=== PATIENT | male | born 1950 | race Caucasian/White ===

== ENCOUNTER 2021-04-27 09:16 | Outpatient (CLI) | payer MEDICARE, OTHER, SELFPAY ==
--- NOTE | 2021-04-27 09:48 | ECHO_ITS ---
Patient Info Name: Brandon Bergeron Age: 70 years : 1950 Gender: Male Ht: 70 in Wt: 211 lbs BSA: 2.20 m2 HR: 53 bpm BP: 174 / 82 mmHg Technical Quality: Good Exam Date: 04/27/2021 9:55 AM Exam Location: [facility] Patient Status: Outpatient Admit Date: 04/27/2021 Staff Ordering Physician: Allie Alan MD Proposal Rep: Erica Oneill RDCS Attending Provider: Allie Alan MD Referring Physician: Waqas CONNER; Exam Type: CA echo doppler color flow Study Info Indications I48.0 - Paroxysmal atrial fibrillation Complete two-dimensional, color flow and Doppler transthoracic echocardiogram is performed. Summary 1. Complete two-dimensional, color flow and Doppler transthoracic echocardiogram is performed. 2. Left ventricular chamber dimension is normal. 3. Left ventricular systolic function is normal, estimated at 65-70%. 4. The left ventricular diastolic function is abnormal. 5. E/e' 10 is mildly elevated. 6. Left atrial chamber dimension is mildly enlarged. 7. There is mild aortic valve sclerosis. 8. No pulmonary hypertension, estimated pulmonary arterial systolic pressure is 12 mmHg. Left Ventricle E/e' 10 is mildly elevated. Left ventricular chamber dimension is normal. Left ventricular systolic function is normal, estimated at 65-70%. The left ventricular diastolic function is abnormal. Right Ventricle Right ventricular chamber dimension is normal. Right ventricular systolic function is normal. Left Atria Left atrial chamber dimension is mildly enlarged. Right Atria Right atrial chamber dimension is normal. Aortic Valve The aortic valve is trileaflet. There is mild aortic valve sclerosis. There is no aortic valve stenosis. There is no aortic valve regurgitation. Pulmonic Valve There is no pulmonic regurgitation. Mitral Valve There is no mitral valve stenosis. There is no mitral valve regurgitation. Tricuspid Valve There is no tricuspid valve regurgitation. No pulmonary hypertension, estimated pulmonary arterial systolic pressure is 12 mmHg. Pericardium/Pleural There is no pericardial effusion. Inferior Vena Cava Normal inferior vena cava with >50% collapse upon inspiration consistent with normal right atrial pressure, 5 mmHg. Aorta The aortic root size at the sinus of Valsalva is normal. Left Ventricular Outflow Tract Name Value Normal LVOT 2D LVOT Diameter 2.0 cm LVOT Doppler LVOT Peak Gradient 6 mmHg LVOT Mean Gradient 3 mmHg LVOT VTI 29 cm LVOT VTI/AV VTI Ratio 0.9 LVOT Stroke Volume 89 ml LVOT CO 4.3 l/min LVOT CI 1.9 l/min/m2 Pulmonic Valve Name Value Normal RVOT Doppler
== END 2021-04-27 09:17 | disposition home or self-care (01) ==
PROVIDERS: PCP Family Medicine; Visit Provider Family Medicine
DX: I48.0 Paroxysmal atrial fibrillation (principal)
CPT/HCPCS: 93306

== ENCOUNTER 2021-04-29 13:39 | Outpatient (CLI) | payer MEDICARE, OTHER, SELFPAY ==
--- NOTE | ~2021-04-29 | MR_ITS ---
EXAMINATION: MR brain IAC wo/w con DATE: 04/29/2021 15:15 INDICATION: Aphasia. Left ear hearing loss. Paroxysmal atrial fibrillation. TECHNIQUE: Magnetic resonance imaging (MRI) of the brain, brainstem, and internal auditory canals was performed without and with 19 mL MultiHance intravenous contrast. Sequences included sagittal and ax ial T1-weighted FSE, axial diffusion-weighted FS EPI, axial T2*-weighted GRE, axial T2-weighted FLAIR Propeller, axial T2-weighted Propeller, small ydelx-hj-tbxx coronal FIESTA, small zufmj-sg-tbrn mehrdad nal T1-weighted FSE, and small vmfod-of-knnx axial T1-weighted SPGR. Postcontrast sequences included axial T1-weighted FSE, small okwii-oh-xthh coronal T1-weighted FSE, and small cktan-jn-zwzo axial T1- weighted SPGR. Apparent diffusion coefficient (ADC) maps were created. COMPARISON: Head CT 08/08/2019 FINDINGS: There is a small old infarct in left frontal lobe. There is old infarct in periventricular right frontal lobe. There are scattered areas of nonspecific increased T2-weighted signal intensity i n the cerebral white matter and mau, which is within normal limits for the patient's age. There is n o intracranial hemorrhage, acute infarction, or abnormal intracranial mass lesion. There is ex vacuo dilatation of body of right lateral ventricle. The paranasal sinuses are clear. The orbits are normal . The internal auditory canals and inner and middle ears are normal. The mastoid air cells are normal . IMPRESSION: 1. 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 Reviewed, dictated and finalized at location A.
== END 2021-04-29 13:40 | disposition home or self-care (01) ==
LOC: ANHIMG 13:45
PROVIDERS: PCP Family Medicine; Visit Provider Family Medicine
DX: I48.0 Paroxysmal atrial fibrillation (principal)
CPT/HCPCS: 70553; A9577

== ENCOUNTER 2021-05-16 18:22 | Inpatient (IN) | payer MEDICARE, OTHER, SELFPAY ==
--- NOTE | ~2021-05-16 | XR_ITS ---
XR foot LT min 3V DATE: 05/16/2021 19:22 INDICATION: Redness, pain and swelling of first metatarsal plantar surface. History of diabetes yungi sherman. TECHNIQUE: 4 views COMPARISON: None FINDINGS: Plate and screws are noted along the distal fibula. There is bone destruction including loss of cortex along the medial aspect and to a lesser extent lat eral aspect of the head of the first metatarsal bone, consistent with osteomyelitis. No fracture or dislocation. Slight plantar calcaneal enthesopathy. IMPRESSION: Bone destruction of the head of the first metatarsal bone consistent with osteomyelitis i n this patient with history of diabetes and redness, pain and swelling along the first metatarsal Reviewed, dictated and finalized at location A. IMPRESSION: Bone destruction of the head of the first metatarsal bone consisten t with osteomyelitis in this patient with history of diabetes and redness, pain and swelling along the first metatarsal
--- NOTE | ~2021-05-16 | XR_ITS ---
EXAMINATION: XR chest PICC line EXAM DATE: 05/20/2021 15:14 INDICATION: PICC line placement. TECHNIQUE: Portable AP frontal chest x-ray was obtained. Comparison is made to prior examination from 03/22/2013. FINDINGS: There is a left-sided PICC line with tip projecting over the cavoatrial junction. The lungs are clear. There are no pleural effusions. The cardiomediastinal silhouette is within normal limit s. There is no pneumothorax suspected. The bones and soft tissues are unremarkable. IMPRESSION: PICC line in position. Clear lungs. Reviewed, dictated and finalized at location B.
[2021-05-16 18:38] VITALS: BP 144/79; PULSE 79; RESP 19; TEMP 38.3; O2SAT 97
--- NOTE | 2021-05-16 19:26 | ED.WOUNDLAC ---
HPI - Wound/Laceration General Chief Complaint: Wound/Laceration Stated Complaint: left foot pain Time Seen by Provider: 05/16/21 19:08 Source: patient Mode of arrival: ambulatory Limitations: no limitations History of Present Illness HPI narrative: Patient is a 70-year-old male complaining of left foot redness and swelling that started when he woke up this morning. Patient states that he has an ulcer on his left foot, which is currently being treated and followed by his machine stuffer automatic. Patient has a history of diabetes. Patient states that he saw his machine stuffer automatic this past week, has been dressing his wound with collagen, and has been healing well until he woke up this morning and it was red and swollen along with a fever. Related Data Home Medications Medication Instructions Recorded Confirmed aspirin 325 mg tablet 325 mg PO DAILY 08/02/19 04/13/21 omeprazole 20 mg capsule,delayed 20 mg PO DAILY 08/02/19 04/13/21 release cvyjrkqrcrqg-wlt-ansyo acid-vit 1 tablet PO DAILY 04/13/21 04/13/21 K-lycop 400 mcg-20 mcg-370 mcg tablet Allergies Allergy/AdvReac Type Severity Reaction Status Date / Time No Known Allergies Allergy Mild Verified 05/16/21 19:42 Review of Systems Review of Systems: All systems reviewed & are unremarkable except as noted in HPI and below Constitutional: Constitutional: Denies body ache(s), Denies chills, Denies excessive sweating, Denies fatigue, Denies fever(s), Denies headache(s), Denies lethargy, Denies malaise, Denies weakness and Denies weight loss Eyes: Eyes: Denies blurry vision, Denies change in vision and Denies loss of vision ENT: Denies dizziness, Denies ear discharge, Denies headache(s), Denies lip swelling, Denies epistaxis, Denies nasal congestion, Denies neck pain, Denies throat swelling and Denies tongue swelling Cardiovascular: Cardiovascular: Denies chest pain, Denies chest pain at rest, Denies chest pain with activity, Denies diaphoresis, Denies rapid heart rate, Denies edema, Denies irregular heart rhythm, Denies lightheadedness, Denies palpitations, Denies dyspnea and Denies dyspnea on exertion Respiratory: Respiratory: Denies chest congestion, Denies cough, Denies hemoptysis, Denies dyspnea and Denies dyspnea on exertion Gastrointestinal: Gastrointestinal: Denies abdominal pain, Denies melena, Denies hematochezia, Denies diarrhea, Denies nausea, Denies vomiting and Denies hematemesis Musculoskeletal: Musculoskeletal: Denies abnormal gait, Denies deformity, Denies joint swelling, Denies limited range of motion, Denies neck pain and Denies numbness Neurologic: Denies Abnormal speech present, Denies abnormal gait, Denies confusion, Denies dizziness, Denies headache(s), Denies focal weakness, Denies loss of vision, Denies numbness, Denies Other visual disturbances, Denies Sensory deficit (Neuro) and Denies weakness Psychiatric: Psychiatric: Denies confusion, Denies depression, Denies auditory hallucinations, Denies homicidal ideation and Denies suicidal ideation Endocrine: Endocrine: Denies cold intolerance, Denies excessive sweating, Denies fatigue, Denies heat intolerance and Denies palpitations Hematologic/Lymphatic: Hematologic/Lymphatic: Denies easy bleeding and Denies easy bruising Allergic/Immunologic: Allergic/Immunologic: Denies lip swelling, Denies throat swelling and Denies tongue swelling PMFSH Past Medical History Medical History Chronic renal insufficiency, stage III (moderate) Diabetic foot ulcer associated with type 2 diabetes mellitus Essential (primary) hypertension Magnesium deficiency Major depressive disorder, single episode, unspecified Non-pressure chronic ulcer of other part of left foot limited to breakdown of skin Paroxysmal atrial fibrillation Recurrent major depressive disorder, in partial remission Type 2 diabetes mellitus without complications Family History Family History (Reviewed 05/16/21 @ 1
[2021-05-16] MEDS: SODIUM CHLORIDE 0.9% IV 1,000 ML 999 ML IV CONT (19:45)
[2021-05-16] MEDS: ACETAMINOPHEN 500 MG TABLET 1000 MG PO (19:52)
[2021-05-16 19:58] LABS: Basophils Absolute Auto 0.1 K/mm3 (0.0-0.1); Basophils Percent Auto 0.3 % (0.2-1.2); Hematocrit 43.3 % (42.0-52.0); Hemoglobin 14.4 g/dL (14.0-18.0); Immature Granulocyte Absolute 0.11 K/mm3 (0.00-0.031); Immature Granulocyte Percent A 0.6 % (0-0.5); Lymphocytes Absolute Auto 1.07 K/mm3 (0.9-3.2); Mean Corpuscular HGB Conc 33.3 g/dl (32-36); Mean Corpuscular Hemoglobin 29.6 pg (26-34); Mean Corpuscular Volume 89.1 fl (80-100); Mean Platelet Volume 9.8 fl (7.4-10.4); Monocytes Absolute Auto 1.4 K/mm3 (0.1-0.6); Monocytes Percent Auto 7.8 % (2.6-8.5); Neutrophils Absolute Auto 15.2 K/mm3 (1.3-6.7); Neutrophils Percent Auto 85.3 % (45.5-73.1); Platelet Count Result 184 k/mm3 (150-375); Red Blood Count 4.86 M/mm3 (4.6-6.20); Red Cell Distribution Width 13.9 % (11.5-14.5); White Blood Count 17.8 K/mm3 (4.5-10.0)
[2021-05-16 20:08] LABS: Anion Gap 12 mmol/L (8-16); Blood Urea Nitrogen 15 mg/dL (9-20); Calcium 9.9 mg/dL (8.4-10.2); Carbon Dioxide 28 mmol/L (22-30); Chloride 99 mmol/L (98-107); Estimated CRCL calculation 68 ml/min; Estimated Glomerular Filt Rate > 60; Glucose 127 mg/dL (65-110); Lactic Acid Reflex 1.7 mmol/L (0.7-2.1); Potassium 4.4 mmol/L (3.4-5.0); Sodium 139 mmol/L (137-145)
[2021-05-16 20:27] VITALS: BP 133/75; PULSE 76; RESP 17; TEMP 37.7; O2SAT 95
[2021-05-16 21:26] VITALS: BP 134/77; PULSE 78; RESP 15; O2SAT 98
[2021-05-16 21:39] LABS: Erythrocyte Sedimentation Rate 11 mm/hr (0-20)
--- NOTE | 2021-05-16 21:58 | PC.NURSE ---
Dr Mccurdy at bedside at this time, requests pt go to floor after visit. proposal writer aware of delay.
[2021-05-16 22:00] VITALS: BP 143/49; PULSE 60; RESP 16; TEMP 36.4; O2SAT 98
[2021-05-16 22:22] VITALS: BP 133/81; PULSE 71; RESP 15; O2SAT 99
--- NOTE | 2021-05-16 22:25 | ADMGEN ---
This patient, Brandon Bergeron, was admitted to Medical Room 258-01. Patient/family oriented to hospital policies and general routines including ID bracelet, bed and alarms, visiting hours, pain management, procedures, bathroom and other care routines, personal items, smoking policy, room service/diet, and visiting hours. Information on how to activate the Rapid Response Team has been discussed. Patient/Family are encouraged to report perceived risks to care and to ask questions if they do not understand what they are told or what they should do.
--- NOTE | 2021-05-16 22:29 | PM.IMHP ---
H&P: HPI History of Present Illness Date/Time: 05/16/21 22:00 Chief Complaint: Left foot pain and swelling Narrative: 70-year-old male with past medical history of diabetic peripheral neuropathy trauma hypertension, paroxysmal atrial fibrillation and GERD who presented to the ER from home via private vehicle due to left foot pain in the setting of a chronic diabetic foot ulcer. The patient reports that he has had a chronic foot wound for several months that is being managed by Dr. Dubon boiling house hand in [place]. He reports that his diabetic foot wound had actually been doing good and was healing up. In suddenly last night he began having chills. Then in ditch digger hours he developed throbbing left foot pain. In the morning he noticed erythema and swelling of the area surrounding his foot ulcer. He has not noticed any drainage. He checked his temperature at home and had a fever of 100.4?. He did not take any pain medications or NSAIDs prior to arrival in the ER. In the ER he had a temperature is high as 100.9?. He denies any new injury the foot. He had not been on any recent antibiotic therapy. He reports that his last hemoglobin A1c was 6.8. He has not been having any issues with hyperglycemia. He is on oral is hypoglycemic agents. He does have chronic diabetic neuropathy for many years. He reports some chronic dyspnea on exertion but has not been having any cough, congestion or myalgias. He does have some chronic arthralgias that he thinks is due to osteoarthritis. He occasionally has some difficulty starting and stopping his urinary stream but denies any current dysuria, hematuria or changes in frequency. He does snore quite a lot. He has never had a sleep study. Does have history of atrial fibrillation but has not had any recent palpitations, lower extremity swelling or orthopnea. He has not followed with a machine records units supervisor in over 10 years. He reported that he had been on Xarelto briefly after an episode of atrial fibrillation but he stopped it when he developed hematuria. He states his primary care physician placed him on a full-dose aspirin after that event. The patient consented to discuss is medical condition from his daughter. Source of information is the patient and his daughter were both good historians. Review of Systems Review of Systems: 12 systems were reviewed with pertinent positives and negatives per HPI. Except as documented in the HPI, all other systems were reviewed and are negative. [facility] Past Medical History Medical History (Updated 05/17/21 @ 03:45 by Adele Mccurdy DO) Chronic renal insufficiency, stage III (moderate) Patient actually denies a history of chronic kidney disease and his creatinine is currently normal with a normal GFR Diabetes mellitus Diabetic foot ulcer associated with type 2 diabetes mellitus Diabetic peripheral neuropathy Dupuytren's contracture of left hand Eczema Essential (primary) hypertension Kidney stones Reportedly passed a kidney stone at 11 years of age Magnesium deficiency Major depressive disorder, single episode, unspecified Paroxysmal atrial fibrillation Psoriasis Recurrent major depressive disorder, in partial remission Surgical History Surgical History (Updated 05/17/21 @ 03:43 by Adele Mccurdy DO) Status post open reduction with internal fixation of fracture Left ankle ORIF [address] Tyler Family History Family History Father Myocardial infarct Family history of coronary artery disease, Onset Age: 66 Lung cancer Mother Leukemia Family history of coronary artery disease, Onset Age: 70 Diabetes mellitus Sibling Multiple sclerosis Sister Diabetes mellitus Social History Social History (Updated 05/17/21 @ 04:05 by Adele Mccurdy DO) Social History: He is and his ex- later . He reports that he is happy to be single and l
[2021-05-16] MEDS: LACTATED RINGERS 1,000 ML 125 ML IV CONT (22:59)
[2021-05-16 23:06] LABS: CRP 4.6 mg/dL (<1.0)
[2021-05-16 23:42] VITALS: TEMP 36.4
[2021-05-17] MEDS: metFORMIN HCL 500 MG TABLET 1000 MG PO ×3 (01:18→16:40)
[2021-05-17] MEDS: ZOLPIDEM TARTRATE (*CRX) 5 MG TABLET 10 MG PO ×2 (01:18→20:46)
[2021-05-17] MEDS: amLODIPine BESYLATE 2.5 MG TABLET PO ×2 (01:38→20:46)
[2021-05-17] MEDS: ASPIRIN 325 MG ENTERIC TABLET PO (01:38)
[2021-05-17 05:24] LABS: Basophils Percent Auto 0.2 % (0.2-1.2); Eosinophils Percent Auto 0.1 % (0-4.4); Hematocrit 37.9 % (42.0-52.0); Hemoglobin 12.8 g/dL (14.0-18.0); Immature Granulocyte Absolute 0.07 K/mm3 (0.00-0.031); Immature Granulocyte Percent A 0.5 % (0-0.5); Lymphocytes Absolute Auto 1.24 K/mm3 (0.9-3.2); Lymphocytes Percent Auto 8.4 % (18.3-44.2); Mean Corpuscular HGB Conc 33.8 g/dl (32-36); Mean Corpuscular Hemoglobin 29.3 pg (26-34); Mean Corpuscular Volume 86.7 fl (80-100); Mean Platelet Volume 9.9 fl (7.4-10.4); Monocytes Absolute Auto 1.5 K/mm3 (0.1-0.6); Monocytes Percent Auto 10.5 % (2.6-8.5); Neutrophils Absolute Auto 11.8 K/mm3 (1.3-6.7); Neutrophils Percent Auto 80.3 % (45.5-73.1); Platelet Count Result 167 k/mm3 (150-375); Red Blood Count 4.37 M/mm3 (4.6-6.20); Red Cell Distribution Width 13.7 % (11.5-14.5); White Blood Count 14.7 K/mm3 (4.5-10.0)
[2021-05-17 05:35] VITALS: BP 151/73; PULSE 83; RESP 16; TEMP 36.9; O2SAT 93
[2021-05-17 05:36] VITALS: BMI 29.5
[2021-05-17 05:38] LABS: Anion Gap 11 mmol/L (8-16); Blood Urea Nitrogen 14 mg/dL (9-20); Calcium 9.1 mg/dL (8.4-10.2); Carbon Dioxide 23 mmol/L (22-30); Chloride 104 mmol/L (98-107); Estimated CRCL calculation 59 ml/min; Estimated Glomerular Filt Rate > 60; Glucose 124 mg/dL (65-110); Potassium 3.7 mmol/L (3.4-5.0); Sodium 138 mmol/L (137-145)
[2021-05-17] MEDS: LACTATED RINGERS 1,000 ML 125 ML IV CONT (06:05)
[2021-05-17 08:03] VITALS: PULSE 106
[2021-05-17] MEDS: METOPROLOL SUCCINATE EXT REL 100 MG TABCR PO (08:03)
[2021-05-17] MEDS: CITALOPRAM HYDROBROMIDE 20 MG TABLET PO (08:03)
[2021-05-17] MEDS: THERAPEUTIC MULTIVITAMINS/MINERALS TAB (*BKC) 1 TABLET PO (08:03)
[2021-05-17] MEDS: lisinopriL 20 MG TABLET 40 MG PO (08:03)
[2021-05-17] MEDS: ENOXAPARIN 40 MG/0.4 ML SYRINGE SUB-Q (08:05)
[2021-05-17] MEDS: PANTOPRAZOLE 40 MG TABLET PO (08:06)
--- NOTE | 2021-05-17 09:37 | PM.IMPN ---
Progress Note: A&P Assessment and Plan (1) Sepsis: Code(s): A41.9 - Sepsis, unspecified organism Status: Acute Assessment and Plan: Met sepsis criteria on presentation with fever (100.9?) and leukocytosis. Source of infection is diabetic foot ulcer/osteomyelitis. Lactic is 1.7 Blood cultures pending Continue IV antibiotics Treatment as described below (2) Acute osteomyelitis of left foot: Code(s): M86.172 - Other acute osteomyelitis, left ankle and foot Status: Acute Assessment and Plan: Patient has chronic diabetic foot wound being managed by Podiatry. Foot x-ray demonstrates osteomyelitis, which may be acute or acute on chronic. Also suspect overlying cellulitis of the left foot. Appreciate orthopedic surgery consultation Continue with IV Zosyn and vancomycin Supportive care. Analgesics available as needed. (3) Cellulitis of left foot: Code(s): L03.116 - Cellulitis of left lower limb Status: Acute Assessment and Plan: As above (4) Diabetic foot ulcer associated with type 2 diabetes mellitus: Qualifiers: Diabetic foot ulcer location: midfoot Laterality: left Non-pressure ulcer stage: unspecified non-pressure ulcer stage Qualified Code(s): E11.621 - Type 2 diabetes mellitus with foot ulcer; L97.429 - Non-pressure chronic ulcer of left heel and midfoot with unspecified severity Code(s): E11.621 - Type 2 diabetes mellitus with foot ulcer; L97.509 - Non-pressure chronic ulcer of other part of unspecified foot with unspecified severity Status: Acute Assessment and Plan: His diabetes has been well controlled. Last A1c was 6.8 (04/07/2021). Appreciate Orthopedic surgery and Wound Care consultation for evaluation of diabetic foot ulcer Continue with Accu-Cheks, sliding scale insulin, hypoglycemic protocol Continue home metformin Monitor blood sugar trends closely and adjust medication regimen as needed (5) Essential (primary) hypertension: Code(s): I10 - Essential (primary) hypertension Status: Acute Assessment and Plan: Blood pressure reviewed and has been reasonably well controlled. Last BP 151/73 Continue amlodipine, lisinopril, metoprolol Monitor blood pressure trends (6) Paroxysmal atrial fibrillation: Code(s): I48.0 - Paroxysmal atrial fibrillation Status: Acute Assessment and Plan: No longer on anticoagulation. Rate is controlled Continue metoprolol succinate Continue aspirin 325 mg daily Subjective Date/time seen: 05/17/21 09:37 Interval history: Date of service: 05/17/2021 Brandon Bergeron is a 70-year-old male with a history of type 2 diabetes mellitus with neuropathy and diabetic foot ulcers managed by Podiatry, CKD, psoriasis, paroxysmal atrial fibrillation not on anticoagulation, and several other medical problems who is seen in follow-up for osteomyelitis of the left foot. He is feeling better today. His left foot pain is improving. He currently describes it as intermittent dull aching which he rates as 3/10. He is able to bear weight on the foot but reports more pain when doing so. He denies drainage or pus from the wound. He did have another episode of chills last night. He also reported sweats which is not uncommon for him. His appetite is poor. He denies nausea or vomiting. No abdominal pain. No diarrhea. He reports more frequent urination since starting IV fluids, otherwise denies dysuria, hematuria, urgency. No shortness breath, cough, chest pain, palpitations, dizziness, lightheadedness. Review of Systems Review of Systems: All systems reviewed & are unremarkable except as noted in HPI and below Exam Narrative: Mr. Bergeron is a well-nourished, well-appearing 70-year-old male who is lying supine in bed. He appears comfortable and is in NARD. Neuro: awake, alert and oriented x4, speech clear, no focal neuro defici
[2021-05-17 10:02] LABS: Glucose Point of Care 145 mg/dl (65-105)
--- NOTE | 2021-05-17 10:06 | PM.CNOR ---
Assessment and Plan Assessment and plan (1) Acute osteomyelitis of left foot: Code(s): M86.172 - Other acute osteomyelitis, left ankle and foot Status: Acute Assessment and Plan: 70-year-old gentleman with type 2 diabetes and peripheral neuropathy involving bilateral forefoot. Admitted from the emergency room with acute onset left foot infection. History of chronic plantar 1st metatarsal head diabetic foot ulcer treated for the past 3 to 4 months. Radiographs show likely osteo of the proximal phalanx and 1st metatarsal head. Exam shows mild swelling and erythema of the hallux metatarsophalangeal and dorsal forefoot. Small ulcer on the plantar aspect which most likely communicates with the sesamoid. Started on intravenous antibiotics. Dressing changes with silver gel and gauze. Operative and non operative treatment options reviewed with the patient. Recommend operative debridement of the ulcer, most likely sesamoid and excision of the osteomyelitis of the hallux metatarsophalangeal joint. Most likely will require long-term IV antibiotic. Discussed long-term implications, difficulty with healing given medical comorbidities, possible need for further surgery and possibility of loss of a portion of the foot or the entire foot. Patient's questions answered. He verbalizes agreement. Discussed nonoperative and operative treatment options with the patient. Risks and benefits of each as well as alternatives were reviewed. All of the patient's questions were answered. The risks of surgery reviewed including but not limited to: Neurovascular damage, wound complication, infection, blood clot, pulmonary embolus, stroke, myocardial infarction, and anesthetic risks up to and including . Continued pain and possible dysfunction were explained. Specific risks of the procedure including later recurrence of deformity. No guarantees were offered. If hardware used, discussed risk of failure/ breakage and possible need for removal. If complications occur, the patient understands the need for further treatment, possible further surgery. Patient verbalizes understanding and wishes to proceed. PLAN: Patient started on intravenous antibiotics. Allow antibiotics to improve swelling and cellulitis. Silver gel dressing changes. Proceed with surgery when medically stable. Surgical plan: debridement left diabetic foot ulcer, excision of osteomyelitis. (2) Diabetic foot ulcer associated with type 2 diabetes mellitus: Qualifiers: Diabetic foot ulcer location: midfoot Laterality: left Non-pressure ulcer stage: unspecified non-pressure ulcer stage Qualified Code(s): E11.621 - Type 2 diabetes mellitus with foot ulcer; L97.429 - Non-pressure chronic ulcer of left heel and midfoot with unspecified severity Code(s): E11.621 - Type 2 diabetes mellitus with foot ulcer; L97.509 - Non-pressure chronic ulcer of other part of unspecified foot with unspecified severity Status: Acute (3) Cellulitis of left foot: Code(s): L03.116 - Cellulitis of left lower limb Status: Acute History of Present Illness HPI Consult date: 05/17/21 Requesting physician: Demond Rouse MD Chief complaint: Acute Osteomyelitis Narrative: New patient evaluation for left foot infection. Patient presented to the emergency room yesterday with increased swelling and redness left forefoot and hallux. Patient has had chronic ulceration on the left ball of the foot for the past 3 to 4 months. Treated outside facility by Podiatry. Has undergone total contact casting which was removed 2 weeks ago. Switch to dressing changes with silver. Original ulcer plantar 1st metatarsal head which patient reports had almost healed. Had minimal drainage until yesterday. Increased redness, swelling and drainage from the left foot starting yesterday. No pain secondary to neuropathy. No fever/ chills. Patient is type 2 diabetic controlled with oral me
[2021-05-17 10:47] VITALS: O2SAT 97
[2021-05-17 11:54] LABS: Glucose Point of Care 111 mg/dl (65-105)
[2021-05-17 14:00] VITALS: BP 155/66; PULSE 69; RESP 18; TEMP 37.2; O2SAT 100
[2021-05-17 18:22] LABS: Glucose Point of Care 115 mg/dl (65-105)
[2021-05-17] MEDS: LACTATED RINGERS 1,000 ML 95 ML IV CONT (19:05)
[2021-05-17 19:52] VITALS: O2SAT 100
[2021-05-17 20:12] VITALS: BP 135/53; PULSE 63; RESP 17; TEMP 36.2; O2SAT 96
[2021-05-17 20:51] LABS: Glucose Point of Care 113 mg/dl (65-105)
[2021-05-18] VITALS (14 sets, daily range): BP systolic 116–147; BP diastolic 60–76; PULSE 59–92; RESP 14–20; TEMP 36.5–37.3; O2SAT 93–100
[2021-05-18] MEDS: LACTATED RINGERS 1,000 ML 95 ML IV CONT (05:43)
[2021-05-18 05:45] LABS: Hematocrit 42.2 % (42.0-52.0); Hemoglobin 14.3 g/dL (14.0-18.0); Mean Corpuscular HGB Conc 33.9 g/dl (32-36); Mean Corpuscular Volume 88.5 fl (80-100); Mean Platelet Volume 9.7 fl (7.4-10.4); Platelet Count Result 168 k/mm3 (150-375); Red Blood Count 4.77 M/mm3 (4.6-6.20); Red Cell Distribution Width 13.8 % (11.5-14.5); White Blood Count 14.6 K/mm3 (4.5-10.0)
[2021-05-18 06:18] LABS: Glucose Point of Care 115 mg/dl (65-105)
[2021-05-18] MEDS: METOPROLOL SUCCINATE EXT REL 100 MG TABCR PO (08:06)
--- NOTE | 2021-05-18 08:43 | PC.NURSE ---
Isabel BUCIO notified of positive blood cultures called
[2021-05-18 08:46] LABS: Anion Gap 7 mmol/L (8-16); Blood Urea Nitrogen 13 mg/dL (9-20); CRP 16.4 mg/dL (<1.0); Calcium 8.9 mg/dL (8.4-10.2); Carbon Dioxide 28 mmol/L (22-30); Chloride 101 mmol/L (98-107); Estimated CRCL calculation 59 ml/min; Estimated Glomerular Filt Rate > 60; Glucose 132 mg/dL (65-110); Potassium 3.7 mmol/L (3.4-5.0); Sodium 136 mmol/L (137-145)
--- NOTE | 2021-05-18 11:10 | PM.IMPN ---
Progress Note: A&P Assessment and Plan (1) Septicemia: Code(s): A41.9 - Sepsis, unspecified organism Status: Acute Assessment and Plan: Met sepsis criteria on presentation with fever (100.9?) and leukocytosis. Source of infection is diabetic foot ulcer/osteomyelitis. Lactic 1.7 Preliminary blood cultures with growth of gram positive cocci in clusters. Continue to monitor cultures Continue IV antibiotics Will plan to repeat blood cultures with AM labs tomorrow Proceed with Infectious Disease consultation once further identification from blood cultures returned. Anticipate oil heaterman IV antibiotics in light of osteomyelitis and septicemia Afebrile today. (2) Acute osteomyelitis of left foot: Code(s): M86.172 - Other acute osteomyelitis, left ankle and foot Status: Acute Assessment and Plan: Patient has chronic diabetic foot wound that was being managed conservatively by Podiatry for 3-4 months and was reportedly nearly healed. Foot x-ray showed osteomyelitis and he has overlying cellulitis of the left foot. Appreciate orthopedic surgery consultation Continue with IV Zosyn and vancomycin Supportive care. Analgesics available as needed. Planning for excision and debridement in the OR this afternoon (3) Cellulitis of left foot: Code(s): L03.116 - Cellulitis of left lower limb Status: Acute Assessment and Plan: As above (4) Diabetic foot ulcer associated with type 2 diabetes mellitus: Qualifiers: Diabetic foot ulcer location: midfoot Laterality: left Non-pressure ulcer stage: unspecified non-pressure ulcer stage Qualified Code(s): E11.621 - Type 2 diabetes mellitus with foot ulcer; L97.429 - Non-pressure chronic ulcer of left heel and midfoot with unspecified severity Code(s): E11.621 - Type 2 diabetes mellitus with foot ulcer; L97.509 - Non-pressure chronic ulcer of other part of unspecified foot with unspecified severity Status: Acute Assessment and Plan: His diabetes has been well controlled. Last A1c was 6.8 (04/07/2021). Continue with Accu-Cheks, sliding scale insulin, hypoglycemic protocol Continue home metformin Monitor blood sugar trends closely and adjust medication regimen as needed (5) Essential (primary) hypertension: Code(s): I10 - Essential (primary) hypertension Status: Acute Assessment and Plan: Blood pressure reviewed and has been reasonably well controlled. Last BP 132/73 Continue amlodipine, lisinopril, metoprolol Monitor blood pressure trends (6) Paroxysmal atrial fibrillation: Code(s): I48.0 - Paroxysmal atrial fibrillation Status: Acute Assessment and Plan: No longer on anticoagulation due to history of hematuria. Rate is controlled Continue metoprolol succinate Continue aspirin 325 mg daily Subjective Date/time seen: 05/18/21 11:10 Interval history: Date of service: 05/17/2021 Brandon Bergeron is a 70-year-old male with a history of type 2 diabetes mellitus with neuropathy and diabetic foot ulcers managed by Podiatry, CKD, psoriasis, paroxysmal atrial fibrillation not on anticoagulation, and several other medical problems who is seen in follow-up for osteomyelitis of the left foot. he feels better today. He is not having pain his or leg. He does sick with a, therefore has minimal sensation of his lower extremities. he denies nausea, vomiting, fever, chills, or sweats. He does endorse a decreased appetite and did not eat much yesterday. He is NPO today. He denies shortness breath, cough, chest pain. No headaches or body aches. Review of Systems Review of Systems: All systems reviewed & are unremarkable except as noted in HPI and below Exam Narrative: Mr. Bergeron is a well-nourished, well-appearing 70-year-old male who is lying supine in bed. He appears comfortable and is in NARD. Neuro: awake, alert and orient
[2021-05-18 11:20] LABS: Glucose Point of Care 117 mg/dl (65-105)
--- NOTE | 2021-05-18 12:38 | WPDCDIQUERY2 ---
CDI Query Clarification Request -Cellulitis of left foot has been documented -
[2021-05-18] MEDS: LACTATED RINGERS 1,000 ML 30 ML IV CONT (12:56)
--- NOTE | 2021-05-18 13:13 | WPDHPUPDATE1 ---
History and Physical Update Update Date/Time: 05/18/21 13:13 History and Physical has been reviewed, including an updated exam of the patient. There are NO changes in the patient's condition. Risks, benefits, and alternatives have been discussed and questions answered. Patient agrees to proceed with procedure.
--- NOTE | 2021-05-18 13:20 | WPDANESEPPF ---
Anes - Initial Pre Proc Eval Procedure: Operation Date: 05/18/21 13:30 Proposed Procedures p Left foot Debridement - Ilia Wing MD Date/Time: 05/18/21 13:20 Surgeon: Isabel Alvarez PA-C Pre Op Diagnosis: Acute Osteomyelitis Patient Data Age: 70 Gender: M Height: 1.78 m Weight: 93.3 kg Last Vital Signs Temp 99.2 F 05/18/21 12:38 Pulse 73 05/18/21 12:38 Resp 14 05/18/21 12:38 BP 142/71 H 05/18/21 12:38 Pulse Ox 98 05/18/21 12:38 Allergies Allergy/AdvReac Type Severity Reaction Status Date / Time No Known Allergies Allergy Mild Verified 05/16/21 22:56 Home Medications Medication Instructions Recorded Confirmed Type aspirin 325 mg tablet 325 mg PO DAILY 08/02/19 05/16/21 History omeprazole 20 mg capsule,delayed 20 mg PO 4XW 08/02/19 05/16/21 History release lisinopril 40 mg tablet 40 mg PO DAILY #90 tablet 01/22/21 05/16/21 Rx metoprolol succinate 100 mg 100 mg PO DAILY #30 tablet 02/16/21 05/16/21 Rx tablet,extended release 24 hr metformin 1,000 mg tablet 1,000 mg PO BID #180 tablet 03/10/21 05/16/21 Rx citalopram 20 mg tablet 20 mg PO DAILY #30 tablet 04/13/21 05/16/21 Rx [id number] acid-vit 1 tablet PO DAILY 04/13/21 05/16/21 History K-lycop 400 mcg-20 mcg-370 mcg tablet amlodipine 2.5 mg PO DAILY 05/16/21 05/16/21 History fiber 1 cap PO QID 05/16/21 05/16/21 History zolpidem 10 mg PO HS 05/16/21 05/16/21 History Laboratory Tests 05/17/21 05/17/21 05/18/21 16:38 20:46 05:38 WBC 14.6 K/mm3 H K/mm3 (4.5-10.0) RBC 4.77 M/mm3 M/mm3 (4.6-6.20) Hgb 14.3 g/dL g/dL (14.0-18.0) Hct 42.2 % % (42.0-52.0) MCV 88.5 fl fl (80-100) MCH 30.0 pg pg (26-34) MCHC 33.9 g/dl g/dl (32-36) RDW 13.8 % % (11.5-14.5) Plt Count 168 k/mm3 k/mm3 (150-375) MPV 9.7 fl fl (7.4-10.4) Sodium Potassium Chloride Carbon Dioxide Anion Gap BUN Creatinine Estim Creat Clear Calc Estimated GFR Glucose POC Capillary Glucose 115 mg/dl H mg/dl 113 mg/dl H mg/dl (65-105) (65-105) Calcium C-Reactive Protein 05/18/21 05/18/21 05/18/21 05:41 07:57 10:57 WBC RBC Hgb Hct MCV MCH MCHC RDW Plt Count MPV Sodium 136 mmol/L L mmol/L (137-145) Potassium 3.7 mmol/L mmol/L (3.4-5.0) Chloride 101 mmol/L mmol/L (98-107) Carbon Dioxide 28 mmol/L mmol/L (22-30) Anion Gap 7 mmol/L L mmol/L (8-16) BUN 13 mg/dL mg/dL (9-20) Creatinine 1.10 mg/dL mg/dL (0.7-1.3) Estim Creat Clear Calc 59 ml/min ml/min Estimated GFR > 60 (59 - ) Glucose 132 mg/dL H mg/dL (65-110) POC Capillary Glucose 115 mg/dl H mg/dl 117 mg/dl H mg/dl (65-105) (65-105) Calcium 8.9 mg/dL mg/dL (8.4-10.2) C-Reactive Protein 16.4 mg/dL H mg/dL (<1.0) Patient hx anesthesia problems: none Family hx anesthesia problems: none Results Review: All pre-operative results and documents have been reviewed as part of the pre-operative evaluation. [facility] Past Medical History Medical History Chronic renal insufficiency, stage III (moderate) Patient actually denies a history of chronic kidney disease and his creatinine is currently normal with a normal GFR Diabetes mellitus Diabetic foot ulcer associated with type 2 diabetes mellitus Diabetic peripheral neuropathy Dupuytren's contracture of left hand Eczema Essential (primary) hypertension Kidney stones Reportedly passed a kidney stone at 11 years of age Magnesium deficiency Major depre
[2021-05-18] MEDS: BUPIVACAINE HCL 0.5% PF 30 ML VIAL INFILTRATE (14:44)
--- NOTE | 2021-05-18 14:54 | P.OP_ITS ---
Procedure Note - Detailed Date of Procedure 05/18/21 Pre-op Diagnosis Acute Osteomyelitis Post-op Diagnosis same Procedure Performed Left diabetic foot infection debridement to muscle, 1 x 1 cm. Excision of osteomyelitis left 1st metatarsal Surgeon Ilia Wing MD Laundry Operator Finishing grants assistant Anesthesia general Indications 70-year-old gentleman with non insulin dependent diabetes and peripheral neuropathy. Chronic left plantar diabetic foot ulcer now with osteomyelitis. Findings Diabetic foot ulcer extending to the medial sesamoid. Septic arthritis metatarsophalangeal joint with osteomyelitis of the distal 1st metatarsal and pr oximal phalanx. Description of Procedure Patient identified preoperative holding. Operative extremity marked. Informed consent given. Patient on intravenous antibiotics. Brought the operating room where underwent a general anesthetic by anesthesia team. Position supine in the operating room table. Time-out performed confirming the patient, side of the surgery and the plan. Left foot prepped draped usual sterile surgical fashion using a Betadine prep solution. Foot exsanguinated and calf tourniquet inflated to 250 mmHg. Fifteen blade knife used to sharply excise and debride the plantar diabetic foot ulcer. Skin, subcutaneous tissue, muscle sharply excised and passed off. 1 x 1 plantar ulcer noted. Closed with 3-0 nylon interrupted suture after thorough irrigation. Dorsal- medial longitudinal incision made with 15 blade knife over the hallux metatarsophalangeal joint. Hemostasis controlled electrocautery. Capsulotomy performed in line with skin incision. Septic arthritis of the joint noted. Infected synovium sharply excised and removed. Osteotome used to resect the distal end of the 1st metatarsal in the proximal end of the proximal phalanx. Rongeur used to remove excess bone. Medial sesamoid excised. Wound thoroughly irrigated antibiotic solution. Cultures taken from the joint space prior to irrigation. Toe then positioned and provisionally held with the threaded 2.0 mm Steinmann pin. Capsule then closed with 0 Monocryl interrupted suture. Subcutaneous tissue and skin repaired with 3-0 nylon running suture. Sterile dressing applied. Tourniquet released. Patient awoke from anesthesia, extubated and taken to the recovery room in stable condition. All sponge needle and instrument counts correct in the case. Implants 2.0 mm threaded Steinmann pin Estimated Blood Loss 5 Tourniquet Time 30 Urine Output 600 Drains No Packing No Pathology yes (Culture from the hallux metatarsophalangeal joint space) Complications None Condition stable Disposition PACU
[2021-05-18 15:10] LABS: Glucose Point of Care 141 mg/dl (65-105)
[2021-05-18] MEDS: lisinopriL 20 MG TABLET 40 MG PO (16:53)
[2021-05-18] MEDS: CITALOPRAM HYDROBROMIDE 20 MG TABLET PO (16:53)
[2021-05-18] MEDS: THERAPEUTIC MULTIVITAMINS/MINERALS TAB (*BKC) 1 TABLET PO (16:53)
[2021-05-18] MEDS: metFORMIN HCL 500 MG TABLET 1000 MG PO (16:53)
[2021-05-18] MEDS: PANTOPRAZOLE 40 MG TABLET PO (16:53)
[2021-05-18] MEDS: amLODIPine BESYLATE 2.5 MG TABLET PO (20:12)
[2021-05-18] MEDS: ASPIRIN 325 MG ENTERIC TABLET PO (20:12)
[2021-05-18] MEDS: ZOLPIDEM TARTRATE (*CRX) 5 MG TABLET 10 MG PO (20:13)
[2021-05-18 20:23] LABS: Glucose Point of Care 121 mg/dl (65-105)
[2021-05-19] VITALS (9 sets, daily range): BP systolic 126–160; BP diastolic 64–83; PULSE 74–100; RESP 14–18; TEMP 36.1–37.1; O2SAT 96–99
[2021-05-19 05:08] LABS: Basophils Percent Auto 0.3 % (0.2-1.2); Eosinophils Absolute Auto 0.1 K/mm3 (0-0.3); Eosinophils Percent Auto 0.8 % (0-4.4); Hematocrit 36.3 % (42.0-52.0); Hemoglobin 12.3 g/dL (14.0-18.0); Immature Granulocyte Absolute 0.07 K/mm3 (0.00-0.031); Immature Granulocyte Percent A 0.6 % (0-0.5); Lymphocytes Absolute Auto 1.48 K/mm3 (0.9-3.2); Mean Corpuscular HGB Conc 33.9 g/dl (32-36); Mean Corpuscular Hemoglobin 29.7 pg (26-34); Mean Corpuscular Volume 87.7 fl (80-100); Mean Platelet Volume 9.6 fl (7.4-10.4); Monocytes Absolute Auto 1.3 K/mm3 (0.1-0.6); Monocytes Percent Auto 10.1 % (2.6-8.5); Neutrophils Absolute Auto 9.4 K/mm3 (1.3-6.7); Neutrophils Percent Auto 76.2 % (45.5-73.1); Platelet Count Result 164 k/mm3 (150-375); Red Blood Count 4.14 M/mm3 (4.6-6.20); Red Cell Distribution Width 13.8 % (11.5-14.5); White Blood Count 12.4 K/mm3 (4.5-10.0)
[2021-05-19 05:25] LABS: Anion Gap 11 mmol/L (8-16); Blood Urea Nitrogen 14 mg/dL (9-20); Calcium 8.9 mg/dL (8.4-10.2); Carbon Dioxide 27 mmol/L (22-30); Chloride 101 mmol/L (98-107); Estimated CRCL calculation 50 ml/min; Estimated Glomerular Filt Rate 55; Glucose 125 mg/dL (65-110); Potassium 3.9 mmol/L (3.4-5.0); Sodium 139 mmol/L (137-145)
[2021-05-19 05:39] LABS: CRP 14.9 mg/dL (<1.0)
--- NOTE | 2021-05-19 07:32 | WPDANESPN ---
Anes - Prog Note Post-Op Date/Time: 05/19/21 07:32 Cardiovascular status: normal Respiratory status: normal Airway patency: baseline Mental status: baseline Post-Op hydration status: normal Vital Signs: Last Vital Signs Temp 36.9 C 05/19/21 05:33 Pulse 100 05/19/21 05:33 Resp 14 05/19/21 05:33 BP 148/64 H 05/19/21 05:33 Pulse Ox 97 05/19/21 05:33 Pain Score (VAS): 2 I/O: Intake & Output 05/18/21 05/18/21 05/19/21 15:59 23:59 07:59 Intake Total 588 636 6590 Output Total 1200 2000 Balance -600 490 -950 Laboratory Tests 05/19/21 04:38 05/19/21 04:38 05/18/21 05/18/21 05/18/21 07:57 10:57 15:08 WBC RBC Hgb Hct MCV MCH MCHC RDW Plt Count MPV Immature Gran % (Auto) Neut % (Auto) Lymph % (Auto) [place] % (Auto) Eos % (Auto) Baso % (Auto) Lymph # (Auto) [place] # (Auto) Eos # (Auto) Baso # (Auto) Abs Immat Gran (auto) Absolute Neuts (auto) Absolute Nucleated RBC Nucleated RBC % Sodium 136 L Potassium 3.7 Chloride 101 Carbon Dioxide 28 Anion Gap 7 L BUN 13 Creatinine 1.10 Estim Creat Clear Calc 59 Estimated GFR > 60 Glucose 132 H POC Capillary Glucose 117 H 141 H Calcium 8.9 C-Reactive Protein 16.4 H 05/18/21 05/19/21 05/19/21 20:12 04:38 04:38 WBC 12.4 H RBC 4.14 L Hgb 12.3 L Hct 36.3 L MCV 87.7 MCH 29.7 MCHC 33.9 RDW 13.8 Plt Count 164 MPV 9.6 Immature Gran % (Auto) 0.6 H Neut % (Auto) 76.2 H Lymph % (Auto) 12.0 L [place] % (Auto) 10.1 H Eos % (Auto) 0.8 Baso % (Auto) 0.3 Lymph # (Auto) 1.48 [place] # (Auto) 1.3 H Eos # (Auto) 0.1 Baso # (Auto) 0.0 Abs Immat Gran (auto) 0.07 H Absolute Neuts (auto) 9.4 H Absolute Nucleated RBC 0.0 Nucleated RBC % 0.0 Sodium 139 Potassium 3.9 Chloride 101 Carbon Dioxide 27 Anion Gap 11 BUN 14 Creatinine 1.30 Estim Creat Clear Calc 50 Estimated GFR 55 L Glucose 125 H POC Capillary Glucose 121 H Calcium 8.9 C-Reactive Protein 14.9 H Microbiology 05/16/21 19:47 Blood Blood Culture - Preliminary Methicillin Resis Staph Aureus Post-procedural complaints: none Patient Feedback: Patient satisfied with anesthetic care.
[2021-05-19 07:49] LABS: Glucose Point of Care 127 mg/dl (65-105)
--- NOTE | 2021-05-19 07:54 | PC.NURSE ---
MRSA IN BLOOD CULTURES CALLED TO [facility]
[2021-05-19] MEDS: metFORMIN HCL 500 MG TABLET 1000 MG PO ×2 (08:27→17:30)
[2021-05-19] MEDS: lisinopriL 20 MG TABLET 40 MG PO (08:27)
[2021-05-19] MEDS: METOPROLOL SUCCINATE EXT REL 100 MG TABCR PO (08:28)
[2021-05-19] MEDS: THERAPEUTIC MULTIVITAMINS/MINERALS TAB (*BKC) 1 TABLET PO (08:28)
[2021-05-19] MEDS: CITALOPRAM HYDROBROMIDE 20 MG TABLET PO (08:28)
[2021-05-19] MEDS: ACETAMINOPHEN 325 MG TABLET 650 MG PO (08:32)
[2021-05-19 10:23] LABS: Vancomycin Trough 5.6 ug/mL (10.0-20.0)
--- NOTE | 2021-05-19 10:30 | PM.PNORT ---
Progress Note: A&P Assessment and Plan (1) Acute osteomyelitis of left foot: Code(s): M86.172 - Other acute osteomyelitis, left ankle and foot Status: Acute Assessment and Plan: POD #1: Left diabetic foot infection debridement and excision of osteomyelitis left 1st metatarsal Dressing changed. Begin daily dressing changes with adaptic covering incision/distal hallux, cover with gauze, wrap loosely with Kerlex/Coband. Elevate LLE on pillows. PWB with post op shoe on heel. Post op shoe ordered. ID consult for osteomyelitis/septicemia. Blood cultures from 05/16 with MRSA. Wound cultures and repeat blood cultures pending. Dispo: Home with Home Health for dressing changes/suspected superintendent container terminal antibiotics pending medical stability. (2) Cellulitis of left foot: Code(s): L03.116 - Cellulitis of left lower limb Status: Acute Assessment and Plan: Continue IV antibiotics by hospitalist in the interim. ID consulted. (3) Diabetic foot ulcer associated with type 2 diabetes mellitus: Qualifiers: Diabetic foot ulcer location: midfoot Laterality: left Non-pressure ulcer stage: unspecified non-pressure ulcer stage Qualified Code(s): E11.621 - Type 2 diabetes mellitus with foot ulcer; L97.429 - Non-pressure chronic ulcer of left heel and midfoot with unspecified severity Code(s): E11.621 - Type 2 diabetes mellitus with foot ulcer; L97.509 - Non-pressure chronic ulcer of other part of unspecified foot with unspecified severity Status: Acute Assessment and Plan: Close diabetic control for optimal healing. Subjective Subjective Date/Time Seen: 05/19/21 0945 Interval history: POD #1: Left diabetic foot infection debridement to muscle, 1 x 1 cm. Excision of osteomyelitis left 1st metatarsal No new complaints today. Bleeding through dressing overnight. Up in chair, working well with PT. Review of Systems Constitutional: Constitutional: Denies fatigue, Denies fever(s) and Denies weakness Cardiovascular: Cardiovascular: Reports no additional cardiovascular complaints, Denies chest pain, Denies lightheadedness and Denies palpitations Respiratory: Respiratory: Denies chest congestion, Denies cough, Denies dyspnea and Denies wheezing Gastrointestinal: Gastrointestinal: Denies diarrhea, Denies nausea and Denies vomiting Genitourinary: Genitourinary: Reports no additional male genitourinary complaints Musculoskeletal: Musculoskeletal: Reports as per HPI Exam Const: General: comfortable and no acute distress Resp: Effort & Inspection: normal respiratory effort Cardio: Rate: regular rate Rhythm: regular rhythm GI: Inspection: non-distended GI Palp: Yes Soft to palpation and No Tenderness to palpation present (GI) Skin: Wounds: wounds noted (see extremity assessment ) Neuro: Cognition (Neuro): normal cognition Extrem: Other: Incision left dorsal hallux well approximated. Some dusky skin on the more medial aspect of the incision. Some bleeding at distal hallux. Surrounding tissue with erythema and swelling. Palpable pedal pulse. Decreased sensation. Psych: Mental Status: mental status grossly normal Affect: normal affect Objective Data Vital Signs Vital Signs: Vital Signs - 24 hr 05/18/21 12:38 05/18/21 14:50 05/18/21 15:05 Temperature 37.3 C 36.7 C Pulse Rate 73 68 70 Respiratory Rate 14 14 18 Blood Pressure 142/71 H 120/60 116/63 Pulse Oximetry 98 100 99 05/18/21 15:20 05/18/21 15:35 05/18/21 15:45 Temperature Pulse Rate 69 68 68 Respiratory Rate 16 16 16 Blood Pressure 126/63 136/66 127/64 Pulse Oximetry 95 96 93 05/18/21 15:48 05/18/21 16:03 05/18/21 18:00 Temperature 36.6 C 36.5 C 36.6 C Pulse Rate 59 L 64 76 Respiratory Rate 18 16 16 Blood Pressure 138/68 134/68 137/63 Pulse Oximetry 98 99 98 05/18/21 19:48 05/18/21 21:33 05/19/21 00:00 Temperature 37.2 C 36.9 C Pulse Rate 76 79 91 Respiratory Rate 16 16 16 Blood Press
--- NOTE | 2021-05-19 11:22 | PM.IMPN ---
Progress Note: A&P Assessment and Plan (1) Septicemia: Code(s): A41.9 - Sepsis, unspecified organism Status: Acute Assessment and Plan: Met sepsis criteria on presentation with fever (100.9?) and leukocytosis. Source of infection is diabetic foot ulcer/osteomyelitis. Lactic 1.7 1/2 blood cultures with growth of probable MRSA, susceptibility pending. No growth from second bottle. Continue to monitor cultures Continue IV Vancomycin and Zosyn Repeat blood cultures collected this morning are pending. Consult to Infectious Disease. Input is appreciated. 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 Improving leukocytosis. (2) Acute osteomyelitis of left foot: Code(s): M86.172 - Other acute osteomyelitis, left ankle and foot Status: Acute Assessment and Plan: Patient has chronic diabetic foot wound that was being managed conservatively by Podiatry for 3-4 months and was reportedly nearly healed. Foot x-ray showed osteomyelitis and he has overlying cellulitis of the left foot. Appreciate orthopedic surgery consultation Underwent debridement of foot infection and excision of osteomyelitis of the left 1st metatarsal yesterday by Dr. Wing. Supportive care. Analgesics available as needed. (3) Cellulitis of left foot: Code(s): L03.116 - Cellulitis of left lower limb Status: Acute Assessment and Plan: As above (4) Diabetic foot ulcer associated with type 2 diabetes mellitus: Qualifiers: Diabetic foot ulcer location: midfoot Laterality: left Non-pressure ulcer stage: unspecified non-pressure ulcer stage Qualified Code(s): E11.621 - Type 2 diabetes mellitus with foot ulcer; L97.429 - Non-pressure chronic ulcer of left heel and midfoot with unspecified severity Code(s): E11.621 - Type 2 diabetes mellitus with foot ulcer; L97.509 - Non-pressure chronic ulcer of other part of unspecified foot with unspecified severity Status: Acute Assessment and Plan: His diabetes has been well controlled. Last A1c was 6.8 (04/07/2021). Continue with Accu-Cheks, sliding scale insulin, hypoglycemic protocol Continue home metformin Monitor blood sugar trends closely and adjust medication regimen as needed (5) Essential (primary) hypertension: Code(s): I10 - Essential (primary) hypertension Status: Acute Assessment and Plan: Blood pressure reviewed and has been reasonably well controlled. Last BP 148/64 Continue amlodipine, lisinopril, metoprolol Monitor blood pressure trends (6) Paroxysmal atrial fibrillation: Code(s): I48.0 - Paroxysmal atrial fibrillation Status: Acute Assessment and Plan: No longer on anticoagulation due to history of hematuria. Rate is controlled Continue metoprolol succinate Continue aspirin 325 mg daily Subjective Date/time seen: 05/19/21 11:22 Interval history: Date of service: 05/17/2021 Brandon Bergeron is a 70-year-old male with a history of type 2 diabetes mellitus with neuropathy and diabetic foot ulcers managed by Podiatry, CKD, psoriasis, paroxysmal atrial fibrillation not on anticoagulation, and several other medical problems who is seen in follow-up for osteomyelitis of the left foot. He underwent debridement yesterday and tolerated the procedure well. He does endorse bleeding from the foot. He has no pain of his foot and leg. Denies nausea vomiting, fever, or chills. He is still having sweats at nighttime, which he states is very common for him. No intentional weight loss. Appetite is slowly improving. He had a bowel movement yesterday prior to surgery. He does endorse urinary urgency which has been present for many years. He has discussed this with his PCP but has opted not to start any medications as it is not very bothersome to him. Denies dysuria, hematuria. He has been sleeping well. Denies short
[2021-05-19 11:34] LABS: Glucose Point of Care 132 mg/dl (65-105)
[2021-05-19 17:02] LABS: Glucose Point of Care 107 mg/dl (65-105)
[2021-05-19] MEDS: ASPIRIN 325 MG ENTERIC TABLET PO (20:49)
[2021-05-19] MEDS: amLODIPine BESYLATE 2.5 MG TABLET PO (20:49)
[2021-05-19] MEDS: ZOLPIDEM TARTRATE (*CRX) 5 MG TABLET 10 MG PO (20:49)
[2021-05-19 21:19] LABS: Glucose Point of Care 124 mg/dl (65-105)
[2021-05-20] VITALS (7 sets, daily range): BP systolic 124–133; BP diastolic 69–78; PULSE 77–91; RESP 16–18; TEMP 35.9–36.8; O2SAT 95–99
[2021-05-20 05:44] LABS: Hematocrit 36.4 % (42.0-52.0); Hemoglobin 12.3 g/dL (14.0-18.0); Mean Corpuscular HGB Conc 33.8 g/dl (32-36); Mean Corpuscular Hemoglobin 29.9 pg (26-34); Mean Corpuscular Volume 88.6 fl (80-100); Mean Platelet Volume 9.5 fl (7.4-10.4); Platelet Count Result 170 k/mm3 (150-375); Red Blood Count 4.11 M/mm3 (4.6-6.20); Red Cell Distribution Width 13.8 % (11.5-14.5); White Blood Count 10.1 K/mm3 (4.5-10.0)
[2021-05-20 05:56] LABS: Anion Gap 9 mmol/L (8-16); Blood Urea Nitrogen 16 mg/dL (9-20); Calcium 8.8 mg/dL (8.4-10.2); Carbon Dioxide 29 mmol/L (22-30); Chloride 100 mmol/L (98-107); Estimated CRCL calculation 54 ml/min; Estimated Glomerular Filt Rate 60; Glucose 140 mg/dL (65-110); Potassium 3.5 mmol/L (3.4-5.0); Sodium 138 mmol/L (137-145)
[2021-05-20 06:10] LABS: CRP 18.4 mg/dL (<1.0)
[2021-05-20 07:37] LABS: Glucose Point of Care 140 mg/dl (65-105)
[2021-05-20] MEDS: lisinopriL 20 MG TABLET 40 MG PO (08:50)
[2021-05-20] MEDS: DOCUSATE SODIUM 100 MG CAPSULE PO (08:50)
[2021-05-20] MEDS: CITALOPRAM HYDROBROMIDE 20 MG TABLET PO (08:50)
[2021-05-20] MEDS: metFORMIN HCL 500 MG TABLET 1000 MG PO ×2 (08:50→17:32)
[2021-05-20] MEDS: METOPROLOL SUCCINATE EXT REL 100 MG TABCR PO (08:51)
[2021-05-20] MEDS: PANTOPRAZOLE 40 MG TABLET PO (08:51)
[2021-05-20] MEDS: THERAPEUTIC MULTIVITAMINS/MINERALS TAB (*BKC) 1 TABLET PO (08:51)
--- NOTE | 2021-05-20 10:32 | WPDINFPN2 ---
Progress Note: A&P Assessment and Plan (1) Acute osteomyelitis of left foot: Code(s): M86.172 - Other acute osteomyelitis, left ankle and foot Status: Acute Assessment and Plan: acute OM of L MT with bacteremia and infection, MRSA. POD #2 REC Vanc through 06/28/21. PICC. Discharge planning discussed. Subjective Date/time seen: 05/20/21 10:32 Objective Data Vital Signs Vital Signs: Vital Signs - 24 hr 05/19/21 13:33 05/19/21 17:33 05/19/21 20:00 Temperature 36.6 C 37.1 C Pulse Rate 84 93 88 Respiratory Rate 18 18 16 Blood Pressure 140/70 126/83 Pulse Oximetry 99 97 96 05/19/21 20:49 05/19/21 21:57 05/20/21 00:21 Temperature 36.1 C L 36.8 C Pulse Rate 88 88 Respiratory Rate 16 16 Blood Pressure 160/74 H 131/78 Pulse Oximetry 96 96 95 05/20/21 05:50 05/20/21 08:00 05/20/21 08:51 Temperature 36.7 C 36.1 C L Pulse Rate 91 82 80 Respiratory Rate 16 18 Blood Pressure 130/69 128/75 Pulse Oximetry 95 99 Intake/Output Intake/Output: Intake & Output 05/17/21 05/18/21 05/19/21 05/20/21 23:59 23:59 23:59 23:59 Intake Total 3550 2540 2736 1770 Output Total 2100 2100 2700 1800 Balance 1450 440 36 -30 Meds/Results Medications: Active Medications Generic Name Dose Route Start Last Admin Trade Name Jeremiahq PRN Reason Stop Dose Admin Acetaminophen 650 mg 05/18/21 15:48 05/19/21 08:32 Acetaminophen 325 Mg Tablet PO 650 mg Q6H PRN Administration Fever Amlodipine Besylate 2.5 mg 05/17/21 01:25 05/19/21 20:49 Amlodipine Besylate 2.5 Mg Tablet PO 2.5 mg HS RICHARD Administration Aspirin 325 mg 05/17/21 01:25 05/19/21 20:49 Aspirin 325 Mg Enteric Tablet PO 325 mg HS RICHARD Administration Citalopram Hydrobromide 20 mg 05/17/21 09:00 05/20/21 08:50 Citalopram Hydrobromide 20 Mg Tablet PO 20 mg DAILY RICHARD Administration Dextrose 12.5 gm 05/16/21 21:15 Dextrose 50% 25 Gm/50 Ml Syringe IV PUSH PRN PRN Hypoglycemia Protocol Docusate Sodium 100 mg 05/18/21 17:00 05/20/21 08:50 Docusate Sodium 100 Mg Capsule PO 100 mg BID RICHARD Administration Glucose 15 gm 05/16/21 21:15 Glucose Oral Gel 15 Gm Of Glucse In 37.5 Gm Tube PO PRN PRN Hypoglycemia Protocol Vancomycin HCl 1,500 mg in 500 mls @ 333.333 mls/hr 05/19/21 11:00 05/20/21 07:00 Vancomycin 1,500 Mg/D5w 500 Ml IVPB Infused Q18H RICHARD Infusion Insulin Aspart 3 - 6 units 05/17/21 08:00 05/20/21 07:44 Insulin Aspart (*Bkc) 100 Units/Ml SUB-Q Not Given TIDWM [facility] Protocol Lisinopril 40 mg 05/17/21 09:00 05/20/21 08:50 Lisinopril 20 Mg Tablet PO 40 mg DAILY RICHARD Administration Magnesium Hydroxide 30 ml 05/18/21 15:48 Magnesium Hydroxide Susp 30 Ml Udc PO BID PRN Constipation Metformin HCl 1,000 mg 05/17/21 01:10 05/20/21 08:50 Metformin Hcl 500 Mg Tablet PO 1,000 mg BIDWM RICHARD Administration Metoprolol Succinate 100 mg 05/17/21 09:00 05/20/21 08:51 Metoprolol Succinate Ext Rel 100 Mg Tabcr PO 100 mg DAILY RICHARD Administration Multivitamins/Calcium 1 tablet 05/17/21 09:00 05/20/21 08:51 Therapeutic Multivitamins/Minerals Tab (*Bkc) PO 1 tablet DAILY RICHARD Administration Pantoprazole Sodium 40 mg 05/17/21 09:00 05/20/21 08:51 Pantoprazole 40 Mg Tablet PO 40 mg SuMoWeFr RICHARD Administration Zolpidem Tartrate 10 mg 05/17/21 01:10 05/19/21 20:49 Zolpidem Tartrate (*Crx) 5 Mg Tablet PO 10 mg HS RICHARD Administration Radiology Results: ITS Impressions Foot X-Ray 05/16/21 19:34 IMPRESSION: Bone destruction of the head of the first metatarsal bone consistent with osteomyelitis in this patient with history of diabetes and redness, pain and swelling along the first metatarsal Labs Labs: Laboratory Results - last 24 hr 05/19/21 05/19/21 05/19/21 11:23 16:37 20:48 WBC RBC Hgb Hct MCV MCH MCHC RDW Plt
[2021-05-20 11:45] LABS: Glucose Point of Care 128 mg/dl (65-105)
--- NOTE | 2021-05-20 12:48 | PM.PNORT ---
Progress Note: A&P Assessment and Plan (1) Acute osteomyelitis of left foot: Code(s): M86.172 - Other acute osteomyelitis, left ankle and foot Status: Acute Assessment and Plan: POD #2: Left diabetic foot infection debridement and excision of osteomyelitis left 1st metatarsal Dressing changed. Begin daily dressing changes with adaptic covering incision/distal hallux, cover with gauze, wrap loosely with Kerlex/Coband. Elevate LLE on pillows. PWB with post op shoe on heel. Post op shoe ordered. Blood cultures from 05/16 with MRSA. Wound cultures- Staph aureus. repeat blood cultures pending. Dispo: Home with Home Health for dressing changes/ long-term antibiotics pending medical stability. (2) Cellulitis of left foot: Code(s): L03.116 - Cellulitis of left lower limb Status: Acute Assessment and Plan: Continue IV antibiotics (3) Diabetic foot ulcer associated with type 2 diabetes mellitus: Qualifiers: Diabetic foot ulcer location: midfoot Laterality: left Non-pressure ulcer stage: unspecified non-pressure ulcer stage Qualified Code(s): E11.621 - Type 2 diabetes mellitus with foot ulcer; L97.429 - Non-pressure chronic ulcer of left heel and midfoot with unspecified severity Code(s): E11.621 - Type 2 diabetes mellitus with foot ulcer; L97.509 - Non-pressure chronic ulcer of other part of unspecified foot with unspecified severity Status: Acute Assessment and Plan: Close diabetic control for optimal healing. Subjective Subjective Date/Time Seen: 05/20/21 12:48 Post Op day: 2 Principal diagnosis: Left foot osteomyelitis Interval history: patient states little bit agitated today not sure why. No pain left foot. Blood culture results noted. Exam Const: General: comfortable and no acute distress Resp: Effort & Inspection: normal respiratory effort Cardio: Rate: regular rate Rhythm: regular rhythm GI: Inspection: non-distended GI Palp: Yes Soft to palpation and No Tenderness to palpation present (GI) Skin: Wounds: wounds noted (see extremity assessment ) Neuro: Cognition (Neuro): normal cognition Extrem: Other: Incision left dorsal hallux well approximated. Skin appearance improved. Some bleeding at distal hallux On the dressing. Surrounding tissue with erythema and swelling. Palpable pedal pulse. Decreased sensation. Psych: Mental Status: mental status grossly normal Affect: normal affect Objective Data Vital Signs Vital Signs: Vital Signs - 24 hr 05/19/21 13:33 05/19/21 17:33 05/19/21 20:00 Temperature 97.8 F 98.8 F Pulse Rate 84 93 88 Respiratory Rate 18 18 16 Blood Pressure 140/70 126/83 Pulse Oximetry 99 97 96 05/19/21 20:49 05/19/21 21:57 05/20/21 00:21 Temperature 97.0 F L 98.3 F Pulse Rate 88 88 Respiratory Rate 16 16 Blood Pressure 160/74 H 131/78 Pulse Oximetry 96 96 95 05/20/21 05:50 05/20/21 08:00 05/20/21 08:51 Temperature 98.0 F 96.9 F L Pulse Rate 91 82 80 Respiratory Rate 16 18 Blood Pressure 130/69 128/75 Pulse Oximetry 95 99 Intake/Output Intake/Output: Intake & Output 05/17/21 05/18/21 05/19/21 05/20/21 23:59 23:59 23:59 23:59 Intake Total 3550 2540 2736 1770 Output Total 2100 2100 2700 1800 Balance 1450 440 36 -30 Meds/Results Medications: Active Medications Generic Name Dose Route Start Last Admin Trade Name Freq PRN Reason Stop Dose Admin Acetaminophen 650 mg 05/18/21 15:48 05/19/21 08:32 Acetaminophen 325 Mg Tablet PO 650 mg Q6H PRN Administration Fever Amlodipine Besylate 2.5 mg 05/17/21 01:25 05/19/21 20:49 Amlodipine Besylate 2.5 Mg Tablet PO 2.5 mg HS RICHARD Administration Aspirin 325 mg 05/17/21 01:25 05/19/21 20:49 Aspirin 325 Mg Enteric Tablet PO 325 mg HS RICHARD Administration Citalopram Hydrobromide 20 mg 05/17/21 09:00 05/20/21 08:50 Citalopram Hydrobromide 20 Mg Tablet PO 20 mg DAILY RICHARD Administration De
[2021-05-20] MEDS: LIDOCAINE HCL 1% PF INJ 5 ML VIAL INFILTRATE (14:55)
--- NOTE | 2021-05-20 15:51 | CONS_ITS ---
DATE OF CONSULTATION: 05/20/2021 REASON FOR CONSULTATION: Osteomyelitis and bacteremia. HISTORY OF PRESENT ILLNESS: 70-year-old male with diabetes. He also has psoriasis, but does not take any systemic medication for the latter. He had been seeing Podiatry since the summer for a plantar diabetic foot ulcer starting in September of this year. Ciprofloxacin was prescribed for infection in the same area. Notes indicate that the ciprofloxacin was in vitro active against the isolated pathogens, although the identity of the latter is not available for viewing on the current EMR. He had some superficial debridement performed, but did not require any operations in the OR. The patient felt that there was static status of the ulcer in recent weeks and presented to the emergency room on the with a fever up to 38.1 at home, here it was 38.2, and was admitted. The patient was taken to the operating room on the , he had excision of osteomyelitis of the left first metatarsal and also debridement to muscle. Findings included a foot ulcer extending to the medial sesamoid, septic arthritis at the MTP, with osteomyelitis of the adjacent bones. He feels much better on postop day 2. No pain. No further fever. He had no rigors nor night sweats. The ciprofloxacin did not require renewal and he has been on no antibiotics recently for any purpose. The psoriasis does not involve the plantar aspect of the foot and no immunosuppressants for other reasons. ALLERGIES: NONE KNOWN. HABITS: Daily marijuana. No tobacco, having quit in 2004. No alcohol. PRESENT MEDICATIONS: See above. PAST MEDICAL HISTORY: He has known peripheral neuropathy from the diabetes, stage 3 renal insufficiency, hypertension, nephrolithiasis, past depression, PAF, ORIF of the left distal leg for fracture. A jesusita or similar device is still in place. FAMILY HISTORY: Not pertinent to his present illness. SOCIAL HISTORY: He is , socializes with friends, but largely at home. Customarily sees Dr. Alan. Has one daughter. 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 14-point review otherwise negative. PHYSICAL EXAMINATION: GENERAL: Elderly male who appears younger than his actual age. No acute distress. VITAL SIGNS: Temperature on arrival 38.3, has since defervesced, 128/75, 82, 18, 99%. SKIN: Psoriasis plaques, lower and upper extremities. No rashes. EENT: The conjunctivae appear normal. Oropharynx, oral mucosa normal. Pupils equal, round, reactive. NECK: No masses, thyromegaly, or meningismus. LUNGS: Clear to auscultation and percussion. Good air entry. CARDIAC: Regular rate and rhythm without murmur or gallop. Radial pulses 2+. Dorsalis pedis on the right is 2+. Popliteal pulse on the left is 2+. ABDOMEN: Nontender, soft. No organomegaly. No masses. No bruits. EXTREMITIES: Left foot is dressed. He has no proximal erythema, warmth, or tenderness. Right foot is bland. LABORATORY DATA: Blood cultures from admission, 1/2 sets, MRSA. Vancomycin ZAINAB equal 1. Repeat blood cultures, no growth 1 day incubation. From the operating room, right foot tissue had many white cells on smear, grew out gram-positive cocci and light growth of Staph aureus to be identified further. Other labs, initial white count 17.8, now down to 10.1; hemoglobin 12.3; platelets are 170. Earlier differential with a minimal left shift. Chemistry panels have been normal. Accu-Cheks in the low 100s. A1c from 6 weeks ago was 6.8%. CRP 18.4. Vancomycin trough subtherapeutic. RADIOLOGY: Foot x-ray on the left, bone destruction, left first metatarsal head and plate and screws at the distal fibula.
[2021-05-20 16:38] LABS: Glucose Point of Care 97 mg/dl (65-105)
--- NOTE | 2021-05-20 16:53 | PM.IMPN ---
Progress Note: A&P Assessment and Plan (1) Septicemia: Code(s): A41.9 - Sepsis, unspecified organism Status: Acute Assessment and Plan: Met sepsis criteria on presentation with fever (100.9?) and leukocytosis. Source of infection is diabetic foot ulcer/osteomyelitis. Lactic 1.7 Blood cultures with growth of MRSA. Continue IV Vancomycin through 06/28/2021. Appreciate Infectious Disease consultation He will need a PICC line which can hopefully be placed tomorrow. Care coordination following to arrange home infusions Repeat blood cultures collected 05/19 are negative to date Afebrile today. Improving leukocytosis. (2) Acute osteomyelitis of left foot: Code(s): M86.172 - Other acute osteomyelitis, left ankle and foot Status: Acute Assessment and Plan: Patient has chronic diabetic foot wound that was being managed conservatively by Podiatry for 3-4 months and was reportedly nearly healed. Foot x-ray showed osteomyelitis. Overlying cellulitis of the left foot. Appreciate orthopedic surgery consultation Underwent debridement of foot infection and excision of osteomyelitis of the left 1st metatarsal yesterday by Dr. Wing. Supportive care. Analgesics available as needed. Weight-bearing per Ortho. Continue PT/OT (3) Cellulitis of left foot: Code(s): L03.116 - Cellulitis of left lower limb Status: Acute Assessment and Plan: As above (4) Diabetic foot ulcer associated with type 2 diabetes mellitus: Qualifiers: Diabetic foot ulcer location: midfoot Laterality: left Non-pressure ulcer stage: unspecified non-pressure ulcer stage Qualified Code(s): E11.621 - Type 2 diabetes mellitus with foot ulcer; L97.429 - Non-pressure chronic ulcer of left heel and midfoot with unspecified severity Code(s): E11.621 - Type 2 diabetes mellitus with foot ulcer; L97.509 - Non-pressure chronic ulcer of other part of unspecified foot with unspecified severity Status: Acute Assessment and Plan: His diabetes has been well controlled. Last A1c was 6.8 (04/07/2021). Continue with Accu-Cheks, sliding scale insulin, hypoglycemic protocol Continue home metformin Monitor blood sugar trends closely and adjust medication regimen as needed (5) Essential (primary) hypertension: Code(s): I10 - Essential (primary) hypertension Status: Acute Assessment and Plan: Blood pressure reviewed and has been reasonably well controlled. Last BP 128/75 Continue amlodipine, lisinopril, metoprolol Monitor blood pressure trends (6) Paroxysmal atrial fibrillation: Code(s): I48.0 - Paroxysmal atrial fibrillation Status: Acute Assessment and Plan: No longer on anticoagulation due to history of hematuria. Rate is controlled Continue metoprolol succinate Continue aspirin 325 mg daily Subjective Date/time seen: 05/20/21 16:53 Interval history: Date of service: 05/18/2021 Brandon Bergeron is a 70-year-old male with a history of type 2 diabetes mellitus with neuropathy and diabetic foot ulcers managed by Podiatry, CKD, psoriasis, paroxysmal atrial fibrillation not on anticoagulation, and several other medical problems who is seen in follow-up for osteomyelitis of the left foot. He underwent debridement on 05/18 and tolerated the procedure well. He is doing well at this time. He has no pain. No nausea, vomiting, fever, chills. He has been eating well. He has been getting around well using the walker. Doing well with therapy. No dizziness or lightheadedness. No shortness breath, cough, or chest pain. He has no additional concerns. Review of Systems Review of Systems: All systems reviewed & are unremarkable except as noted in HPI and below Exam Narrative: Mr. Bergeron is a well-nourished, well-appearing 70-year-old male who is lying supine in bed. He appears comfortable and is in NARD. Neuro:
[2021-05-20] MEDS: ASPIRIN 325 MG ENTERIC TABLET PO (20:21)
[2021-05-20] MEDS: amLODIPine BESYLATE 2.5 MG TABLET PO (20:21)
[2021-05-20] MEDS: ZOLPIDEM TARTRATE (*CRX) 5 MG TABLET 10 MG PO (20:21)
[2021-05-20 20:42] LABS: Glucose Point of Care 138 mg/dl (65-105)
[2021-05-20] MEDS: CENTRAL LINE FLUSH 10 ML IV PUSH (22:10)
[2021-05-21 03:54] VITALS: BP 122/83; PULSE 93; RESP 16; TEMP 37; O2SAT 100
[2021-05-21] MEDS: CENTRAL LINE FLUSH 10 ML IV PUSH ×2 (04:58→13:35)
[2021-05-21 05:42] LABS: Estimated CRCL calculation 64 ml/min; Estimated Glomerular Filt Rate > 60
[2021-05-21 07:47] LABS: Glucose Point of Care 102 mg/dl (65-105)
[2021-05-21 08:10] VITALS: BP 134/79; PULSE 93; RESP 16; TEMP 36.5; O2SAT 97
[2021-05-21] MEDS: metFORMIN HCL 500 MG TABLET 1000 MG PO ×2 (08:41→16:00)
[2021-05-21] MEDS: THERAPEUTIC MULTIVITAMINS/MINERALS TAB (*BKC) 1 TABLET PO (08:41)
[2021-05-21] MEDS: CITALOPRAM HYDROBROMIDE 20 MG TABLET PO (08:41)
[2021-05-21 08:44] VITALS: BP 131/89; PULSE 94
[2021-05-21] MEDS: lisinopriL 20 MG TABLET 40 MG PO (08:44)
[2021-05-21] MEDS: METOPROLOL SUCCINATE EXT REL 100 MG TABCR PO (08:44)
--- NOTE | 2021-05-21 09:29 | PM.PNORT ---
Progress Note: A&P Assessment and Plan (1) Acute osteomyelitis of left foot: Code(s): M86.172 - Other acute osteomyelitis, left ankle and foot Status: Acute Assessment and Plan: POD #3: Left diabetic foot infection debridement and excision of osteomyelitis left 1st metatarsal Dressing changed today. Continue daily dressing changes with adaptic covering incision/distal hallux, cover with gauze, wrap loosely with Kerlex/Coband. Elevate LLE on pillows. PWB with post op shoe on heel. PICC line in place. Appreciate ID recommendations. Continue vancomycin through May 29 to complete 6 weeks postop. Dispo: Home with Home Health for dressing changes/ rn long term care antibiotics pending medical stability. Okay to d/c from orthopedic standpoint. (2) Cellulitis of left foot: Code(s): L03.116 - Cellulitis of left lower limb Status: Acute Assessment and Plan: Continue IV antibiotics (3) Diabetic foot ulcer associated with type 2 diabetes mellitus: Qualifiers: Diabetic foot ulcer location: midfoot Laterality: left Non-pressure ulcer stage: unspecified non-pressure ulcer stage Qualified Code(s): E11.621 - Type 2 diabetes mellitus with foot ulcer; L97.429 - Non-pressure chronic ulcer of left heel and midfoot with unspecified severity Code(s): E11.621 - Type 2 diabetes mellitus with foot ulcer; L97.509 - Non-pressure chronic ulcer of other part of unspecified foot with unspecified severity Status: Acute Assessment and Plan: Close diabetic control for optimal healing. Subjective Subjective Date/Time Seen: 05/21/21 09:03 Post Op day: 3 Interval history: POD #3 No new complaints. Pain well controlled. PICC line in place. Hopeful for discharge home today. Review of Systems Constitutional: Constitutional: Denies fatigue, Denies fever(s) and Denies weakness Cardiovascular: Cardiovascular: Reports no additional cardiovascular complaints, Denies chest pain, Denies lightheadedness and Denies palpitations Respiratory: Respiratory: Denies chest congestion, Denies cough, Denies dyspnea and Denies wheezing Gastrointestinal: Gastrointestinal: Denies diarrhea, Denies nausea and Denies vomiting Genitourinary: Genitourinary: Reports no additional male genitourinary complaints Musculoskeletal: Musculoskeletal: Reports as per HPI Exam Const: General: comfortable and no acute distress Resp: Effort & Inspection: normal respiratory effort Cardio: Rate: regular rate Rhythm: regular rhythm GI: Inspection: non-distended GI Palp: Yes Soft to palpation and No Tenderness to palpation present (GI) Skin: Wounds: wounds noted (see extremity assessment ) Neuro: Cognition (Neuro): normal cognition Extrem: Other: Incision left dorsal hallux well approximated. Skin appearance with some ecchymosis. Dried blood at distal hallux, no new drainage. Surrounding tissue with erythema and swelling with marked improvement. Palpable pedal pulse. Decreased sensation. Dressing changed today. Psych: Mental Status: mental status grossly normal Affect: normal affect Objective Data Vital Signs Vital Signs: Vital Signs - 24 hr 05/20/21 20:00 05/20/21 20:01 05/20/21 23:30 Temperature 35.9 C L 36.1 C L Pulse Rate 80 77 Respiratory Rate 17 17 17 Blood Pressure 133/74 124/76 Pulse Oximetry 98 98 95 05/21/21 03:54 05/21/21 08:10 05/21/21 08:44 Temperature 37.0 C 36.5 C Pulse Rate 93 93 94 Respiratory Rate 16 16 Blood Pressure 122/83 134/79 131/89 Pulse Oximetry 100 97 Intake/Output Intake/Output: Intake & Output 05/18/21 05/19/21 05/20/21 05/21/21 23:59 23:59 23:59 23:59 Intake Total 2540 2736 2350 1160 Output Total 2100 2700 1800 900 Balance 440 36 550 260 Meds/Results Medications: Active Medications Generic Name Dose Route Start Last Admin Trade Name Freq PRN Reason Stop Dose Admin Acetaminophen 650 mg 05/18/21 15:48 05/19/21 08:32 Acetaminophen
[2021-05-21 11:52] LABS: Glucose Point of Care 138 mg/dl (65-105)
[2021-05-21 12:00] VITALS: BP 132/68; PULSE 90; RESP 16; TEMP 36.4; O2SAT 98
--- NOTE | 2021-05-21 14:00 | PM.DS ---
DS: Admitting Diagnosis Discharge Date 05/21/2021 Admitting Diagnosis Osteomyelitis of left foot DS: Discharge Diagnosis Discharge Diagnosis (1) Septicemia: Code(s): A41.9 - Sepsis, unspecified organism Status: Acute Assessment and Plan: Met sepsis criteria on presentation with fever (100.9?) and leukocytosis. Source of infection is diabetic foot ulcer/osteomyelitis. Lactic 1.7 2/2 blood cultures with growth of MRSA. He was in consultation by Orthopedic surgery and Infectious Disease. Per ID recommendations, Continue IV Vancomycin through 06/28/2021. PICC line was placed and home healthcare was set up to continue with home infusions Repeat blood cultures collected 05/19 are negative to date. Final cultures will be monitored (2) Acute osteomyelitis of left foot: Code(s): M86.172 - Other acute osteomyelitis, left ankle and foot Status: Acute Assessment and Plan: Patient has chronic diabetic foot wound that was being managed conservatively by Podiatry for 3-4 months and was reportedly nearly healed. Foot x-ray showed osteomyelitis. Overlying cellulitis of the left foot. Seen in consultation by Orthopedic surgery Underwent debridement of foot infection and excision of osteomyelitis of the left 1st metatarsal on 05/[address] Wing. Supportive care provided. Analgesics available as needed. Continue partial weight-bearing with postop shoe and walker Follow-up with orthopedic surgery. Appointment scheduled for 05/26/2021 (3) Cellulitis of left foot: Code(s): L03.116 - Cellulitis of left lower limb Status: Acute Assessment and Plan: As above (4) Diabetic foot ulcer associated with type 2 diabetes mellitus: Qualifiers: Diabetic foot ulcer location: midfoot Laterality: left Non-pressure ulcer stage: unspecified non-pressure ulcer stage Qualified Code(s): E11.621 - Type 2 diabetes mellitus with foot ulcer; L97.429 - Non-pressure chronic ulcer of left heel and midfoot with unspecified severity Code(s): E11.621 - Type 2 diabetes mellitus with foot ulcer; L97.509 - Non-pressure chronic ulcer of other part of unspecified foot with unspecified severity Status: Acute Assessment and Plan: His diabetes has been well controlled. Last A1c was 6.8 (04/07/2021). Glucose managed during hospitalization with Accu-Cheks, sliding scale insulin, hypoglycemic protocol. Continue with home metformin. Encouraged to monitor blood sugars closely with tight control to allow for appropriate healing (5) Essential (primary) hypertension: Code(s): I10 - Essential (primary) hypertension Status: Acute Assessment and Plan: Blood pressure reviewed and was reasonably well controlled. Continue amlodipine, lisinopril, metoprolol (6) Paroxysmal atrial fibrillation: Code(s): I48.0 - Paroxysmal atrial fibrillation Status: Acute Assessment and Plan: No longer on anticoagulation due to history of hematuria. Rate remained well controlled. Continue metoprolol succinate and aspirin 325 mg daily DS: Summary Hospital Course Hospital Course: Date of admission: 05/16/2021 Date of discharge: 05/21/2021 beba Bergeron is a 70-year-old male with a history of type 2 diabetes mellitus with neuropathy and diabetic foot ulcers managed by Podiatry, CKD, psoriasis, paroxysmal atrial fibrillation not on anticoagulation, and several other medical problems who presented to the emergency department on 05/16/2021 with complaints of left foot redness and swelling. On presentation to the emergency department, he was febrile at 100.9?, additional vital signs were stable, white blood cell count [id number] with additional CBC and BMP unremarkable, lactic 1.7, and foot x-ray showed bone destruction of the head of the 1st metatarsal consistent with osteomyelitis. He was admitted to the hospitalist service for further evaluation and management
[2021-05-21 14:10] VITALS: BP 132/70; PULSE 64; RESP 16; TEMP 36.7; O2SAT 95
[2021-05-21] MEDS: CENTRAL LINE FLUSH 20 ML IV PUSH (15:59)
[2021-05-21] MEDS: DOCUSATE SODIUM 100 MG CAPSULE PO (16:01)
[2021-05-21 16:44] LABS: Glucose Point of Care 99 mg/dl (65-105)
[2021-05-21 16:45] LABS: Vancomycin Trough 9.2 ug/mL (10.0-20.0)
[2021-05-21 19:30] VITALS: BP 181/84; PULSE 66; RESP 17; TEMP 36; O2SAT 100
--- NOTE | 2021-05-21 19:40 | PC.NURSE ---
I went over discharge instructions with patient. The patient's questions have been answered. The patient may be discharged once 1700 Vancomycin is completed. I passed this along to nightshift during shift change.
[2021-05-21] MEDS: amLODIPine BESYLATE 2.5 MG TABLET PO (20:08)
[2021-05-21] MEDS: ASPIRIN 325 MG ENTERIC TABLET PO (20:08)
== END 2021-05-21 20:10 | disposition home health service (06) | DRG 854 ==
LOC: ANHED 21:13 → ANH2MED 05-17 06:46
PROVIDERS: Orthopaedic Surgery; Admitting Provider Internal Medicine; Emergency Provider Emergency Medicine; PCP Family Medicine; Visit Provider Physician Assistant
PROC: 0KBW0ZZ Excision of Left Foot Muscle, Open Approach (ICD-10-PCS; principal; 2021-05-18 13:30)
DX: A41.02 Sepsis due to Methicillin resistant Staphylococcus aureus (principal); L97.429 Non-pressure chronic ulcer of left heel and midfoot with unspecified severity; M86.172 Other acute osteomyelitis, left ankle and foot; L03.116 Cellulitis of left lower limb; M00.9 Pyogenic arthritis, unspecified; E11.69 Type 2 diabetes mellitus with other specified complication; E11.621 Type 2 diabetes mellitus with foot ulcer; E11.42 Type 2 diabetes mellitus with diabetic polyneuropathy; E11.22 Type 2 diabetes mellitus with diabetic chronic kidney disease; I12.9 Hypertensive chronic kidney disease with stage 1 through stage 4 chronic kidney disease, or unspecified chronic kidney disease; N18.30 Chronic kidney disease, stage 3 unspecified; F33.41 Major depressive disorder, recurrent, in partial remission; I48.0 Paroxysmal atrial fibrillation; L40.9 Psoriasis, unspecified; Z28.21 Immunization not carried out because of patient refusal; Z79.82 Long term (current) use of aspirin; Z79.84 Long term (current) use of oral hypoglycemic drugs; Z79.899 Other long term (current) drug therapy; Z87.891 Personal history of nicotine dependence
CPT/HCPCS: 36415; 36569; 73630; 80048; 80202; 82565; 82948; 83605; 85025; 85027; 85652; 86140; 87040; 87070; 87147; 87186; 87205; 94762; 96365; 96367; 97110; 97116; 97161; 97165; 97530; 97535; 99285; A9270; C1713; C1751; J1650; J2250; J2543; J2704; J3010; J3370; J7030; J7120

== ENCOUNTER 2021-05-30 20:52 | Observation (INO) | payer MEDICARE, OTHER, SELFPAY ==
--- NOTE | ~2021-05-30 | XR_ITS ---
XR chest 1V portable DATE: 05/30/2021 21:54 INDICATION: Confirm PICC line positioning TECHNIQUE: Portable AP chest on 05/30/2021 at 2149 hours COMPARISON: portable AP chest FINDINGS: Left upper extremity PIC catheter tip overlies the lower superior vena cava. Heart size is normal. Aortic arch calcification. No pulmonary infiltrate or consolidation, pleural ef fusion or pulmonary vascular congestion or pneumothorax. IMPRESSION: Left PICC catheter tip in lower superior vena cava Reviewed, dictated and finalized at location A.
[2021-05-30 20:56] VITALS: BP 164/63; PULSE 65; RESP 18; TEMP 36.7; O2SAT 99
[2021-05-30] MEDS: SODIUM CHLORIDE 0.9% IV 1,000 ML 999 ML IV CONT (21:42)
[2021-05-30] MEDS: FAMOTIDINE 20 MG/2 ML VIAL IV PUSH (21:42)
[2021-05-30] MEDS: methylPREDNISolone SOD SUCC 125 MG VIAL IV PUSH (21:42)
[2021-05-30] MEDS: diphenhydrAMINE HCl INJ 50 MG/ML VIAL 25 MG IV PUSH (21:43)
[2021-05-30 21:51] LABS: Basophils Absolute Auto 0.1 K/mm3 (0.0-0.1); Basophils Percent Auto 0.6 % (0.2-1.2); Eosinophils Absolute Auto 0.2 K/mm3 (0-0.3); Eosinophils Percent Auto 2.1 % (0-4.4); Hematocrit 37.8 % (42.0-52.0); Hemoglobin 12.4 g/dL (14.0-18.0); Immature Granulocyte Absolute 0.07 K/mm3 (0.00-0.031); Immature Granulocyte Percent A 0.7 % (0-0.5); Lymphocytes Absolute Auto 1.41 K/mm3 (0.9-3.2); Lymphocytes Percent Auto 14.3 % (18.3-44.2); Mean Corpuscular HGB Conc 32.8 g/dl (32-36); Mean Corpuscular Hemoglobin 29.1 pg (26-34); Mean Corpuscular Volume 88.7 fl (80-100); Mean Platelet Volume 9.3 fl (7.4-10.4); Monocytes Absolute Auto 0.8 K/mm3 (0.1-0.6); Monocytes Percent Auto 7.6 % (2.6-8.5); Neutrophils Absolute Auto 7.4 K/mm3 (1.3-6.7); Neutrophils Percent Auto 74.7 % (45.5-73.1); Platelet Count Result 331 k/mm3 (150-375); Red Blood Count 4.26 M/mm3 (4.6-6.20); Red Cell Distribution Width 13.9 % (11.5-14.5); White Blood Count 9.9 K/mm3 (4.5-10.0)
[2021-05-30 22:21] LABS: Alanine Aminotransferase 24 U/L (4-50); Alkaline Phosphatase 93 U/L (38-126); Anion Gap 10 mmol/L (8-16); Aspartate Amino Transferase 26 U/L (17-59); Bilirubin,Total 0.6 mg/dL (0.2-1.3); Blood Urea Nitrogen 18 mg/dL (9-20); Calcium 9.8 mg/dL (8.4-10.2); Carbon Dioxide 27 mmol/L (22-30); Chloride 104 mmol/L (98-107); Estimated CRCL calculation 47 ml/min; Estimated Glomerular Filt Rate 50; Glucose 102 mg/dL (65-110); Potassium 4.5 mmol/L (3.4-5.0); Sodium 141 mmol/L (137-145)
--- NOTE | 2021-05-30 23:59 | ED.ALLEREA ---
HPI - Allergic Reaction General Chief complaint: Allergic Reaction Stated complaint: lower lip swelling since this am Time Seen by Provider: 05/30/21 21:21 Source: RN notes reviewed History of Present Illness HPI narrative: Patient presents emergency department from home for possible allergic reaction. Patient states he woke this morning with swelling of his lower lip there is been constant throughout the day he states that with this he has been having a feeling of difficulty swallowing and secondary to this has not been eating or drinking as much today states he does not feel short of breath he is currently on vancomycin with a PICC line in his left leg for the infection in his foot patient also does take lisinopril at home denies any fevers or chills chest pain shortness of breath or any other symptoms Related Data Home Medications Medication Instructions Recorded Confirmed aspirin 325 mg tablet 325 mg PO DAILY 08/02/19 05/26/21 omeprazole 20 mg capsule,delayed 20 mg PO 4XW 08/02/19 05/26/21 release kjcdlirabine-fxg-ybrhk acid-vit 1 tablet PO DAILY 04/13/21 05/26/21 K-lycop 400 mcg-20 mcg-370 mcg tablet amlodipine 2.5 mg PO DAILY 05/16/21 05/26/21 fiber 1 cap PO QID 05/16/21 05/26/21 zolpidem 10 mg PO HS 05/16/21 05/26/21 Allergies Allergy/AdvReac Type Severity Reaction Status Date / Time No Known Allergies Allergy Mild Verified 05/26/21 09:52 Review of Systems Review of Systems: Gen.: Denies fevers or chills ENT: Denies congestion reports difficulty swallowing Respiratory: Denies shortness of breath or cough CV: Denies chest pain or palpitations GI: Denies abdominal pain nausea, emesis Musculoskeletal: Denies back pain or muscle pain Neuro: Denies numbness, tingling, weakness or focal weakness Skin: Denies rash Except as documented, all other systems reviewed and negative PMFSH Past Medical History Medical History Chronic renal insufficiency, stage III (moderate) Patient actually denies a history of chronic kidney disease and his creatinine is currently normal with a normal GFR Diabetes mellitus Diabetic foot ulcer associated with type 2 diabetes mellitus Diabetic peripheral neuropathy Dupuytren's contracture of left hand Eczema Essential (primary) hypertension Kidney stones Reportedly passed a kidney stone at 11 years of age Magnesium deficiency Major depressive disorder, single episode, unspecified Paroxysmal atrial fibrillation Psoriasis Recurrent major depressive disorder, in partial remission Surgical History Surgical History Status post open reduction with internal fixation of fracture Left ankle ORIF [address] Tyler Family History Family History Father Myocardial infarct Family history of coronary artery disease, Onset Age: 66 Lung cancer Mother Leukemia Family history of coronary artery disease, Onset Age: 70 Diabetes mellitus Sibling Multiple sclerosis Sister Diabetes mellitus Social History Social History Social History: He is and his ex- later . He reports that he is happy to be single and lives alone. He has 1 adult daughter who is healthy. 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 He is a former smoker who smoked a pack of cigarettes per day until 2004. He smokes marijuana on a daily basis. He also uses marijuana edibles. Primary care physician: Dr. Allie Alan Code status: Full code Surrogate decision maker: Krishna (daughter) Smoking packs per day: 1 Smoking cigarettes per day: 20.0 Years smoked: 24 Smoking pack-years: 24.00 Smoking status: Former smoker Second hand tobacco smoke exposure: No Smoking end date: 07/25/04 Alcohol intake: never Substance use: current Subs
[2021-05-31] VITALS (16 sets, daily range): BP systolic 139–178; BP diastolic 48–73; PULSE 50–73; RESP 16–20; TEMP 36.4–36.8; O2SAT 96–100; BMI 27.6
--- NOTE | 2021-05-31 01:42 | ADMGEN ---
This patient, Brandon Bergeron, was admitted to IMU Room 209-01 on 05/31/21 at 0123. Patient/family oriented to hospital policies and general routines including ID bracelet, bed and alarms, visiting hours, pain management, procedures, bathroom and other care routines, personal items, smoking policy, room service/diet, and visiting hours. Information on how to activate the Rapid Response Team has been discussed. Patient/Family are encouraged to report perceived risks to care and to ask questions if they do not understand what they are told or what they should do.
--- NOTE | 2021-05-31 05:07 | PC.NURSE ---
Daylight Savings Time For Daylight Savings Time Ending in the Fall - Clocks are moved back. For Daylight Savings Time Beginning in the Spring - Clocks are moved ahead. For [facility], the time of change occurs at 0200 hrs. Time is taken from the banquet server. This entry on the patient's chart recognizes the change in time reflected during documentation. Example: 2 entries for vital signs may be charted for 0200 hrs.
--- NOTE | 2021-05-31 06:23 | PM.IMHP ---
H&P: HPI History of Present Illness Date/Time: 05/31/21 06:23 Chief Complaint: Lip swelling and difficulty swallowing Narrative: 70-year-old male with a past medical history of diabetes, diabetic foot ulcer and recent osteomyelitis with associated MRSA bacteremia who presented to the ER with angioedema of the lip. The patient was hospitalized 05/16/2021 through 05/21/2021 due to left foot osteomyelitis in associated MRSA bacteremia. He was discharged home on IV vancomycin with a left upper extremity PICC line with therapy to continue until 06/28/2021. The patient reports he was doing well with this treatment and had his vancomycin dose decreased down to 1 g q.12 hours on the . He has been going to wound care on a weekly basis and his foot has been healing. He has a follow-up appoint with Dr. Morales this coming Tuesday. He reported on the he had attempted to walk to the kitchen without his boot on and slipped and fell. However after his fall he felt fine in managed to go to bed and was feeling okay. The next morning he woke up with a swollen lip. He initially thought the lip swelling was due to his fall even though he did not hit his face or bite his lip. He did hit the back of his head but denied any loss of consciousness. The next morning he woke up and his lip was markedly swollen. He also was having some difficulty swallowing. He denied any shortness of breath or difficulty breathing. He still received his morning dose of vancomycin. His daughter became concerned with his lip swelling and contacted his home health nurse. The home health nurse told the patient to not take any more doses of his vancomycin and go to the ER for evaluation. The swelling had been present at 8:00 a.m. when he woke up and was unchanged when he arrived to the ER. He has not had any drooling or difficulty managing secretions. He is on lisinopril and vancomycin at home. He has never had prior episodes of angioedema before. He denies any chest pain, cough or congestion. He has not had any diarrhea or changes in urinary frequency. He does snore heavily. An ApneaLink was attempted during his last hospitalization but the study was discontinued when he shortened out the Sensor when he had nocturnal enuresis. He has not had any fevers or chills. He does have chronic kidney disease and his creatinine had increased compared to prior value from 1-1.4. The patient's MRSA bacteremia was resistant to clindamycin, erythromycin and oxacillin. It was sensitive to vancomycin, gentamicin, tetracycline and Bactrim. [facility] Past Medical History Medical History (Updated 05/31/21 @ 07:04 by Adele Mccurdy DO) Chronic renal insufficiency, stage III (moderate) Patient actually denies a history of chronic kidney disease and his creatinine is currently normal with a normal GFR Diabetes mellitus Diabetic foot ulcer associated with type 2 diabetes mellitus Diabetic peripheral neuropathy Dupuytren's contracture of left hand Eczema Essential (primary) hypertension Kidney stones Reportedly passed a kidney stone at 11 years of age Magnesium deficiency Major depressive disorder, single episode, unspecified Paroxysmal atrial fibrillation Psoriasis Recurrent major depressive disorder, in partial remission Surgical History Surgical History (Updated 05/31/21 @ 06:46 by Adele Mccurdy DO) Status post excisional debridement (05/18/21) Left foot ulcer extending to the medial sesamoid with osteomyelitis of the distal 1st metatarsal and proximal phalanx with placement of Steinmann pin performed by Dr. Wing Status post open reduction with internal fixation of fracture Left ankle ORIF [address] Tyler Family History Family History Father Myocardial infarct Family history of coronary artery disease, Onset Age: 66 Lung cancer Mother Leukemia Family history of coronary artery disease,
[2021-05-31] MEDS: CENTRAL LINE FLUSH 10 ML IV PUSH ×5 (06:28→21:37)
[2021-05-31] MEDS: methylPREDNISolone SOD SUCC 125 MG VIAL 60 MG IV PUSH ×4 (06:29→23:45)
[2021-05-31] MEDS: CENTRAL LINE FLUSH 20 ML IV PUSH (06:29)
[2021-05-31 06:33] LABS: Basophils Percent Auto 0.4 % (0.2-1.2); Hematocrit 35.8 % (42.0-52.0); Hemoglobin 11.8 g/dL (14.0-18.0); Immature Granulocyte Absolute 0.06 K/mm3 (0.00-0.031); Immature Granulocyte Percent A 0.9 % (0-0.5); Lymphocytes Absolute Auto 0.63 K/mm3 (0.9-3.2); Lymphocytes Percent Auto 8.9 % (18.3-44.2); Mean Corpuscular Hemoglobin 28.6 pg (26-34); Mean Corpuscular Volume 86.7 fl (80-100); Mean Platelet Volume 9.4 fl (7.4-10.4); Monocytes Absolute Auto 0.1 K/mm3 (0.1-0.6); Monocytes Percent Auto 1.3 % (2.6-8.5); Neutrophils Absolute Auto 6.2 K/mm3 (1.3-6.7); Neutrophils Percent Auto 88.5 % (45.5-73.1); Platelet Count Result 352 k/mm3 (150-375); Red Blood Count 4.13 M/mm3 (4.6-6.20); Red Cell Distribution Width 13.7 % (11.5-14.5); White Blood Count 7.1 K/mm3 (4.5-10.0)
[2021-05-31 06:45] LABS: Anion Gap 9 mmol/L (8-16); Blood Urea Nitrogen 19 mg/dL (9-20); Calcium 9.3 mg/dL (8.4-10.2); Carbon Dioxide 25 mmol/L (22-30); Chloride 105 mmol/L (98-107); Estimated CRCL calculation 50 ml/min; Estimated Glomerular Filt Rate 55; Glucose 178 mg/dL (65-110); Potassium 4.5 mmol/L (3.4-5.0); Sodium 139 mmol/L (137-145)
[2021-05-31 06:48] LABS: Vancomycin Random 13.2 ug/mL (10-20)
[2021-05-31] MEDS: ENOXAPARIN 40 MG/0.4 ML SYRINGE SUB-Q (09:25)
[2021-05-31] MEDS: metFORMIN HCL 500 MG TABLET 1000 MG PO ×2 (09:25→16:27)
[2021-05-31] MEDS: PANTOPRAZOLE 40 MG TABLET PO (09:25)
[2021-05-31] MEDS: calcium polycarbophiL 625 MG TABLET 1250 MG PO (09:27)
[2021-05-31 09:51] LABS: Glucose Point of Care 150 mg/dl (65-105)
[2021-05-31] MEDS: METOPROLOL SUCCINATE EXT REL 100 MG TABCR PO (12:21)
[2021-05-31] MEDS: CITALOPRAM HYDROBROMIDE 20 MG TABLET PO (12:21)
[2021-05-31] MEDS: FAMOTIDINE 20 MG/2 ML VIAL IV PUSH ×2 (12:21→21:36)
[2021-05-31] MEDS: THERAPEUTIC MULTIVITAMINS/MINERALS TAB (*BKC) 1 TABLET PO (12:22)
[2021-05-31 13:10] LABS: Glucose Point of Care 141 mg/dl (65-105)
--- NOTE | 2021-05-31 15:25 | PM.IMPN ---
Progress Note: A&P Assessment and Plan (1) Angioedema: Qualifiers: Encounter type: initial encounter Qualified Code(s): T78.3XXA - Angioneurotic edema, initial encounter Code(s): T78.3XXA - Angioneurotic edema, initial encounter Status: Acute Assessment and Plan: Could be due to vancomycin verses lisinopril. Unfortunately the patient had recent diagnosis of MRSA bacteremia and is supposed to complete antibiotic therapy 06/28/2021. Given the angioedema and possibility of vancomycin causing is discussed with Dr. Hodges was on-call for Dr. dubon. Suggested switched to daptomycin. Currently the patient vancomycin and lisinopril or both on hold. Patient is receiving scheduled Solu-Medrol and Pepcid with p.r.n. Benadryl as needed. His angioedema is improving. He reports the sensation of dysphagia is almost resolved. His lip swelling has resolved now (2) MRSA bacteremia: Code(s): R78.81 - Bacteremia; B95.62 - Methicillin resistant Staphylococcus aureus infection as the cause of diseases classified elsewhere Status: Acute Assessment and Plan: Contacted Dr. Hodges and suggested switched to daptomycin. (3) Acute kidney injury: Code(s): N17.9 - Acute kidney failure, unspecified Status: Acute Assessment and Plan: Likely due to vancomycin use. The patient's vancomycin dose had recently been decreased on 05/30/2021. Vancomycin is now on hold given angioedema. Renal function improving (4) Diabetes mellitus: Qualifiers: Diabetes mellitus type: type 2 Diabetes mellitus intermediate designer insulin use: without intermediate designer use Diabetes mellitus complication status: with skin complications Diabetes mellitus complication detail: with foot ulcer Qualified Code(s): E11.621 - Type 2 diabetes mellitus with foot ulcer; L97.509 - Non-pressure chronic ulcer of other part of unspecified foot with unspecified severity Code(s): E11.9 - Type 2 diabetes mellitus without complications Status: Acute Assessment and Plan: His glucoses are within range for hospitalized patient. Will continue home metformin will add low-dose sliding scale insulin with Accu-Cheks a.c. HS and hypoglycemia protocol. Will change patient's diet to consistent carbohydrate given resolution of his dysphagia. (5) DVT prophylaxis: Code(s): Z29.9 - Encounter for prophylactic measures, unspecified Status: Acute Assessment and Plan: Lovenox Subjective Date/time seen: 05/31/21 15:25 Interval history: HPI:70-year-old male with a past medical history of diabetes, diabetic foot ulcer and recent osteomyelitis with associated MRSA bacteremia who presented to the ER with angioedema of the lip. The patient was hospitalized 05/16/2021 through 05/21/2021 due to left foot osteomyelitis in associated MRSA bacteremia. He was discharged home on IV vancomycin with a left upper extremity PICC line with therapy to continue until 06/28/2021. The patient reports he was doing well with this treatment and had his vancomycin dose decreased down to 1 g q.12 hours on the . He has been going to wound care on a weekly basis and his foot has been healing. He has a follow-up appoint with Dr. Morales this coming Tuesday. He reported on the he had attempted to walk to the kitchen without his boot on and slipped and fell. However after his fall he felt fine in managed to go to bed and was feeling okay. The next morning he woke up with a swollen lip. He initially thought the lip swelling was due to his fall even though he did not hit his face or bite his lip. He did hit the back of his head but denied any loss of consciousness. The next morning he woke up and his lip was markedly swollen. He also was having some difficulty swallowing. He denied any shortness of breath or difficulty breathing. He still received his morning dose of vancomycin. His daughter became concerned with his lip
[2021-05-31] MEDS: DAPTOmycin 500 MG in SODIUM CHLORIDE 0.9% IV 50 ML 100 MG IVPB (16:26)
[2021-05-31 17:54] LABS: Glucose Point of Care 152 mg/dl (65-105)
[2021-05-31 21:02] LABS: Glucose Point of Care 191 mg/dl (65-105)
[2021-05-31] MEDS: ZOLPIDEM TARTRATE (*CRX) 5 MG TABLET 10 MG PO (21:36)
[2021-05-31] MEDS: amLODIPine BESYLATE 2.5 MG TABLET PO (21:36)
[2021-05-31] MEDS: ASPIRIN 325 MG TABLET PO (21:36)
[2021-06-01] VITALS: BP 103/89; PULSE 65; RESP 16; TEMP 36.4; O2SAT 97
[2021-06-01] MEDS: methylPREDNISolone SOD SUCC 125 MG VIAL 60 MG IV PUSH ×2 (05:51→12:24)
[2021-06-01] MEDS: CENTRAL LINE FLUSH 10 ML IV PUSH ×4 (05:54→12:25)
[2021-06-01 06:16] LABS: Basophils Percent Auto 0.1 % (0.2-1.2); Hematocrit 33.2 % (42.0-52.0); Immature Granulocyte Absolute 0.16 K/mm3 (0.00-0.031); Lymphocytes Absolute Auto 1.15 K/mm3 (0.9-3.2); Lymphocytes Percent Auto 7.2 % (18.3-44.2); Mean Corpuscular HGB Conc 33.1 g/dl (32-36); Mean Corpuscular Hemoglobin 28.5 pg (26-34); Mean Platelet Volume 9.7 fl (7.4-10.4); Monocytes Absolute Auto 0.5 K/mm3 (0.1-0.6); Monocytes Percent Auto 2.9 % (2.6-8.5); Neutrophils Absolute Auto 14.2 K/mm3 (1.3-6.7); Neutrophils Percent Auto 88.8 % (45.5-73.1); Platelet Count Result 358 k/mm3 (150-375); Red Blood Count 3.86 M/mm3 (4.6-6.20); Red Cell Distribution Width 13.7 % (11.5-14.5)
[2021-06-01 06:35] LABS: Anion Gap 8 mmol/L (8-16); Blood Urea Nitrogen 29 mg/dL (9-20); Carbon Dioxide 27 mmol/L (22-30); Chloride 104 mmol/L (98-107); Estimated CRCL calculation 47 ml/min; Estimated Glomerular Filt Rate 50; Glucose 184 mg/dL (65-110); Potassium 4.2 mmol/L (3.4-5.0); Sodium 139 mmol/L (137-145)
[2021-06-01 07:19] LABS: Glucose Point of Care 163 mg/dl (65-105)
[2021-06-01 07:59] VITALS: BP 145/75; PULSE 60; RESP 16; TEMP 36.5; O2SAT 99
[2021-06-01 08:14] VITALS: PULSE 60
[2021-06-01] MEDS: calcium polycarbophiL 625 MG TABLET 1250 MG PO (08:14)
[2021-06-01] MEDS: ENOXAPARIN 40 MG/0.4 ML SYRINGE SUB-Q (08:14)
[2021-06-01] MEDS: METOPROLOL SUCCINATE EXT REL 100 MG TABCR PO (08:14)
[2021-06-01] MEDS: FAMOTIDINE 20 MG/2 ML VIAL IV PUSH (08:15)
[2021-06-01] MEDS: PANTOPRAZOLE 40 MG TABLET PO (08:15)
[2021-06-01] MEDS: CITALOPRAM HYDROBROMIDE 20 MG TABLET PO (08:15)
[2021-06-01] MEDS: THERAPEUTIC MULTIVITAMINS/MINERALS TAB (*BKC) 1 TABLET PO (08:15)
[2021-06-01] MEDS: metFORMIN HCL 500 MG TABLET 1000 MG PO (08:15)
--- NOTE | 2021-06-01 09:08 | PC.NURSE ---
patient transfered to room 304 from [facility]
--- NOTE | 2021-06-01 09:20 | PC.NURSE ---
This patient, Brandon Bergeron, was transferred to [facility] on 06/01/21 at 0850. Personal belongings sent with patient. Report given to NAVA Dubois. Appropriate documentation sent with patient.
[2021-06-01] MEDS: TOLNAFTATE 1% POWDER 45 GM BTL 1 APPLIC TOPICAL (12:24)
[2021-06-01 12:29] LABS: Glucose Point of Care 132 mg/dl (65-105)
--- NOTE | 2021-06-01 12:33 | PM.DS ---
DS: Admitting Diagnosis Discharge Date 06/01/2021 Admitting Diagnosis angioedema DS: Discharge Diagnosis Discharge Diagnosis (1) Angioedema: Qualifiers: Encounter type: initial encounter Qualified Code(s): T78.3XXA - Angioneurotic edema, initial encounter Code(s): T78.3XXA - Angioneurotic edema, initial encounter Status: Acute Assessment and Plan: Could be due to vancomycin verses lisinopril. Unfortunately the patient had recent diagnosis of MRSA bacteremia and is supposed to complete antibiotic therapy 06/28/2021. Given the angioedema and possibility of vancomycin causing is discussed with Dr. Hodges was on-call for Dr. dubon. Suggested switched to daptomycin., which will be continued till 06/28/2021 Currently the patient vancomycin and lisinopril or both on hold. Patient is receiving scheduled Solu-Medrol and Pepcid with p.r.n. Benadryl as needed. His angioedema is improving. He reports the sensation of dysphagia is almost resolved. His lip swelling has resolved now Was switched to prednisone taper at discharge along with Pepcid and Benadryl (2) MRSA bacteremia: Code(s): R78.81 - Bacteremia; B95.62 - Methicillin resistant Staphylococcus aureus infection as the cause of diseases classified elsewhere Status: Acute Assessment and Plan: Contacted Dr. Hodges and suggested switched to daptomycin. Discussed with Dr. dubon and will continue daptomycin for until 06/28/2021 as previously planned (3) Acute kidney injury: Code(s): N17.9 - Acute kidney failure, unspecified Status: Acute Assessment and Plan: Likely due to vancomycin use. The patient's vancomycin dose had recently been decreased on 05/30/2021. Vancomycin is now on hold given angioedema. Renal function improving (4) Diabetes mellitus: Qualifiers: Diabetes mellitus complication detail: with foot ulcer Diabetes mellitus complication status: with skin complications Diabetes mellitus shipping receiving manager insulin use: without shipping receiving manager use Diabetes mellitus type: type 2 Qualified Code(s): E11.621 - Type 2 diabetes mellitus with foot ulcer; L97.509 - Non-pressure chronic ulcer of other part of unspecified foot with unspecified severity Code(s): E11.9 - Type 2 diabetes mellitus without complications Status: Acute Assessment and Plan: His glucoses are within range for hospitalized patient. Will continue home metformin will add low-dose sliding scale insulin with Accu-Cheks a.c. HS and hypoglycemia protocol. Will change patient's diet to consistent carbohydrate given resolution of his dysphagia. (5) DVT prophylaxis: Code(s): Z29.9 - Encounter for prophylactic measures, unspecified Status: Acute Assessment and Plan: Lovenox DS: Summary Hospital Course Hospital Course: see above Time Spent with Patient Time attestation: Total time spent providing and/or coordinating discharge services: 50 minutes Exam Narrative: General: No acute distress, well-developed well-nourished HEENT: Mucous membranes are moist, no oral pharyngeal erythema, head is normocephalic atraumatic, pupils are equal and reactive, edema of his lower lip has resolved Respiratory: Clear to auscultation bilaterally, no increased work of breathing Cardiovascular: Regular rate, regular rhythm, 2+ bilateral radial pulses Gastrointestinal: Soft, nontender, nondistended, positive bowel sounds Skin: Generalized pallor, non jaundice Musculoskeletal: Left foot with dressing on Neurological: Alert and oriented, speech is clear, no facial asymmetry, no localizing neurologic deficits noted on limited exam Psychiatric: Appropriate mood and affect, pleasant and cooperative : Deferred Hematologic/lymphatic: No anterior cervical or submandibular lymphadenopathy DS: Data Data Completed and Pending Labs on day of discharge: Labs from last 24 hours 06/01/21 06/01/2106/01
--- NOTE | 2021-06-01 12:52 | WPDINFPN2 ---
Progress Note: A&P Assessment and Plan (1) Angioedema: Qualifiers: Encounter type: initial encounter Qualified Code(s): T78.3XXA - Angioneurotic edema, initial encounter Code(s): T78.3XXA - Angioneurotic edema, initial encounter Status: Acute Assessment and Plan: 1. Angioedema, most likely vancomycin 2. MRSA bacteremia with infection 3. Stage 3 CRI REC Daptomycin through 06/28, present dosing ok. Ok return home Subjective Date/time seen: 06/01/21 12:52 Objective Data Vital Signs Vital Signs: Vital Signs - 24 hr 05/31/21 14:00 05/31/21 16:00 05/31/21 20:00 Temperature 36.4 C L 36.6 C Pulse Rate 67 64 62 Respiratory Rate 18 20 Blood Pressure 178/59 H 144/55 H Pulse Oximetry 98 99 06/01/21 00:00 06/01/21 07:59 06/01/21 08:14 Temperature 36.4 C 36.5 C Pulse Rate 65 60 60 Respiratory Rate 16 16 Blood Pressure 103/89 145/75 H Pulse Oximetry 97 99 Intake/Output Intake/Output: Intake & Output 05/30/21 05/31/21 05/31/21 06/01/21 00:59 00:59 23:59 23:59 Intake Total 540 Output Total 600 Balance -60 Meds/Results Medications: Active Medications Generic Name Dose Route Start Last Admin Trade Name Freq PRN Reason Stop Dose Admin Amlodipine Besylate 2.5 mg 05/31/21 21:00 05/31/21 21:36 Amlodipine Besylate 2.5 Mg Tablet PO 2.5 mg HS RICHARD Administration Aspirin 325 mg 05/31/21 21:00 05/31/21 21:36 Aspirin 325 Mg Tablet PO 325 mg HS RICHARD Administration Calcium Polycarbophil 1,250 mg 05/31/21 09:00 06/01/21 08:14 Calcium Polycarbophil 625 Mg Tablet PO 1,250 mg DAILY RICHARD Administration Citalopram Hydrobromide 20 mg 05/31/21 09:00 06/01/21 08:15 Citalopram Hydrobromide 20 Mg Tablet PO 20 mg DAILY RICHARD Administration Dextrose 12.5 gm 05/31/21 06:59 Dextrose 50% 25 Gm/50 Ml Syringe IV PUSH PRN PRN Hypoglycemia Protocol Diphenhydramine HCl 25 mg 05/31/21 00:48 Diphenhydramine Hcl Inj 50 Mg/Ml Vial IV PUSH Q6HR PRN lip swelling Enoxaparin Sodium 40 mg 05/31/21 09:00 06/01/21 08:14 Enoxaparin 40 Mg/0.4 Ml Syringe SUB-Q 40 mg DAILY RICHARD Administration Famotidine 20 mg 05/31/21 09:00 06/01/21 08:15 Famotidine 20 Mg/2 Ml Vial IV PUSH 20 mg Q12HR RICHARD Administration Glucagon 1 mg 05/31/21 06:59 Glucagon For Inj 1 Mg Vial IM PRN PRN Hypoglycemia Protocol Glucose 15 gm 05/31/21 06:59 Glucose Oral Gel 15 Gm Of Glucse In 37.5 Gm Tube PO PRN PRN Hypoglycemia Protocol Dextrose 1,000 mls @ 100 mls/hr 05/31/21 06:59 Dextrose 5% 1,000 Ml IVPB PRN PRN Hypoglycemia Protocol Daptomycin 500 mg/ Sodium 50 mls @ 100 mls/hr 05/31/21 17:00 05/31/21 17:00 Chloride IVPB Infused Q24H RICHARD Infusion Insulin Aspart 2 - 5 units 05/31/21 08:00 06/01/21 12:28 Insulin Aspart (*Bkc) 100 Units/Ml SUB-Q Not Given TIDWM [facility] Protocol Metformin HCl 1,000 mg 05/31/21 08:00 06/01/21 08:15 Metformin Hcl 500 Mg Tablet PO 1,000 mg BIDWM RICHARD Administration Methylprednisolone Sodium Succinate 60 mg 05/31/21 06:00 06/01/21 12:24 Methylprednisolone Sod Succ 125 Mg Vial IV PUSH 60 mg Q6HR RICHARD Administration Metoprolol Succinate 100 mg 05/31/21 09:00 06/01/21 08:14 Metoprolol Succinate Ext Rel 100 Mg Tabcr PO 100 mg DAILY RICHARD Administration Multivitamins/Calcium 1 tablet 05/31/21 09:00 06/01/21 08:15 Therapeutic Multivitamins/Minerals Tab (*Bkc) PO 1 tablet DAILY RICHARD Administration Pantoprazole Sodium 40 mg 05/31/21 09:00 06/01/21 08:15 Pantoprazole 40 Mg Tablet PO 40 mg [id number] RICHARD Administration Sodium Chloride 10 ml 05/31/21 06:00 06/01/21 12:25 Central Line Flush IV PUSH 10 ml Q8HR RICHARD Administration Sodium Chloride 10 ml 05/31/21 05:47 Central Line Flush IV PUSH PRN PRN with TPN bag changes Sodium Chloride 20 ml 11
[2021-06-01 16:00] VITALS: BP 173/86; PULSE 60; RESP 20; O2SAT 97
[2021-06-01] MEDS: DAPTOmycin 500 MG in SODIUM CHLORIDE 0.9% IV 50 ML 100 MG IVPB (16:03)
--- NOTE | 2021-06-01 16:03 | PM.PNORT ---
Progress Note: A&P Assessment and Plan (1) Acute osteomyelitis of left foot: Code(s): M86.172 - Other acute osteomyelitis, left ankle and foot Status: Acute Assessment and Plan: 2 weeks post op.Transition to Daptomycin due to allergy per ID. Continue through 06/28. Incision with dehiscence in the midportion. Begin silver gel and transfer dressing changes daily. Reviewed signs/symptoms of worsening infection to report immediately. Continue fracture boot. Limit pressure on forefoot by walking on heel. Follow up in 1 week for reevaluation in the outpatient wound clinic. May eventually require grafting due to incisional dehiscence. (2) Cellulitis of left foot: Code(s): L03.116 - Cellulitis of left lower limb Status: Acute Subjective Subjective Date/Time Seen: 06/01/21 16:03 Interval history: 2 weeks status post left foot debridement and excision of osteomyelitis of the 1st metatarsal. Patient has been performing daily dressing changes at home with Adaptic, gauze, Kerlix and Coban. He was admitted in the setting of angioedema which began on Tuesday morning per patient report. He was transitioned from Vancomycin to Daptomycin through 06/28. He is being discharged today. He was planned to follow up in the [facility] wound clinic tomorrow prior to hospital admission. Review of Systems Constitutional: Constitutional: Denies fatigue, Denies fever(s) and Denies weakness Cardiovascular: Cardiovascular: Reports no additional cardiovascular complaints, Denies chest pain, Denies lightheadedness and Denies palpitations Respiratory: Respiratory: Denies chest congestion, Denies cough, Denies dyspnea and Denies wheezing Gastrointestinal: Gastrointestinal: Denies diarrhea, Denies nausea and Denies vomiting Genitourinary: Genitourinary: Reports no additional male genitourinary complaints Musculoskeletal: Musculoskeletal: Reports as per HPI Exam Const: General: comfortable and no acute distress Resp: Effort & Inspection: normal respiratory effort Cardio: Rate: regular rate Rhythm: regular rhythm GI: Inspection: non-distended GI Palp: Yes Soft to palpation and No Tenderness to palpation present (GI) Skin: Wounds: wounds noted (see extremity assessment ) Neuro: Cognition (Neuro): normal cognition Extrem: Other: Incision left dorsal hallux with dehiscence at midportion of the incision. Sutures removed from proximal and midportion. More distal sutures remain intact with running stitch, left in place. Area of dehiscence with 100% red/pink wound bed. Likely due to pressure as screw in the hallux has began to back out as well. Not loose today on exam. Surrounding tissue with 100% improvement in maceration with additional of antifungal powder. Palpable pedal pulse. Decreased sensation. Dressing changed today. Unable to move toes at baseline. Psych: Mental Status: mental status grossly normal Affect: normal affect Objective Data Vital Signs Vital Signs: Vital Signs - 24 hr 05/31/21 20:00 06/01/21 00:00 06/01/21 07:59 Temperature 36.6 C 36.4 C 36.5 C Pulse Rate 62 65 60 Respiratory Rate 20 16 16 Blood Pressure 144/55 H 103/89 145/75 H Pulse Oximetry 99 97 99 06/01/21 08:14 Temperature Pulse Rate 60 Respiratory Rate Blood Pressure Pulse Oximetry Intake/Output Intake/Output: Intake & Output 05/30/21 05/31/21 05/31/21 06/01/21 00:59 00:59 23:59 23:59 Intake Total 540 Output Total 600 Balance -60 Meds/Results Medications: Active Medications Generic Name Dose Route Start Last Admin Trade Name Freq PRN Reason Stop Dose Admin Amlodipine Besylate 2.5 mg 05/31/21 21:00 05/31/21 21:36 Amlodipine Besylate 2.5 Mg Tablet PO 2.5 mg HS RICHARD Administration Aspirin 325 mg 05/31/21 21:00 05/31/21 21:36 Aspirin 325 Mg Tablet PO 325 mg HS RICHARD Administration Calcium Polycarbophil 1,250 mg 05/31/21 09:00 06/01/21 08:14 Calcium Polycarbophil 625 Mg Tablet PO 1,
[2021-06-01] MEDS: SILVERGEL (ELTA) 45 ML 1 APPLIC TOPICAL (16:04)
[2021-06-01 16:16] LABS: Glucose Point of Care 140 mg/dl (65-105)
--- NOTE | 2021-06-03 11:05 | CONS_ITS ---
DATE OF CONSULTATION: 06/01/2021 REASON FOR CONSULTATION: MRSA bacteremia and angioedema. HISTORY OF PRESENT ILLNESS: He was here in the hospital 2 weeks ago with a long-standing plantar foot ulcer. He was taken to the operating room on the , where he had excision of osteomyelitis of the left first metatarsal. He also had positive blood cultures, same source. He was started on vancomycin with plan to continue through June 28. He was discharged home on May 21 and was receiving medication without difficulty. On the day of admission when he woke in the morning, he had swelling of his lower lip, tickling in his throat, and difficulty swallowing. This persisted and he presented to the emergency room in the evening. He was admitted and vancomycin had been stopped. He is on daptomycin. Consultation requested. He has received corticosteroids while here. He feels much better. No further dysphagia, tingling, or lip swelling. He had no unusual foods on the day prior to admission. His lisinopril has been continuing medication for at least 2 years. No other new medication. PRESENT MEDICATIONS: As above. HABITS: Quit smoking in 2004. No alcohol. ALLERGIES: NONE PRIOR TO THIS TIME. PAST MEDICAL HISTORY: As detailed in his chart including stage 3 chronic renal insufficiency, diabetes mellitus with peripheral neuropathy. Remainder as per record and reviewed. REVIEW OF SYSTEMS: Constitutional, skin, respiratory, GI, musculoskeletal otherwise negative. FAMILY HISTORY: Not pertinent to his present illness. SOCIAL HISTORY: Customarily sees Dr. Alan. He is single, lives locally. PHYSICAL EXAMINATION: GENERAL: Pleasant male who appears in no distress. VITAL SIGNS: Afebrile, 60, 16, 145/75, 99% on room air. SKIN: No generalized rashes, no erythroderma. EENT: The conjunctivae are normal. The oral mucosa is well hydrated. He has no lip edema apparent. No erythema. NECK: No mass, asymmetry, tenderness, warmth, or edema. Trachea is in midline. LUNGS: Clear to auscultation without wheezing, also clear to percussion. CARDIAC: Regular rate and rhythm. No murmurs. ABDOMEN: Nontender, soft. No organomegaly. EXTREMITIES: No clubbing, cyanosis, or edema. LABORATORY DATA: Blood culture is recollected, no growth so far. Blood cultures on May 19, final no growth. His white blood cell count normal on arrival 16.0 today, hemoglobin 11.0, platelets are 358, BUN 29, creatinine 1.4. Accu-Cheks mid 100s. CRP was 18.4 on May 20. RADIOLOGY: Chest x-ray, PICC in place, left arm. ASSESSMENT: 1. Angioedema, likely from vancomycin, less likely lisinopril, dietary, or other environmental. 2. Methicillin-resistant Staphylococcus aureus bacteremia due to osteomyelitis, improved with microbiologic cure. RECOMMENDATION: 1. No further vancomycin. Discussed with him. 2. Okay with daptomycin, same stop date 06/28/2021. 3. Okay with me for discharge planning. 4. 5. Thank you for asking me to see him. The white blood cell count will be followed as an outpatient. At this time, I think it is due to steroids. KVNG GLASGOW M.D. SQL CONSULTANT SQL CONSULTANT D I MT: [place]
== END 2021-06-01 18:20 | disposition home health service (06) ==
LOC: ANHED 05-31 00:55 → ANHIMU 05-31 01:16 → ANH3MEDSUR 06-01 11:56 → ANHIMU 06-02 10:40
PROVIDERS: Admitting Provider Internal Medicine; Emergency Provider Emergency Medicine; PCP Family Medicine; Visit Provider Internal Medicine
DX: T78.3XXA Angioneurotic edema, initial encounter (principal); E11.621 Type 2 diabetes mellitus with foot ulcer; M86.172 Other acute osteomyelitis, left ankle and foot; L97.529 Non-pressure chronic ulcer of other part of left foot with unspecified severity; L03.116 Cellulitis of left lower limb; E11.42 Type 2 diabetes mellitus with diabetic polyneuropathy; E11.22 Type 2 diabetes mellitus with diabetic chronic kidney disease; I12.9 Hypertensive chronic kidney disease with stage 1 through stage 4 chronic kidney disease, or unspecified chronic kidney disease; N18.30 Chronic kidney disease, stage 3 unspecified; B95.62 Methicillin resistant Staphylococcus aureus infection as the cause of diseases classified elsewhere; R78.81 Bacteremia; N17.9 Acute kidney failure, unspecified; Z79.84 Long term (current) use of oral hypoglycemic drugs; Z87.891 Personal history of nicotine dependence
CPT/HCPCS: 36415; 71045; 80048; 80053; 80202; 82948; 85025; 87040; 96361; 96365; 96372; 96374; 96375; 96376; 97161; 97165; 99285; A9270; G0378; J0878; J1200; J1650; J2930; J7030

== ENCOUNTER 2021-06-12 07:26 | Outpatient (RCR) | payer MEDICARE, OTHER, SELFPAY ==
--- NOTE | 2021-05-26 09:28 | PM.PNORT ---
Progress Note: A&P Assessment and Plan (1) Acute osteomyelitis of left foot: Code(s): M86.172 - Other acute osteomyelitis, left ankle and foot Status: Acute Assessment and Plan: One week, 1 day status post left foot debridement and excision of osteomyelitis of the 1st metatarsal as well as pin fixation. Patient with improvement in surrounding erythema. Continue IV antibiotics through June 28 under the direction of Dr. dubon. Continue daily dressing changes. Transition to Mepilex transfer over incision line on the dorsal aspect of the hallux and over pin fixation. Cover with ABD pad and wrapped loosely with Kerlix and Coban. Patient transitioned to fracture boot today from postop shoe for more pressure offloading. Patient to continue use of walker. Reviewed fall precautions. Patient to follow-up in 1 week for re-evaluation. We will await suture removal until 3 weeks postoperative if possible. Reviewed signs and symptoms of worsening condition requiring immediate emergency intervention in the ED. (2) Diabetic foot ulcer associated with type 2 diabetes mellitus: Qualifiers: Diabetic foot ulcer location: midfoot Laterality: left Non-pressure ulcer stage: unspecified non-pressure ulcer stage Qualified Code(s): E11.621 - Type 2 diabetes mellitus with foot ulcer; L97.429 - Non-pressure chronic ulcer of left heel and midfoot with unspecified severity Code(s): E11.621 - Type 2 diabetes mellitus with foot ulcer; L97.509 - Non-pressure chronic ulcer of other part of unspecified foot with unspecified severity Status: Acute Subjective Subjective Date/Time Seen: 05/26/21 09:28 Principal diagnosis: Left diabetic foot ulcer Interval history: 1 week, 1 day status post left foot debridement and excision of osteomyelitis of the 1st metatarsal. Patient has been performing daily dressing changes at home with Adaptic, gauze, Kerlix and Coban. Patient is on IV antibiotics through June 28 with vancomycin under the direction of Dr. dubon. PICC line in place. No new complaints today. Review of Systems Constitutional: Constitutional: Denies fatigue, Denies fever(s) and Denies weakness Cardiovascular: Cardiovascular: Reports no additional cardiovascular complaints, Denies chest pain, Denies lightheadedness and Denies palpitations Respiratory: Respiratory: Denies chest congestion, Denies cough, Denies dyspnea and Denies wheezing Gastrointestinal: Gastrointestinal: Denies diarrhea, Denies nausea and Denies vomiting Genitourinary: Genitourinary: Reports no additional male genitourinary complaints Musculoskeletal: Musculoskeletal: Reports as per HPI Exam Const: General: comfortable and no acute distress Resp: Effort & Inspection: normal respiratory effort Cardio: Rate: regular rate Rhythm: regular rhythm GI: Inspection: non-distended GI Palp: Yes Soft to palpation and No Tenderness to palpation present (GI) Skin: Wounds: wounds noted (see extremity assessment ) Neuro: Cognition (Neuro): normal cognition Extrem: Other: Incision left dorsal hallux well approximated. skin with healthy viable appearance. Pending noted at the distal aspect of the hallux. Surrounding tissue healthy and pink. Dorsal foot tissue with improvement in erythema and swelling. Mild maceration consistent with yeast. Palpable pedal pulse. Decreased sensation. Dressing changed today. Unable to move toes at baseline. Psych: Mental Status: mental status grossly normal Affect: normal affect Objective Data Meds/Results Medications: Active Medications Generic Name Dose Route Start Last Admin Trade Name Freq PRN Reason Stop Dose Admin Wound Care/Dressing Products 1 patch 05/26/21 09:19 Mepilex Transfer Drsg 6x8 TOPICAL 08/27/21 23:55 PRN PRN Wound Care
[2021-05-26 09:42] VITALS: BMI 28.7
--- NOTE | 2021-06-09 10:18 | PM.PNORT ---
Progress Note: A&P Assessment and Plan (1) Acute osteomyelitis of left foot: Code(s): M86.172 - Other acute osteomyelitis, left ankle and foot Status: Acute Assessment and Plan: Patient is now 3 weeks, 1 day status post left foot debridement excision of osteomyelitis of the 1st metatarsal as well as pin fixation. Patient was readmitted [facility] last week due to vancomycin allergic reaction. He was transitioned to daptomycin. IV antibiotics being followed by Dr. hodges. Patient has home health involved as well. During patient's inpatient evaluation by the Orthopedic Service, his left hallux dorsal incision was found to be dehisced. Sutures that were no longer effective were removed during hospitalization. Remaining sutures removed today. Wound dehiscence measures 4.0 x 0.6 x 0.5 cm. Patient has been performing daily dressing changes with silver gel and covering with transfer. Patient also has 10 fixation of the left hallux. He has been unable to locate the pin for several days with daily dressing changes. On exam today, pin fixation noted to be buried into the hallux. 0.5 in of the pin was removed from the hallux and pin now in good position and holding in place. Pin trimmed in the outpatient orthopedic clinic with assistance of fluoroscopic views. Fluoroscopic views do show MTP joint debridement and pin fixation to the proximal phalanx and 1st metatarsal. No new callus formation noted. Patient to continue daily dressing changes at this time with silver gel and transfer. Discussed potential need to return to the operating room if failure for wound dehiscence to improve. We will attempt to keep remaining pin fixation in place for a full 6 weeks postoperatively. Discussed current lack of healing with patient and family at bedside. Discussed risks of infection. Patient family verbalized understanding. Patient to continue a fracture boot with no weight-bearing at the forefoot. Patient to follow up on Tuesday for re-evaluation given changes to current pin fixation. Continue home health. Continue IV antibiotics under the direction of Dr. hodges. Reviewed importance of optimal nutrition for overall healing. (2) Diabetic foot ulcer associated with type 2 diabetes mellitus: Qualifiers: Diabetic foot ulcer location: midfoot Laterality: left Non-pressure ulcer stage: unspecified non-pressure ulcer stage Qualified Code(s): E11.621 - Type 2 diabetes mellitus with foot ulcer; L97.429 - Non-pressure chronic ulcer of left heel and midfoot with unspecified severity Code(s): E11.621 - Type 2 diabetes mellitus with foot ulcer; L97.509 - Non-pressure chronic ulcer of other part of unspecified foot with unspecified severity Status: Acute Subjective Subjective Date/Time Seen: 06/09/21 10:18 Interval history: 3 weeks, 1 day status post left foot debridement and excision of osteomyelitis of the 1st metatarsal. Patient has been performing daily dressing changes at home with Adaptic, gauze, Kerlix and Coban. He was readmitted due to a Vancomycin reaction and transitioned to Daptomycin by Dr. Hodges. During his hospital admission he was found to have an incision wound dehiscence of the left dorsal hallux. He began on silver gel at that time. He also reports today that he is no longer able to see the pin fixation at the distal hallux and it has been this way for several days. He continues to have an open wound on the distal aspect of the hallux at pin site. Review of Systems Constitutional: Constitutional: Denies fatigue, Denies fever(s) and Denies weakness Cardiovascular: Cardiovascular: Reports no additional cardiovascular complaints, Denies chest pain, Denies lightheadedness and Denies palpitations Respiratory: Respiratory: Denies chest congestion, Denies cough, Denies dyspnea and Denies wheezing Gastrointestinal: Gastrointestinal: Denies diarrhea, Denies nausea and Denies vomiting Genitourinary:
--- NOTE | 2021-06-12 12:26 | PM.PNORT ---
Progress Note: A&P Assessment and Plan (1) Acute osteomyelitis of left foot: Code(s): M86.172 - Other acute osteomyelitis, left ankle and foot Status: Acute Assessment and Plan: Patient returns to the [place] wound clinic today for re-evaluation 3 days status post alterations to pin fixation due to the pin not holding into the hallux well. The pin was backed out approximately 0.5 cm and then cut and holding in place at that time. The patient reports that the following day when doing his dressing changes he was unable to use the pin once again. He denies fever, chills, night sweats, nausea, vomiting or diarrhea. No purulence. No malodor. Patient instructed to proceed to the outpatient orthopedic clinic for further evaluation of pin fixation under fluoroscopy. Under fluoroscopy and sterile conditions, the pin was located and once again removed from the hallux until it was holding in place well. The pin was then cut once again and bent in order to prevent recurrent complications. Attending and covering MD, Dr. Portillo present for assistance with procedure. Discussed risk for recurrent infection and need to return to the operating room. Patient to begin daily dressing changes with silver gel to the dorsal hallux incision site of dehiscence. Recommended nonweightbearing of the left lower extremity in the interim as to prevent movement of the pin fixation. Reviewed signs and symptoms of worsening infection to report to the emergency room immediately. Patient to continue IV antibiotics. Patient follow-up with Dr. Wing next week for re-evaluation in the outpatient orthopedic clinic. (2) Diabetic foot ulcer associated with type 2 diabetes mellitus: Qualifiers: Diabetic foot ulcer location: midfoot Laterality: left Non-pressure ulcer stage: unspecified non-pressure ulcer stage Qualified Code(s): E11.621 - Type 2 diabetes mellitus with foot ulcer; L97.429 - Non-pressure chronic ulcer of left heel and midfoot with unspecified severity Code(s): E11.621 - Type 2 diabetes mellitus with foot ulcer; L97.509 - Non-pressure chronic ulcer of other part of unspecified foot with unspecified severity Status: Acute Subjective Subjective Date/Time Seen: 06/12/21 12:26 Interval history: 3 weeks, 4 day status post left foot debridement and excision of osteomyelitis of the 1st metatarsal. Patient returns to [place] wound clinic today for re-evaluation of his left hallux wound and owned pin after difficulty with pin fixation earlier this week. Patient underwent a cutting of the pin in the outpatient orthopedic clinic under fluoroscopy. He remains on IV antibiotics. He reports that 1 day status post evaluation he was no longer able to see the pin fixation once again. He denies fever, chills, night sweats, nausea, vomiting or diarrhea. He has been maintaining daily dressing changes without complications. He has been in a fracture boot with protected weight-bearing. Review of Systems Constitutional: Constitutional: Denies fatigue, Denies fever(s) and Denies weakness Cardiovascular: Cardiovascular: Reports no additional cardiovascular complaints, Denies chest pain, Denies lightheadedness and Denies palpitations Respiratory: Respiratory: Denies chest congestion, Denies cough, Denies dyspnea and Denies wheezing Gastrointestinal: Gastrointestinal: Denies diarrhea, Denies nausea and Denies vomiting Genitourinary: Genitourinary: Reports no additional male genitourinary complaints Musculoskeletal: Musculoskeletal: Reports as per HPI Exam Const: General: comfortable and no acute distress Resp: Effort & Inspection: normal respiratory effort Cardio: Rate: regular rate Rhythm: regular rhythm GI: Inspection: non-distended GI Palp: Yes Soft to palpation and No Tenderness to palpation present (GI) Skin: Wounds: wounds noted (see extremity assessment ) Neuro: Cognition (Neuro): normal cognition Extrem: Other:
== END 2021-08-10 08:47 | disposition home or self-care (01) ==
LOC: ANHWOC 07:26
PROVIDERS: PCP Family Medicine; Visit Provider Orthopaedic Surgery
DX: Z48.817 Encounter for surgical aftercare following surgery on the skin and subcutaneous tissue (principal); T81.41XD Infection following a procedure, superficial incisional surgical site, subsequent encounter; E11.621 Type 2 diabetes mellitus with foot ulcer; L97.429 Non-pressure chronic ulcer of left heel and midfoot with unspecified severity
CPT/HCPCS: 99212; A9270; G0463; L2116

== ENCOUNTER 2023-02-23 02:38 | Day surgery (SDC) | payer MEDICARE, SELFPAY ==
[2023-02-14 14:17] VITALS: BMI 29.4
[2023-02-23 10:14] VITALS: BP 146/55; PULSE 55; RESP 18; TEMP 36.4; O2SAT 98
[2023-02-23] MEDS: LACTATED RINGERS 1,000 ML 150 ML IV CONT (10:24)
[2023-02-23 10:30] LABS: Glucose Point of Care 130 mg/dl (65-105)
--- NOTE | 2023-02-23 10:35 | WPDANESEPPF ---
Anes - Initial Pre Proc Eval Procedure: Operation Date: 02/23/23 11:30 Proposed Procedures p Screening Colonoscopy - Anmol Eduardo MD Date/Time: 02/23/23 10:35 Surgeon: Anmol Eduardo MD Pre Op Diagnosis: neoplasm screening Patient Data Age: 72 Gender: M Height: 1.78 m Weight: 92.3 kg Last Vital Signs Temp 97.5 F L 02/23/23 10:14 Pulse 55 L 02/23/23 10:14 Resp 18 02/23/23 10:14 BP 146/55 H 02/23/23 10:14 Pulse Ox 98 02/23/23 10:14 O2 Del Method Room Air 02/23/23 10:14 Allergies Allergy/AdvReac Type Severity Reaction Status Date / Time vancomycin Allergy Intermediate angioedema Verified 02/23/23 10:12 lisinopril Allergy Swelling Verified 02/23/23 10:12 of Lip/Tongue/Throat Home Medications Medication Instructions Recorded Confirmed Type aspirin 325 mg tablet 325 mg PO HS 08/02/19 02/14/23 History dgvcsbbtbqxm-wqb-lmyba acid-vit 1 tablet PO DAILY 04/13/21 02/14/23 History K-lycop 400 mcg-20 mcg-370 mcg tablet (Men's 50 Plus Multivitamin) fiber 4 cap PO DAILY 05/16/21 02/14/23 History blood-glucose meter (Blood Glucose #1 ea 06/24/21 02/14/23 Rx Monitoring kit) lancets #200 ea 06/24/21 02/14/23 Rx amlodipine 5 mg tablet See Rx Instructions .Route 03/28/22 02/14/23 Rx .COMPLEX #90 tabs metformin 1,000 mg tablet 1,000 mg PO BID #180 tabs 03/28/22 02/14/23 Rx metoprolol succinate 100 mg 100 mg PO DAILY #90 tabs 03/28/22 02/14/23 Rx tablet,extended release 24 hr citalopram 20 mg tablet 20 mg PO DAILY #90 tabs 10/01/22 02/14/23 Rx blood sugar diagnostic (Blood #100 ea 10/12/22 02/14/23 Rx Glucose Test strips) lancets (Accu-Chek Fastclix Lancet #100 ea 10/12/22 02/14/23 Rx Drum) zolpidem 10 mg tablet 10 mg PO HS PRN insomnia #90 tabs 10/21/22 02/14/23 Rx omeprazole 20 mg capsule,delayed 20 mg PO 3XW 11/02/22 02/14/23 History release atorvastatin 10 mg tablet 10 mg PO DAILY #90 tabs 01/11/23 02/14/23 Rx lancets 33 gauge #100 ea 01/23/23 02/14/23 Rx vitamin B complex (B 1 tablet PO DAILY 02/14/23 02/14/23 History Complex-Vitamin B12 tablet) Laboratory Tests 02/23/23 10:23 POC Capillary Glucose 130 H mg/dl (65-105) Patient hx anesthesia problems: none Family hx anesthesia problems: none Results Review: All pre-operative results and documents have been reviewed as part of the pre-operative evaluation. [facility] Past Medical History Medical History (Updated 02/23/23 @ 10:38 by Anmol Eduardo MD) EVELYN inhibitor intolerance Acute osteomyelitis of left foot Angioedema Callus of foot Chronic renal insufficiency, stage III (moderate) Patient actually denies a history of chronic kidney disease and his creatinine is currently normal with a normal GFR Cock-up deformity of left great toe Colon cancer screening Diabetes mellitus Diabetic foot ulcer associated with type 2 diabetes mellitus Diabetic peripheral neuropathy Dupuytren's contracture of left hand Eczema Encounter for postoperative wound care Essential (primary) hypertension Hyperlipidemia associated with type 2 diabetes mellitus Insomnia Kidney stones Reportedly passed a kidney stone at 11 years of age Magnesium deficiency Major depressive disorder, single episode, unspecified Paroxysmal atrial fibrillation Peripheral autonomic neuropathy due to diabetes mellitus Psoriasis Recurrent major depressive disorder, in partial remission Surgical History Surgical History Status post excisional debridement (05/18/21) Left foot ulcer extending to the medial sesamoid with osteomyelitis of the distal 1st metatarsal and proximal phalanx with placement of Steinmann pin performed by Dr. Wing Status post open reduction with internal fixation of fracture Left ankle ORIF [address] Tyler Family History Family History F
--- NOTE | 2023-02-23 10:37 | PM.HPGS ---
History of Present Illness History of Present Illness Consent: Risks, benefits, and alternatives have been discussed and questions answered. Patient agrees to proceed with procedure. Chief complaint: neoplasm screening Narrative: Brandon Bergeron is a 72 year old male here for screening colonoscopy, had one but years ago (does not remember when) Review of Systems Constitutional: Constitutional: Denies headache(s) and Denies weakness Eyes: Eyes: Denies blurry vision ENT: Reports Normal hearing present, Denies headache(s) and Denies neck pain Cardiovascular: Cardiovascular: Denies chest pain and Denies dyspnea Respiratory: Respiratory: Denies dyspnea Gastrointestinal: Gastrointestinal: Reports no additional gastrointestinal complaints Genitourinary: Genitourinary: Denies dysuria Musculoskeletal: Musculoskeletal: Denies neck pain Integumentary/Breasts: Skin/Breast: Denies dry skin Neurologic: Reports Normal hearing present, Denies headache(s) and Denies weakness Psychiatric: Psychiatric: Denies anxiety Endocrine: Endocrine: Denies change in body appearance Hematologic/Lymphatic: Hematologic/Lymphatic: Denies easy bleeding Allergic/Immunologic: Allergic/Immunologic: Denies urticaria PMFSH Past Medical History Medical History (Updated 02/23/23 @ 10:38 by Anmol Eduardo MD) EVELYN inhibitor intolerance Acute osteomyelitis of left foot Angioedema Callus of foot Chronic renal insufficiency, stage III (moderate) Patient actually denies a history of chronic kidney disease and his creatinine is currently normal with a normal GFR Cock-up deformity of left great toe Colon cancer screening Diabetes mellitus Diabetic foot ulcer associated with type 2 diabetes mellitus Diabetic peripheral neuropathy Dupuytren's contracture of left hand Eczema Encounter for postoperative wound care Essential (primary) hypertension Hyperlipidemia associated with type 2 diabetes mellitus Insomnia Kidney stones Reportedly passed a kidney stone at 11 years of age Magnesium deficiency Major depressive disorder, single episode, unspecified Paroxysmal atrial fibrillation Peripheral autonomic neuropathy due to diabetes mellitus Psoriasis Recurrent major depressive disorder, in partial remission Surgical History Surgical History Status post excisional debridement (05/18/21) Left foot ulcer extending to the medial sesamoid with osteomyelitis of the distal 1st metatarsal and proximal phalanx with placement of Steinmann pin performed by Dr. Wing Status post open reduction with internal fixation of fracture Left ankle ORIF [address] Tyler Family History Family History Father Myocardial infarct Family history of coronary artery disease, Onset Age: 66 Lung cancer Mother Leukemia Family history of coronary artery disease, Onset Age: 70 Diabetes mellitus Sibling Multiple sclerosis Sister Diabetes mellitus Social History Social History Social History: He is and his ex- later . He reports that he is happy to be single and lives alone. He has 1 adult daughter who is healthy. 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 He is a former smoker who smoked a pack of cigarettes per day until 2004. He smokes marijuana on a daily basis. He also uses marijuana edibles. Primary care physician: Dr. Allie Alan Code status: Full code Surrogate decision maker: Krishna (daughter) Smoking packs per day: 1 Smoking cigarettes per day: 20.0 Years smoked: 27 Smoking pack-years: 27.00 Smoking status: Former smoker Tobacco type: cigarettes Second hand tobacco smoke exposure: No Smoking end date: 07/25/04 Alcohol intake: never Substance use: current Substance use type: marijuana Other substan
[2023-02-23 11:02] VITALS: BP 91/50; PULSE 42; RESP 18; O2SAT 99
[2023-02-23 11:12] VITALS: BP 110/70; PULSE 41; RESP 15; O2SAT 98
[2023-02-23 11:22] VITALS: BP 147/74; PULSE 43; RESP 15; O2SAT 96
== END 2023-02-23 11:29 | disposition home or self-care (01) ==
PROVIDERS: PCP Family Medicine; Visit Provider Internal Medicine Gastroenterology
PROC: 0DJD8ZZ Inspection of Lower Intestinal Tract, Via Natural or Artificial Opening Endoscopic (ICD-10-PCS; CPT 45378; principal; 2023-02-23 11:30)
DX: Z12.11 Encounter for screening for malignant neoplasm of colon (principal); D12.2 Benign neoplasm of ascending colon; K57.30 Diverticulosis of large intestine without perforation or abscess without bleeding; K64.8 Other hemorrhoids; I12.9 Hypertensive chronic kidney disease with stage 1 through stage 4 chronic kidney disease, or unspecified chronic kidney disease; E11.22 Type 2 diabetes mellitus with diabetic chronic kidney disease; N18.30 Chronic kidney disease, stage 3 unspecified; E11.42 Type 2 diabetes mellitus with diabetic polyneuropathy; E78.5 Hyperlipidemia, unspecified; F32.9 Major depressive disorder, single episode, unspecified; I48.0 Paroxysmal atrial fibrillation; E11.43 Type 2 diabetes mellitus with diabetic autonomic (poly)neuropathy; Z87.891 Personal history of nicotine dependence; F12.90 Cannabis use, unspecified, uncomplicated; Z79.82 Long term (current) use of aspirin; Z79.84 Long term (current) use of oral hypoglycemic drugs
CPT/HCPCS: 45385; 82948; 88305; J2704; J7120

== ENCOUNTER 2023-09-07 09:45 | Outpatient (CLI) | payer MEDICARE, SELFPAY ==
--- NOTE | ~2023-09-07 | NM_ITS ---
EXAMINATION: NM lilliam stress w perfusion DATE: 09/07/2023 11:31 INDICATION: Chest pain. TECHNIQUE: Rest images were obtained following intravenous administration of 10 mCi Tc99m tetrofosmin (Myoview). The patient was infused intravenously with Lexiscan (regadenoson). Then, 32.3 mCi Tc99m t etrofosmin (Myoview) was administered intravenously, and stress images were obtained. Data was recons tructed into short axis and horizontal and vertical long axis SPECT images. Gated SPECT images were a lso obtained. COMPARISON: None. FINDINGS: There is no definite reversible or fixed perfusion abnormality to suggest ischemia or infar ction. There is no segmental wall motion abnormality. Left ventricular ejection fraction measures 6 7%. IMPRESSION: 1. No definite ischemia or infarct. 2. Normal left ventricular ejection fraction measuring 67%. Reviewed, dictated and finalized at location A. GER CODING
--- NOTE | 2023-09-07 10:18 | EST_ITS ---
Patient Info Name: Brandon Bergeron Age: 73 years : 1950 Gender: Male Ht: 70 in Wt: 205 lbs BSA: 2.17 m2 HR: 49 bpm BP: 158 / 79 mmHg Exam Date: 09/07/2023 10:39 AM Exam Location: Echo Lab Patient Status: Outpatient Admit Date: 09/07/2023 Staff Ordering Physician: Allie Alan MD Attending Provider: Allie Alan MD Exercise Technologist: Verona Coppola [facility] Exercise Physician: Manny Millan DO Exam Type: CA stress lilliam w NM Study Info A regadenoson stress test was performed. Summary 1. 1. Negative lexiscan stress test for ischemic ST changes by ECG criteria. 2. 2. Baseline hypertension. 3. 3. Nuclear scan to follow and will be reported separately. Please correlate with it. 4. 4. Patient informed of the above results. Protocol: Lexiscan Stress ECG Details Stage: REST Duration (min): 5 min : 47 sec HR (bpm): 48 SBP (mmHg): 158 DBP (mmHg): 79 Stage: REST Duration (min): 10 min : 53 sec HR (bpm): 50 SBP (mmHg): 158 DBP (mmHg): 79 Stage: STAGE 1 Duration (min): 1 min : 0 sec HR (bpm): 64 SBP (mmHg): 158 DBP (mmHg): 79 Stage: RECOVERY Duration (min): 1 min : 0 sec HR (bpm): 78 SBP (mmHg): 183 DBP (mmHg): 69 Stage: RECOVERY Duration (min): 2 min : 0 sec HR (bpm): 64 SBP (mmHg): 183 DBP (mmHg): 69 Stage: RECOVERY Duration (min): 3 min : 0 sec HR (bpm): 68 SBP (mmHg): 183 DBP (mmHg): 69 Stage: RECOVERY Duration (min): 4 min : 0 sec HR (bpm): 65 SBP (mmHg): 181 DBP (mmHg): 76 Stage: RECOVERY Duration (min): 4 min : 47 sec HR (bpm): 62 SBP (mmHg): 186 DBP (mmHg): 100 Rest HR: 50 bpm Peak HR: 79 bpm Rest Sys BP: 158 mmHg Peak Sys BP: 186 mmHg Max Pred HR: 149 bpm % Max Pred HR: 53 % Target HR: 127 bpm Max RPP: 14,694 bpm*mmHg Termination Reason: Completed protocol Cardiac Symptoms: Shortness of breath Total Time: 1 min : 0 sec Rest Woodruff BP: 79 mmHg Peak Woodruff BP: 100 mmHg Total Dose: 0.4 mg Resting ECG Sinus bradycardia, RBBB. Stress ECG No ST changes. Arrhythmias None. Report Signatures
== END 2023-09-07 09:46 | disposition home or self-care (01) ==
LOC: ANHCARD 09:46
PROVIDERS: PCP Family Medicine; Visit Provider Family Medicine
DX: R07.9 Chest pain, unspecified (principal)
CPT/HCPCS: 78452; 93017; A9502; J2785

== ENCOUNTER 2024-09-10 13:50 | Outpatient (CLI) | payer MEDICARE, SELFPAY ==
--- NOTE | ~2024-09-10 | XR_ITS ---
EXAMINATION: XR foot LT min 3V DATE: 09/10/2024 14:25 INDICATION: Chronic ulcer left foot. TECHNIQUE: 4 views of left foot were obtained. COMPARISON: Left foot radiographs 09/01/2021 FINDINGS: There are chronic erosions of the head and neck of first metatarsal and base of first proxi mal phalanx. There is hyperextension of first metatarsophalangeal joint. There is plate and screw fix ation of distal fibula. No acute fracture. There is mild osteoarthritis of some of the interphalangea l joints. There are enthesophytes at the posterior and plantar aspects of calcaneal tuberosity. IMPRESSION: 1. Chronic volume loss of head and neck of first metatarsal and base of first proximal phalanx from o ld episode of septic arthritis and osteomyelitis. Reviewed, dictated and finalized at location A. ESTRA MUSICIAN IMPRESSION: 1. Chronic volume loss of head and neck of first metatarsal and base of first p roximal phalanx from old episode of septic arthritis and osteomyelitis.
--- OUTSIDE RECORDS SUMMARY | 2024-09-10 16:36 | XMS_ITS | Continuity of Care Document ---
Author Organization [facility] Address [address] [place] [address] Phone Care Team Providers Care Therapy Aide Name Role Phone Merritt Farias DPM Unavailable Unavailab le Allergies, Adverse Reactions, Alerts Substance Reaction Status Criticality No Known Allergies Active No Inform ation Medications Medication Instructions Dosage Effective Dates (start - stop) Status Comments amlodipine 2.5 mg tablet take 1 tablet by oral route every day 2.5 MG - Active lisinopril 40 mg tablet take 1 tablet by oral route 2 times every day 40 MG - Active Kapspargo Sprinkle 100 mg capsule,extended release take 1 capsule by oral route every day 100 MG - Active citalopram 10 mg tablet take 1 tablet by oral route every day 10 MG - Active metformin 500 mg tablet take 1 tablet by oral route 2 times every day with morning and evening meals 500 MG - Active metformin 500 mg tablet take 1 tablet by oral route 2 times every day with morning and evening meals 500 MG - Active zolpidem 10 mg tablet take 1 tablet by o ral route every day at bedtime 10 MG - Active aspirin 325 mg tablet take 1 tablet by o ral route every day 325 MG - Active omeprazole 20 mg capsule,delayed release take 1 capsule by oral route every day 30 minutes to 1 hour before a meal 20 MG - Active Procedures Procedure Date MD certification RF [employer] patient Debridement, SUBQ, Skin/Tissue, 1st 20sq cm/< [...] Date Provider Providers Copied on Encounter [facility], [address] [place] [address], [id number], tel:[phone] [facility] Podiatry No Information 1 Jarrett Bang. [address] [place] [address], [id number], [place]. tel:[phone] Referring Provider: Merritt Blanco, [address] [place] [address], [id number] . tel:[phone] [facility], [address] [place] [address], [id number], tel:[phone] [facility] Podiatry f/u L foot ulcer (chief complaint) Ulcer of left foot, limited to breakdown of skinUlcer of left foot due to type 2 diabetes mellitusOnychomycos is of multiple toenails with type 2 diabetes mellitusTinea unguium 1 Jarrett Bang. [address] [place] [address], [id number], [place]. tel:[phone] Referring Provider: Merritt Blanco, [address] [place] [address], [id number] . tel:[phone] [facility], [address] [place] [address], [id number], [place] tel:[phone] [facility] Podiatry f/u L foot ulcer (chief complaint) Ulcer of left foot, limited to breakdown of skinUlcer of left foot due to type 2 diabetes mellitus 1 Jarrett Bang. [address] [place] [address], [id number], [place]. tel:[phone] [facility], [address] [place] [address], [id number], [place] tel:[phone] [facility] Podiatry L foot ulcer (chief complaint) Ulcer of left foot, limited to breakdown of skinUlcer of left foot due to type 2 diabetes mellitus 1 Jarrett Bang. [address] [place] [address], [id number], [place]. tel:[phone] [facility], [address] [place] [address], [id number], [place] tel:[phone] [facility] Podiatry f/u L foot ulcer (chief complaint) Ulcer of left foot due to type 2 diabetes mellitusUlcer of left foot, limited to breakdown of skin 1 Jarrett Bang. [address] [place] [address], [id number], [place]. tel:[phone] Referring Provider: Merritt Blanco, [address] [place] [address], [id number] . tel:[phone] [facility], [address] [place] [address], [id number], [place] tel:[phone] [facility] Pod[facility] L foot ulcer (chief complaint) Ulcer of left foot with fat layer exposedUlcer of left foot due to type 2 diabetes mellitus 1 Jarrett Bang. [address] [place] [address], [id number], . tel:[phone] Referring Provider: Merritt Blanco, [address] [place] [address], [id number] . tel:[phone] [facility], [address] [place] [address], [id number], [place] tel:[phone] [facility] Podiatry L foot ulcer (chief complaint) Ulcer of left foot with fat layer exposedUlcer of left foot due to type 2 diabetes mellitus 1 Jarrett Bang. [address] [place] [address], [id number], . tel:[phone] Referring Provider: Merritt Blanco, [address] [place] [address], [id number] . tel:[phone] [facility], [address] [place] [address], [id number], [place] tel:[phone] [facility] Podiatry L foot ulcer (chief complaint) Ulcer of left foot with fat layer exposedUlcer of left foot due to type 2 diabetes mellitus Sep- 0- 1 Jarrett Bang. [address] [place] [address], [id number], [place]. tel:[phone] [facility], [address] [place] [address], [id number], [place] tel:[phone] [facility] Podiatry L foot ulcer (chief complaint) Ulcer of left foot, limited to breakdown of skinUlcer of left foot due to type 2 diabetes mellitus 1 Jarrett Bang. [address] [place] [address], [id number], [place]. tel:[phone] [facility], [address] [place] [address], [id number], [place] tel:[phone] [facility] Podiatry f/u L foot ulcer (chief complaint) Ulcer of left foot, limited to breakdown of skinUlcer of left foot due to type 2 diabetes mellitus 1 Jarrett Bang. [address] [place] [address], [id number], [place]. tel:[phone] [facility], [address] [place] [address], [id number], tel:[phone] [facility] Podiatry f/u L foot ulcer (chief complaint) Ulcer of left foot, limited to breakdown of skinUlcer of left foot due to type 2 diabetes mellitusOnychomycos is of multiple toenails with type 2 diabetes mellitusTinea unguium 1 Jarrett Bang. [address] [place] [address], [id number], . tel:[phone] [facility], [address] [place] [address], [id number], tel:[phone] [facility] Podiatry L foot wound (chief complaint) Ulcer of left foot with fat layer exposedUlcer of left foot due to type 2 diabetes mellitus 1 Jarrett Bang. [address] [place] [address], [id number], [place]. tel:[phone] Referring Provider: Merritt Blanco, [address] [place] [address], [id number] . tel:[phone] [facility], [address] [place] [address], [id number], tel:[phone] [facility] Podiatry routine foot care (chief complaint) Onychomycosis of multiple toenails with type 2 diabetes mellitusTinea unguiumCallus of foot 0 Jarrett Bang. [address] [place] [address], [id number], [place]. tel:[phone] Referring Provider: Merritt Blanco, [address] [place] [address], [id number] . tel:[phone] [facility], [address] [place] [address], [id number], [place] tel:[phone] [facility] Podiatry routine foot care (chief complaint) Callus of footType 2 diabetes mellitus with diabetic neuropathy, without long-term current use of insulinOnychomycosi s due to dermatophyte 0 Jarrett Bang. [address] [place] [address], [id number], [place]. tel:[phone] Referring Provider: Merritt Blanco, [address] [place] [address], [id number] . tel:[phone] [facility], [address] [place] [address], [id number], [place] tel:[phone] [facility] Pod[facility]ry routine foot care (chief complaint) Callus of footOnychomycosis due to dermatophyteType 2 diabetes mellitus with diabetic neuropathy, without long-term current use of insulin 0 Jarrett aBng. [address] [place] [address], [id number], [place]. tel:[phone] Referring Provider: Merritt Blanco, [address] [place] [address], [id number] . tel:[phone] OFFICE/OUTPA TIENT VISIT, [facility], [address] [place] [address], [id number], [place] tel:[phone] [facility] Podiatry routine foot care (chief complaint) Type 2 diabetes mellitus with diabetic neuropathy, without long-term current use of insulinOnychomycosi s due to dermatophyteCallus of foot 0 Jarrett Bang. [address] [place] [address], [id number], [place]. tel:[phone] [facility], [address] [place] [address], [id number], [place] tel:[phone] [facility] Podiatry routine foot care (chief complaint) Callus of footOnychomycosis due to dermatophyteType 2 diabetes mellitus with diabetic neuropathy, without long-term current use of insulinPlantar flexed metatarsal bone of left footPlantar flexed metatarsal bone of right foot 9 Jarrett Bang. [address] [place] [address], [id number], [place]. tel:[phone] Referring Provider: Merritt Blanco, [address] [place] [address], [id number] . tel:[phone] OFFICE/OUTPA TIENT VISIT, EST [facility], [address] [place] [address], [id number], [place] tel:[phone] [facility] Podiatry Routine Foot Care (chief complaint) Callus of footOnychomycosis due to dermatophyteType 2 diabetes mellitus with diabetic neuropathy, without long-term current use of insulinPlantar flexed metatarsal bone of left footPlantar flexed metatarsal bone of right foot 9 Jarrett Bang. [address] [place] [address], [id number], [place]. tel:[phone] [facility], [address] [place] [address], [id number], [place] tel:[phone] [facility] Podiatry f/u on left foot wound (chief complaint) routine foot care (chief complaint) Callus of footType 2 diabetes mellitus with diabetic neuropathy, without long-term current use of insulinOnychomycosi s due to dermatophyte Jarrett Bang. [address] [place] [address], [id number], [place]. tel:[phone] [facility], [address] [place] [address], [id number], [place] tel:[phone] [facility] Wound Care Left Foot Wound (chief complaint) Callus of footType 2 diabetes mellitus with diabetic neuropathy, without long-term current use of insulinStage III pressure ulcer of left ankle 9 Ayaan Diaz. [address] [facility] Physician Office [facility], [place], [place], [id number], [place]. tel:[phone] [facility], [address] [place] [address], [id number], [place] tel:[phone] [facility] Wound Care left foot wounds (chief complaint) Stage III pressure ulcer of left ankleCallus of footType 2 diabetes mellitus with diabetic neuropathy, without long-term current use of insulin Ayaan Diaz. [address] [facility] Physician Office [place], [id number], [place]. tel:[phone] OFFICE/OUTPA TIENT VISIT, [facility] Physician [facility], [address] [place] [address], [id number], [place] tel:[phone] [facility] Wound Care left foot wounds (chief complaint) Stage III pressure ulcer of left ankleCallus of footType 2 diabetes mellitus with diabetic neuropathy, without long-term current use of insulin Tomas Deluna. [address] [facility] Physician Office [facility], [place], [place], [id number], [place]. tel:[phone] [facility] Physician [facility], [address] [place] [address], [id number], [place] tel:[phone] [facility] Right Foot Wound (chief complaint) Stage III pressure ulcer of left ankleCallus of footType 2 diabetes mellitus with diabetic neuropathy, without long-term current use of insulin Ayaan Diaz. [address] [facility] Physician Office [place], [place], [id number], [place]. tel:[phone] Referring Provider: Emily Portillo, [address] [facility] Physician Office Building, [place], [address] . tel:[phone] OFFICE/OUTPA TIENT VISIT, [facility] Physician [facility], [address] [place] [address], [id number], [place] tel:[phone] [facility] Right Foot Wound (chief complaint) Stage III pressure ulcer of left ankleCallus of footType 2 diabetes mellitus with diabetic neuropathy, without long-term current use of insulin Ayaan Diaz. [address] [facility] Physician Office Building, [place], [place], [id number], [place]. tel:[phone] OFFICE/OUTPA TIENT VISIT, [facility], [address] [place] [address], [id number], [place] tel:[phone] [facility] Wound Care Right Foot Wound (chief complaint) Diabetic ulcer of other part of right foot associated with type 2 diabetes mellitus, with fat layer exposedNon-pressure chronic ulcer of other part of right foot with fat layer exposed Mar-2 9 Tomas Deluna. [address] [facility] Physician Office Building, [place], [place], [id number], [place]. tel:[phone] [facility], [address] [place] [address], [id number], [place] tel:[phone] [facility] Wound Care Right Foot Wound (chief complaint) Diabetic ulcer of other part of right foot associated with type 2 diabetes mellitus, with fat layer exposedNon-pressure chronic ulcer of other part of right foot with fat layer exposed Mar-1 9 Ayaan Diaz. [address] [facility] Physician Office Building, [place], [place], [id number], [place]. tel:[phone] [facility], [address] [place] [address], [id number], [place] tel:[phone] [facility] Wound Care right foot wound (chief complaint) Diabetic ulcer of other part of right foot associated with type 2 diabetes mellitus, with fat layer exposedNon-pressure chronic ulcer of other part of right foot with fat layer exposed Mar-0 9 Tomas Deluna. [address] [facility] Physician Office Building, [place], [place], [id number], [place]. tel:[phone] OFFICE/OUTPA TIENT VISIT, [facility], [address] [place] [address], [id number], [place] tel:[phone] [facility] Podiatry F/U on bilateral foot ulcers (chief complaint) Non-pressure chronic ulcer of other part of right foot with fat layer exposedType 2 diabetes mellitus with foot ulcer, unspecified whether jail insulin usePre-ulcerative calluses Mar-0 9 Jarrett Bang. [address] [place] [address], [id number], [place]. tel:[phone] Referring Provider: Merritt Blanco, [address] [place] [address], [id number] . tel:[phone] [facility], [address] [place] [address], [id number], [place] tel:[phone] [facility] Wound Care Right Foot Wound (chief complaint) Diabetic ulcer of other part of right foot associated with type 2 diabetes mellitus, with fat layer exposedNon-pressure chronic ulcer of other part of right foot with fat layer exposed 9 Kletsel Dehe Wintun Emily. [address] [facility] Physician Office Building, [place], [place], [id number], [place]. tel:[phone] OFFICE/OUTPA TIENT VISIT, [facility], [address] [place] [address], [id number], [place] tel:[phone] [facility] Podiatry diabetic foot exam (chief complaint) f/u b/l foot ulcers (chief complaint) Type 2 diabetes mellitus with diabetic neuropathy, without long-term current use of insulinSkin ulcer of left foot, limited to breakdown of skinSkin ulcer of right foot with fat layer exposed 9 Jarrett Bang. [address] [place] [address], [id number], [place]. tel:[phone] Referring Provider: Merritt Blanco, [address] [place] [address], [id number] . tel:[phone] [facility], [address] [place] [address], [id number], [place] tel:[phone] ET Wound Care right foot wound (chief complaint) Diabetic ulcer of other part of right foot associated with type 2 diabetes mellitus, with fat layer exposedNon-pressure chronic ulcer of other part of right foot with fat layer exposedSkin ulcer of left foot, limited to breakdown of skinAvulsion of toenail of left foot 9 Tomas Deluna. [address] [facility] Physician Office Building, [place], [place], [id number], [place]. tel:[phone] [facility], [address] [place] [address], [id number], [place] tel:[phone] [facility] Podiatry f/u bilateral DFU (chief complaint) Skin ulcer of left foot, limited to breakdown of skinType 2 diabetes mellitus with diabetic neuropathy, without long-term current use of insulinSkin ulcer of right foot with fat layer exposed 9 Jarrett Bang. [address] [place] [address], [id number], [place]. tel:[phone] OFFICE/OUTPA TIENT VISIT, [facility], [address] [place] [address], [id number], [place] tel:[phone] [facility] Wound Care Diabetic ulcer of other part of right foot associated with type 2 diabetes mellitus, with fat layer exposedNon-pressure chronic ulcer of other part of right foot with fat layer exposedNon-pressure chronic ulcer of other part of left foot limited to breakdown of skin 9 Tomas Deluna. [address] [facility] Physician Office Building, [place], [place], [id number], [place]. tel:[phone] [facility], [address] [place] [address], [id number], [place] tel:[phone] [facility] Wound Care No Information 9 Ayaan Diaz. [address] [place] [address] Physician Office Building, [place], [place], [id number], [place]. tel:[phone] Referring Provider: Merritt Blanco, [address] [place] [address], [id number] . tel:[phone] OFFICE/OUTPA TIENT VISIT, [facility], [address] [place] [address], [id number], [place] tel:[phone] [facility] Wound Care Right Foot Wound (chief complaint) Diabetic ulcer of other part of right foot associated with type 2 diabetes mellitus, with fat layer exposedNon-pressure chronic ulcer of other part of right foot with fat layer exposedCallus of foot 9 Ayaan Diaz. [address] [facility] Physician Office Building, [place], [place], [id number], . tel:[phone] Referring Provider: Merritt Blanco, [address] [place] [address], [id number] . tel:[phone] OFFICE/OUTPA TIENT VISIT, [facility], [address] [place] [address], [id number], tel:[phone] [facility] Podiatry F/U on Diabetic Ulcer on right foot (chief complaint) Type 2 diabetes mellitus with diabetic neuropathy, without long-term current use of insulinSkin ulcer of right foot with fat layer exposedSkin ulcer of left foot, limited to breakdown of skin Jarrett Bang. [address] [place] [address], [id number], . tel:[phone] OFFICE/OUTPA TIENT VISIT, [facility], [address] [place] [address], [id number], tel:[phone] [facility] Podiatry F/U on Diabetic Ulcer on Right Foot (chief complaint) Type 2 diabetes mellitus with diabetic neuropathy, without long-term current use of insulinSkin ulcer of right foot with fat layer exposed Jarrett Bang. [address] [place] [address], [id number], . tel:[phone] Referring Provider: Merritt Blanco, [address] [place] [address], [id number] . tel:[phone] OFFICE/OUTPA TIENT VISIT, [facility], [address] [place] [address], [id number], [place] tel:[phone] [facility] No Information Jarrett Bang. [address] [place] [address], [id number], . tel:[phone] Family History Family Member Type Diagnosis Age At Onset No Information Payers Payer name Insurance type Covered republican ID Authorsala delilah(s) Medicare MB [id number] [place] [employer] [place] [id number] Social History Type Description Quantity Date Captured [...] [place] Scree gladys). Due on due Goal FIT-DNA (Colorectal CA [...] Goal Lipid panel. Due on due Goal Annual Physical Exam. Due on due Goal Zoster vaccine. Due on due Goal Pneumococcal vaccine. Due on due Goal Pneumococcal 13 (Prevnar). D ue on due Goal Td vaccine. Due on 19 due Goal DEXA Scan. Due on 9 due Goal Colonoscopy. Due on due Goal [...] due Goal Zoster vaccine. Due on due Referral Ordered: Physical Therapy (related to [...] of foot Wound has improved b y 21 sq.cm. [...] of left ankle Pared callus down to dermal layer with [...] foot limited to breakdown of skin Pared thick callus a round right foot [...] of right foot with fat layer exposed Pared callus of left foot with scalpel down to skin edge. No wound was noted under callus. Related to Callus of foot Assessments Type Assessment Date No Information Patient Care Teams Name Effective Dates (start - stop) Status Members No Information
--- OUTSIDE RECORDS SUMMARY | 2024-09-10 16:36 | XMS_ITS | Continuity of Care Document ---
Author Organization [facility] Address [address] [place] [address] Phone Care Team Providers Care Territory Sales Executive Name Role Phone King Lou MD Unavailable Unavailable Allergies, Adverse Reactions, Alerts Substance Reaction Status Criticality No Known Allergies Active No Inform ation Medications Medication Instructions Dosage Effective Dates (start - stop) Status Comments METFORMIN HCL (unknown strength) take 1 tablet by oral route 2 times every day with morning and evening meals Not Available - Active AMLODIPINE BESYLATE (unknown strength) take 1 tablet by oral route every day Not Available - Active LISINOPRIL (unknown strength) take 1 tablet by oral route every day Not Available - Active CITALOPRAM HBR (unknown strength) take 1 tablet by oral route every day Not Available - Active METOPROLOL SUCCINATE (unknown strength) take 1 tablet by oral route every day Not Available - Active zolpidem 5 mg tablet take 1 tablet by oral route every day at bedtime 5 MG - Active multivitamin capsule - Active aspirin 81 mg chewable tablet chew 1 tablet by oral route every day 81 MG - Active FIBER (unknown strength) Not Available - Active OMEPRAZOLE (unknown strength) take 2 capsule by oral route every day before a meal Not Available - Active Procedures Procedure Date XRAY HAND, MIN 3 VIEWS OFFICE/OUTPATIENT VISIT, NEW Advance Directives Directive Yes / No Effective Date File Name No Information Encounters Encounter Description Practice Location Reason(s) For Visit Diagnoses Date Provider Providers Copied on Encounter OFFICE/OUTPAT IENT VISIT, NEW [facility]see, [address] [facility] [facility], [place], [address], [place] tel:[phone] [facility] Left hand (chief complaint) Dupuytren's contracture of left handMass of finger of left hand Carmine Malik. [address], [place], [place], [id number], [place]. tel:[phone] Family History Family Member Type Diagnosis Age At Onset Mother Problem Blood disorder Mother Problem Cancer, unknown Father Problem Cardiovascular disease Mother Problem diabetes mellitus in first d egree relative Payers Payer name Insurance type Covered constitution party ID Authorsala tijefferson(s) Medicare Palmetto Gvmt Benef its Admin [id number] [place] [id number] Social History Type Description Quantity Date Captured Comments Alcohol Use Details Unknown Caffeine Use Details Unknown Tobacco Use Status No Information Smoking Status Former smoker Non-Smoking Tobacco Use Details : No Details Available : No Details Available Sex Male Vital Signs Date / Time: Height Weight BMI Pulse Rate Blood Pressure Temperature Respiratory Rate Body Surface Area Head Circumference Head Circ. Percentile Wt./Jono. Percentile BMI percentile Pulse Ox Inhaled Ox 1:52 PM 70.00 in 98.430 kg (217.00 lbs) 31.1 4 kg/m eter (2) Chief Complaint And Reason For Visit From encounter dated '02/05/2020 13:00'. Left hand (chief complaint) Reason For Referral Reason For Referral No Information History Of Present Illness Encounter Date Complaint History Of Prese nt Illness Left hand Functional Status Date Functional Assessmen t No Information Instructions Date Instruction Additional Infor mation No Information Assessments Type Assessment Date assessment Dupuytren's contracture of left hand assessment Mass of finger of left hand Patient Care Teams Name Effective Dates (start - stop) Status Members No Information
--- OUTSIDE RECORDS SUMMARY | 2024-09-10 16:36 | XMS_ITS | Patient Health Record ---
Author Organization [facility] Address [address] [place], [place] [id number] Care Team Providers Care Electric Meter Repairer Name Role Phone JAMAL GALLEGO Primary Care Provider BG Gibbs Unavailable [phone] Reason For Referral No Information Plan Of Treatment No Information Insurance Providers Payer Name Payer Address Payer Phone Subscriber Number Group Number Insured Name Patient Relationship to Insured Coverage Start Date Coverage End Date MEDICARE PAL[employer]TO GBA [address] [place] [phone] [id number] CADE LACEY Self - patient is the insured [address] [employer] [address] [id number] [place] [id number] CADE LACEY Self - patient is the insured
--- OUTSIDE RECORDS SUMMARY | 2024-09-10 16:36 | XMS_ITS | Clinical Summary ---
Author Organization [facility] Address [address] [place] [id number] Phone Care Team Providers Care Grey Roll Worker Name Role Phone Allie Alan MD Primary Care Provider [phone] Allergies Active Allergy Reactions Criticality Noted Date Comments Lisinopril Angioedema 09/07/2021 Vancomycin Angioedema 09/07/2021 Medications Medication Sig Dispensed Refills Start Date End Date Status amLODIPine (NORVASC) 5 MG tablet Take 5 mg by mouth 1 (one) time each day 06/28/2021 Active aspirin EC 325 MG EC tablet Take by mouth 05/22/2021 Active Blood Glucose Monitoring Suppl (ONE TOUCH ULTRA 2) w/Device kit See administration instructions 06/25/2021 Active polycarbophil (GNP Fiber-Caps) 625 MG tablet Take by mouth 05/22/2021 Active citalopram (CeleXA) 20 MG tablet Take 20 mg by mouth 1 (one) time each day 08/18/2021 Active famotidine (PEPCID) 20 MG tablet Take 20 mg by mouth 2 (two) times a day 06/03/2021 Active OneTouch Ultra test strip TEST EVERY DAY 06/24/2021 Active Lancets (OneTouch Delica Plus Fqoroe22O) misc DIRECTED EVERY DAY 06/24/2021 Active metFORMIN (GLUCOPHAGE) 1000 MG tablet Take 1,000 mg by mouth 2 (two) times a day 06/14/2021 Active metoprolol succinate XL (TOPROL-XL) 100 MG 24 hr tablet Take 100 mg by mouth 1 (one) time each day 08/18/2021 Active Multiple Vitamin (multivitamin) capsule Take by mouth 05/22/2021 Active omeprazole (PriLOSEC) [address] capsule Take by mouth 05/22/2021 Active zolpidem (AMBIEN) 10 MG tablet 08/30/2021 Active atorvastatin (LIPITOR) 10 MG tablet Take 10 mg by mouth 1 (one) time each day 04/22/2022 Active Active Problems Problem Noted Date Diagnosed Date Bacteremia due to Methicilli n resistant Staphylococcus aureus 07/21/2021 Methicillin resistant Staphylococcus aureus infe ction 07/21/2021 Foot ulcer due to type 2 diabetes mellitus 04/23 Abrasion of foot 04/15/2021 Anxiety 01/29/2021 Bronchitis 01/29/2021 Cardiac arrhythmia 01/29/2021 Depressive disorder 01/29/2021 Diabetes mellitus 01/29/2021 Diabetic peripheral neuropathy 01/29/2021 Disorder of eye 01/29/2021 Excessive sweating 01/29/2021 Diabetic foot ulcer 01/29/2021 Heartburn 01/29/2021 Onychomycosis of toenails 01/29/2021 Skin problem 01/29/2021 Immunizations Name Administration Dates Next Due Sars-cov-2, Unspecified 09/28/2020 Family History Medical History Relation Comments Heart disease Father Lung cancer Father Diabetes mellitus Mother Heart disease Mother Leukemia Mother Diabetes mellitus Sister Relation Status Comments Father Mother Sister Social History Tobacco Use Types Packs/Day Years Used Date Smoking Tobacco: Former Cigarettes 1 27 1 978 - 2004 Smokeless Tobacco: Never Alcohol Use Standard Drinks/Week Comments Never 0 (1 standard drink = 0.6 oz pur e alcohol) Sex and Gender Information Value Date Recorded Sex Assigned at Not on file Gender Identity Not on file Sexual Orientation Not on file Last Filed Vital Signs Vital Sign Reading Time Taken Comments Blood Pressure 132/78 05/05/2022 1:21 PM CDT Pulse - - Temperature 36.6 C (97.8 F) 05/05/2022 1:21 PM CDT Respiratory Rate 18 05/05/2022 1:21 PM CDT Oxygen Saturation - - Inhaled Oxygen Concentration - - Weight 95.7 kg (211 lb) 05/05/2022 1:21 PM CDT Height 177.8 cm (5' 10 ) 05/05/2022 1:21 PM CDT Body Mass Index 30.28 05/05/2022 1:21 PM CDT Plan of Treatment Health Maintenance Due Date Last Done Comments Pneumococcal PPSV23/PCV13 65 + Years / High and Highest Risk (1 of 4 - PCV) 1958 Diabetic Foot Exam 1962 Ophthalmology Exam 1962 Influenza Vaccine (#1) 2024 Care Teams Grey Roll Worker Relationship Specialty Start Date End Date Allie Alan MD [address] [place] [address] PCP - General Internal Medicine 07/06/21
== END 2024-09-10 13:51 | disposition home or self-care (01) ==
PROVIDERS: PCP Family Medicine; Visit Provider Podiatrist Foot & Ankle Surgery
DX: L97.829 Non-pressure chronic ulcer of other part of left lower leg with unspecified severity (principal)
CPT/HCPCS: 73630

== ENCOUNTER 2024-10-03 07:17 | Outpatient (RCR) | payer MEDICARE, SELFPAY ==
[2024-08-01 14:25] VITALS: BMI 28.8
== END 2024-10-15 08:28 | disposition home or self-care (01) ==
LOC: ANHWOC 07:17
PROVIDERS: PCP Family Medicine; Visit Provider Podiatrist Foot & Ankle Surgery
DX: L97.429 Non-pressure chronic ulcer of left heel and midfoot with unspecified severity (principal)
CPT/HCPCS: 29445; 99213; G0463

== ENCOUNTER 2024-10-03 10:28 | Inpatient (IN) | payer MEDICARE, SELFPAY ==
[2024-10-03] VITALS (7 sets, daily range): BP systolic 105–133; BP diastolic 58–76; PULSE 49–75; RESP 12–16; TEMP 36.2–36.8; O2SAT 96–98; BMI 27.4
--- NOTE | ~2024-10-03 | XR_ITS ---
INTRAOPERATIVE FLUOROSCOPY: CLINICAL HISTORY: 74 years old Male; AMPUTATION L SIDE PROCEDURE COMMENTS: Limited intraoperative fluoroscopy of the left foot was performed. CUMULATIVE DOSE: 0.03 mGy FLUOROSCOPY TIME: 0.06 seconds FINDINGS/IMPRESSION: Please refer to operative note for further details. Reviewed, dictated and finalized at location A.
--- NOTE | ~2024-10-03 | US_ITS ---
US renal BI Ordering provider: Adalgisa Garcia PA-C History: . Acute kidney injury . Comparison: None. Technique: Ultrasound bilateral kidneys. Findings: RIGHT KIDNEY: Measures 12.2x 7.1x 5.6 cm in length which is normal in size. Right renal cyst is seen measuring 1.7 x 1.9 cm. no renal mass or visualized echogenic stones. Otherwise, normal echotexture a nd contour. No hydronephrosis. Normal renal cortical thickness. LEFT KIDNEY: Measures 10.2x 6.6x 5.3 cm in length which is normal in size. Cyst is seen measuring 2.4 x 2.4 cm. No renal mass or visualized echogenic stones. Otherwise, normal echotexture and contour. N o hydronephrosis. Normal renal cortical thickness. BLADDER: Normal. Ureteral jets were not seen bilaterally. IMPRESSION: Bilateral renal cysts. Otherwise, normal study. Reviewed, dictated and finalized at location A.
--- NOTE | ~2024-10-03 | MR_ITS ---
EXAMINATION: MR foot LT wo con DATE: 10/04/2024 11:45 INDICATION: Left foot osteomyelitis. TECHNIQUE: Magnetic resonance imaging (MRI) of the left foot was performed without intravenous contra st. COMPARISON: Left foot radiographs 10/03/2024 FINDINGS: There is hyperextension of first metatarsophalangeal joint. There is dorsiflexion of the se cond-fifth metatarsophalangeal joints. There is chronic bone volume loss of head of first metatarsal and base of first proximal phalanx with joint-centered edema-like marrow signal intensity characteriz ed by mildly increased T2-weighted signal intensity and normal T1-weighted signal intensity. There is a transverse fracture involving neck of second metatarsal. The distal fracture fragment demonstrates impaction and 5 mm dorsal displacement and 4 mm medial displacement. There is extensive edema-like m arrow signal intensity involving second metatarsal. There is metatarsophalangeal joint-centered edema -like marrow signal intensity involving the second-fourth proximal phalanges and third and fourth met atarsals. There is a large effusion of second metatarsophalangeal joint that communicates with fluid dorsal and lateral to second proximal and middle phalanges. Lisfranc ligament is intact. There are co mplete tears of the great toe flexor tendons. There is an ulcer plantar to first metatarsophalangeal joint. IMPRESSION: 1. No specific evidence of acute osteomyelitis. 2. Subacute fracture of neck of second metatarsal with large effusion of the second metatarsophalange al joint communicating with a fluid collection in the second toe soft tissues, probably hematoma. 3. Complete tear of the great toe flexor tendons with hyperextension of first metatarsophalangeal roseann nt. Reviewed, dictated and finalized at location B. IMPRESSION: 1. No specific evidence of acute osteomyelitis. 2. Subacute fracture of neck of second metatarsal with large effusion of the se cond metatarsophalangeal joint communicating with a fluid collection in the sec ond toe soft tissues, probably hematoma. 3. Complete tear of the great toe flexor tendons with hyperextension of first m etatarsophalangeal joint.
--- NOTE | ~2024-10-03 | XR_ITS ---
EXAMINATION: XR foot LT min 3V DATE: 10/03/2024 13:48 INDICATION: Left foot diabetic ulcer. TECHNIQUE: 3 views of left foot were obtained. COMPARISON: Left knee radiographs 09/10/2024 FINDINGS: There is a transverse fracture of neck of second metatarsal. The distal fracture fragment d emonstrates impaction and 83 degrees dorsal angulation. There is plantar dislocation of third proxima l phalanx with respect to the head of second metatarsal. There is chronic volume loss of height of ne ck of first metatarsal and base of first proximal phalanx. There is mild osteoarthritis of some of th e interphalangeal joints. There is plate and screws screw fixation of distal fibula. There is an enth esophyte at plantar aspect of calcaneal tuberosity. IMPRESSION: 1. Transverse fracture of neck of second metatarsal, new from 09/10/2024. 2. Plantar dislocation of third proximal phalanx with respect to the head of second metatarsal. 3. Chronic volume loss of head and neck of first metatarsal and base of first proximal phalanx from o ld episode of septic arthritis and osteomyelitis. Reviewed, dictated and finalized at location B. IMPRESSION: 1. Transverse fracture of neck of second metatarsal, new from 09/10/2024. 2. Plantar dislocation of third proximal phalanx with respect to the head of se cond metatarsal. 3. Chronic volume loss of head and neck of first metatarsal and base of first p roximal phalanx from old episode of septic arthritis and osteomyelitis.
--- NOTE | 2024-10-03 11:30 | ADMGEN ---
This patient, Brandon Bergeron, was admitted to 3 [facility] Surg Room 309-01. Patient/family oriented to hospital policies and general routines including ID bracelet, bed and alarms, visiting hours, pain management, procedures, bathroom and other care routines, personal items, smoking policy, room service/diet, and visiting hours. Information on how to activate the Rapid Response Team has been discussed. Patient/Family are encouraged to report perceived risks to care and to ask questions if they do not understand what they are told or what they should do.
--- NOTE | 2024-10-03 13:00 | PM.IMHP ---
H&P: HPI History of Present Illness Date/Time: 10/03/24 13:00 Chief Complaint: Infected left foot ulcer. Narrative: This is a very pleasant 74-year-old male with history of osteomyelitis and MRSA bacteremia in April 2021, angioedema attributed to vancomycin and lisinopril, type 2 diabetes mellitus with peripheral neuropathy, hypertension, hyperlipidemia, and chronic kidney disease stage 3 who is being directly to the medical floor from the wound care clinic for treatment of an infected left foot ulcer. The patient provides the following history. He has a chronic left plantar foot wound which opened recently for which he has been seeing Dr. Urena. More recently he was started on Bactrim for concerns of developing infection and he was referred to the wound care clinic today for total contact cast application. On exam he was found to have increased redness and swelling of the left 2nd and 3rd toes with early blister formation and after consultation with his java integration developer, he is being admitted to the hospital for IV antibiotics and possible debridement. At the time my evaluation he is in good spirits and has no specific complaints. He denies pain in the foot but has peripheral neuropathy. He denies fever, chills, sweats, malaise, nausea, and vomiting. Review of Systems Review of Systems: 12 systems were reviewed and are negative except for as per HPI. [facility], [facility] Past Medical History Medical History Diabetic ulcer of left foot Chronic kidney disease, stage 3 Stage 3a chronic kidney disease Type 2 diabetes mellitus Essential (primary) hypertension Depression Colon cancer screening Hyperlipidemia associated with type 2 diabetes mellitus Insomnia 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 Wing Status post open reduction with internal fixation of fracture Left ankle ORIF [address] Tyler Family History Family History Father Myocardial infarct Family history of coronary artery disease, Onset Age: 66 Lung cancer Mother Leukemia Family history of coronary artery disease, Onset Age: 70 Diabetes mellitus Sibling Multiple sclerosis Sister Diabetes mellitus Social History Social History Social History: Surrogate medical decision maker: Krishna Bergeron, daughter. Code status: Full code. Smoking packs per day: 1 Smoking cigarettes per day: 20.0 Years smoked: 20 Smoking pack-years: 20.00 Smoking status: Former smoker Second hand tobacco smoke exposure: No Alcohol intake: never Substance use: former Substance use type: marijuana Other substance usage details: daily Last use: 05/29/21 Do You Feel Safe in your Home?: Yes Lack of Transportation: No Lack of Food: Never True Current Housing: I Have Housing Concerned About Future Housing: No Difficulty Paying Gas/Electric Bills: No Difficulty Paying for Meds: No Currently Unemployed: No Education: High School Diploma/GED Difficulty w/ Childcare or Family Care: No Living arrangements: alone Additional living arrangements comments: . Lives in [place]. Has 1 daughter. 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 Spiritual care concerns: No Meds Home Medications and Allergies Home Medications ?Medication ?Instructions ?Recorded ?Confirmed ?Type aspirin 325 mg tablet 325 mg PO HS 08/02/19 10/03/24 History feghzcuqshju-mql-qoctv acid-vit 1 tablet PO DAILY 04/13/21 10/03/24 History K-lycop 400 mcg-20 mcg-370 mcg tablet (Men's 50 Plus Multivitamin) fiber 4 cap PO DAILY 05/16/21 10/03/24 History blood-glucose meter (Blood Glucose #1 ea 06/24/21 10/03/24 Rx Monitoring kit) lancets #200 ea 06/24/21 10/03/24 Rx lancets (Accu-Chek Fastclix Lancet #100 ea 10/12/22 10/03/24 Rx Drum) vitamin B complex (B 1 tablet PO DAILY 02/14/23 10/03/24 History Complex-Vitamin B12 tablet) metformin 1,000 mg tablet 1,000 mg PO BID #180 tabs 03/17/24 10/03/24 Rx metoprolol succinate 100 mg 100 mg PO DAILY #90 tabs 03/17/24 10/03/24 Rx tablet,extended release 24 hr blood sugar diagnostic (Blood #100 ea 03/21/24 10/03/24 Rx Glucose Test strips) amlodipine 5 mg tablet See Rx Instructions .Route 03/23/24 10/03/24 Rx .COMPLEX #90 tabs citalopram 20 mg tablet 20 mg PO DAILY #90 tabs 04/10/24 10/03/24 Rx zolpidem 10 mg tablet 10 mg PO HS PRN insomnia #90 tabs 04/23/24 10/03/24 Rx lancets 33 gauge #100 ea 06/27/24 10/03/24 Rx atorvastatin 10 mg tablet 10 mg PO DAILY #90 tabs 08/10/24 10/03/24 Rx pantoprazole 40 mg tablet,delayed 40 mg PO QAM #30 tabs 08/15/24 10/03/24 Rx release albuterol sulfate 90 mcg/actuation 1 puff inhalation Q4H PRN 09/24/24 10/03/24 Rx aerosol inhaler (Ventolin HFA) shortness of breath or wheezing #8.5 grams sulfamethoxazole 800 1 tablet PO Q12H 10/03/24 10/03/24 History mg-trimethoprim 160 mg tablet Allergies Allergy/AdvReac Type Severity Reaction Status Date / Time lisinopril Allergy Severe Swelling Verified 10/03/24 13:55 of Lip/Tongue/Throat vancomycin Allergy Severe angioedema Verified 10/03/24 13:55 Vital Signs Vital Signs - 24 hr 10/03/24 12:04 Temperature 97.5 F L Pulse Rate 50 L Respiratory Rate 16 Blood Pressure 105/58 L Pulse Oximetry 98 Exam Narrative: General: Well-developed, nontoxic-appearing gentleman the semi-Dudley position in bed. Weight: 86.7 kg. BMI: 27.4. HEENT: PERRL, EOMI. Sclera anicteric. Oral mucosa moist. Neck: Supple. Respiratory: Lungs are clear to auscultation bilaterally. Cardiovascular: Regular rate and rhythm with S1-S2. Gastrointestinal: Abdomen is soft, nontender, and nondistended with positive bowel sounds. Skin: Warm and dry. Open ulceration on the plantar aspect of the left foot with a small amount of serous drainage. There is an early, fluid-filled blister at the base of the 2nd 3rd toes with erythema and edema of the 2nd and 3rd toes. Faint erythema extends onto the forefoot. Extremities: No cyanosis, clubbing, or edema. Radial and pedal pulses intact. Neurological: Alert. Cranial nerves 2-12 are grossly intact. No gross focal deficits to casual conversation. Psychiatric: Pleasant and cooperative with normal mood and affect. Judgment and insight intact. Assessment and Plan Assessment and plan (1) Diabetic infection of left foot: Code(s): E11.628 - Type 2 diabetes mellitus with other skin complications; L08.9 - Local infection of the skin and subcutaneous tissue, unspecified Status: Acute (2) Diabetic ulcer of left foot: Code(s): E11.621 - Type 2 diabetes mellitus with foot ulcer; L97.529 - Non-pressure chronic ulcer of other part of left foot with unspecified severity Status: Acute (3) Acute on chronic kidney failure: Code(s): N17.9 - Acute kidney failure, unspecified; N18.9 - Chronic kidney disease, unspecified Status: Acute (4) Hyperkalemia: Code(s): E87.5 - Hyperkalemia Status: Acute (5) Type 2 diabetes mellitus: Code(s): E11.9 - Type 2 diabetes mellitus without complications Status: Acute (6) Essential (primary) hypertension: Code(s): I10 - Essential (primary) hypertension Status: Acute Plan The patient presented to the Wound Care Clinic today for total contact cast application however was found to have evidence of acute infection if a chronic diabetic foot ulcer and he was directly admitted to the medical floor as detailed in HPI. He has been started on empiric ceftriaxone, metronidazole, and daptomycin (history of angioedema with vancomycin). Hold atorvastatin for now pending CK level as daptomycin can increased CPK. Wound and blood cultures ordered. Left foot x-ray is pending. He will be NPO after midnight for possible debridement tomorrow per Dr. Urena. He has acute on chronic kidney injury. Etiology is not entirely clear however he has had good oral intake and dehydration seems unlikely. Bladder scan to rule out urinary retention. May be related to Bactrim as he has hyperkalemia as well. One liter LR bolus ordered as well as Lokelma for hyperkalemia. Repeat BMP this evening to ensure it is trending down. EKG did not show any peaked T-waves. His diabetes is well controlled with a recent A1c of 6.4%. Initiate sliding scale insulin, Accu-Cheks, and hypoglycemic protocol. Vital signs have been stable thus far. His medications will be reviewed and resumed as appropriate. Findings and treatment plan were discussed with the patient. Questions were solicited and answered to satisfaction. The patient's medical management will be taken over by the hospitalist team in a.m. Quality VTE Prophylaxis VTE prophylaxis: mechanical ordered If No VTE Prophylaxis Answer both mechanical and pharmacologic: Reason no pharmacologic proph: medical contraindication (possible surgery tomorrow) The patient has been admitted under observation status. Hospitalist MIPS Advance Care Plan I have confirmed that the patient's Advanced Care Plan is present, code status is documented, or surrogate decision maker is listed in patient medical record.: Yes Medication Reconciliation I have utilized all available resources to obtain, update and review the patients current medications (includes all prescriptions, OTC, herbals, cannabis, and nutritional supplements).: Yes
--- OUTSIDE RECORDS SUMMARY | 2024-10-03 13:19 | XMS_ITS | Continuity of Care Document ---
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 [address] [place] [address], [id number], [place]. tel:[phone] Referring Provider: Merritt Blanco, [address] [place] [address], [id number] . tel:[phone] [facility], [address] [place] [address], [id number], tel:[phone] [facility] Podiatry f/u L foot ulcer (chief complaint) Ulcer of left foot, limited to breakdown of skinUlcer of left foot due to type 2 diabetes mellitusOnychomycos is of multiple toenails with type 2 diabetes mellitusTinea unguium 1 Jarrett Bang. [address] [place] [address], [id number], [place]. tel:[phone] Referring Provider: Merritt Blanco, [address] [place] [address], [address] . tel:[phone] [facility], [address] [place] [address], [id number], [place] tel:[phone] [facility] Podiatry f/u L foot ulcer (chief complaint) Ulcer of left foot, limited to breakdown of skinUlcer of left foot due to type 2 diabetes mellitus 1 Jarrett Bnag. [address] [place] [address], [id number], [place]. tel:[phone] [facility], [address] [place] [address], [id number], [place] tel:[phone] [facility] Podiatry L foot ulcer (chief complaint) Ulcer of left foot, limited to breakdown of skinUlcer of left foot due to type 2 diabetes mellitus 1 Jarrett Bang. [address] [place] [address], [id number], [place]. tel:[phone] [facility], [address] [place] [address], [id number], [place] tel:[phone] [facility] Podiatry f/u L foot ulcer (chief complaint) Ulcer of left foot due to type 2 diabetes mellitusUlcer of left foot, limited to breakdown of skin 1 Jarrett Bang. [address] [place] [address], [id number], [place]. tel:[phone] Referring Provider: Merritt Blanco, [address] [place] [address], [address] . tel:[phone] [facility], [address] [place] [address], [id number], [place] tel:[phone] [facility] Pod[facility] L foot ulcer (chief complaint) Ulcer of left foot with fat layer exposedUlcer of left foot due to type 2 diabetes mellitus 1 Jarrett Bang. [address] [place] [address], [id number], . tel:[phone] Referring Provider: Merritt Blanco, [address] [place] [address], [address] . tel:[phone] [facility], [address] [place] [address], [id number], [place] tel:[phone] [facility] Podiatry L foot ulcer (chief complaint) Ulcer of left foot with fat layer exposedUlcer of left foot due to type 2 diabetes mellitus 1 Jarrett Bang. [address] [place] [address], [id number], . tel:[phone] Referring Provider: Merritt Blanco, [address] [place] [address], [address] . tel:[phone] [facility], [address] [place] [address], [id number], [place] tel:[phone] [facility] Podiatry L foot ulcer (chief complaint) Ulcer of left foot with fat layer exposedUlcer of left foot due to type 2 diabetes mellitus Sep- 0- 1 Jarrett Bang. [address] [place] [address], [id number], [place]. tel:[phone] [facility], [address] [place] [address], [id number], [place] tel:[phone] [facility] Podiatry L foot ulcer (chief complaint) Ulcer of left foot, limited to breakdown of skinUlcer of left foot due to type 2 diabetes mellitus 1 Jarrett Bang. [address] [place] [address], [id number], [place]. tel:[phone] [facility], [address] [place] [address], [id number], [place] tel:[phone] [facility] Podiatry f/u L foot ulcer (chief complaint) Ulcer of left foot, limited to breakdown of skinUlcer of left foot due to type 2 diabetes mellitus 1 Jarrett Bang. [address] [place] [address], [id number], [place]. tel:[phone] [facility], [address] [place] [address], [id number], tel:[phone] [facility] Podiatry f/u L foot ulcer (chief complaint) Ulcer of left foot, limited to breakdown of skinUlcer of left foot due to type 2 diabetes mellitusOnychomycos is of multiple toenails with type 2 diabetes mellitusTinea unguium 1 Jarrett Bang. [address] [place] [address], [id number], . tel:[phone] [facility], [address] [place] [address], [id number], tel:[phone] [facility] Podiatry L foot wound (chief complaint) Ulcer of left foot with fat layer exposedUlcer of left foot due to type 2 diabetes mellitus 1 Jarrett Bang. [address] [place] [address], [id number], [place]. tel:[phone] Referring Provider: Merritt Blanco, [address] [place] [address], [address] . tel:[phone] [facility], [address] [place] [address], [id number], tel:[phone] [facility] Podiatry routine foot care (chief complaint) Onychomycosis of multiple toenails with type 2 diabetes mellitusTinea unguiumCallus of foot 0 Jarrett Bang. [address] [place] [address], [id number], [place]. tel:[phone] Referring Provider: Merritt Blanco, [address] [place] [address], [address] . tel:[phone] [facility], [address] [place] [address], [id number], [place] tel:[phone] [facility] Podiatry routine foot care (chief complaint) Callus of footType 2 diabetes mellitus with diabetic neuropathy, without long-term current use of insulinOnychomycosi s due to dermatophyte 0 Jarrett Bang. [address] [place] [address], [id number], [place]. tel:[phone] Referring Provider: Merritt Blanco, [address] [place] [address], [address] . tel:[phone] [facility], [address] [place] [address], [id number], [place] tel:[phone] Pod[facility]ry routine foot care (chief complaint) Callus of footOnychomycosis due to dermatophyteType 2 diabetes mellitus with diabetic neuropathy, without long-term current use of insulin 0 Jarrett Bang. [address] [place] [address], [id number], [place]. tel:[phone] Referring Provider: Merritt Blanco, [address] [place] [address], [address] . tel:[phone] OFFICE/OUTPA TIENT VISIT, [facility], [address] [place] [address], [id number], [place] tel:[phone] [facility] Podiatry routine foot care (chief complaint) Type 2 diabetes mellitus with diabetic neuropathy, without long-term current use of insulinOnychomycosi s due to dermatophyteCallus of foot 0 Jarrett Bagn. [address] [place] [address], [id number], [place]. tel:[phone] [facility], [address] [place] [address], [id number], [place] tel:[phone] [facility] Podiatry routine foot care (chief complaint) Callus of footOnychomycosis due to dermatophyteType 2 diabetes mellitus with diabetic neuropathy, without long-term current use of insulinPlantar flexed metatarsal bone of left footPlantar flexed metatarsal bone of right foot 9 Jarrett Bang. [address] [place] [address], [id number], [place]. tel:[phone] Referring Provider: Merritt Blanco, [address] [place] [address], [address] . tel:[phone] OFFICE/OUTPA TIENT VISIT, EST [facility], [address] [place] [address], [id number], [place] tel:[phone] [facility] Podiatry Routine Foot Care (chief complaint) Callus of footOnychomycosis due to dermatophyteType 2 diabetes mellitus with diabetic neuropathy, without long-term current use of insulinPlantar flexed metatarsal bone of left footPlantar flexed metatarsal bone of right foot 9 Jarrett Bang. [address] [place] [address], [id number], [place]. tel:[phone] [facility], [address] [place] [address], [id number], [place] tel:[phone] [facility] Podiatry f/u on left foot wound (chief complaint) routine foot care (chief complaint) Callus of footType 2 diabetes mellitus with diabetic neuropathy, without long-term current use of insulinOnychomycosi s due to dermatophyte Jarrett Bang. [address] [place] [address], [id number], [place]. tel:[phone] [facility], [address] [place] [address], [id number], [place] tel:[phone] [facility] Left Foot Wound (chief complaint) Callus of footType 2 diabetes mellitus with diabetic neuropathy, without long-term current use of insulinStage III pressure ulcer of left ankle 9 Ayaan Diaz. [address] [facility] Physician Office [facility], [place], [place], [id number], [place]. tel:[phone] [facility], [address] [place] [address], [id number], [place] tel:[phone] [facility] left foot wounds (chief complaint) Stage III pressure ulcer of left ankleCallus of footType 2 diabetes mellitus with diabetic neuropathy, without long-term current use of insulin Ayaan Diaz. [address] [facility] Physician Office [place], [id number], [place]. tel:[phone] OFFICE/OUTPA TIENT VISIT, [facility] Physician [facility], [address] [place] [address], [id number], [place] tel:[phone] [facility] left foot wounds (chief complaint) Stage III pressure ulcer of left ankleCallus of footType 2 diabetes mellitus with diabetic neuropathy, without long-term current use of insulin Tomas Deluna. [address] [facility] Physician Office [facility], [place], [place], [id number], [place]. tel:[phone] [facility] Physician [facility], [address] [place] [address], [id number], [place] tel:[phone] [facility] Right Foot Wound (chief complaint) Stage III pressure ulcer of left ankleCallus of footType 2 diabetes mellitus with diabetic neuropathy, without long-term current use of insulin Ayaan Diaz. [address] [facility] Physician Office [place], [id number], [place]. tel:[phone] Referring Provider: Emily Portillo, [address] [facility] Physician Office Building, [place], [address] . tel:[phone] OFFICE/OUTPA TIENT VISIT, [facility] Physician [facility], [address] [place] [address], [id number], [place] tel:[phone] [facility] Right Foot Wound (chief complaint) Stage III pressure ulcer of left ankleCallus of footType 2 diabetes mellitus with diabetic neuropathy, without long-term current use of insulin Ayaan Diaz. [address] [facility] Physician Office Building, [place], [place], [id number], [place]. tel:[phone] OFFICE/OUTPA TIENT VISIT, [facility], [address] [place] [address], [id number], [place] tel:[phone] [facility] Right Foot Wound (chief complaint) Diabetic ulcer of other part of right foot associated with type 2 diabetes mellitus, with fat layer exposedNon-pressure chronic ulcer of other part of right foot with fat layer exposed Mar-2 9 Tomas Deluna. [address] [facility] Physician Office Building, [place], [place], [id number], [place]. tel:[phone] [facility], [address] [place] [address], [id number], [place] tel:[phone] [facility] Wound Care Right Foot Wound (chief complaint) Diabetic ulcer of other part of right foot associated with type 2 diabetes mellitus, with fat layer exposedNon-pressure chronic ulcer of other part of right foot with fat layer exposed Mar-1 9 Ayaan Diaz. [address] [facility] Physician Office Building, [place], [place], [id number], [place]. tel:[phone] [facility], [address] [place] [address], [id number], [place] tel:[phone] [facility] Wound Care right foot wound (chief complaint) Diabetic ulcer of other part of right foot associated with type 2 diabetes mellitus, with fat layer exposedNon-pressure chronic ulcer of other part of right foot with fat layer exposed Mar-0 9 Tomas Deluna. [address] [facility] Physician Office Building, [place], [place], [id number], [place]. tel:[phone] OFFICE/OUTPA TIENT VISIT, [facility], [address] [place] [address], [id number], [place] tel:[phone] [facility] Podiatry F/U on bilateral foot ulcers (chief complaint) Non-pressure chronic ulcer of other part of right foot with fat layer exposedType 2 diabetes mellitus with foot ulcer, unspecified whether intermodal customer service insulin usePre-ulcerative calluses Mar-0 9 Jarrett Bang. [address] [place] [address], [id number], [place]. tel:[phone] Referring Provider: Merritt Blanco, [address] [place] [address], [address] . tel:[phone] [facility], [address] [place] [address], [id number], [place] tel:[phone] [facility] Right Foot Wound (chief complaint) Diabetic ulcer of other part of right foot associated with type 2 diabetes mellitus, with fat layer exposedNon-pressure chronic ulcer of other part of right foot with fat layer exposed 9 Ayaan Emily. [address] [facility] Physician Office Building, [place], [place], [id number], [place]. tel:[phone] OFFICE/OUTPA TIENT VISIT, [facility], [address] [place] [address], [id number], [place] tel:[phone] [facility] Podiatry diabetic foot exam (chief complaint) f/u b/l foot ulcers (chief complaint) Type 2 diabetes mellitus with diabetic neuropathy, without long-term current use of insulinSkin ulcer of left foot, limited to breakdown of skinSkin ulcer of right foot with fat layer exposed 9 Jarrett Bang. [address] [place] [address], [id number], [place]. tel:[phone] Referring Provider: Merritt Blanco, [address] [place] [address], [address] . tel:[phone] [facility], [address] [place] [address], [id number], [place] tel:[phone] [facility] right foot wound (chief complaint) Diabetic ulcer of other part of right foot associated with type 2 diabetes mellitus, with fat layer exposedNon-pressure chronic ulcer of other part of right foot with fat layer exposedSkin ulcer of left foot, limited to breakdown of skinAvulsion of toenail of left foot 9 Tomas Deluna. [address] [facility] Physician Office Building, [place], [place], [id number], [place]. tel:[phone] [facility], [address] [place] [address], [id number], [place] tel:[phone] [facility] Podiatry f/u bilateral DFU (chief complaint) Skin ulcer of left foot, limited to breakdown of skinType 2 diabetes mellitus with diabetic neuropathy, without long-term current use of insulinSkin ulcer of right foot with fat layer exposed 9 Jarrett Bang. [address] [place] [address], [id number], [place]. tel:[phone] OFFICE/OUTPA TIENT VISIT, [facility], [address] [place] [address], [id number], [place] tel:[phone] [facility] Diabetic ulcer of other part of right foot associated with type 2 diabetes mellitus, with fat layer exposedNon-pressure chronic ulcer of other part of right foot with fat layer exposedNon-pressure chronic ulcer of other part of left foot limited to breakdown of skin 9 Tomas Deluna. [address] [facility] Physician Office Building, [place], [place], [id number], [place]. tel:[phone] [facility], [address] [place] [address], [id number], [place] tel:[phone] [facility] No Information 9 Ayaan Diaz. [address] [place] [address] Physician Office Building, [place], [place], [id number], [place]. tel:[phone] Referring Provider: Merritt Blanco, [address] [place] [address], [address] . tel:[phone] OFFICE/OUTPA TIENT VISIT, [facility], [address] [place] [address], [id number], [place] tel:[phone] [facility] Right Foot Wound (chief complaint) Diabetic ulcer of other part of right foot associated with type 2 diabetes mellitus, with fat layer exposedNon-pressure chronic ulcer of other part of right foot with fat layer exposedCallus of foot 9 Ayaan Diaz. [address] [facility] Physician Office Building, [place], [place], [id number], . tel:[phone] Referring Provider: Merritt Blanco, [address] [place] [address], [address] . tel:[phone] OFFICE/OUTPA TIENT VISIT, [facility], [address] [place] [address], [id number], tel:[phone] [facility] Podiatry F/U on Diabetic Ulcer on right foot (chief complaint) Type 2 diabetes mellitus with diabetic neuropathy, without long-term current use of insulinSkin ulcer of right foot with fat layer exposedSkin ulcer of left foot, limited to breakdown of skin Jarrett Bang. [address] [place] [address], [id number], . tel:[phone] OFFICE/OUTPA TIENT VISIT, [facility], [address] [place] [address], [id number], tel:[phone] [facility] Podiatry F/U on Diabetic Ulcer on Right Foot (chief complaint) Type 2 diabetes mellitus with diabetic neuropathy, without long-term current use of insulinSkin ulcer of right foot with fat layer exposed Jarrett Bang. [address] [place] [address], [id number], . tel:[phone] Referring Provider: Merritt Blanco, [address] [place] [address], [address] . tel:[phone] OFFICE/OUTPA TIENT VISIT, [facility], [address] [place] [address], [id number], [place] tel:[phone] [facility] No Information Jarrett Bang. [address] [place] [address], [id number], . tel:[phone] Family History Family Member Type Diagnosis Age At Onset No Information Payers Payer name Insurance type Covered green party ID Authorsala delilah(s) Medicare MB [id number] [employer] [place] [id number] Social History Type Description Quantity Date Captured Comments Sex Male Smoking Status No Information Chief Complaint And Reason For Visit No Information Reason For Referral Reason For Referral No Information Plan Of Treatment Date Type Action Status Goal FIT-DNA (Colorectal CA Scree gladys). Due [...] Td vaccine. Due on 19 due Goal Tdap. Due on due Goal [...] vaccine. Due on 19 due Goal Pneumococcal vaccine (Pneumo vax). Due on due Goal Annual Physical Exam. Due on due Goal Colonoscopy. Due on due Goal Influenza Vaccine. Due on due Goal Colonoscopy. Due on due Goal Annual Physical Exam. Due on due Goal Td vaccine. Due on 19 due Goal Pneumococcal vaccine (Pneumo vax). Due on due Goal Pneumococcal 13 (Prevnar). D ue on due Goal Tdap. Due on due Goal Zoster vaccine. Due on due Goal FOBT. Due on due Goal DEXA Scan. Due on due Goal Lipid panel. Due on due Goal Medicare wellness visit. Due on due Goal Influenza Vaccine. Due on due Goal Medicare wellness visit. Due on due Goal DEXA Scan. Due on 9 due Goal Lipid panel. Due on due Goal Zoster vaccine. Due on due Goal FOBT. Due on due Goal Tdap. Due on due Goal Colonoscopy. Due on due Goal Annual Physical Exam. Due on due Goal Pneumococcal 13 (Prevnar). D ue on due Goal Pneumococcal vaccine (Pneumo vax). Due on due Goal Td vaccine. Due on 19 due Goal Influenza Vaccine. Due on due Goal Medicare wellness visit. Due on due Goal Lipid panel. Due on due Goal Zoster vaccine. Due on due Goal FOBT. Due on due Goal DEXA Scan. Due on 9 due Goal Colonoscopy. Due on due Goal Tdap. Due on due Goal Annual Physical Exam. Due on due Goal Pneumococcal 13 (Prevnar). D ue on due Goal Pneumococcal vaccine (Pneumo vax). Due on due Goal Td vaccine. Due on due Goal Influenza Vaccine. Due on due Goal Td vaccine. Due on 19 due Goal Pneumococcal vaccine (Pneumo vax). Due on due Goal Annual Physical Exam. Due on due Goal Colonoscopy. Due on due Goal Pneumococcal 13 (Prevnar). D ue on due Goal Tdap. Due on due Goal Medicare wellness visit. Due on due Goal DEXA Scan. Due on 9 due Goal FOBT. Due on due Goal Lipid panel. Due on due Goal Zoster vaccine. Due on due Goal Influenza Vaccine. Due on due Goal Colonoscopy. Due on due Goal Pneumococcal 13 (Prevnar). D ue on due Goal Pneumococcal vaccine (Pneumo vax). Due on due Goal Medicare wellness visit. Due on due Goal Annual Physical Exam. Due on due Goal Tdap. Due on due Goal Td vaccine. Due on 19 due Goal Lipid panel. Due on due Goal FOBT. Due on due Goal Zoster vaccine. Due on due Goal DEXA Scan. Due on 9 due Goal Influenza Vaccine. Due on due Goal Pneumococcal 13 (Prevnar). D ue on due Goal Colonoscopy. Due on due Goal Medicare wellness visit. Due on due Goal Annual Physical Exam. Due on due Goal Pneumococcal vaccine (Pneumo vax). Due on due Goal Pneumococcal vaccine. Due on due Goal DEXA Scan. Due on 9 due Goal FOBT. Due on due Goal Td vaccine. Due on due Goal Tdap. Due on due Goal Zoster vaccine. Due on due Goal Lipid panel. Due on due Goal Influenza Vaccine. Due on due Goal Zoster vaccine. Due on due Goal Tdap. Due on due Goal FOBT. Due on due Goal Td vaccine. Due on due Goal DEXA Scan. Due on 9 due Goal Annual Physical Exam. Due on due Goal Pneumococcal 13 (Prevnar). D ue on due Goal Pneumococcal vaccine (Pneumo vax). Due on due Goal Colonoscopy. Due on due Goal Pneumococcal vaccine. Due on due Goal Medicare wellness visit. Due on due Goal Lipid panel. Due on due Goal FOBT. Due on due Goal Tdap. Due on due Goal Annual Physical Exam. Due on due Goal DEXA Scan. Due on 9 due Goal Zoster vaccine. Due on due Goal Td vaccine. Due on due Goal Pneumococcal vaccine (Pneumo vax). Due on due Goal Colonoscopy. Due on due Goal Pneumococcal 13 (Prevnar). D ue on due Goal Pneumococcal vaccine. Due on due Goal Medicare wellness visit. Due on due Goal Lipid panel. Due on due Goal Annual Physical Exam. Due on due Goal Td vaccine. Due on 19 due Goal DEXA Scan. Due on 9 due Goal Tdap. Due on due Goal Zoster vaccine. Due on due Goal FOBT. Due on due Goal Pneumococcal vaccine (Pneumo vax). Due on due Goal Pneumococcal vaccine. Due on due Goal Colonoscopy. Due on due Goal Pneumococcal 13 (Prevnar). D ue on due Goal Medicare wellness visit. Due on due Goal Lipid panel. Due on due Goal Zoster vaccine. Due on due Goal FOBT. Due on due Goal Td vaccine. Due on 19 due Goal Tdap. Due on due Goal Annual Physical Exam. Due on due Goal DEXA Scan. Due on 9 due Goal Pneumococcal 13 (Prevnar). D ue on due Goal Pneumococcal vaccine. Due on due Goal Colonoscopy. Due on due Goal Pneumococcal vaccine (Pneumo vax). Due on due Goal Medicare wellness visit. Due on due Goal Lipid panel. Due on 019 due Goal Pneumococcal 13 (Prevnar). D ue on due Goal Pneumococcal vaccine (Pneumo vax). Due on due Goal Pneumococcal vaccine. Due on due Goal Medicare wellness visit. Due on due Goal Lipid panel. Due on due Goal Zoster vaccine. Due [...] Goal Pneumococcal vaccine. Due on due Goal FOBT. Due on due Goal Tdap. Due on due Goal Annual Physical Exam. Due on due Goal Td vaccine. Due on 19 due Goal DEXA Scan. Due on 9 due Goal Colonoscopy. Due on due Goal Medicare wellness visit. Due on due Goal Zoster vaccine. Due [...] Medicare wellness visit. Due on due Goal Zoster vaccine. Due [...] Goal Pneumococcal vaccine. Due on due Goal Annual Physical Exam. Due on due Goal Tdap. Due on due Goal Td vaccine. Due on 19 due Goal DEXA Scan. Due on 9 due Goal Medicare wellness visit. Due on due Goal Lipid panel. Due on due Goal Pneumococcal vaccine (Pneumo vax). Due on due Goal Zoster vaccine. Due on due Goal Colonoscopy. Due [...] Callus of foot Pared callus down to skin edge. Applied [...]
--- OUTSIDE RECORDS SUMMARY | 2024-10-03 13:19 | XMS_ITS | Continuity of Care Document ---
Author Organization [facility] Address [address] [place] [address] Phone Care Team Providers Care Mosaic Technician Name Role Phone King Lou MD Unavailable [...] OFFICE/OUTPAT IENT VISIT, NEW [facility] ssee, [address] [facility], [place], [address], [place] tel:[phone] [facility] Left hand (chief complaint) Dupuytren's contracture of left handMass of finger of left hand Carmine Malik. [address], [place], [place], [id number], [place]. tel:[phone] Family History Family Member Type Diagnosis Age At Onset Mother Problem Blood disorder Mother Problem Cancer, unknown Father Problem Cardiovascular disease Mother Problem diabetes mellitus in first d egree relative Payers Payer name Insurance type Covered republican ID Authorsala tijefferson(s) Medicare Palmetto Gvmt Benef its Admin [id number] [place] [id number] Social History Type Description Quantity Date [...]
--- OUTSIDE RECORDS SUMMARY | 2024-10-03 13:19 | XMS_ITS | Patient Health Record ---
Author Organization [facility] Address [address] [place], [place] [id number] Care Team Providers Care Assisted Living Associate Name Role Phone JAMAL GALLEGO Primary Care Provider BG Gibbs Unavailable [phone] Reason For Referral No Information Plan Of Treatment No Information Insurance Providers Payer Name Payer Address Payer Phone Subscriber Number Group Number Insured Name Patient Relationship to Insured Coverage Start Date Coverage End Date MEDICARE PALMETTO GBA [address] [place] [phone] [id number] CADE LACEY Self - patient is the insured 8 [employer] [place] [address] [place] [address] [phone] [id number] CADE LACEY Self - patient is the insured
--- OUTSIDE RECORDS SUMMARY | 2024-10-03 13:19 | XMS_ITS | Clinical Summary ---
Author Organization [facility] Address [address] [place] [id number] Phone Care Team Providers Care Roofing Applicator Name Role Phone Allie Alan MD Primary Care Provider [phone] Allergies Active Allergy Reactions Criticality Noted Date [...] DAY 06/24/2021 Active Lancets (OneTouch Delica Plus [id number]) misc DIRECTED EVERY DAY 06/24/2021 Active metFORMIN [...] 1960 Influenza Vaccine (#1) 2024 Care Teams Roofing Applicator Relationship Specialty Start Date End Date Allie Alan MD [address] [place] [address] PCP - General Internal Medicine 07/06/21
[2024-10-03 13:39] LABS: Basophils Absolute Auto 0.1 K/mm3 (0.0-0.1); Basophils Percent Auto 0.8 % (0.2-1.2); Eosinophils Absolute Auto 0.2 K/mm3 (0-0.3); Eosinophils Percent Auto 1.4 % (0-4.4); Hematocrit 35.9 % (42.0-52.0); Hemoglobin 11.6 g/dL (14.0-18.0); Immature Granulocyte Absolute 0.36 K/mm3 (0.00-0.031); Immature Granulocyte Percent A 2.9 % (0-0.5); Lymphocytes Absolute Auto 1.26 K/mm3 (0.9-3.2); Lymphocytes Percent Auto 10.2 % (18.3-44.2); Mean Corpuscular HGB Conc 32.3 g/dl (32-36); Mean Corpuscular Hemoglobin 28.9 pg (26-34); Mean Corpuscular Volume 89.5 fl (80-100); Mean Platelet Volume 9.1 fl (7.4-10.4); Monocytes Absolute Auto 0.9 K/mm3 (0.1-0.6); Monocytes Percent Auto 7.6 % (2.6-8.5); Neutrophils Absolute Auto 9.6 K/mm3 (1.3-6.7); Neutrophils Percent Auto 77.1 % (45.5-73.1); Platelet Count Result 330 k/mm3 (150-375); Red Blood Count 4.01 M/mm3 (4.6-6.20); Red Cell Distribution Width 13.4 % (11.5-14.5); White Blood Count 12.4 K/mm3 (4.5-10.0)
[2024-10-03] MEDS: metroNIDAZOLE 500 MG TABLET PO ×2 (13:56→21:10)
[2024-10-03] MEDS: cefTRIAXone 2 GM/NS 100 ML 2 GM/100 ML BAG IVPB (13:56)
[2024-10-03 13:59] LABS: Lactic Acid Reflex 2.2 mmol/L (0.7-2.0)
[2024-10-03 14:09] LABS: Alanine Aminotransferase 63 U/L (6-50); Alkaline Phosphatase 117 U/L (38-126); Anion Gap 10 mmol/L (4-12); Aspartate Amino Transferase 49 U/L (17-59); Bilirubin,Total 0.7 mg/dL (0.2-1.3); Blood Urea Nitrogen 28 mg/dL (9-20); CRP 5.4 mg/dL (<1.0); Carbon Dioxide 23 mmol/L (22-30); Chloride 105 mmol/L (98-107); Creatine Kinase 54 U/L (55-170); Estimated CRCL calculation 29 ml/min; Estimated Glomerular Filt Rate 30; Glucose 104 mg/dL (65-110); Potassium 6.4 mmol/L (3.4-5.0); Sodium 138 mmol/L (137-145)
--- NOTE | 2024-10-03 14:16 | ECG_ITS ---
Test Date: 2024-10-03 14:36:52 Measurements Intervals [place] Rate: 52 P: 56 MT: 159 QRS: -9 QRSD: 138 T: 14 QT: 454 QTc: 423 Interpretive Statements SINUS BRADYCARDIA RIGHT BUNDLE BRANCH BLOCK [120+ ms QRS DURATION, UPRIGHT V1, 40+ ms S IN I/aVL/V4/V5/V6] No previous ECG available for comparison Electronically Signed On 10-04-2024 13:53:38 CDT by Todd Shepherd M.D.
[2024-10-03] MEDS: ALBUTEROL SULFATE NEB 2.5 MG/3 ML INH INHALATION (14:34)
[2024-10-03] MEDS: SODIUM ZIRCONIUM CYCLOSILICATE 10 GM POWD.PACK PO (14:36)
[2024-10-03] MEDS: CALCIUM GLUC 1,000 MG/NS 50 ML 1,000 MG/50 ML BAG 100 MG IVPB (14:41)
[2024-10-03] MEDS: LACTATED RINGERS 1,000 ML 999 ML IV CONT (15:14)
[2024-10-03 15:28] LABS: Influenza A QL RT-PCR Negative (Negative); Influenza B QL RT-PCR Negative (Negative); SARS-CoV-2 RNA PCR Negative (Negative)
[2024-10-03 15:34] LABS: Reflex Lactic Acid Yes or No Add Lactic
[2024-10-03] MEDS: DAPTOmycin 1,000 MG in SODIUM CHLORIDE 0.9% IV 50 ML 100 MG IVPB (16:09)
[2024-10-03 16:24] LABS: Anion Gap 11 mmol/L (4-12); Blood Urea Nitrogen 26 mg/dL (9-20); Calcium 9.5 mg/dL (8.4-10.2); Carbon Dioxide 20 mmol/L (22-30); Chloride 105 mmol/L (98-107); Estimated CRCL calculation 31 ml/min; Estimated Glomerular Filt Rate 33; Glucose 154 mg/dL (65-110); Potassium 4.9 mmol/L (3.4-5.0); Sodium 136 mmol/L (137-145)
[2024-10-03 16:25] LABS: Lactic Acid 2.1 mmol/L (0.7-2.0)
[2024-10-03 16:45] LABS: Glucose Point of Care 156 mg/dl (65-105)
--- NOTE | 2024-10-03 17:29 | P.HP_ITS ---
H&P: HPI History of Present Illness Date/Time: 10/03/24 17:29 Chief Complaint: Redness swelling and drainage from a chronic ulcer to the left foot Narrative: The patient was direct admitted today for management of a diabetic foot infection to the left forefoot. The patient has had a chronic ulcer that developed a couple months ago. The wound was healed one week ago after total contact casting through [facility] wound care department. After healing the ulcer the patient was transitioned to a CAM walker boot for ambulation. The ulceration redeveloped shortly after the total contact cast was discontinued so the decision was made to reapply a total contact cast until a definitive limb salvage surgical procedure could be performed this month. He was prescribed empirical antibiotics Bactrim DS until the total contact cast could be applied. The wound care department called my office this morning with new onset of redness swelling and drainage from the plantar forefoot near the second and third toes. The patient denies F/C/N/V. 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 Wing Status post open reduction with internal fixation of fracture Left ankle ORIF [address] Tyler Family History Family History Father Myocardial infarct Family history of coronary artery disease, Onset Age: 66 Lung cancer Mother Leukemia Family history of coronary artery disease, Onset Age: 70 Diabetes mellitus Sibling Multiple sclerosis Sister Diabetes mellitus Social History Social History (Updated 10/03/24 @ 13:26 by Adalgisa Garcia PA-C) Social History: Surrogate medical decision maker: Krishna Bergeron, daughter. Code status: Full code. Smoking packs per day: 1 Smoking cigarettes per day: 20.0 Years smoked: 20 Smoking pack-years: 20.00 Smoking status: Former smoker Second hand tobacco smoke exposure: No Alcohol intake: never Substance use: former Substance use type: marijuana Other substance usage details: daily Last use: 05/29/21 Do You Feel Safe in your Home?: Yes Lack of Transportation: No Lack of Food: Never True Current Housing: I Have Housing Concerned About Future Housing: No Difficulty Paying Gas/Electric Bills: No Difficulty Paying for Meds: No Currently Unemployed: No Education: High School Diploma/GED Difficulty w/ Childcare or Family Care: No Living arrangements: alone Additional living arrangements comments: . Lives in [place]. Has 1 daughter. 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 Spiritual care concerns: No Meds Home Medications and Allergies Home Medications ?Medication ?Instructions ?Recorded ?Confirmed ?Type aspirin 325 mg tablet 325 mg PO HS 08/02/19 10/03/24 History imemudnhqwpe-pdc-kojgy acid-vit 1 tablet PO DAILY 04/13/21 10/03/24 History K-lycop 400 mcg-20 mcg-370 mcg tablet (Men's 50 Plus Multivitamin) fiber 4 cap PO DAILY 05/16/21 10/03/24 History blood-glucose meter (Blood Glucose #1 ea 06/24/21 10/03/24 Rx Monitoring kit) lancets #200 ea 06/24/21 10/03/24 Rx lancets (Accu-Chek Fastclix Lancet #100 ea 10/12/22 10/03/24 Rx Drum) vitamin B complex (B 1 tablet PO DAILY 02/14/23 10/03/24 History Complex-Vitamin B12 tablet) metformin 1,000 mg tablet 1,000 mg PO BID #180 tabs 03/17/24 10/03/24 Rx metoprolol succinate 100 mg 100 mg PO DAILY #90 tabs 03/17/24 10/03/24 Rx tablet,extended release 24 hr blood sugar diagnostic (Blood #100 ea 03/21/24 10/03/24 Rx Glucose Test strips) amlodipine 5 mg tablet See Rx Instructions .Route 03/23/24 10/03/24 Rx .COMPLEX #90 tabs citalopram 20 mg tablet 20 mg PO DAILY #90 tabs 04/10/24 10/03/24 Rx zolpidem 10 mg tablet 10 mg PO HS PRN insomnia #90 tabs 04/23/24 10/03/24 Rx lancets 33 gauge #100 ea 06/27/24 10/03/24 Rx atorvastatin 10 mg tablet 10 mg PO DAILY #90 tabs 08/10/24 10/03/24 Rx pantoprazole 40 mg tablet,delayed 40 mg PO QAM #30 tabs 08/15/24 10/03/24 Rx release albuterol sulfate 90 mcg/actuation 1 puff inhalation Q4H PRN 09/24/24 10/03/24 Rx aerosol inhaler (Ventolin HFA) shortness of breath or wheezing #8.5 grams sulfamethoxazole 800 1 tablet PO Q12H 10/03/24 10/03/24 History mg-trimethoprim 160 mg tablet Allergies Allergy/AdvReac Type Severity Reaction Status Date / Time lisinopril Allergy Severe Swelling Verified 10/03/24 13:55 of Lip/Tongue/Throat vancomycin Allergy Severe angioedema Verified 10/03/24 13:55 Vital Signs Vital Signs - 24 hr 10/03/24 12:04 10/03/24 14:00 10/03/24 14:21 Temperature 36.4 C L 36.2 C L Pulse Rate 50 L 55 L Respiratory Rate 16 16 Blood Pressure 105/58 L 133/60 Pulse Oximetry 98 96 Oxygen Delivery Room Air 10/03/24 14:41 10/03/24 14:46 10/03/24 16:00 Temperature Pulse Rate 50 L 52 L 75 Respiratory Rate 16 16 Blood Pressure Pulse Oximetry Oxygen Delivery H&P: Results Labs Labs: Short CBC 10/03/24 Range/Units 13:19 WBC 12.4 H (4.5-10.0) K/mm3 Hgb 11.6 L (14.0-18.0) g/dL Hct 35.9 L (42.0-52.0) % Plt Count 330 (150-375) k/mm3 BMP 10/03/24 10/03/24 13:19 16:04 Sodium 138 136 L Potassium 6.4 H* 4.9 Chloride 105 105 Carbon Dioxide 23 20 L BUN 28 H 26 H Creatinine 2.18 H 2.02 H Glucose 104 154 H Calcium 10.0 9.5 Cardiac Enzymes 10/03/24 Range/Units 13:19 Total Creatine Kinase 54 L (55-170) U/L Liver Function 10/03/24 Range/Units 13:19 Total Bilirubin 0.7 (0.2-1.3) mg/dL AST 49 (17-59) U/L ALT 63 H (6-50) U/L Alkaline Phosphatase 117 (38-126) U/L Albumin 4.0 (3.5-5.1) g/dL Imaging xray: Attestation: I personally reviewed and interpreted this imaging study as follows: My impression: Left foot xrays show osteolysis and fragmentation of the second metatarsal head and base of the proximal phalanx this is new from xrays ordered 09/20/24. Assessment and Plan Assessment and plan (1) Diabetic infection of left foot: Code(s): E11.628 - Type 2 diabetes mellitus with other skin complications; L08.9 - Local infection of the skin and subcutaneous tissue, unspecified Status: Acute Plan Diabetic ulceration to the plantar left forefoot -New onset of redness swelling and drainage from the left plantar foot -WBC elevated at 12k -Xrays show osteolysis vs a pathological fracture to the second metatarsal phalangeal joint -Ordered MRI without contrast to evaluate for osteomyelitis -I may perform I&D of the second interdigital space with an elevation first metatarsal osteotomy vs a TMA pending MRI results -Continue with IV abx per medicine Appreciate help with this patient care Dr. Urena [phone] office [phone] Cell
[2024-10-03 20:16] LABS: Glucose Point of Care 98 mg/dl (65-105)
[2024-10-03] MEDS: LACTATED RINGERS 1,000 ML 100 ML IV CONT (21:23)
[2024-10-04] VITALS (9 sets, daily range): BP systolic 121–130; BP diastolic 42–60; PULSE 46–84; RESP 14–16; TEMP 36.4–36.9; O2SAT 95–100
[2024-10-04] MEDS: metroNIDAZOLE 500 MG TABLET PO ×3 (05:58→21:12)
[2024-10-04 08:06] LABS: Glucose Point of Care 103 mg/dl (65-105)
[2024-10-04] MEDS: PANTOPRAZOLE 40 MG TABLET PO (09:52)
[2024-10-04] MEDS: CITALOPRAM HYDROBROMIDE 20 MG TABLET PO (09:52)
[2024-10-04] MEDS: VITAMIN B COMPLEX CAPSULE 1 CAP PO (09:52)
[2024-10-04] MEDS: THERAPEUTIC MULTIVITAMINS/MINERALS TAB (*BKC) 1 TABLET PO (09:52)
[2024-10-04] MEDS: amLODIPine BESYLATE 5 MG TABLET BY MOUTH (09:52)
[2024-10-04] MEDS: METOPROLOL SUCCINATE EXT REL 100 MG TABCR PO (09:53)
[2024-10-04] MEDS: cefTRIAXone 2 GM/NS 100 ML 2 GM/100 ML BAG IVPB (09:53)
[2024-10-04] MEDS: calcium polycarbophiL 625 MG TABLET 2500 MG PO (09:53)
--- NOTE | 2024-10-04 11:16 | PC.NURSE ---
Patient off of unit to MRI
--- NOTE | 2024-10-04 11:41 | PM.IMPN ---
Progress Note: A&P Assessment and Plan (1) Diabetic infection of left foot: Code(s): E11.628 - Type 2 diabetes mellitus with other skin complications; L08.9 - Local infection of the skin and subcutaneous tissue, unspecified Status: Acute (2) Diabetic ulcer of left foot: Code(s): E11.621 - Type 2 diabetes mellitus with foot ulcer; L97.529 - Non-pressure chronic ulcer of other part of left foot with unspecified severity Status: Acute (3) Acute on chronic kidney failure: Code(s): N17.9 - Acute kidney failure, unspecified; N18.9 - Chronic kidney disease, unspecified Status: Acute (4) Hyperkalemia: Code(s): E87.5 - Hyperkalemia Status: Acute (5) Type 2 diabetes mellitus: Code(s): E11.9 - Type 2 diabetes mellitus without complications Status: Acute (6) Essential (primary) hypertension: Code(s): I10 - Essential (primary) hypertension Status: Acute Plan The patient presented to the [facility] today for total contact cast application however was found to have evidence of acute infection He was directly admitted and started on empiric ceftriaxone, metronidazole, and daptomycin (history of angioedema with vancomycin). Hold atorvastatin for now pending CK level as daptomycin can increased CPK. Wound and blood cultures ordered. Left foot x-ray is pending. He is NPO now for possible debridement with Dr. Urena He has acute on chronic kidney injury. Etiology is not entirely clear however he has had good oral intake and dehydration seems unlikely. Bladder scan to rule out urinary retention. May be related to Bactrim as he has hyperkalemia as well. One liter LR bolus ordered as well as Lokelma for hyperkalemia. Repeated BMP- K 4.9, EKG did not show any peaked T-waves. His diabetes is well controlled with a recent A1c of 6.4%. Initiate sliding scale insulin, Accu-Cheks, and hypoglycemic protocol. Vital signs have been stable thus far. Continue to monitor Time Spent With Patient Time with patient: 25 - 35 minutes Subjective Date/time seen: 10/04/24 11:41 Interval history: 74-year-old male with history of osteomyelitis and MRSA bacteremia in April 2021, angioedema attributed to vancomycin and lisinopril, type 2 diabetes mellitus with peripheral neuropathy, hypertension, hyperlipidemia, and chronic kidney disease stage 3 who is being directly to the medical floor from the wound care clinic for treatment of an infected left foot ulcer. The patient provides the following history. He has a chronic left plantar foot wound which opened recently for which he has been seeing Dr. Urena. More recently he was started on Bactrim for concerns of developing infection and he was referred to the wound care clinic today for total contact cast application. 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 At the time my evaluation he is in good spirits and has no specific complaints. He denies pain in the foot but has peripheral neuropathy. He denies fever, chills, sweats, malaise, nausea, and vomiting. Pt is seen and examined. Podiatry consulted. Review of Systems Review of Systems: 12 systems were reviewed and are negative except for as per HPI. Exam Narrative: General: Well-developed, nontoxic-appearing gentleman the semi-Dudley position in bed. Weight: 86.7 kg. BMI: 27.4. HEENT: PERRL, EOMI. Sclera anicteric. Oral mucosa moist. Neck: Supple. Respiratory: Lungs are clear to auscultation bilaterally. Cardiovascular: Regular rate and rhythm with S1-S2. Gastrointestinal: Abdomen is soft, nontender, and nondistended with positive bowel sounds. Skin: Warm and dry. Open ulceration on the plantar aspect of the left foot with a small amount of serous drainage. There is an early, fluid-filled blister at the base of the 2nd 3rd toes with erythema and edema of the 2nd and 3rd toes. Faint erythema extends onto the forefoot. Extremities: No cyanosis, clubbing, or edema. Radial and pedal pulses intact. Neurological: Alert. Cranial nerves 2-12 are grossly intact. No gross focal deficits to casual conversation. Psychiatric: Pleasant and cooperative with normal mood and affect. Judgment and insight intact. Objective Data Vital Signs Vital Signs: Vital Signs - 24 hr 10/03/24 12:04 10/03/24 14:00 10/03/24 14:21 Temperature 97.5 F L 97.2 F L Pulse Rate 50 L 55 L Respiratory Rate 16 16 Blood Pressure 105/58 L 133/60 Pulse Oximetry 98 96 Oxygen Delivery Room Air 10/03/24 14:41 10/03/24 14:46 10/03/24 16:00 Temperature Pulse Rate 50 L 52 L 75 Respiratory Rate 16 16 Blood Pressure Pulse Oximetry Oxygen Delivery 10/03/24 20:00 10/03/24 20:00 10/03/24 21:06 Temperature 98.3 F Pulse Rate 49 L 55 L Respiratory Rate 12 Blood Pressure 115/76 Pulse Oximetry 96 Oxygen Delivery Room Air 10/04/24 00:00 10/04/24 04:00 10/04/24 05:59 Temperature 98.5 F Pulse Rate 73 56 L 72 Respiratory Rate 14 Blood Pressure 130/60 Pulse Oximetry 95 Oxygen Delivery 10/04/24 07:30 10/04/24 07:30 10/04/24 09:53 Temperature Pulse Rate 84 54 L Respiratory Rate Blood Pressure Pulse Oximetry Oxygen Delivery Room Air Intake/Output Intake/Output: Intake & Output 10/01/24 10/02/24 10/03/24 10/04/24 23:59 23:59 23:59 23:59 Intake Total 390 640 Output Total 475 900 Balance -85 -260 Meds/Results Medications: Active Medications Generic Name Dose Route Start Last Admin Trade Name Freq PRN Reason Stop Dose Admin Acetaminophen 650 mg 10/03/24 12:50 Acetaminophen 325 Mg Tablet PO Q6H PRN Mild Pain (1-3) or Fever Albuterol 1 puff 10/03/24 14:08 Albuterol Sulfate (*Sp) Aerosol 1 Puff INHALATION Q4H PRN shortness of breath or wheezing Amlodipine Besylate 5 mg 10/04/24 09:00 10/04/24 09:52 Amlodipine Besylate 5 Mg Tablet BY MOUTH 5 mg QAM RICHARD Administration Calcium Polycarbophil 2,500 mg 10/04/24 09:00 10/04/24 09:53 Calcium Polycarbophil 625 Mg Tablet PO 11/03/24 08:59 2,500 mg DAILY RICHARD Administration Citalopram Hydrobromide 20 mg 10/04/24 09:00 10/04/24 09:52 Citalopram Hydrobromide 20 Mg Tablet PO 20 mg DAILY RICHARD Administration Dextrose 12.5 gm 10/03/24 12:50 Dextrose 50% 25 Gm/50 Ml Syringe IV PUSH PRN PRN Hypoglycemia Protocol Glucagon 1 mg 10/03/24 12:50 Glucagon For Inj 1 Mg Vial IM PRN PRN Hypoglycemia Protocol Glucose 15 gm 10/03/24 12:50 Glucose Oral Gel 15 Gm Of Glucse In 37.5 Gm Tube PO PRN PRN Hypoglycemia Protocol Dextrose 1,000 mls @ 100 mls/hr 10/03/24 12:50 Dextrose 5% 1,000 Ml IVPB PRN PRN Hypoglycemia Protocol Daptomycin 1,000 mg/ Sodium 50 mls @ 100 mls/hr 10/03/24 14:00 10/03/24 16:39 Chloride IVPB Infused Q24H RICHARD Infusion Ceftriaxone Sodium 2 gm in 100 mls @ 200 mls/hr 10/03/24 13:20 10/04/24 10:23 Rocephin 2 Gm/Ns 100 Ml IVPB Infused QAM RICHARD Infusion Insulin Aspart 3 - 6 units 10/03/24 17:00 10/04/24 09:46 Insulin Aspart (*Bkc) 100 Units/Ml SUB-Q Not Given TIDWM [facility] Protocol Insulin Aspart 1 - 3 units 10/03/24 21:00 10/03/24 20:22 Insulin Aspart (*Bkc) 100 Units/Ml SUB-Q Not Given HS RICHARD Protocol Metoprolol Succinate 100 mg 10/04/24 09:00 10/04/24 09:53 Metoprolol Succinate Ext Rel 100 Mg Tabcr PO 100 mg DAILY RICHARD Administration Metronidazole 500 mg 10/03/24 14:00 10/04/24 05:58 Metronidazole 500 Mg Tablet PO 500 mg Q8HR RICHARD Administration Multivitamins/Calcium 1 tablet 10/04/24 09:00 10/04/24 09:52 Therapeutic Multivitamins/Minerals Tab (*Bkc) PO 1 tablet DAILY RICHARD Administration Pantoprazole Sodium 40 mg 10/04/24 09:00 10/04/24 09:52 Pantoprazole 40 Mg Tablet PO 40 mg QAM RICHARD Administration Vitamin B Complex 1 cap 10/04/24 09:00 10/04/24 09:52 Vitamin B Complex Capsule PO 1 cap DAILY RICHARD Administration Zolpidem Tartrate 10 mg 10/03/24 14:08 Zolpidem Tartrate (*Crx) 5 Mg Tablet PO HS PRN insomnia Radiology Results: ITS Impressions Foot X-Ray 10/03/24 14:03 IMPRESSION: 1. Transverse fracture of neck of second metatarsal, new from 09/10/2024. 2. Plantar dislocation of third proximal phalanx with respect to the head of second metatarsal. 3. 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 Renal Ultrasound 10/03/24 22:29 IMPRESSION: Bilateral renal cysts. Otherwise, normal study. Labs Labs: Laboratory Results - last 24 hr 10/03/24 10/03/24 10/03/24 13:19 14:47 16:04 WBC 12.4 H RBC 4.01 L Hgb 11.6 L Hct 35.9 L MCV 89.5 MCH 28.9 MCHC 32.3 RDW 13.4 Plt Count 330 MPV 9.1 Immature Gran % (Auto) 2.9 H Neut % (Auto) 77.1 H Lymph % (Auto) 10.2 L [place] % (Auto) 7.6 Eos % (Auto) 1.4 Baso % (Auto) 0.8 Lymph # (Auto) 1.26 [place] # (Auto) 0.9 H Eos # (Auto) 0.2 Baso # (Auto) 0.1 Abs Immat Gran (auto) 0.36 H Absolute Neuts (auto) 9.6 H Absolute Nucleated RBC 0.000 Nucleated RBC % 0.0 Sodium 138 136 L Potassium 6.4 H* 4.9 Chloride 105 105 Carbon Dioxide 23 20 L Anion Gap 10 11 BUN 28 H 26 H Creatinine 2.18 H 2.02 H Estim Creat Clear Calc 29 31 Estimated GFR 30 L 33 L Glucose 104 154 H POC Capillary Glucose Lactic Acid 2.2 H 2.1 H Calcium 10.0 9.5 Total Bilirubin 0.7 AST 49 ALT 63 H Alkaline Phosphatase 117 Total Creatine Kinase 54 L C-Reactive Protein 5.4 H Total Protein 8.0 Albumin 4.0 Influenza A (RT-PCR) Negative Influenza B (RT-PCR) Negative SARS-CoV-2 RNA (RT-PCR) Negative 10/03/24 10/03/24 10/04/24 16:32 20:12 07:56 WBC RBC Hgb Hct MCV MCH MCHC RDW Plt Count MPV Immature Gran % (Auto) Neut % (Auto) Lymph % (Auto) [place] % (Auto) Eos % (Auto) Baso % (Auto) Lymph # (Auto) [place] # (Auto) Eos # (Auto) Baso # (Auto) Abs Immat Gran (auto) Absolute Neuts (auto) Absolute Nucleated RBC Nucleated RBC % Sodium Potassium Chloride Carbon Dioxide Anion Gap BUN Creatinine Estim Creat Clear Calc Estimated GFR Glucose POC Capillary Glucose 156 H 98 103 Lactic Acid Calcium Total Bilirubin AST ALT Alkaline Phosphatase Total Creatine Kinase C-Reactive Protein Total Protein Albumin Influenza A (RT-PCR) Influenza B (RT-PCR) SARS-CoV-2 RNA (RT-PCR) Quality VTE Prophylaxis VTE prophylaxis: mechanical ordered
--- NOTE | 2024-10-04 13:05 | WPDPN ---
Progress Note: A&P Assessment and Plan (1) Diabetic infection of left foot: Code(s): E11.628 - Type 2 diabetes mellitus with other skin complications; L08.9 - Local infection of the skin and subcutaneous tissue, unspecified Status: Acute Assessment and Plan: Chronic diabetic ulceration sub 1st distal metatarsal with acute diabetic foot infection about the second metatarsal phalangeal joint The patient has an abnormal parabola to the plantar forefoot, he has had a chronic ulcer to the distal 1st metatarsal with contiguous infection to the 2nd metatarsal phalangeal joint with osteolysis of the 2nd metatarsal head and base of the proximal phalanx. The patient has a pathological fracture to the second metatarsal neck. I recommended a transmetatarsal amputation this will give him a stable parabola to the distal metatarsals and eradicate the infectected soft tissue and bone. The patient was seen accompanied with his daughter that both agree with the procedure. I discussed other treatment option including incision and debridement with an elecation 1st metatarsal osteotomy. They would prefer the [facility] which will be scheduled for Tuesday later morning as per [place] OR scheduling. NPO midnight and pre-op orders will be placed including anesthesia consult. Dr. Urena Subjective Date/time seen: 10/04/24 13:05 Interval history: Seen at bedside resting comfortably no constitutional symptoms. Review of Systems Integumentary/Breasts: Comments: Edema, erythema and fluctuance noted to the second metatarsal phalangeal joint region. Ulcer plantar 1st metatarsal full thickness extending to bone. space Neurologic: Comments: Devoid of protetion sensation to both feet. Objective Data Vital Signs Vital Signs: Vital Signs - 24 hr 10/03/24 14:00 10/03/24 14:21 10/03/24 14:41 Temperature 36.2 C L Pulse Rate 55 L 50 L Respiratory Rate 16 16 Blood Pressure 133/60 Pulse Oximetry 96 Oxygen Delivery Room Air 10/03/24 14:46 10/03/24 16:00 10/03/24 20:00 Temperature Pulse Rate 52 L 75 Respiratory Rate 16 Blood Pressure Pulse Oximetry Oxygen Delivery Room Air 10/03/24 20:00 10/03/24 21:06 10/04/24 00:00 Temperature 36.8 C Pulse Rate 49 L 55 L 73 Respiratory Rate 12 Blood Pressure 115/76 Pulse Oximetry 96 Oxygen Delivery 10/04/24 04:00 10/04/24 05:59 10/04/24 07:30 Temperature 36.9 C Pulse Rate 56 L 72 Respiratory Rate 14 Blood Pressure 130/60 Pulse Oximetry 95 Oxygen Delivery Room Air 10/04/24 07:30 10/04/24 09:53 Temperature Pulse Rate 84 54 L Respiratory Rate Blood Pressure Pulse Oximetry Oxygen Delivery Intake/Output Intake/Output: Intake & Output 10/01/24 10/02/24 10/03/24 10/04/24 23:59 23:59 23:59 23:59 Intake Total 390 640 Output Total 475 900 Balance -85 -260 Meds/Results Medications: Active Medications Generic Name Dose Route Start Last Admin Trade Name Freq PRN Reason Stop Dose Admin Acetaminophen 650 mg 10/03/24 12:50 Acetaminophen 325 Mg Tablet PO Q6H PRN Mild Pain (1-3) or Fever Albuterol 1 puff 10/03/24 14:08 Albuterol Sulfate (*Sp) Aerosol 1 Puff INHALATION Q4H PRN shortness of breath or wheezing Amlodipine Besylate 5 mg 10/04/24 09:00 10/04/24 09:52 Amlodipine Besylate 5 Mg Tablet BY MOUTH 5 mg QAM RICHARD Administration Calcium Polycarbophil 2,500 mg 10/04/24 09:00 10/04/24 09:53 Calcium Polycarbophil 625 Mg Tablet PO 11/03/24 08:59 2,500 mg DAILY RICHARD Administration Citalopram Hydrobromide 20 mg 10/04/24 09:00 10/04/24 09:52 Citalopram Hydrobromide 20 Mg Tablet PO 20 mg DAILY RICHARD Administration Dextrose 12.5 gm 10/03/24 12:50 Dextrose 50% 25 Gm/50 Ml Syringe IV PUSH PRN PRN Hypoglycemia Protocol Glucagon 1 mg 10/03/24 12:50 Glucagon For Inj 1 Mg Vial IM PRN PRN Hypoglycemia Protocol Glucose 15 gm 10/03/24 12:50 Glucose Oral Gel 15 Gm Of Glucse In 37.5 Gm Tube PO PRN PRN Hypoglycemia Protocol Dextrose 1,000 mls @ 100 mls/hr 10/03/24 12:50 Dextrose 5% 1,000 Ml IVPB PRN PRN Hypoglycemia Protocol Daptomycin 1,000 mg/ Sodium 50 mls @ 100 mls/hr 10/03/24 14:00 10/03/24 16:39 Chloride IVPB Infused Q24H RICHARD Infusion Ceftriaxone Sodium 2 gm in 100 mls @ 200 mls/hr 10/03/24 13:20 10/04/24 10:23 Rocephin 2 Gm/Ns 100 Ml IVPB Infused QAM RICHARD Infusion Insulin Aspart 3 - 6 units 10/03/24 17:00 10/04/24 09:46 Insulin Aspart (*Bkc) 100 Units/Ml SUB-Q Not Given TIDWM [facility] Protocol Insulin Aspart 1 - 3 units 10/03/24 21:00 10/03/24 20:22 Insulin Aspart (*Bkc) 100 Units/Ml SUB-Q Not Given HS [facility] Protocol Metoprolol Succinate 100 mg 10/04/24 09:00 10/04/24 09:53 Metoprolol Succinate Ext Rel 100 Mg Tabcr PO 100 mg DAILY RICHARD Administration Metronidazole 500 mg 10/03/24 14:00 10/04/24 05:58 Metronidazole 500 Mg Tablet PO 500 mg Q8HR RICHARD Administration Multivitamins/Calcium 1 tablet 10/04/24 09:00 10/04/24 09:52 Therapeutic Multivitamins/Minerals Tab (*Bkc) PO 1 tablet DAILY RICHARD Administration Pantoprazole Sodium 40 mg 10/04/24 09:00 10/04/24 09:52 Pantoprazole 40 Mg Tablet PO 40 mg QAM RICHARD Administration Vitamin B Complex 1 cap 10/04/24 09:00 10/04/24 09:52 Vitamin B Complex Capsule PO 1 cap DAILY RICHARD Administration Zolpidem Tartrate 10 mg 10/03/24 14:08 Zolpidem Tartrate (*Crx) 5 Mg Tablet PO HS PRN insomnia Radiology Results: ITS Impressions Foot X-Ray 10/03/24 14:03 IMPRESSION: 1. Transverse fracture of neck of second metatarsal, new from 09/10/2024. 2. Plantar dislocation of third proximal phalanx with respect to the head of second metatarsal. 3. 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 Renal Ultrasound 10/03/24 22:29 IMPRESSION: Bilateral renal cysts. Otherwise, normal study. Foot MRI 10/04/24 11:53 IMPRESSION: 1. No specific evidence of acute osteomyelitis. 2. Subacute fracture of neck of second metatarsal with large effusion of the second metatarsophalangeal joint communicating with a fluid collection in the second toe soft tissues, probably hematoma. 3. Complete tear of the great toe flexor tendons with hyperextension of first metatarsophalangeal joint. Labs Labs: Laboratory Results - last 24 hr 10/03/24 10/03/24 10/03/24 13:19 14:47 16:04 WBC 12.4 H RBC 4.01 L Hgb 11.6 L Hct 35.9 L MCV 89.5 MCH 28.9 MCHC 32.3 RDW 13.4 Plt Count 330 MPV 9.1 Immature Gran % (Auto) 2.9 H Neut % (Auto) 77.1 H Lymph % (Auto) 10.2 L [place] % (Auto) 7.6 Eos % (Auto) 1.4 Baso % (Auto) 0.8 Lymph # (Auto) 1.26 [place] # (Auto) 0.9 H Eos # (Auto) 0.2 Baso # (Auto) 0.1 Abs Immat Gran (auto) 0.36 H Absolute Neuts (auto) 9.6 H Absolute Nucleated RBC 0.000 Nucleated RBC % 0.0 Sodium 138 136 L Potassium 6.4 H* 4.9 Chloride 105 105 Carbon Dioxide 23 20 L Anion Gap 10 11 BUN 28 H 26 H Creatinine 2.18 H 2.02 H Estim Creat Clear Calc 29 31 Estimated GFR 30 L 33 L Glucose 104 154 H POC Capillary Glucose Lactic Acid 2.2 H 2.1 H Calcium 10.0 9.5 Total Bilirubin 0.7 AST 49 ALT 63 H Alkaline Phosphatase 117 Total Creatine Kinase 54 L C-Reactive Protein 5.4 H Total Protein 8.0 Albumin 4.0 Influenza A (RT-PCR) Negative Influenza B (RT-PCR) Negative SARS-CoV-2 RNA (RT-PCR) Negative 10/03/24 10/03/24 10/04/24 16:32 20:12 07:56 WBC RBC Hgb Hct MCV MCH MCHC RDW Plt Count MPV Immature Gran % (Auto) Neut % (Auto) Lymph % (Auto) [place] % (Auto) Eos % (Auto) Baso % (Auto) Lymph # (Auto) [place] # (Auto) Eos # (Auto) Baso # (Auto) Abs Immat Gran (auto) Absolute Neuts (auto) Absolute Nucleated RBC Nucleated RBC % Sodium Potassium Chloride Carbon Dioxide Anion Gap BUN Creatinine Estim Creat Clear Calc Estimated GFR Glucose POC Capillary Glucose 156 H 98 103 Lactic Acid Calcium Total Bilirubin AST ALT Alkaline Phosphatase Total Creatine Kinase C-Reactive Protein Total Protein Albumin Influenza A (RT-PCR) Influenza B (RT-PCR) SARS-CoV-2 RNA (RT-PCR)
[2024-10-04] MEDS: DAPTOmycin 1,000 MG in SODIUM CHLORIDE 0.9% IV 50 ML 100 MG IVPB (14:51)
[2024-10-04] MEDS: hydrOXYzine HCL 25 MG TABLET 50 MG PO ×2 (15:41→21:50)
[2024-10-04 17:01] LABS: Glucose Point of Care 118 mg/dl (65-105)
[2024-10-04 20:47] LABS: Glucose Point of Care 165 mg/dl (65-105)
[2024-10-05] VITALS (19 sets, daily range): BP systolic 108–140; BP diastolic 53–78; PULSE 53–81; RESP 12–18; TEMP 36.2–36.9; O2SAT 95–100
[2024-10-05] MEDS: metroNIDAZOLE 500 MG TABLET PO (05:53)
[2024-10-05 06:03] LABS: Hematocrit 34.3 % (42.0-52.0); Hemoglobin 11.3 g/dL (14.0-18.0); Mean Corpuscular HGB Conc 32.9 g/dl (32-36); Mean Corpuscular Hemoglobin 29.2 pg (26-34); Mean Corpuscular Volume 88.6 fl (80-100); Mean Platelet Volume 8.9 fl (7.4-10.4); Platelet Count Result 344 k/mm3 (150-375); Red Blood Count 3.87 M/mm3 (4.6-6.20); Red Cell Distribution Width 13.4 % (11.5-14.5); White Blood Count 10.2 K/mm3 (4.5-10.0)
[2024-10-05 06:11] LABS: Anion Gap 11 mmol/L (4-12); Blood Urea Nitrogen 23 mg/dL (9-20); Calcium 9.5 mg/dL (8.4-10.2); Carbon Dioxide 24 mmol/L (22-30); Chloride 104 mmol/L (98-107); Estimated CRCL calculation 32 ml/min; Estimated Glomerular Filt Rate 33; Glucose 105 mg/dL (65-110); Sodium 139 mmol/L (137-145)
--- NOTE | 2024-10-05 07:18 | WPDHPUPDATE1 ---
History and Physical Update Update Date/Time: 10/05/24 07:18 History and Physical has been reviewed, including an updated exam of the patient. There are NO changes in the patient's condition. Risks, benefits, and alternatives have been discussed and questions answered. Patient agrees to proceed with procedure.
[2024-10-05 08:25] LABS: Glucose Point of Care 108 mg/dl (65-105)
[2024-10-05] MEDS: cefTRIAXone 2 GM/NS 100 ML 2 GM/100 ML BAG IVPB (08:30)
--- NOTE | 2024-10-05 09:26 | P.PNIM_ITS ---
Progress Note: A&P Assessment and Plan (1) Diabetic infection of left foot: Code(s): E11.628 - Type 2 diabetes mellitus with other skin complications; L08.9 - Local infection of the skin and subcutaneous tissue, unspecified Status: Acute (2) Diabetic ulcer of left foot: Code(s): E11.621 - Type 2 diabetes mellitus with foot ulcer; L97.529 - Non-pressure chronic ulcer of other part of left foot with unspecified severity Status: Acute (3) Acute on chronic kidney failure: Code(s): N17.9 - Acute kidney failure, unspecified; N18.9 - Chronic kidney disease, unspecified Status: Acute (4) Hyperkalemia: Code(s): E87.5 - Hyperkalemia Status: Acute (5) Type 2 diabetes mellitus: Code(s): E11.9 - Type 2 diabetes mellitus without complications Status: Acute (6) Essential (primary) hypertension: Code(s): I10 - Essential (primary) hypertension Status: Acute Plan The patient presented [facility] today for total contact cast application however was found to have evidence of acute infection He was directly admitted and started on empiric ceftriaxone, metronidazole, and daptomycin (history of angioedema with vancomycin). Hold atorvastatin for now pending CK level as daptomycin can increased CPK. Wound and blood cultures ordered. Left foot x-ray:IMPRESSION: 1. Transverse fracture of neck of second metatarsal, new from 09/10/2024. 2. Plantar dislocation of third proximal phalanx with respect to the head of second metatarsal. 3. 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 Pathological fx due to chronic ulcer/osteomyelitis. proceed with ANTHONY plummer with DR Urena Foot MRI: IMPRESSION: 1. No specific evidence of acute osteomyelitis. 2. Subacute fracture of neck of second metatarsal with large effusion of the second metatarsophalangeal joint communicating with a fluid collection in the second toe soft tissues, probably hematoma. 3. Complete tear of the great toe flexor tendons with hyperextension of first metatarsophalangeal joint. Bladder scan to rule out urinary retention. May be related to Bactrim as he has hyperkalemia as well. One liter LR bolus ordered as well as Lokelma for hyperkalemia. Repeated BMP- K 4.9, EKG did not show any peaked T-waves. His diabetes is well controlled with a recent A1c of 6.4%. Initiate sliding scale insulin, Accu-Cheks, and hypoglycemic protocol. 10/05 transmetatarsal amputation this will give him a stable parabola to the distal metatarsals and eradicate the infected soft tissue and bone today LR at 75 ml for now 10/05 will stop flagyl for now. wound culture pending. Time Spent With Patient Time with patient: 25 - 35 minutes Subjective Date/time seen: 10/05/24 09:26 Interval history: seen and examined this am. NPO for a transmetatarsal amputation this will give him a stable parabola to the distal metatarsals and eradicate the infected soft tissue and bone with DR Urena today. Review of Systems Review of Systems: 12 systems were reviewed and are negativ e except for as per HPI. Exam Narrative: General: Well-developed, nontoxic-appearing gentleman the semi-Dudley position in bed. Weight: 86.7 kg. BMI: 27.4. HEENT: PERRL, EOMI. Sclera anicteric. Oral mucosa moist. Neck: Supple. Respiratory: Lungs are clear to auscultation bilaterally. Cardiovascular: Regular rate and rhythm with S1-S2. Gastrointestinal: Abdomen is soft, nontender, and nondistended with positive bowel sounds. Skin: Warm and dry. Open ulceration on the plantar aspect of the left foot with a small amount of serous drainage. There is an early, fluid-filled blister at the base of the 2nd 3rd toes with erythema and edema of the 2nd and 3rd toes. Faint erythema extends onto the forefoot. Extremities: No cyanosis, clubbing, or edema. Radial and pedal pulses intact. Neurological: Alert. Cranial nerves 2-12 are grossly intact. No gross focal deficits to casual conversation. Psychiatric: Pleasant and cooperative with normal mood and affect. Judgment and insight intact. Objective Data Vital Signs Vital Signs: Vital Signs - 24 hr 10/04/24 09:53 10/04/24 13:57 10/04/24 16:00 Temperature 97.5 F L Pulse Rate 54 L 52 L 56 L Respiratory Rate 16 Blood Pressure 121/42 L Pulse Oximetry 100 Oxygen Delivery 10/04/24 20:00 10/04/24 20:00 10/04/24 21:01 Temperature 97.9 F Pulse Rate 46 L 46 L Respiratory Rate 16 Blood Pressure 124/60 Pulse Oximetry 97 Oxygen Delivery Room Air 10/05/24 00:00 10/05/24 04:00 10/05/24 05:22 Temperature 97.2 F L Pulse Rate 53 L 58 L 60 Respiratory Rate 16 Blood Pressure 137/67 Pulse Oximetry 99 Oxygen Delivery Intake/Output Intake/Output: Intake & Output 10/02/24 10/03/24 10/04/24 10/05/24 23:59 23:59 23:59 23:59 Intake Total 390 1520 0 Output Total 475 1400 750 Balance -85 120 -750 Meds/Results Medications: Active Medications Generic Name Dose Route Start Last Admin Trade Name Freq PRN Reason Stop Dose Admin Acetaminophen 650 mg 10/03/24 12:50 Acetaminophen 325 Mg Tablet PO Q6H PRN Mild Pain (1-3) or Fever Albuterol 1 puff 10/03/24 14:08 Albuterol Sulfate (*Sp) Aerosol 1 Puff INHALATION Q4H PRN shortness of breath or wheezing Amlodipine Besylate 5 mg 10/04/24 09:00 10/05/24 08:28 Amlodipine Besylate 5 Mg Tablet BY MOUTH Not Given QAM RICHARD Calcium Polycarbophil 2,500 mg 10/04/24 09:00 10/05/24 08:28 Calcium Polycarbophil 625 Mg Tablet PO 11/03/24 08:59 Not Given DAILY RICHARD Citalopram Hydrobromide 20 mg 10/04/24 09:00 10/05/24 08:28 Citalopram Hydrobromide 20 Mg Tablet PO Not Given DAILY RICHARD Dextrose 12.5 gm 10/03/24 12:50 Dextrose 50% 25 Gm/50 Ml Syringe IV PUSH PRN PRN Hypoglycemia Protocol Glucagon 1 mg 10/03/24 12:50 Glucagon For Inj 1 Mg Vial IM PRN PRN Hypoglycemia Protocol Glucose 15 gm 10/03/24 12:50 Glucose Oral Gel 15 Gm Of Glucse In 37.5 Gm Tube PO PRN PRN Hypoglycemia Protocol Hydroxyzine HCl 50 mg 10/04/24 15:22 10/04/24 15:41 Hydroxyzine Hcl 25 Mg Tablet PO 50 mg ONCE PRN Administration anxiety Dextrose 1,000 mls @ 100 mls/hr 10/03/24 12:50 Dextrose 5% 1,000 Ml IVPB PRN PRN Hypoglycemia Protocol Daptomycin 1,000 mg/ Sodium 50 mls @ 100 mls/hr 10/03/24 14:00 10/04/24 15:21 Chloride IVPB Infused Q24H RICHARD Infusion Ceftriaxone Sodium 2 gm in 100 mls @ 200 mls/hr 10/03/24 13:20 10/05/24 08:30 Rocephin 2 Gm/Ns 100 Ml IVPB 200 mls/hr QAM RICHARD Administration Insulin Aspart 3 - 6 units 10/03/24 17:00 10/05/24 08:28 Insulin Aspart (*Bkc) 100 Units/Ml SUB-Q Not Given TIDWM [facility] Protocol Insulin Aspart 1 - 3 units 10/03/24 21:00 10/04/24 21:02 Insulin Aspart (*Bkc) 100 Units/Ml SUB-Q Not Given HS RICHARD Protocol Metoprolol Succinate 100 mg 10/04/24 09:00 10/05/24 08:28 Metoprolol Succinate Ext Rel 100 Mg Tabcr PO Not Given DAILY [facility] Metronidazole 500 mg 10/03/24 14:00 10/05/24 05:53 Metronidazole 500 Mg Tablet PO 500 mg Q8HR RICHARD Administration Multivitamins/Calcium 1 tablet 10/04/24 09:00 10/05/24 08:29 Therapeutic Multivitamins/Minerals Tab (*Bkc) PO Not Given DAILY RICHARD Pantoprazole Sodium 40 mg 10/04/24 09:00 10/05/24 08:29 Pantoprazole 40 Mg Tablet PO Not Given QAM [facility] Vitamin B Complex 1 cap 10/04/24 09:00 10/05/24 08:29 Vitamin B Complex Capsule PO Not Given DAILY [facility] Zolpidem Tartrate 10 mg 10/03/24 14:08 Zolpidem Tartrate (*Crx) 5 Mg Tablet PO HS PRN insomnia Radiology Results: ITS Impressions Foot X-Ray 10/03/24 14:03 IMPRESSION: 1. Transverse fracture of neck of second metatarsal, new from 09/10/2024. 2. Plantar dislocation of third proximal phalanx with respect to the head of second metatarsal. 3. 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 Renal Ultrasound 10/03/24 22:29 IMPRESSION: Bilateral renal cysts. Otherwise, normal study. Foot MRI 10/04/24 11:53 IMPRESSION: 1. No specific evidence of acute osteomyelitis. 2. Subacute fracture of neck of second metatarsal with large effusion of the second metatarsophalangeal joint communicating with a fluid collection in the second toe soft tissues, probably hematoma. 3. Complete tear of the great toe flexor tendons with hyperextension of first metatarsophalangeal joint. Labs Labs: Laboratory Results - last 24 hr 10/04/24 10/04/24 10/05/24 16:51 19:28 05:36 WBC 10.2 H RBC 3.87 L Hgb 11.3 L Hct 34.3 L MCV 88.6 MCH 29.2 MCHC 32.9 RDW 13.4 Plt Count 344 MPV 8.9 Sodium 139 Potassium 5.0 Chloride 104 Carbon Dioxide 24 Anion Gap 11 BUN 23 H Creatinine 1.98 H Estim Creat Clear Calc 32 Estimated GFR 33 L Glucose 105 POC Capillary Glucose 118 H 165 H Calcium 9.5 10/05/24 08:20 WBC RBC Hgb Hct MCV MCH MCHC RDW Plt Count MPV Sodium Potassium Chloride Carbon Dioxide Anion Gap BUN Creatinine Estim Creat Clear Calc Estimated GFR Glucose POC Capillary Glucose 108 H Calcium Quality VTE Prophylaxis VTE prophylaxis: mechanical ordered
[2024-10-05] MEDS: LACTATED RINGERS 1,000 ML 75 ML IV CONT (10:44)
[2024-10-05] MEDS: CITALOPRAM HYDROBROMIDE 20 MG TABLET PO (10:44)
[2024-10-05] MEDS: amLODIPine BESYLATE 5 MG TABLET BY MOUTH (10:44)
[2024-10-05 12:21] LABS: Glucose Point of Care 111 mg/dl (65-105)
--- NOTE | 2024-10-05 12:58 | PC.NURSE ---
Patient off floor to surgery via stretcher. Report given to Jil VICK.
[2024-10-05] MEDS: LACTATED RINGERS 1,000 ML 30 ML IV CONT ×2 (13:23→15:30)
--- NOTE | 2024-10-05 14:10 | P.PNAN_ITS ---
Anes - Initial Pre Proc Eval Procedure: Operation Date: 10/05/24 13:30 Proposed Procedures p Transmetatarsal Amputation Left Foot - Mk Urena Jr., DPM Date/Time: 10/05/24 14:10 Surgeon: Maco Salgado MD Pre Op Diagnosis: Left diabetic foot ulcer Patient Data Age: 74 Gender: M Height: 1.78 m Weight: 88.2 kg Last Vital Signs Temp 98.4 F 10/05/24 13:24 Pulse 56 L 10/05/24 13:24 Resp 16 10/05/24 13:24 BP 132/78 10/05/24 13:24 Pulse Ox 96 10/05/24 13:24 O2 Del Method Room Air 10/05/24 13:24 Allergies Allergy/AdvReac Type Severity Reaction Status Date / Time lisinopril Allergy Severe Swelling Verified 10/03/24 13:55 of Lip/Tongue/Throat vancomycin Allergy Severe angioedema Verified 10/03/24 13:55 Home Medications ?Medication ?Instructions ?Recorded ?Confirmed ?Type aspirin 325 mg tablet 325 mg PO HS 08/02/19 10/03/24 History qlbysxceutiz-pve-jgxnt acid-vit 1 tablet PO DAILY 04/13/21 10/03/24 History K-lycop 400 mcg-20 mcg-370 mcg tablet (Men's 50 Plus Multivitamin) fiber 4 cap PO DAILY 05/16/21 10/03/24 History blood-glucose meter (Blood Glucose #1 ea 06/24/21 10/03/24 Rx Monitoring kit) lancets #200 ea 06/24/21 10/03/24 Rx lancets (Accu-Chek Fastclix Lancet #100 ea 10/12/22 10/03/24 Rx Drum) vitamin B complex (B 1 tablet PO DAILY 02/14/23 10/03/24 History Complex-Vitamin B12 tablet) metformin 1,000 mg tablet 1,000 mg PO BID #180 tabs 03/17/24 10/03/24 Rx metoprolol succinate 100 mg 100 mg PO DAILY #90 tabs 03/17/24 10/03/24 Rx tablet,extended release 24 hr blood sugar diagnostic (Blood #100 ea 03/21/24 10/03/24 Rx Glucose Test strips) amlodipine 5 mg tablet See Rx Instructions .Route 03/23/24 10/03/24 Rx .COMPLEX #90 tabs citalopram 20 mg tablet 20 mg PO DAILY #90 tabs 04/10/24 10/03/24 Rx zolpidem 10 mg tablet 10 mg PO HS PRN insomnia #90 tabs 04/23/24 10/03/24 Rx lancets 33 gauge #100 ea 06/27/24 10/03/24 Rx atorvastatin 10 mg tablet 10 mg PO DAILY #90 tabs 08/10/24 10/03/24 Rx pantoprazole 40 mg tablet,delayed 40 mg PO QAM #30 tabs 08/15/24 10/03/24 Rx release albuterol sulfate 90 mcg/actuation 1 puff inhalation Q4H PRN 09/24/24 10/03/24 Rx aerosol inhaler (Ventolin HFA) shortness of breath or wheezing #8.5 grams sulfamethoxazole 800 1 tablet PO Q12H 10/03/24 10/03/24 History mg-trimethoprim 160 mg tablet Laboratory Tests 10/04/24 10/04/24 10/05/24 16:51 19:28 05:36 WBC 10.2 H K/mm3 (4.5-10.0) RBC 3.87 L M/mm3 (4.6-6.20) Hgb 11.3 L g/dL (14.0-18.0) Hct 34.3 L % (42.0-52.0) MCV 88.6 fl (80-100) MCH 29.2 pg (26-34) MCHC 32.9 g/dl (32-36) RDW 13.4 % (11.5-14.5) Plt Count 344 k/mm3 (150-375) MPV 8.9 fl (7.4-10.4) Sodium 139 mmol/L (137-145) Potassium 5.0 mmol/L (3.4-5.0) Chloride 104 mmol/L (98-107) Carbon Dioxide 24 mmol/L (22-30) Anion Gap 11 mmol/L (4-12) BUN 23 H mg/dL (9-20) Creatinine 1.98 H mg/dL (0.7-1.3) Estim Creat Clear Calc 32 ml/min Estimated GFR 33 L (59 - ) Glucose 105 mg/dL (65-110) POC Capillary Glucose 118 H mg/dl 165 H mg/dl (65-105) (65-105) Calcium 9.5 mg/dL (8.4-10.2) 10/05/24 10/05/24 08:20 12:10 WBC RBC Hgb Hct MCV MCH MCHC RDW Plt Count MPV Sodium Potassium Chloride Carbon Dioxide Anion Gap BUN Creatinine Estim Creat Clear Calc Estimated GFR Glucose POC Capillary Glucose 108 H mg/dl 111 H mg/dl (65-105) (65-105) Calcium Patient hx anesthesia problems: none Family hx anesthesia problems: none Results Review: All pre-operative results and documents have been reviewed as part of the pre- operative evaluation. 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 Wing Status post open reduction with internal fixation of fracture Left ankle ORIF [address] Tyler Family History Family History Father Myocardial infarct Family history of coronary artery disease, Onset Age: 66 Lung cancer Mother Leukemia Family history of coronary artery disease, Onset Age: 70 Diabetes mellitus Sibling Multiple sclerosis Sister Diabetes mellitus Social History Social History Social History: Surrogate medical decision maker: Krishna Bergeron, daughter. Code status: Full code. Smoking packs per day: 1 Smoking cigarettes per day: 20.0 Years smoked: 20 Smoking pack-years: 20.00 Smoking status: Former smoker Second hand tobacco smoke exposure: No Alcohol intake: never Substance use: former Substance use type: marijuana Other substance usage details: daily Last use: 05/29/21 Do You Feel Safe in your Home?: Yes Lack of Transportation: No Lack of Food: Never True Current Housing: I Have Housing Concerned About Future Housing: No Difficulty Paying Gas/Electric Bills: No Difficulty Paying for Meds: No Currently Unemployed: No Education: High School Diploma/GED Difficulty w/ Childcare or Family Care: No Living arrangements: alone Additional living arrangements comments: . Lives in [place]. Has 1 daughter. 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 Spiritual care concerns: No Anes - Eval Final PreProcedure Day of Procedure 10/05/24 14:10 Patient weight: normal Heart: regular rate and rhythm Lungs: clear to auscultation Airway: Mallampati scale class II Neurological: alert and oriented Last oral intake: >/= 8 hours ASA classification: III Emergent: no Anesthetic plan: proceed Anesthesia type and monitoring: general LMA and standard monitoring Results Review: All pre-operative results and documents have been reviewed as part of the pre- operative evaluation. Informed Consent: The patient's anesthetic plan and its attendant risks and benefits were discussed with the patient/family/POA. Questions were solicited and answers provided to the satisfaction of the patient/family/POA.
[2024-10-05] MEDS: DAPTOmycin 1,000 MG in SODIUM CHLORIDE 0.9% IV 50 ML 100 MG IVPB (14:18)
[2024-10-05] MEDS: LIDOCAINE 2% LOCAL INJ 20 ML VIAL 10 ML INFILTRATE (14:48)
[2024-10-05] MEDS: BUPivacaine HCL 0.5% 10 ML AMP INFILTRATE (14:49)
[2024-10-05] MEDS: CELLULOSE OXIDIZED 4 x 8 INCH 1 PKT XX (15:08)
--- NOTE | 2024-10-05 15:48 | W.PM.PROC2 ---
Procedure Note - Detailed Date of Procedure 10/05/24 Pre-op Diagnosis 1. Chronic Diabetic Ulcer sub 1st metatarsal left foot 2. Acute diabetic foot infection second metatarsal phalangeal joint left foot with osteomyelitis and a pathological fracture of the second metatarsal Post-op Diagnosis Same Procedure Performed Transmetatarsal Amputation left foot Surgeon Mk Urena Jr., DPM Anesthesia General and Local Indications Diabetic foot infection left foot with chronic ulcerations Findings Purulence expressed from the second metatarsal phalangeal joint left foot. No signs of infection at the TMA resection site left foot. Description of Procedure Under mild sedation, the patient was brought to the operating room, placed on the operating table in the supine position. A pneumatic ankle tourniquet was placed about the patient's ankle. Following general anesthesia, I performed a ring block about the left ankle. The foot was then scrubbed, prepped, and draped in the usual aseptic manner. An Esmarch bandage was then used to examine the patient's foot and pneumatic ankle tourniquet was then inflated. Surgery began in the following manner. I evaluated the patients foot. The patient had edema,erythema to the left forefoot especially the second metatarsal phalangeal joint, he had all full thickness ulceration to the plantar distal 1st metatarsal.Attention was directed to the dorsal and plantar aspect of the forefoot where a modified fish mouth incision was made dorsal to the central shafts of metatarsals one through five of the affected foot, the plantar flap longer to allow coverage over the amputated metatarsal bones. The incision was continued deep down through the subcutaneous tissues using sharp and blunt dissection. All bleeders were cauterized as necessary. A transverse periosteal incision was made overlying the first through fifth metatarsal shafts. Next a sagittal saw was used to cut though the metatarsals from medial to lateral. Purulence was noted when I cut throuth the second metatarsal, distal to the resection site at the metatarsal phalangeal joint. The dorsal and plantar structures were than cut and the entire forefoot was placed on the back table and sent for gross and histopathology. The remaining tissue was healthy and bleeding with no signs of infection noted. The wound site was then flushed with copious amounts of sterile saline. Next, the subcutaneous structures were reapproximated with 2.0 and 3.0 Vicryl. Next the skin was reapproximated with 3.0 Prolene in simple interrupted suture fashion technique. Upon completion of the procedure, the incision was dressed with Adaptic, 4 x 4's, Kerlix, ABD Pads and Coban. The pneumatic ankle tourniquet was then deflated and a prompt hyperemic response noted to all digits of the foot. A surgical shoe was then applied. The patient did very well with the procedure and the anesthesia. Following a period of postoperative monitoring the patient will be transferred to the Medical Surgery floor with vital signs stable. 1. Keep the dressing clean, dry, and intact, I will change the dressing in 48 hours. 2. The patient will be non weight bearing for 48 hours until his dressing change. 3. The patient should be on bedrest with bedside commode. 4. The patient may take Tylenol as needed for pain. He is severely neuropathic. Implants None Estimated Blood Loss 5 Urine Output 75 Drains No Packing No Pathology None sent Complications No immediate complications Condition Stable Disposition Floor
[2024-10-05 15:56] LABS: Glucose Point of Care 112 mg/dl (65-105)
--- NOTE | 2024-10-05 17:00 | PC.NURSE ---
Patient returned to floor via bed from PACU. No patient complaints at this time.
[2024-10-05 21:00] LABS: Glucose Point of Care 260 mg/dl (65-105)
--- NOTE | 2024-10-05 23:35 | PC.NURSE ---
Addendum entered by Roberto Arthur RN 10/06/24 02:31: Pt is Type 2 Diabetic diet controlled, usually does not get insulin. Educated on need for Novolog insulin sliding scale when blood glucose is elevated and contributing factors when WBC are elevated. Original Note: Pt refused 2100 NovoLog slide insulin, Accu-check was 260. He stated, I have never been diabetic and my accu-check readings have been in the 100's. I don't need nor want it. Discussed with pt risk of hyperglycemic and benefits of maintaining WNL glucose levels. Pt vital signs stable at this time and no s/s of hyperglycemic interactions. Will continue to monitor patient progress.
[2024-10-06] VITALS (11 sets, daily range): BP systolic 120–167; BP diastolic 57–69; PULSE 58–79; RESP 16–18; TEMP 36.3–36.8; O2SAT 97–100
[2024-10-06] MEDS: LACTATED RINGERS 1,000 ML 75 ML IV CONT (06:00)
[2024-10-06 06:25] LABS: Hematocrit 35.1 % (42.0-52.0); Hemoglobin 11.1 g/dL (14.0-18.0); Mean Corpuscular HGB Conc 31.6 g/dl (32-36); Mean Corpuscular Hemoglobin 28.5 pg (26-34); Mean Corpuscular Volume 90.2 fl (80-100); Mean Platelet Volume 8.8 fl (7.4-10.4); Platelet Count Result 365 k/mm3 (150-375); Red Blood Count 3.89 M/mm3 (4.6-6.20); Red Cell Distribution Width 13.4 % (11.5-14.5); White Blood Count 12.3 K/mm3 (4.5-10.0)
[2024-10-06 06:36] LABS: Anion Gap 12 mmol/L (4-12); Blood Urea Nitrogen 23 mg/dL (9-20); Calcium 9.4 mg/dL (8.4-10.2); Carbon Dioxide 21 mmol/L (22-30); Chloride 106 mmol/L (98-107); Estimated CRCL calculation 42 ml/min; Estimated Glomerular Filt Rate 46; Glucose 126 mg/dL (65-110); Potassium 5.2 mmol/L (3.4-5.0); Sodium 139 mmol/L (137-145)
[2024-10-06 07:44] LABS: Glucose Point of Care 105 mg/dl (65-105)
[2024-10-06] MEDS: cefTRIAXone 2 GM/NS 100 ML 2 GM/100 ML BAG IVPB (08:54)
[2024-10-06] MEDS: CITALOPRAM HYDROBROMIDE 20 MG TABLET PO (08:55)
[2024-10-06] MEDS: calcium polycarbophiL 625 MG TABLET 2500 MG PO (08:56)
[2024-10-06 11:32] LABS: Glucose Point of Care 114 mg/dl (65-105)
--- NOTE | 2024-10-06 12:18 | WPDPN ---
Progress Note: A&P Assessment and Plan (1) Diabetic infection of left foot: Code(s): E11.628 - Type 2 diabetes mellitus with other skin complications; L08.9 - Local infection of the skin and subcutaneous tissue, unspecified Status: Acute Assessment and Plan: 1 day s/p TMA left. Changed dressing no active bleeding. Incision site healthy, coapting nicely. No signs of infection. Patient will have PT for transition and crutch/walker training. Non weight bearing for one week to left foot. Antibiotics per culture and sensitivity results F/u in my office next Tuesday, patient will call and schedule once d/c. Stable for d/c tomorrow. Dr. Urena [phone] Subjective Date/time seen: 10/06/24 12:18 Interval history: Patient seen at bedside resting comfortably 1 day s/p TMA left foot. No FCNV. No SOB no calf pain. Non weight bearing as recommended. Eating and voiding. Exam Extrem: Other: TMA site well coapted. No SOI. No necrosis. Minimal post op bleeding at operative site. Objective Data Vital Signs Vital Signs: Vital Signs - 24 hr 10/05/24 13:24 10/05/24 15:30 10/05/24 15:45 Temperature 36.9 C 36.6 C Pulse Rate 56 L 81 65 Respiratory Rate 16 18 12 Blood Pressure 132/78 126/65 122/62 Pulse Oximetry 96 98 100 Oxygen Delivery Room Air Non-Rebreather Mask Simple Face Mask Oxygen Flow Rate 8 8 10/05/24 16:00 10/05/24 16:15 10/05/24 16:30 Temperature Pulse Rate 65 60 62 Respiratory Rate 12 14 12 Blood Pressure 122/63 114/65 108/60 Pulse Oximetry 100 99 96 Oxygen Delivery Room Air Room Air Room Air Oxygen Flow Rate 10/05/24 16:45 10/05/24 17:10 10/05/24 17:25 Temperature 36.9 C 36.8 C Pulse Rate 60 64 70 Respiratory Rate 12 17 17 Blood Pressure 119/53 L 132/69 140/67 Pulse Oximetry 99 95 95 Oxygen Delivery Room Air Oxygen Flow Rate 10/05/24 18:25 10/05/24 19:22 10/05/24 20:02 Temperature 36.2 C L 36.6 C Pulse Rate 81 72 71 Respiratory Rate 17 18 Blood Pressure 133/67 130/62 Pulse Oximetry 96 96 Oxygen Delivery Oxygen Flow Rate 10/05/24 20:57 10/05/24 23:22 10/06/24 00:02 Temperature 36.8 C Pulse Rate 63 60 Respiratory Rate 18 Blood Pressure 140/70 Pulse Oximetry 96 98 Oxygen Delivery Room Air Oxygen Flow Rate 10/06/24 03:22 10/06/24 04:02 10/06/24 07:30 Temperature 36.8 C 36.7 C Pulse Rate 70 62 62 Respiratory Rate 18 16 Blood Pressure 120/62 141/58 H Pulse Oximetry 97 100 Oxygen Delivery Oxygen Flow Rate 10/06/24 08:00 10/06/24 11:33 Temperature 36.3 C L Pulse Rate 58 L 63 Respiratory Rate 18 Blood Pressure 157/57 H Pulse Oximetry 99 Oxygen Delivery Oxygen Flow Rate Intake/Output Intake/Output: Intake & Output 10/03/24 10/04/24 10/05/24 10/06/24 23:59 23:59 23:59 23:59 Intake Total 390 1520 1330 1890 Output Total 475 1400 1200 500 Balance -85 591 207 6752 Meds/Results Medications: Active Medications Generic Name Dose Route Start Last Admin Trade Name Freq PRN Reason Stop Dose Admin Acetaminophen 650 mg 10/03/24 12:50 Acetaminophen 325 Mg Tablet PO Q6H PRN Mild Pain (1-3) or Fever Calcium Polycarbophil 2,500 mg 10/04/24 09:00 10/06/24 08:56 Calcium Polycarbophil 625 Mg Tablet PO 11/03/24 08:59 2,500 mg DAILY RICHARD Administration Citalopram Hydrobromide 20 mg 10/04/24 09:00 10/06/24 08:55 Citalopram Hydrobromide 20 Mg Tablet PO 20 mg DAILY RICHARD Administration Dextrose 12.5 gm 10/03/24 12:50 Dextrose 50% 25 Gm/50 Ml Syringe IV PUSH PRN PRN Hypoglycemia Protocol Glucagon 1 mg 10/03/24 12:50 Glucagon For Inj 1 Mg Vial IM PRN PRN Hypoglycemia Protocol Glucose 15 gm 10/03/24 12:50 Glucose Oral Gel 15 Gm Of Glucse In 37.5 Gm Tube PO PRN PRN Hypoglycemia Protocol Hydroxyzine HCl 50 mg 10/04/24 15:22 10/04/24 15:41 Hydroxyzine Hcl 25 Mg Tablet PO 50 mg ONCE PRN Administration anxiety Dextrose 1,000 mls @ 100 mls/hr 10/03/24 12:50 Dextrose 5% 1,000 Ml IVPB PRN PRN Hypoglycemia Protocol Daptomycin 1,000 mg/ Sodium 50 mls @ 100 mls/hr 10/03/24 14:00 10/05/24 14:18 Chloride IVPB 100 mls/hr Q24H RICHARD Administration Ceftriaxone Sodium 2 gm in 100 mls @ 200 mls/hr 10/03/24 13:20 10/06/24 09:24 Rocephin 2 Gm/Ns 100 Ml IVPB Infused QAM RICHADR Infusion Lactated Ringer's 1,000 mls @ 75 mls/hr 10/05/24 09:40 10/06/24 06:00 Lr - Lactated Ringers Iv IV CONT 75 mls/hr .[id number] RICHARD Administration Insulin Aspart 3 - 6 units 10/03/24 17:00 10/06/24 11:46 Insulin Aspart (*Bkc) 100 Units/Ml SUB-Q Not Given TIDWM RICHARD Protocol Insulin Aspart 1 - 3 units 10/03/24 21:00 10/05/24 21:00 Insulin Aspart (*Bkc) 100 Units/Ml SUB-Q Not Given HS RICHARD Protocol Radiology Results: ITS Impressions Foot X-Ray 10/03/24 14:03 IMPRESSION: 1. Transverse fracture of neck of second metatarsal, new from 09/10/2024. 2. Plantar dislocation of third proximal phalanx with respect to the head of second metatarsal. 3. 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 Renal Ultrasound 10/03/24 22:29 IMPRESSION: Bilateral renal cysts. Otherwise, normal study. Foot MRI 10/04/24 11:53 IMPRESSION: 1. No specific evidence of acute osteomyelitis. 2. Subacute fracture of neck of second metatarsal with large effusion of the second metatarsophalangeal joint communicating with a fluid collection in the second toe soft tissues, probably hematoma. 3. Complete tear of the great toe flexor tendons with hyperextension of first metatarsophalangeal joint. Labs Labs: Laboratory Results - last 24 hr 10/05/24 10/05/24 10/05/24 12:10 15:54 20:06 WBC RBC Hgb Hct MCV MCH MCHC RDW Plt Count MPV Sodium Potassium Chloride Carbon Dioxide Anion Gap BUN Creatinine Estim Creat Clear Calc Estimated GFR Glucose POC Capillary Glucose 111 H 112 H 260 H Calcium 10/06/24 10/06/24 10/06/24 05:54 07:38 11:28 WBC 12.3 H RBC 3.89 L Hgb 11.1 L Hct 35.1 L MCV 90.2 MCH 28.5 MCHC 31.6 L RDW 13.4 Plt Count 365 MPV 8.8 Sodium 139 Potassium 5.2 H Chloride 106 Carbon Dioxide 21 L Anion Gap 12 BUN 23 H Creatinine 1.49 H Estim Creat Clear Calc 42 Estimated GFR 46 L Glucose 126 H POC Capillary Glucose 105 114 H Calcium 9.4
[2024-10-06] MEDS: DAPTOmycin 1,000 MG in SODIUM CHLORIDE 0.9% IV 50 ML 100 MG IVPB (13:49)
--- NOTE | 2024-10-06 14:32 | P.PNIM_ITS ---
Progress Note: A&P Assessment and Plan (1) Diabetic infection of left foot: Code(s): E11.628 - Type 2 diabetes mellitus with other skin complications; L08.9 - Local infection of the skin and subcutaneous tissue, unspecified Status: Acute (2) Diabetic ulcer of left foot: Code(s): E11.621 - Type 2 diabetes mellitus with foot ulcer; L97.529 - Non-pressure chronic ulcer of other part of left foot with unspecified severity Status: Acute (3) Acute on chronic kidney failure: Code(s): N17.9 - Acute kidney failure, unspecified; N18.9 - Chronic kidney disease, unspecified Status: Acute (4) Hyperkalemia: Code(s): E87.5 - Hyperkalemia Status: Acute (5) Type 2 diabetes mellitus: Code(s): E11.9 - Type 2 diabetes mellitus without complications Status: Acute (6) Essential (primary) hypertension: Code(s): I10 - Essential (primary) hypertension Status: Acute Plan The patient [facility] for total contact cast application however was found to have evidence of acute infection He was directly admitted and started on empiric ceftriaxone, metronidazole, and daptomycin (history of angioedema with vancomycin). Hold atorvastatin for now pending CK level as daptomycin can increased CPK. Wound and blood cultures ordered. Left foot x-ray:IMPRESSION: 1. Transverse fracture of neck of second metatarsal, new from 09/10/2024. 2. Plantar dislocation of third proximal phalanx with respect to the head of second metatarsal. 3. 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 Pathological fx due to chronic ulcer/osteomyelitis. proceed with ANTHONY plummer with DR Urena Foot MRI: IMPRESSION: 1. No specific evidence of acute osteomyelitis. 2. Subacute fracture of neck of second metatarsal with large effusion of the second metatarsophalangeal joint communicating with a fluid collection in the second toe soft tissues, probably hematoma. 3. Complete tear of the great toe flexor tendons with hyperextension of first metatarsophalangeal joint. Bladder scan to rule out urinary retention. May be related to Bactrim as he has hyperkalemia as well. One liter LR bolus ordered as well as Lokelma for hyperkalemia. Repeated BMP- K 4.9, EKG did not show any peaked T-waves. His diabetes is well controlled with a recent A1c of 6.4%. Initiate sliding scale insulin, Accu-Cheks, and hypoglycemic protocol. 10/05 transmetatarsal amputation this will give him a stable parabola to the distal metatarsals and eradicate the infected soft tissue and bone today LR at 75 ml for now 10/05 will stop flagyl for now. wound culture pending. 10/06 will de escalate Rocephin to Augmentin- 14 days of therapy from the surgery. Cannot stop dapto yet as sensitivities are not back yet, so will continue for now. Podiatry note reviewed: 1 day s/p TMA left. Changed dressing no active bleeding. Incision site healthy, coapting nicely. No signs of infection. Patient will have PT for transition and crutch/walker training. Non weight bearing for one week to left foot. Antibiotics per culture and sensitivity results F/u in my office next Tuesday, patient will call and schedule once d/c. Stable for d/c tomorrow. Time Spent With Patient Time with patient: 25 - 35 minutes Subjective Date/time seen: 10/06/24 14:32 Interval history: Patient seen at bedside resting comfortably 1 day s/p TMA left foot. dressing changed per DR Urena. PT/OT working with him, will need refresher for crunches training- has a pair at home. Review of Systems Review of Systems: 12 systems were reviewed and are negativ e except for as per HPI. Exam Narrative: General: Well-developed, nontoxic-appearing gentleman the semi-Dudley position in bed. Weight: 86.7 kg. BMI: 27.4. HEENT: PERRL, EOMI. Sclera anicteric. Oral mucosa moist. Neck: Supple. Respiratory: Lungs are clear to auscultation bilaterally. Cardiovascular: Regular rate and rhythm with S1-S2. Gastrointestinal: Abdomen is soft, nontender, and nondistended with positive bowel sounds. Skin: Warm and dry. Open ulceration on the plantar aspect of the left foot with a small amount of serous drainage. There is an early, fluid-filled blister at the base of the 2nd 3rd toes with erythema and edema of the 2nd and 3rd toes. Faint erythema extends onto the forefoot. Extremities: No cyanosis, clubbing, or edema. Radial and pedal pulses intact. Neurological: Alert. Cranial nerves 2-12 are grossly intact. No gross focal deficits to casual conversation. Psychiatric: Pleasant and cooperative with normal mood and affect. Judgment and insight intact. Objective Data Vital Signs Vital Signs: Vital Signs - 24 hr 10/05/24 15:30 10/05/24 15:45 10/05/24 16:00 Temperature 97.9 F Pulse Rate 81 65 65 Respiratory Rate 18 12 12 Blood Pressure 126/65 122/62 122/63 Pulse Oximetry 98 100 100 Oxygen Delivery Non-Rebreather Mask Simple Face Mask Room Air Oxygen Flow Rate 8 8 10/05/24 16:15 10/05/24 16:30 10/05/24 16:45 Temperature Pulse Rate 60 62 60 Respiratory Rate 14 12 12 Blood Pressure 114/65 108/60 119/53 L Pulse Oximetry 99 96 99 Oxygen Delivery Room Air Room Air Room Air Oxygen Flow Rate 10/05/24 17:10 10/05/24 17:25 10/05/24 18:25 Temperature 98.4 F 98.3 F 97.2 F L Pulse Rate 64 70 81 Respiratory Rate 17 17 17 Blood Pressure 132/69 140/67 133/67 Pulse Oximetry 95 95 96 Oxygen Delivery Oxygen Flow Rate 10/05/24 19:22 10/05/24 20:02 10/05/24 20:57 Temperature 98 F Pulse Rate 72 71 Respiratory Rate 18 Blood Pressure 130/62 Pulse Oximetry 96 96 Oxygen Delivery Room Air Oxygen Flow Rate 10/05/24 23:22 10/06/24 00:02 10/06/24 03:22 Temperature 98.2 F 98.2 F Pulse Rate 63 60 70 Respiratory Rate 18 18 Blood Pressure 140/70 120/62 Pulse Oximetry 98 97 Oxygen Delivery Oxygen Flow Rate 10/06/24 04:02 10/06/24 07:30 10/06/24 08:00 Temperature 98.0 F Pulse Rate 62 62 58 L Respiratory Rate 16 Blood Pressure 141/58 H Pulse Oximetry 100 Oxygen Delivery Oxygen Flow Rate 10/06/24 11:33 10/06/24 12:00 10/06/24 13:10 Temperature 97.4 F L Pulse Rate 63 63 Respiratory Rate 18 Blood Pressure 157/57 H Pulse Oximetry 99 Oxygen Delivery Room Air Oxygen Flow Rate Intake/Output Intake/Output: Intake & Output 10/03/24 10/04/24 10/05/24 10/06/24 23:59 23:59 23:59 23:59 Intake Total 390 1520 1380 2180 Output Total 475 1400 1200 500 Balance -85 917 497 4419 Meds/Results Medications: Active Medications Generic Name Dose Route Start Last Admin Trade Name Freq PRN Reason Stop Dose Admin Acetaminophen 650 mg 10/03/24 12:50 Acetaminophen 325 Mg Tablet PO Q6H PRN Mild Pain (1-3) or Fever Calcium Polycarbophil 2,500 mg 10/04/24 09:00 10/06/24 08:56 Calcium Polycarbophil 625 Mg Tablet PO 11/03/24 08:59 2,500 mg DAILY RICHARD Administration Citalopram Hydrobromide 20 mg 10/04/24 09:00 10/06/24 08:55 Citalopram Hydrobromide 20 Mg Tablet PO 20 mg DAILY RICHARD Administration Dextrose 12.5 gm 10/03/24 12:50 Dextrose 50% 25 Gm/50 Ml Syringe IV PUSH PRN PRN Hypoglycemia Protocol Glucagon 1 mg 10/03/24 12:50 Glucagon For Inj 1 Mg Vial IM PRN PRN Hypoglycemia Protocol Glucose 15 gm 10/03/24 12:50 Glucose Oral Gel 15 Gm Of Glucse In 37.5 Gm Tube PO PRN PRN Hypoglycemia Protocol Hydroxyzine HCl 50 mg 10/04/24 15:22 10/04/24 15:41 Hydroxyzine Hcl 25 Mg Tablet PO 50 mg ONCE PRN Administration anxiety Dextrose 1,000 mls @ 100 mls/hr 10/03/24 12:50 Dextrose 5% 1,000 Ml IVPB PRN PRN Hypoglycemia Protocol Daptomycin 1,000 mg/ Sodium 50 mls @ 100 mls/hr 10/03/24 14:00 10/06/24 14:19 Chloride IVPB Infused Q24H RICHARD Infusion Ceftriaxone Sodium 2 gm in 100 mls @ 200 mls/hr 10/03/24 13:20 10/06/24 09:24 Rocephin 2 Gm/Ns 100 Ml IVPB Infused QAM RICHARD Infusion Insulin Aspart 3 - 6 units 10/03/24 17:00 10/06/24 11:46 Insulin Aspart (*Bkc) 100 Units/Ml SUB-Q Not Given TIDWM RICHARD Protocol Insulin Aspart 1 - 3 units 10/03/24 21:00 10/05/24 21:00 Insulin Aspart (*Bkc) 100 Units/Ml SUB-Q Not Given HS [facility] Protocol Radiology Results: ITS Impressions Foot X-Ray 10/03/24 14:03 IMPRESSION: 1. Transverse fracture of neck of second metatarsal, new from 09/10/2024. 2. Plantar dislocation of third proximal phalanx with respect to the head of second metatarsal. 3. 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 Renal Ultrasound 10/03/24 22:29 IMPRESSION: Bilateral renal cysts. Otherwise, normal study. Foot MRI 10/04/24 11:53 IMPRESSION: 1. No specific evidence of acute osteomyelitis. 2. Subacute fracture of neck of second metatarsal with large effusion of the second metatarsophalangeal joint communicating with a fluid collection in the second toe soft tissues, probably hematoma. 3. Complete tear of the great toe flexor tendons with hyperextension of first metatarsophalangeal joint. Labs Labs: Laboratory Results - last 24 hr 10/05/24 10/05/24 10/06/24 15:54 20:06 05:54 WBC 12.3 H RBC 3.89 L Hgb 11.1 L Hct 35.1 L MCV 90.2 MCH 28.5 MCHC 31.6 L RDW 13.4 Plt Count 365 MPV 8.8 Sodium 139 Potassium 5.2 H Chloride 106 Carbon Dioxide 21 L Anion Gap 12 BUN 23 H Creatinine 1.49 H Estim Creat Clear Calc 42 Estimated GFR 46 L Glucose 126 H POC Capillary Glucose 112 H 260 H Calcium 9.4 10/06/24 10/06/24 07:38 11:28 WBC RBC Hgb Hct MCV MCH MCHC RDW Plt Count MPV Sodium Potassium Chloride Carbon Dioxide Anion Gap BUN Creatinine Estim Creat Clear Calc Estimated GFR Glucose POC Capillary Glucose 105 114 H Calcium Quality VTE Prophylaxis VTE prophylaxis: mechanical ordered
[2024-10-06 16:50] LABS: Glucose Point of Care 98 mg/dl (65-105)
[2024-10-06 21:25] LABS: Glucose Point of Care 129 mg/dl (65-105)
[2024-10-06] MEDS: AMOXICILLIN/CLAVULANATE K 875-125 MG TAB 1 TABLET PO (21:25)
[2024-10-07] VITALS (12 sets, daily range): BP systolic 137–155; BP diastolic 66–86; PULSE 70–126; RESP 17–20; TEMP 36.6–37.5; O2SAT 97–99
[2024-10-07 06:14] LABS: Hematocrit 35.1 % (42.0-52.0); Hemoglobin 11.6 g/dL (14.0-18.0); Mean Corpuscular Hemoglobin 29.6 pg (26-34); Mean Corpuscular Volume 89.5 fl (80-100); Mean Platelet Volume 9.1 fl (7.4-10.4); Platelet Count Result 393 k/mm3 (150-375); Red Blood Count 3.92 M/mm3 (4.6-6.20); Red Cell Distribution Width 13.6 % (11.5-14.5); White Blood Count 13.3 K/mm3 (4.5-10.0)
[2024-10-07] MEDS: METOPROLOL SUCCINATE EXT REL 100 MG TABCR PO (06:17)
[2024-10-07 06:32] LABS: Anion Gap 12 mmol/L (4-12); Blood Urea Nitrogen 22 mg/dL (9-20); Calcium 9.5 mg/dL (8.4-10.2); Carbon Dioxide 23 mmol/L (22-30); Chloride 105 mmol/L (98-107); Estimated CRCL calculation 42 ml/min; Estimated Glomerular Filt Rate 47; Glucose 110 mg/dL (65-110); Potassium 4.8 mmol/L (3.4-5.0); Sodium 140 mmol/L (137-145)
[2024-10-07 08:04] LABS: Glucose Point of Care 106 mg/dl (65-105)
[2024-10-07] MEDS: CITALOPRAM HYDROBROMIDE 20 MG TABLET PO (08:04)
[2024-10-07] MEDS: calcium polycarbophiL 625 MG TABLET 2500 MG PO (08:04)
[2024-10-07] MEDS: AMOXICILLIN/CLAVULANATE K 875-125 MG TAB 1 TABLET PO ×2 (08:04→21:20)
[2024-10-07] MEDS: METOPROLOL TARTRATE INJ 5 MG/5 ML VIAL IV PUSH (10:11)
[2024-10-07 10:22] LABS: Magnesium 1.4 mg/dL (1.6-2.3)
[2024-10-07 10:54] LABS: Thyroid Stimulating Hormone Reflex 0.104 uIU/mL (0.465-4.68)
[2024-10-07 11:51] LABS: Glucose Point of Care 110 mg/dl (65-105)
[2024-10-07] MEDS: MAGNESIUM OXIDE 400 MG TABLET PO (12:02)
[2024-10-07 12:41] LABS: Free T4 Free Thyroxine Reflex 2.52 ng/dL (0.78-2.19)
--- NOTE | 2024-10-07 13:46 | PM.IMPN ---
Progress Note: A&P Assessment and Plan (1) Diabetic infection of left foot: Code(s): E11.628 - Type 2 diabetes mellitus with other skin complications; L08.9 - Local infection of the skin and subcutaneous tissue, unspecified Status: Acute (2) Diabetic ulcer of left foot: Code(s): E11.621 - Type 2 diabetes mellitus with foot ulcer; L97.529 - Non-pressure chronic ulcer of other part of left foot with unspecified severity Status: Acute (3) Acute on chronic kidney failure: Code(s): N17.9 - Acute kidney failure, unspecified; N18.9 - Chronic kidney disease, unspecified Status: Acute (4) Hyperkalemia: Code(s): E87.5 - Hyperkalemia Status: Acute (5) Type 2 diabetes mellitus: Code(s): E11.9 - Type 2 diabetes mellitus without complications Status: Acute (6) Essential (primary) hypertension: Code(s): I10 - Essential (primary) hypertension Status: Acute Plan The patient presented [facility] today for total contact cast application however was found to have evidence of acute infection He was directly admitted and started on empiric ceftriaxone, metronidazole, and daptomycin (history of angioedema with vancomycin). Hold atorvastatin for now pending CK level as daptomycin can increased CPK. Wound and blood cultures ordered. Left foot x-ray:IMPRESSION: 1. Transverse fracture of neck of second metatarsal, new from 09/10/2024. 2. Plantar dislocation of third proximal phalanx with respect to the head of second metatarsal. 3. 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 Pathological fx due to chronic ulcer/osteomyelitis. proceed with ANTHONY plummer with DR Urena Foot MRI: IMPRESSION: 1. No specific evidence of acute osteomyelitis. 2. Subacute fracture of neck of second metatarsal with large effusion of the second metatarsophalangeal joint communicating with a fluid collection in the second toe soft tissues, probably hematoma. 3. Complete tear of the great toe flexor tendons with hyperextension of first metatarsophalangeal joint. Bladder scan to rule out urinary retention. May be related to Bactrim as he has hyperkalemia as well. One liter LR bolus ordered as well as Lokelma for hyperkalemia. Repeated BMP- K 4.9, EKG did not show any peaked T-waves. His diabetes is well controlled with a recent A1c of 6.4%. Initiate sliding scale insulin, Accu-Cheks, and hypoglycemic protocol. 10/05 transmetatarsal amputation this will give him a stable parabola to the distal metatarsals and eradicate the infected soft tissue and bone today LR at 75 ml for now 10/05 will stop flagyl for now. wound culture pending. 10/06 will de escalate Rocephin to Augmentin- 14 days of therapy from the surgery. Cannot stop dapto yet as sensitivities are not back yet, so will continue for now. Podiatry note reviewed: 1 day s/p TMA left. Changed dressing no active bleeding. Incision site healthy, coapting nicely. No signs of infection. Patient will have PT for transition and crutch/walker training. Non weight bearing for one week to left foot. Antibiotics per culture and sensitivity results F/u in my office next Tuesday, patient will call and schedule once d/c. Stable for d/c tomorrow. 10/07- sensitivities are back- R to tetracycline. cannot do doxy, will start Bactrim DS. stopped dapto. several episodes of afib with rvr-mostly activity related, as high as 170. received 5 mg IV metoprolol x2. He missed few doses of his home metoprolol- that could be a contributing factor for hr elevation. Metoprolol is restarted and will monitor closely. anticipate discharge home with total of 14 days of therapy for both antibiotics. Time Spent With Patient Time with patient: 25 - 35 minutes Subjective Date/time seen: 10/07/24 13:46 Interval history: Patient seen at bedside resting comfortably 1 day s/p TMA left foot. dressing is c/d/i. PT/OT working with him, using walker with better success than crutches. Pain is well controlled. no chest pain, no n/v/d. Review of Systems Review of Systems: 12 systems were reviewed and are negative except for as per HPI. Exam Narrative: General: Well-developed, nontoxic-appearing gentleman the semi-Dudley position in bed. Weight: 86.7 kg. BMI: 27.4. HEENT: PERRL, EOMI. Sclera anicteric. Oral mucosa moist. Neck: Supple. Respiratory: Lungs are clear to auscultation bilaterally. Cardiovascular: Regular rate and rhythm with S1-S2. Gastrointestinal: Abdomen is soft, nontender, and nondistended with positive bowel sounds. Skin: Warm and dry. Open ulceration on the plantar aspect of the left foot with a small amount of serous drainage. There is an early, fluid-filled blister at the base of the 2nd 3rd toes with erythema and edema of the 2nd and 3rd toes. Faint erythema extends onto the forefoot. Extremities: No cyanosis, clubbing, or edema. Radial and pedal pulses intact. dressing is c/d/i Neurological: Alert. Cranial nerves 2-12 are grossly intact. No gross focal deficits to casual conversation. Psychiatric: Pleasant and cooperative with normal mood and affect. Judgment and insight intact. Const: General: comfortable Objective Data Vital Signs Vital Signs: Vital Signs - 24 hr 10/06/24 14:35 10/06/24 16:00 10/06/24 16:53 Temperature 97.7 F Pulse Rate 63 74 Respiratory Rate 16 Blood Pressure 151/67 H Pulse Oximetry 98 Oxygen Delivery Room Air 10/06/24 19:22 10/06/24 20:00 10/06/24 20:00 Temperature 98 F Pulse Rate 72 79 Respiratory Rate 18 Blood Pressure 167/69 H Pulse Oximetry 98 Oxygen Delivery Room Air 10/07/24 00:00 10/07/24 04:00 10/07/24 06:00 Temperature 97.8 F Pulse Rate 84 74 70 Respiratory Rate 18 Blood Pressure 155/66 H Pulse Oximetry 99 Oxygen Delivery 10/07/24 06:17 10/07/24 07:05 10/07/24 08:00 Temperature Pulse Rate 126 H 85 96 Respiratory Rate Blood Pressure Pulse Oximetry Oxygen Delivery 10/07/24 10:11 Temperature Pulse Rate 122 H Respiratory Rate Blood Pressure Pulse Oximetry Oxygen Delivery Intake/Output Intake/Output: Intake & Output 10/04/24 10/05/24 10/06/24 10/07/24 23:59 23:59 23:59 23:59 Intake Total 1520 1380 2420 640 Output Total 1400 1200 1500 Balance 120 180 920 640 Meds/Results Medications: Active Medications Generic Name Dose Route Start Last Admin Trade Name Freq PRN Reason Stop Dose Admin Acetaminophen 650 mg 10/03/24 12:50 Acetaminophen 325 Mg Tablet PO Q6H PRN Mild Pain (1-3) or Fever Amoxicillin/Clavulanate Potassium 1 tablet 10/06/24 21:00 10/07/24 08:04 Amoxicillin/Clavulanate K 875-125 Mg Tab PO 10/20/24 09:01 1 tablet Q12HR RICHARD Administration Calcium Polycarbophil 2,500 mg 10/04/24 09:00 10/07/24 08:04 Calcium Polycarbophil 625 Mg Tablet PO 11/03/24 08:59 2,500 mg DAILY RICHARD Administration Citalopram Hydrobromide 20 mg 10/04/24 09:00 10/07/24 08:04 Citalopram Hydrobromide 20 Mg Tablet PO 20 mg DAILY RICHARD Administration Dextrose 12.5 gm 10/03/24 12:50 Dextrose 50% 25 Gm/50 Ml Syringe IV PUSH PRN PRN Hypoglycemia Protocol Glucagon 1 mg 10/03/24 12:50 Glucagon For Inj 1 Mg Vial IM PRN PRN Hypoglycemia Protocol Glucose 15 gm 10/03/24 12:50 Glucose Oral Gel 15 Gm Of Glucse In 37.5 Gm Tube PO PRN PRN Hypoglycemia Protocol Hydroxyzine HCl 50 mg 10/04/24 15:22 10/04/24 15:41 Hydroxyzine Hcl 25 Mg Tablet PO 50 mg ONCE PRN Administration anxiety Dextrose 1,000 mls @ 100 mls/hr 10/03/24 12:50 Dextrose 5% 1,000 Ml IVPB PRN PRN Hypoglycemia Protocol Insulin Aspart 3 - 6 units 10/03/24 17:00 10/07/24 12:00 Insulin Aspart (*Bkc) 100 Units/Ml SUB-Q Not Given TIDWM [facility] Protocol Insulin Aspart 1 - 3 units 10/03/24 21:00 10/06/24 21:00 Insulin Aspart (*Bkc) 100 Units/Ml SUB-Q Not Given HS [facility] Protocol Magnesium Oxide 400 mg 10/07/24 11:40 10/07/24 12:02 Magnesium Oxide 400 Mg Tablet PO 400 mg DAILY RICHARD Administration Metoprolol Succinate 100 mg 10/07/24 06:10 10/07/24 06:17 Metoprolol Succinate Ext Rel 100 Mg Tabcr PO 100 mg QAM RICHARD Administration Trimethoprim/Sulfamethoxazole 1 tab 10/07/24 21:00 Sulfamethoxazole/Trimethoprim 800/160 Mg Ds Tablet PO 10/21/24 20:59 Q12HR RICHARD Radiology Results: ITS Impressions Foot X-Ray 10/03/24 14:03 IMPRESSION: 1. Transverse fracture of neck of second metatarsal, new from 09/10/2024. 2. Plantar dislocation of third proximal phalanx with respect to the head of second metatarsal. 3. 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 Renal Ultrasound 10/03/24 22:29 IMPRESSION: Bilateral renal cysts. Otherwise, normal study. Foot MRI 10/04/24 11:53 IMPRESSION: 1. No specific evidence of acute osteomyelitis. 2. Subacute fracture of neck of second metatarsal with large effusion of the second metatarsophalangeal joint communicating with a fluid collection in the second toe soft tissues, probably hematoma. 3. Complete tear of the great toe flexor tendons with hyperextension of first metatarsophalangeal joint. Labs Labs: Laboratory Results - last 24 hr 10/06/24 10/06/24 10/07/24 16:39 20:44 05:31 WBC RBC Hgb Hct MCV MCH MCHC RDW Plt Count MPV Sodium Potassium Chloride Carbon Dioxide Anion Gap BUN Creatinine Estim Creat Clear Calc Estimated GFR Glucose POC Capillary Glucose 98 129 H Calcium Magnesium 1.4 L TSH (Reflex) 0.104 L Free T4 2.52 H 10/07/24 10/07/24 10/07/24 05:37 07:58 11:45 WBC 13.3 H RBC 3.92 L Hgb 11.6 L Hct 35.1 L MCV 89.5 MCH 29.6 MCHC 33.0 RDW 13.6 Plt Count 393 H MPV 9.1 Sodium 140 Potassium 4.8 Chloride 105 Carbon Dioxide 23 Anion Gap 12 BUN 22 H Creatinine 1.47 H Estim Creat Clear Calc 42 Estimated GFR 47 L Glucose 110 POC Capillary Glucose 106 H 110 H Calcium 9.5 Magnesium TSH (Reflex) Free T4 Quality VTE Prophylaxis VTE prophylaxis: mechanical ordered
[2024-10-07] MEDS: SACCHAROMYCES BOULARDII 250 MG CAPSULE PO (16:34)
[2024-10-07 16:54] LABS: Glucose Point of Care 108 mg/dl (65-105)
[2024-10-07 20:12] LABS: Glucose Point of Care 139 mg/dl (65-105)
[2024-10-07] MEDS: SULFAMETHOXAZOLE/TRIMETHOPRIM 800/160 MG DS TABLET 1 TAB PO (21:20)
[2024-10-08] VITALS (9 sets, daily range): BP systolic 121–128; BP diastolic 66–75; PULSE 63–146; RESP 16–17; TEMP 37.1–37.3; O2SAT 94–95
--- NOTE | 2024-10-08 | ECHO_ITS ---
Patient Info Name: Brandon Bergeron Age: 74 years : 1950 Gender: Male Ht: 70 in Wt: 194 lbs BSA: 2.10 m2 HR: 69 bpm BP: 120 / 75 mmHg Heart Rhythm: Sinus Rhythm Technical Quality: Good Exam Date: 10/08/2024 2:35 PM Exam Location: Echo Lab Patient Status: Inpatient Admit Date: 10/04/2024 Staff Ordering Physician: Manny Millan DO Traffic Supervisor: Verona Coppola RDCS Attending Provider: Maco Salgado MD Referring Physician: Monty DINH; Exam Type: CA echo doppler color flow Study Info Indications - Afib Complete two-dimensional, color flow and Doppler transthoracic echocardiogram is performed. Summary 1. Complete two-dimensional, color flow and Doppler transthoracic echocardiogram is performed. 2. Left ventricular chamber dimension is normal. 3. Left ventricular systolic function is normal, estimated at 60-65%. 4. The left ventricular diastolic function is grade II diastolic dysfunction. 5. Left atrial chamber dimension is moderately enlarged. 6. There is mild aortic valve sclerosis. 7. There is trace mitral valve regurgitation. 8. There is trace tricuspid valve regurgitation. 9. No pulmonary hypertension, estimated pulmonary arterial systolic pressure is 17 mmHg. Left Ventricle Tissue doppler E/e' was not measured. Left ventricular chamber dimension is normal. Left ventricular systolic function is normal, estimated at 60-65%. The left ventricular diastolic function is grade II diastolic dysfunction. Right Ventricle Right ventricular systolic function is normal and with normal TAPSE 2.3 cm. Right ventricular chamber dimension is normal. Left Atria Left atrial chamber dimension is moderately enlarged. Right Atria Right atrial chamber dimension is normal. Aortic Valve The aortic valve is trileaflet. There is mild aortic valve sclerosis. There is no aortic valve stenosis. There is no aortic valve regurgitation. Pulmonic Valve There is no pulmonic regurgitation. Mitral Valve There is no mitral valve stenosis. There is trace mitral valve regurgitation. Tricuspid Valve There is trace tricuspid valve regurgitation. No pulmonary hypertension, estimated pulmonary arterial systolic pressure is 17 mmHg. Pericardium/Pleural There is no pericardial effusion. Inferior Vena Cava Normal inferior vena cava with >50% collapse upon inspiration consistent with normal right atrial pressure, 5 mmHg. Aorta The aortic root size at the sinus of Valsalva is normal. Left Ventricular Outflow Tract Name Value Normal LVOT 2D LVOT Diameter 2.0 cm LVOT Doppler LVOT Peak Gradient 9 mmHg LVOT Mean Gradient 4 mmHg LVOT VTI 27 cm LVOT VTI/AV VTI Ratio 0.9 LVOT Stroke Volume 84 ml LVOT CO 4.8 l/min LVOT CI 2.3 l/min/m2 Pulmonic Valve Name Value Normal RVOT Doppler RVOT Peak Gradient 2 mmHg PV Doppler PV Peak Gradient 4 mmHg Tricuspid Valve Name Value Normal TV Regurgitation Doppler TR Peak Velocity 170 cm/s TR Peak Gradient 12 mmHg Estimated PAP/RSVP RA Pressure 5 mmHg <=5 PA Systolic Pressure 17 mmHg <36 RV Systolic Pressure 17 mmHg <36 Aorta Name Value Normal Ascending Aorta Ao Root Diameter (MM) 3.3 cm Ao Root Diam Index (MM) 1.6 cm/m2 Aortic Valve Name Value Normal AV Doppler AV Peak Velocity 165 cm/s AV Peak Gradient 11 mmHg AV Mean Gradient 5 mmHg AV VTI 31 cm AV Area (Cont Eq VTI) 2.7 cm2 >=3.0 AV Area (Cont Eq Denis) 2.8 cm2 AV Regurgitation 2D LVOT Area 3.1 cm2 Ventricles Name Value Normal LV Dimensions 2D/MM IVS Diastolic Thickness (2D) 1.0 cm 0.6-1.0 LVID Diastole (2D) 5.5 cm 4.2-5.8 LVIW Diastolic Thickness (2D) 0.9 cm 0.6-1.0 LVID Systole (2D) 3.5 cm 2.5-4.0 LVOT Diameter 2.0 cm LV Mass (2D Cubed) 205.12 g 88.00-224.00 LV Mass Index (2D Cubed) 98 g/m2 49-115 Relative Wall Thickness (2D) 0.34 LV Fractional Shortening/Ejection Fraction 2D/MM LV Fractional Shortening (2D) 37 % 25-43 LV EF (2D Teicholz) 67 % 52-72 LV Diastolic Volume (4C MOD) 66 ml LV EF (4C MOD) 55 % LV Diastolic Volume (2C MOD) 113 ml LV EF (2C MOD) 59 % LV Diastolic Volume (BP MOD) 88 ml 62-150 LV Diastolic Volume Index (BP MOD) 42 ml/m2 34-74 LV Systolic Volume (BP MOD) 37 ml 21-61 LV Systolic Volume Index (BP MOD) 17 ml/m2 11-31 LV EF (BP MOD) 58 % 52-72 LV Diastolic Length (4C) 8.1 cm LV Systolic Length (4C) 7.0 cm LV Stroke Volume (4C MOD) 36 ml Atria Name Value Normal LA Dimensions LA Dimension (MM) 5.5 cm 3.0-4.1 LA Volume (4C A-L) 81 ml LA Volume (BP A-L) 74 ml RA Dimensions RA Area (4C) 13.8 cm2 <=18.0 Report Signatures
[2024-10-08 05:38] LABS: Hematocrit 35.1 % (42.0-52.0); Hemoglobin 11.4 g/dL (14.0-18.0); Mean Corpuscular HGB Conc 32.5 g/dl (32-36); Mean Corpuscular Hemoglobin 29.2 pg (26-34); Mean Corpuscular Volume 89.8 fl (80-100); Platelet Count Result 373 k/mm3 (150-375); Red Blood Count 3.91 M/mm3 (4.6-6.20); Red Cell Distribution Width 13.3 % (11.5-14.5); White Blood Count 15.4 K/mm3 (4.5-10.0)
[2024-10-08 05:53] LABS: Anion Gap 10 mmol/L (4-12); Blood Urea Nitrogen 23 mg/dL (9-20); Carbon Dioxide 25 mmol/L (22-30); Chloride 102 mmol/L (98-107); Estimated CRCL calculation 38 ml/min; Estimated Glomerular Filt Rate 41; Glucose 131 mg/dL (65-110); Potassium 4.4 mmol/L (3.4-5.0); Sodium 137 mmol/L (137-145)
[2024-10-08 08:03] LABS: Glucose Point of Care 117 mg/dl (65-105)
[2024-10-08] MEDS: CITALOPRAM HYDROBROMIDE 20 MG TABLET PO (08:46)
[2024-10-08] MEDS: MAGNESIUM OXIDE 400 MG TABLET PO (08:46)
[2024-10-08] MEDS: METOPROLOL SUCCINATE EXT REL 100 MG TABCR PO (08:46)
[2024-10-08] MEDS: calcium polycarbophiL 625 MG TABLET 2500 MG PO (08:46)
[2024-10-08] MEDS: SACCHAROMYCES BOULARDII 250 MG CAPSULE PO ×2 (08:46→12:26)
[2024-10-08] MEDS: AMOXICILLIN/CLAVULANATE K 875-125 MG TAB 1 TABLET PO (08:46)
[2024-10-08] MEDS: SULFAMETHOXAZOLE/TRIMETHOPRIM 800/160 MG DS TABLET 1 TAB PO (08:47)
--- NOTE | 2024-10-08 08:55 | ECG_ITS ---
Test Date: 2024-10-08 09:32:41 Measurements Intervals [place] Rate: 96 P: 52 WA: 158 QRS: -68 QRSD: 128 T: 12 QT: 359 QTc: 455 Interpretive Statements SINUS RHYTHM RIGHT BUNDLE BRANCH BLOCK [120+ ms QRS DURATION, UPRIGHT V1, 40+ ms S IN I/aVL/V4/V5/V6] Compared to ECG 10/03/2024 14:36:52 NO SIGNIFICANT CHANGES Electronically Signed On 10-09-2024 16:29:36 CDT by Sandra Chapman M.D.
--- NOTE | 2024-10-08 09:48 | P.CONCA_ITS ---
Assessment and Plan Assessment and plan (1) Paroxysmal atrial fibrillation: Code(s): I48.0 - Paroxysmal atrial fibrillation Status: Acute Assessment and Plan: Bask in sinus rhythm. [id number] 3. On Aspirin 325 mg daily. On Metoprolol. Discuss anticoagulation that aspirin is not sufficient but he refuses to go on anticoagulation stating in past he had gross hematuria on one. If he has breakthrough atrial fib despite Metoprolol, then would start antiarrhythmic medication. Obtain echo. If echo is OK, he may d/c home from cardiology standpoint and f/u with me in 2 weeks. (2) Essential (primary) hypertension: Code(s): I10 - Essential (primary) hypertension Status: Acute Assessment and Plan: Stable. (3) Hyperlipidemia associated with type 2 diabetes mellitus: Code(s): E11.69 - Type 2 diabetes mellitus with other specified complication; E78.5 - Hyperlipidemia, unspecified Status: Acute Assessment and Plan: On Atorvastatin. History of Present Illness History of Present Illness Consult date/time: 10/08/24 09:48 Reason For Visit: Left diabetic foot ulcer Narrative: 74 yr old man directly admitted to hospital 5 days ago for left diabetic foot infection. He has a history of DM, hypertension, dyslipidemia, PAF over 10 years ago without recurrence on Metoprolol Daughter at bedside. He went into rapid atrial fibrillation yesterday and given Diltiazem and converted back to sinus rhythm. States he normally takes Metoprolol for it but since it was not given to him in hospital until now, he went into it. Denies chest pain, sob, orthopnea, PND, edema, dizziness, palpitations. Review of Systems 2 Constitutional: Constitutional: Reports as per HPI, Denies chills and Denies fever(s) Cardiovascular: Cardiovascular: Reports as per HPI and Denies chest pain Respiratory: Respiratory: Reports as per HPI and Denies dyspnea Gastrointestinal: Gastrointestinal: Reports as per HPI and Denies abdominal pain Genitourinary: Genitourinary: Reports as per HPI and Denies dysuria Musculoskeletal: Musculoskeletal: Reports as per HPI Neurologic: Reports as per HPI, Denies dizziness and Denies syncope [facility] Past Medical History Medical History Diabetic ulcer of left foot Chronic kidney disease, stage 3 Stage 3a chronic kidney disease Type 2 diabetes mellitus Essential (primary) hypertension Depression Colon cancer screening Hyperlipidemia associated with type 2 diabetes mellitus Insomnia 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 Wing Status post open reduction with internal fixation of fracture Left ankle ORIF [address] Tyler Family History Family History Father Myocardial infarct Family history of coronary artery disease, Onset Age: 66 Lung cancer Mother Leukemia Family history of coronary artery disease, Onset Age: 70 Diabetes mellitus Sibling Multiple sclerosis Sister Diabetes mellitus Social History Social History Social History: Surrogate medical decision maker: Krishna Bergeron, daughter. Code status: Full code. Smoking packs per day: 1 Smoking cigarettes per day: 20.0 Years smoked: 20 Smoking pack-years: 20.00 Smoking status: Former smoker Second hand tobacco smoke exposure: No Alcohol intake: never Substance use: former Substance use type: marijuana Other substance usage details: daily Last use: 05/29/21 Do You Feel Safe in your Home?: Yes Lack of Transportation: No Lack of Food: Never True Current Housing: I Have Housing Concerned About Future Housing: No Difficulty Paying Gas/Electric Bills: No Difficulty Paying for Meds: No Currently Unemployed: No Education: High School Diploma/GED Difficulty w/ Childcare or Family Care: No Living arrangements: alone Additional living arrangements comments: . Lives in [place]. Has 1 daughter. 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 Spiritual care concerns: No Meds Home Medications and Allergies Home Medications ?Medication ?Instructions ?Recorded ?Confirmed ?Type aspirin 325 mg tablet 325 mg PO HS 08/02/19 10/03/24 History [id number] acid-vit 1 tablet PO DAILY 04/13/21 10/03/24 History K-lycop 400 mcg-20 mcg-370 mcg tablet (Men's 50 Plus Multivitamin) fiber 4 cap PO DAILY 05/16/21 10/03/24 History blood-glucose meter (Blood Glucose #1 ea 06/24/21 10/03/24 Rx Monitoring kit) lancets #200 ea 06/24/21 10/03/24 Rx lancets (Accu-Chek Fastclix Lancet #100 ea 10/12/22 10/03/24 Rx Drum) vitamin B complex (B 1 tablet PO DAILY 02/14/23 10/03/24 History Complex-Vitamin B12 tablet) metformin 1,000 mg tablet 1,000 mg PO BID #180 tabs 03/17/24 10/03/24 Rx metoprolol succinate 100 mg 100 mg PO DAILY #90 tabs 03/17/24 10/03/24 Rx tablet,extended release 24 hr blood sugar diagnostic (Blood #100 ea 03/21/24 10/03/24 Rx Glucose Test strips) amlodipine 5 mg tablet See Rx Instructions .Route 03/23/24 10/03/24 Rx .COMPLEX #90 tabs citalopram 20 mg tablet 20 mg PO DAILY #90 tabs 04/10/24 10/03/24 Rx zolpidem 10 mg tablet 10 mg PO HS PRN insomnia #90 tabs 04/23/24 10/03/24 Rx lancets 33 gauge #100 ea 06/27/24 10/03/24 Rx atorvastatin 10 mg tablet 10 mg PO DAILY #90 tabs 08/10/24 10/03/24 Rx pantoprazole 40 mg tablet,delayed 40 mg PO QAM #30 tabs 08/15/24 10/03/24 Rx release albuterol sulfate 90 mcg/actuation 1 puff inhalation Q4H PRN 09/24/24 10/03/24 Rx aerosol inhaler (Ventolin HFA) shortness of breath or wheezing #8.5 grams sulfamethoxazole 800 1 tablet PO Q12H 10/03/24 10/03/24 History mg-trimethoprim 160 mg tablet Allergies Allergy/AdvReac Type Severity Reaction Status Date / Time lisinopril Allergy Severe Swelling Verified 10/03/24 13:55 of Lip/Tongue/Throat vancomycin Allergy Severe angioedema Verified 10/03/24 13:55 Vital Signs Vital Signs - 24 hr 10/07/24 10:11 10/07/24 12:00 10/07/24 14:18 Temperature 97.8 F Pulse Rate 122 H 96 92 Respiratory Rate 17 Blood Pressure 138/86 Pulse Oximetry 97 Oxygen Delivery 10/07/24 16:00 10/07/24 20:00 10/07/24 20:00 Temperature Pulse Rate 88 79 Respiratory Rate Blood Pressure Pulse Oximetry Oxygen Delivery Room Air 10/07/24 20:22 10/08/24 00:00 10/08/24 04:00 Temperature 99.5 F Pulse Rate 71 81 75 Respiratory Rate 20 Blood Pressure 137/71 Pulse Oximetry 97 Oxygen Delivery 10/08/24 05:46 10/08/24 08:46 Temperature 99.1 F Pulse Rate 70 146 H Respiratory Rate 16 Blood Pressure 123/70 Pulse Oximetry 94 Oxygen Delivery Exam 2 Const: General: cooperative, healthy appearing and comfortable Resp: Auscultation: clear to auscultation bilaterally, no crackles, no rales, no rhonchi and no wheezes Cardio: Rate: regular rate Rhythm: regular rhythm Heart sounds: no murmurs Peripheral pulses: dorsalis pedis present GI: GI Palp: No abdominal tenderness and Yes Soft to palpation Neuro: General: oriented to person, oriented to place and oriented to time Extrem: Right lower extremity: no edema Left lower extremity: no edema O ther: Left foot bandaged Results Labs and Meds 10/08/24 05:04 10/08/24 05:04 Lab results: CBC 10/08/24 Range/Units 05:04 WBC 15.4 H (4.5-10.0) K/mm3 RBC 3.91 L (4.6-6.20) M/mm3 Hgb 11.4 L (14.0-18.0) g/dL Hct 35.1 L (42.0-52.0) % Plt Count 373 (150-375) k/mm3 Comprehensive Metabolic Panel 10/08/24 Range/Units 05:04 Sodium 137 (137-145) mmol/L Potassium 4.4 (3.4-5.0) mmol/L Chloride 102 (98-107) mmol/L Carbon Dioxide 25 (22-30) mmol/L BUN 23 H (9-20) mg/dL Creatinine 1.66 H (0.7-1.3) mg/dL Glucose 131 H (65-110) mg/dL Calcium 9.0 (8.4-10.2) mg/dL Intake and Output 10/07/24 10/08/24 10/08/24 23:59 07:59 15:59 Intake Total 1340 600 Output Total 1550 500 Balance -210 100 Intake: Oral 1340 600 Output: Urine 1550 500 Other: # Unmeasured Voids 1 Number of Bowel Movements Today 1 1 Patient Weight 10/08/24 23:59 Weight 88.1 kg
[2024-10-08 12:08] LABS: Glucose Point of Care 124 mg/dl (65-105)
--- NOTE | 2024-10-08 15:18 | P.DS_ITS ---
DS: Admitting Diagnosis Discharge Date 10/08 Admitting Diagnosis cellulitis DS: Discharge Diagnosis Discharge Diagnosis (1) Diabetic infection of left foot: Code(s): E11.628 - Type 2 diabetes mellitus with other skin complications; L08.9 - Local infection of the skin and subcutaneous tissue, unspecified Status: Acute (2) Diabetic ulcer of left foot: Code(s): E11.621 - Type 2 diabetes mellitus with foot ulcer; L97.529 - Non-pressure chronic ulcer of other part of left foot with unspecified severity Status: Acute (3) Acute on chronic kidney failure: Code(s): N17.9 - Acute kidney failure, unspecified; N18.9 - Chronic kidney disease, unspecified Status: Acute (4) Hyperkalemia: Code(s): E87.5 - Hyperkalemia Status: Acute (5) Type 2 diabetes mellitus: Code(s): E11.9 - Type 2 diabetes mellitus without complications Status: Acute (6) Essential (primary) hypertension: Code(s): I10 - Essential (primary) hypertension Status: Acute DS: Summary Hospital Course Hospital Course: The [facility] for total contact cast application however was found to have evidence of acute infection He was directly admitted and started on empiric ceftriaxone, metronidazole, and daptomycin (history of angioedema with vancomycin). Hold atorvastatin for now pending CK level as daptomycin can increased CPK. Wound and blood cultures ordered. Left foot x-ray:IMPRESSION: 1. Transverse fracture of neck of second metatarsal, new from 09/10/2024. 2. Plantar dislocation of third proximal phalanx with respect to the head of second metatarsal. 3. 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 Pathological fx due to chronic ulcer/osteomyelitis. proceed with ANTHONY plummer with DR Urena Foot MRI: IMPRESSION: 1. No specific evidence of acute osteomyelitis. 2. Subacute fracture of neck of second metatarsal with large effusion of the second metatarsophalangeal joint communicating with a fluid collection in the second toe soft tissues, probably hematoma. 3. Complete tear of the great toe flexor tendons with hyperextension of first metatarsophalangeal joint. His diabetes is well controlled with a recent A1c of 6.4%. Initiate sliding scale insulin, Accu-Cheks, and hypoglycemic protocol. 10/06 will de escalate Rocephin to Augmentin- 14 days of therapy from the surgery. Cannot stop dapto yet as sensitivities are not back yet, so will continue for now. Podiatry note reviewed: 1 day s/p TMA left. Changed dressing no active bleeding. Incision site healthy, coapting nicely. No signs of infection. Patient will have PT for transition and crutch/walker training. Non weight bearing for one week to left foot. Antibiotics per culture and sensitivity results F/u in my office next Tuesday, patient will call and schedule once d/c. Stable for d/c tomorrow. 10/07- sensitivities are back- R to tetracycline. cannot do doxy, will start Bactrim DS. stopped dapto. several episodes of afib with rvr-mostly activity related, as high as 170. received 5 mg IV metoprolol x2. He missed few doses of his home metoprolol- that could be a contributing factor for hr elevation. Metoprolol is restarted and will monitor closely. anticipate discharge home with total of 14 days of therapy for both antibiotics. 10/08 few episodes of elevated HR. Cardiology consulted. Pt does not wnat anticoag. Willing to f/u with cardiology. Echo is done. will discharge with a total of 14 days of augmentin. Status at Discharge Functional status at discharge: independent ambulation Overall status at discharge: patient is progressing back to baseline Time Spent with Patient Time attestation: Total time spent providing and/or coordinating discharge services: Time spent: Greater than 30 minutes Exam Narrative: General: Well-developed, nontoxic-appearing gentleman the semi-Dudley position in bed. Weight: 86.7 kg. BMI: 27.4. HEENT: PERRL, EOMI. Sclera anicteric. Oral mucosa moist. Neck: Supple. Respiratory: Lungs are clear to auscultation bilaterally. Cardiovascular: Regular rate and rhythm with S1-S2. Gastrointestinal: Abdomen is soft, nontender, and nondistended with positive bowel sounds. Skin: Warm and dry. Open ulceration on the plantar aspect of the left foot with a small amount of serous drainage. There is an early, fluid-filled blister at the base of the 2nd 3rd toes with erythema and edema of the 2nd and 3rd toes. Faint erythema extends onto the forefoot. Extremities: No cyanosis, clubbing, or edema. Radial and pedal pulses intact. dressing is c/d/i Neurological: Alert. Cranial nerves 2-12 are grossly intact. No gross focal deficits to casual conversation. Psychiatric: Pleasant and cooperative with normal mood and affect. Judgment and insight intact. Const: General: comfortable DS: Data Data Completed and Pending Pending studies at discharge: Pending at discharge 10/05/24 14:51 Surgical [PTH] Routine Labs on day of discharge: Labs from last 24 hours 10/08/24 10/08/24 10/08/24 11:57 08:00 05:04 WBC 15.4 H RBC 3.91 L Hgb 11.4 L Hct 35.1 L MCV 89.8 MCH 29.2 MCHC 32.5 RDW 13.3 Plt Count 373 MPV 9.0 Sodium 137 Potassium 4.4 Chloride 102 Carbon Dioxide 25 Anion Gap 10 BUN 23 H Creatinine 1.66 H Estim Creat Clear Calc 38 Estimated GFR 41 L Glucose 131 H POC Capillary Glucose 124 H 117 H Calcium 9.0 10/07/24 10/07/24 19:54 16:49 WBC RBC Hgb Hct MCV MCH MCHC RDW Plt Count MPV Sodium Potassium Chloride Carbon Dioxide Anion Gap BUN Creatinine Estim Creat Clear Calc Estimated GFR Glucose POC Capillary Glucose 139 H 108 H Calcium Preliminary micro results at discharge 10/03/24 15:17 Anaerobic Culture - Preliminary Foot Left 10/03/24 13:26 Blood Culture - Preliminary Blood 10/03/24 13:21 Blood Culture - Preliminary Blood Discharge Plan Discharge Attending physician on discharge: Ana Finnegan Consulting providers: Mk Urena Jr.; Manny Millan Discharging Clinician: Cleo Gilbert Patient Disposition: Home, Self-Care Activity: other - see discharge instructions Diet: diabetic Discharge Instructions: Please follow DR Urena instructions: Walker/crutch/walker training. Non weight bearing for one week to left foot. Antibiotics per culture and sensitivity results- Augmentin 1 tab twice a day for total of 14 days. Last dose on 10/20 at 0900 am. F/u in with DR Urena office next Tuesday, patient will call and schedule once d/c. please take your metoprolol and monitor heart rate. F/u with inspector returned materials here. If your noticed any elevation in heart rate and/or start having feeling of palpitations- please report to ed. Please do labs: CBC and BMP needs to be done within a week. Patient Instructions: Antibiotic Form Patient Language: Lithuanian Stand Alone Forms: General Discharge Information Follow-up/Referrals: Allie Alan MD [Primary Care Provider] - 2 Weeks Mk Urena Jr., DPM [Physician] - 1 Week Manny Millan DO [Physician] - 1 Week Discharge Medications: New amoxicillin-pot clavulanate 875-125 mg tablet 1 tablet PO Q12H Qty: 24 0RF Rx Instructions: last dose 10/20 at 0900 am Continued aspirin 325 mg tablet 325 mg PO HS Men's 50 Plus Multivitamin 400-20-370 mcg tablet 1 tablet PO DAILY (DME) blood-glucose meter [Blood Glucose Monitoring] Kit See Rx Instructions .Route Qty: 1 1RF Rx Instructions: As directed daily (DME) lancets Misc See Rx Instructions .Route Qty: 200 8RF Rx Instructions: As directed daily (DME) lancets [Accu-Chek Fastclix Lancet Drum] Misc See Rx Instructions .Route Qty: 100 5RF Rx Instructions: As directed daily to check glucose pantoprazole 40 mg tablet,delayed release (DR/EC) 40 mg PO QAM Qty: 30 3RF fiber Capsule 4 cap PO DAILY vitamin B complex [B Complex-Vitamin B12] Tablet 1 tablet PO DAILY metoprolol succinate 100 mg tablet extended release 24 hr 100 mg PO DAILY Qty: 90 3RF metformin 1,000 mg tablet 1,000 mg PO BID Qty: 180 3RF (DME) Blood Glucose Test Strip See Rx Instructions .Route Qty: 100 12RF Rx Instructions: As directed daily amlodipine 5 mg tablet See Rx Instructions .ROUTE .COMPLEX Qty: 90 3RF Dose Instruction: TAKE 1 TABLET BY MOUTH EVERY DAY Rx Instructions: TAKE 1 TABLET BY MOUTH EVERY DAY citalopram 20 mg tablet 20 mg PO DAILY Qty: 90 2RF zolpidem 10 mg tablet 10 mg PO HS PRN (Reason: insomnia) Qty: 90 1RF (DME) lancets 33 gauge misc See Rx Instructions .Route Qty: 100 6RF Rx Instructions: Check blood sugar daily atorvastatin 10 mg tablet 10 mg PO DAILY Qty: 90 1RF albuterol sulfate [Ventolin HFA] 90 mcg/actuation HFA aerosol inhaler 1 puff inhalation Q4H PRN (Reason: shortness of breath or wheezing) Qty: 8.5 1RF Discontinued sulfamethoxazole-trimethoprim 800-160 mg tablet 1 tablet PO Q12H Patient Comments: filled on september 26 2024 Other Ambulatory Orders: Basic Metabolic Panel (Routine) Timeframe: 1 Week Location: Determined by Patient Ordered By: Cleo Gilbert Complete Blood Count no Diff (Routine) Timeframe: 1 Week Location: Determined by Patient Ordered By: Cleo Gilbert Date of admission: 10/04/24 13:24 Primary Care Provider: Allie Alan Admitting Provider: Maco Salgado Attending physician on admission: Maco Salgado Condition: Stable Quality VTE Prophylaxis VTE prophylaxis: mechanical ordered Hospitalist MIPS Heart Failure (Exclusion) Patient has history of Heart Transplant or Left Ventricular Assistive Device?: No IF YES, STOP HERE Heart Failure (Qualifier) Patient has current or prior documentation of LVEF less than or equal to 40%, or mod/servere depressed LVSF?: No IF NO, STOP HERE
== END 2024-10-08 15:45 | disposition home or self-care (01) | DRG 617 ==
PROVIDERS: Physician Assistant; Podiatrist Foot & Ankle Surgery; Admitting Provider Hospitalist; PCP Family Medicine; Visit Provider Nurse Practitioner
PROC: 0Y6N0Z9 Detachment at Left Foot, Partial 1st Ray, Open Approach (ICD-10-PCS; principal; 2024-10-05 13:30)
DX: E11.621 Type 2 diabetes mellitus with foot ulcer (principal); M84.475A Pathological fracture, left foot, initial encounter for fracture; E11.628 Type 2 diabetes mellitus with other skin complications; E11.69 Type 2 diabetes mellitus with other specified complication; L97.529 Non-pressure chronic ulcer of other part of left foot with unspecified severity; L08.9 Local infection of the skin and subcutaneous tissue, unspecified; N17.9 Acute kidney failure, unspecified; I12.9 Hypertensive chronic kidney disease with stage 1 through stage 4 chronic kidney disease, or unspecified chronic kidney disease; N18.30 Chronic kidney disease, stage 3 unspecified; E11.22 Type 2 diabetes mellitus with diabetic chronic kidney disease; E87.5 Hyperkalemia; E78.5 Hyperlipidemia, unspecified; E11.42 Type 2 diabetes mellitus with diabetic polyneuropathy; I48.0 Paroxysmal atrial fibrillation; F32.A Depression, unspecified; Z20.822 Contact with and (suspected) exposure to COVID-19; Z87.891 Personal history of nicotine dependence; Z79.82 Long term (current) use of aspirin
CPT/HCPCS: 36415; 73630; 73718; 76775; 80048; 80053; 82550; 82948; 83605; 83735; 84439; 84443; 85025; 85027; 86140; 87040; 87070; 87075; 87181; 87205; 87636; 88307; 93005; 93306; 94640; 96365; 96367; 96375; 97116; 97161; 97165; 97530; 97535; 99199; A9270; G0378; G0379; J0612; J0696; J0878; J2003; J3010; J7120

== ENCOUNTER 2025-01-23 15:12 | Outpatient (CLI) | payer MEDICARE, SELFPAY ==
--- OUTSIDE RECORDS SUMMARY | 2025-01-23 15:17 | XMS_ITS | Continuity of Care Document ---
Author Organization [facility] Address [address] [place] [address] Phone Care Team Providers Care Learning Support Resource Room Teacher Name Role Phone King Lou MD Unavailable [...] XRAY HAND, MIN 3 VIEWS OFFICE/OUTPATIENT VISIT, [facility] Advance Directives Directive Yes / No Effective Date File Name No Information Encounters Encounter Description Practice Location Reason(s) For Visit Diagnoses Date Provider Providers Copied on Encounter OFFICE/OUTPAT IENT VISIT, [facility] [place], [address], [place] tel:[phone] Left hand (chief complaint) Dupuytren's contracture of left handMass of finger of left hand 0 Carmine Malik. [address], [place], [place], [id number], [place]. tel:[phone] Family History Family Member Type Diagnosis Age At Onset Mother Problem Blood disorder Mother Problem Cancer, unknown Father Problem Cardiovascular disease Mother Problem diabetes mellitus in first d egree relative Payers Payer name Insurance type Covered alliance party ID Authoriza tion(s) Medicare [employer] Benef its Admin MB [id number] [facility] [id number] Social History Type Description Quantity Date Captured [...]
--- OUTSIDE RECORDS SUMMARY | 2025-01-23 15:17 | XMS_ITS | Continuity of Care Document ---
Author Organization [facility], [place] Address [address] [place] [address] Phone Care Team Providers Care Bulk Sealer Operator Name Role Phone Merritt Farias DPM [...] - Active Procedures Procedure Date MD certification [employer] patient Debridement, SUBQ, Skin/Tissue, 1st 20sq cm/< [...] Date Provider Providers Copied on Encounter [facility] Physician [facility], [address] [place] [address], [id number], tel:[phone] [facility] Podiatry No Information 1 Jarrett Bang. [address] [place] [address], [id number], [place]. tel:[phone] Referring Provider: Merritt Blanco, [address] [place] [address], [id number] . tel:[phone] [facility], [address] [place] [address], [id number], tel:[phone] [facility] Podiatry f/u L foot ulcer (chief complaint) Ulcer of left foot, limited to breakdown of skinUlcer of left foot due to type 2 diabetes mellitusOnychomycos is of multiple toenails with type 2 diabetes mellitusTinea unguium 1 Jarrett Bang. [address] [place] [address], [id number], [place]. tel:[phone] Referring Provider: Merritt Blanco, [address] [place] [address], [id number] . tel:[phone] [facility], [address] [place] [address], [id number], [place] tel:[phone] [facility] Podiatry f/u L foot ulcer (chief complaint) Ulcer of left foot, limited to breakdown of skinUlcer of left foot due to type 2 diabetes mellitus 1 Jarrett Bang. [address] [place] [address], [id number], [place]. tel:[phone] [facility], [address] [place] [address], [id number], [place] tel:[phone] [facility] Podiatry L foot ulcer (chief complaint) Ulcer of left foot, limited to breakdown of skinUlcer of left foot due to type 2 diabetes mellitus 1 Jarrett Bang. [address] [place] [address], [id number], [place]. tel:[phone] [facility], [address] [place] [address], [id number], [place] tel:[phone] [facility] Podiatry f/u L foot ulcer (chief complaint) Ulcer of left foot due to type 2 diabetes mellitusUlcer of left foot, limited to breakdown of skin 1 Jarrett Bang. [address] [place] [address], [id number], [place]. tel:[phone] Referring Provider: Merritt Blanco, [address] [place] [address], [id number] . tel:[phone] [facility], [address] [place] [address], [id number], [place] tel:[phone] [facility] Podiatry L foot ulcer (chief complaint) Ulcer of left foot with fat layer exposedUlcer of left foot due to type 2 diabetes mellitus 1 Jarrett Bang. [address] [place] [address], [id number], . tel:[phone] Referring Provider: Merritt Blanco, [address] [place] [address], [id number] . tel:[phone] [facility], [address] [place] [address], [id number], [place] tel:[phone] [facility] Podiatry L foot ulcer (chief complaint) Ulcer of left foot with fat layer exposedUlcer of left foot due to type 2 diabetes mellitus 1 Jarrett Bang. [address] [place] [address], [id number], . tel:[phone] Referring Provider: Merritt Blanco, [address] [place] [address], [id number] . tel:[phone] [facility], [address] [place] [address], [id number], [place] tel:[phone] [facility] Podiatry L foot ulcer (chief complaint) Ulcer of left foot with fat layer exposedUlcer of left foot due to type 2 diabetes mellitus Sep- 0- 1 Jarrett Bang. [address] [place] [address], [id number], [place]. tel:[phone] [facility], [address] [place] [address], [id number], [place] tel:[phone] [facility] Podiatry L foot ulcer (chief complaint) Ulcer of left foot, limited to breakdown of skinUlcer of left foot due to type 2 diabetes mellitus 1 Jarrett Bang. [address] [place] [address], [id number], [place]. tel:[phone] [facility], [address] [place] [address], [id number], [place] tel:[phone] [facility] Podiatry f/u L foot ulcer (chief complaint) Ulcer of left foot, limited to breakdown of skinUlcer of left foot due to type 2 diabetes mellitus 1 Jarrett Bang. [address] [place] [address], [id number], [place]. tel:[phone] [facility], [address] [place] [address], [id number], tel:[phone] [facility] Podiatry f/u L foot ulcer (chief complaint) Ulcer of left foot, limited to breakdown of skinUlcer of left foot due to type 2 diabetes mellitusOnychomycos is of multiple toenails with type 2 diabetes mellitusTinea unguium 1 Jarrett Bang. [address] [place] [address], [id number], . tel:[phone] [facility], [address] [place] [address], [id number], tel:[phone] [facility] Podiatry L foot wound (chief complaint) Ulcer of left foot with fat layer exposedUlcer of left foot due to type 2 diabetes mellitus 1 Jarrett Bang. [address] [place] [address], [id number], [place]. tel:[phone] Referring Provider: Merritt Blanco, [address] [place] [address], [id number] . tel:[phone] [facility], [address] [place] [address], [id number], tel:[phone] [facility] Podiatry routine foot care (chief complaint) Onychomycosis of multiple toenails with type 2 diabetes mellitusTinea unguiumCallus of foot 0 Jarrett Bang. [address] [place] [address], [id number], [place]. tel:[phone] Referring Provider: Merritt Blanco, [address] [place] [address], [id number] . tel:[phone] [facility], [address] [place] [address], [id number], [place] tel:[phone] [facility] Podiatry routine foot care (chief complaint) Callus of footType 2 diabetes mellitus with diabetic neuropathy, without long-term current use of insulinOnychomycosi s due to dermatophyte 0 Jarrett Bang. [address] [place] [address], [id number], [place]. tel:[phone] Referring Provider: Merritt Blanco, [address] [place] [address], [id number] . tel:[phone] [facility], [address] [place] [address], [id number], [place] tel:[phone] [facility] Podiatry routine foot care (chief complaint) Callus of footOnychomycosis due to dermatophyteType 2 diabetes mellitus with diabetic neuropathy, without long-term current use of insulin 0 Jarrett Bang. [address] [place] [address], [id number], [place]. tel:[phone] Referring Provider: Merritt Blanco, [address] [place] [address], [id number] . tel:[phone] OFFICE/OUTPA TIENT VISIT, [facility], [address] [place] [address], [id number], [place] tel:[phone] [facility] Podiatry routine foot care (chief complaint) Type 2 diabetes mellitus with diabetic neuropathy, without long-term current use of insulinOnychomycosi s due to dermatophyteCallus of foot 0 Jarrett Bang. [address] [place] [address], [id number], [place]. tel:[phone] [facility], [address] [place] [address], [id number], [place] tel:[phone] [facility] Podiatry routine foot care (chief complaint) Callus of footOnychomycosis due to dermatophyteType 2 diabetes mellitus with diabetic neuropathy, without long-term current use of insulinPlantar flexed metatarsal bone of left footPlantar flexed metatarsal bone of right foot 9 Jarrett Bang. [address] [place] [address], [id number], [place]. tel:[phone] Referring Provider: Merritt Blanco, [address] [place] [address], [id number] . tel:[phone] OFFICE/OUTPA TIENT VISIT, EST [facility], [address] [place] [address], [id number], [place] tel:[phone] [facility] Podiatry Routine Foot Care (chief complaint) Callus of footOnychomycosis due to dermatophyteType 2 diabetes mellitus with diabetic neuropathy, without long-term current use of insulinPlantar flexed metatarsal bone of left footPlantar flexed metatarsal bone of right foot 9 Jarrett Bang. [address] [place] [address], [id number], [place]. tel:[phone] [facility], [address] [place] [address], [id number], [place] tel:[phone] [facility] Podiatry f/u on left foot wound (chief complaint) routine foot care (chief complaint) Callus of footType 2 diabetes mellitus with diabetic neuropathy, without long-term current use of insulinOnychomycosi s due to dermatophyte Jarrett Bang. [address] [place] [address], [id number], [place]. tel:[phone] [facility], [address] [place] [address], [id number], [place] tel:[phone] [facility] Wound Care Left Foot Wound (chief complaint) Callus of footType 2 diabetes mellitus with diabetic neuropathy, without long-term current use of insulinStage III pressure ulcer of left ankle 9 Ayaan Diaz. [address] [facility] Physician Office [facility], [place], [place], [id number], [place]. tel:[phone] [facility], [address] [place] [address], [id number], [place] tel:[phone] [facility] Wound Care left foot wounds (chief complaint) Stage III pressure ulcer of left ankleCallus of footType 2 diabetes mellitus with diabetic neuropathy, without long-term current use of insulin Ayaan Diaz. [address] [facility] Physician Office [place], [id number], [place]. tel:[phone] OFFICE/OUTPA TIENT VISIT, [facility] Physician [facility], [address] [place] [address], [id number], [place] tel:[phone] [facility] W[facility] Care left foot wounds (chief complaint) Stage III pressure ulcer of left ankleCallus of footType 2 diabetes mellitus with diabetic neuropathy, without long-term current use of insulin Tomas Deluna. [address] [facility] Physician Office [facility], [place], [place], [id number], [place]. tel:[phone] [facility] Physician [facility], [address] [place] [address], [id number], [place] tel:[phone] [facility] Right Foot Wound (chief complaint) Stage III pressure ulcer of left ankleCallus of footType 2 diabetes mellitus with diabetic neuropathy, without long-term current use of insulin Ayaan Diaz. [address] [facility] Physician Office [place], [id number], [place]. tel:[phone] Referring Provider: Emily Portillo, [address] [facility] Physician Office Building, [place], [address] . tel:[phone] OFFICE/OUTPA TIENT VISIT, [facility] Physician [facility], [address] [place] [address], [id number], [place] tel:[phone] [facility] Right Foot Wound (chief complaint) Stage III pressure ulcer of left ankleCallus of footType 2 diabetes mellitus with diabetic neuropathy, without long-term current use of insulin Ayaan Diaz. [address] [facility] Physician Office Building, [place], [place], [id number], [place]. tel:[phone] OFFICE/OUTPA TIENT VISIT, [facility], [address] [place] [address], [id number], [place] tel:[phone] [facility] Wound Care Right Foot Wound (chief complaint) Diabetic ulcer of other part of right foot associated with type 2 diabetes mellitus, with fat layer exposedNon-pressure chronic ulcer of other part of right foot with fat layer exposed Mar-2 9 Tomas Deluna. [address] [facility] Physician Office Building, [place], [place], [id number], [place]. tel:[phone] [facility], [address] [place] [address], [id number], [place] tel:[phone] [facility] Wound Care Right Foot Wound (chief complaint) Diabetic ulcer of other part of right foot associated with type 2 diabetes mellitus, with fat layer exposedNon-pressure chronic ulcer of other part of right foot with fat layer exposed Mar-1 9 Ayaan Diaz. [address] [facility] Physician Office Building, [place], [place], [id number], [place]. tel:[phone] [facility], [address] [place] [address], [id number], [place] tel:[phone] [facility] Wound Care right foot wound (chief complaint) Diabetic ulcer of other part of right foot associated with type 2 diabetes mellitus, with fat layer exposedNon-pressure chronic ulcer of other part of right foot with fat layer exposed Mar-0 9 Tomas Deluna. [address] [facility] Physician Office Building, [place], [place], [id number], [place]. tel:[phone] OFFICE/OUTPA TIENT VISIT, [facility], [address] [place] [address], [id number], [place] tel:[phone] [facility] Podiatry F/U on bilateral foot ulcers (chief complaint) Non-pressure chronic ulcer of other part of right foot with fat layer exposedType 2 diabetes mellitus with foot ulcer, unspecified whether bark grinder insulin usePre-ulcerative calluses Mar-0 9 Jarrett Bang. [address] [place] [address], [id number], [place]. tel:[phone] Referring Provider: Merritt Blanco, [address] [place] [address], [id number] . tel:[phone] [facility], [address] [place] [address], [id number], [place] tel:[phone] [facility] Wound [facility] Right Foot Wound (chief complaint) Diabetic ulcer of other part of right foot associated with type 2 diabetes mellitus, with fat layer exposedNon-pressure chronic ulcer of other part of right foot with fat layer exposed 9 Ayaan Emily. [address] [facility] Physician Office Building, [place], [place], [id number], [place]. tel:[phone] OFFICE/OUTPA TIENT VISIT, [facility], [address] [place] [address], [id number], [place] tel:[phone] [facility] Podiatry diabetic foot exam (chief complaint) f/u b/l foot ulcers (chief complaint) Type 2 diabetes mellitus with diabetic neuropathy, without long-term current use of insulinSkin ulcer of left foot, limited to breakdown of skinSkin ulcer of right foot with fat layer exposed 9 Jarrett Bang. [address] [place] [address], [id number], [place]. tel:[phone] Referring Provider: Merritt Blanco, [address] [place] [address], [id number] . tel:[phone] [facility], [address] [place] [address], [id number], [place] tel:[phone] ET Wound Care right foot wound (chief complaint) Diabetic ulcer of other part of right foot associated with type 2 diabetes mellitus, with fat layer exposedNon-pressure chronic ulcer of other part of right foot with fat layer exposedSkin ulcer of left foot, limited to breakdown of skinAvulsion of toenail of left foot 9 Tomas Deluna. [address] [facility] Physician Office Building, [place], [place], [id number], [place]. tel:[phone] [facility], [address] [place] [address], [id number], [place] tel:[phone] [facility] Podiatry f/u bilateral DFU (chief complaint) Skin ulcer of left foot, limited to breakdown of skinType 2 diabetes mellitus with diabetic neuropathy, without long-term current use of insulinSkin ulcer of right foot with fat layer exposed 9 Jarrett Bang. [address] [place] [address], [id number], [place]. tel:[phone] OFFICE/OUTPA TIENT VISIT, [facility], [address] [place] [address], [id number], [place] tel:[phone] ET Wound Care Diabetic ulcer of other part of right foot associated with type 2 diabetes mellitus, with fat layer exposedNon-pressure chronic ulcer of other part of right foot with fat layer exposedNon-pressure chronic ulcer of other part of left foot limited to breakdown of skin 9 Tomas Deluna. [address] [facility] Physician Office Building, [place], [place], [id number], [place]. tel:[phone] [facility], [address] [place] [address], [id number], [place] tel:[phone] [facility] Wound Care No Information 9 Ayaan Diaz. [address] [place] [address] Physician Office Building, [place], [place], [id number], [place]. tel:[phone] Referring Provider: Merritt Blanco, [address] [place] [address], [id number] . tel:[phone] OFFICE/OUTPA TIENT VISIT, [facility], [address] [place] [address], [id number], [place] tel:[phone] [facility] Wound Care Right Foot Wound (chief complaint) Diabetic ulcer of other part of right foot associated with type 2 diabetes mellitus, with fat layer exposedNon-pressure chronic ulcer of other part of right foot with fat layer exposedCallus of foot 9 Ayaan Diaz. [address] [facility] Physician Office Building, [place], [place], [id number], . tel:[phone] Referring Provider: Merritt Blanco, [address] [place] [address], [id number] . tel:[phone] OFFICE/OUTPA TIENT VISIT, [facility], [address] [place] [address], [id number], tel:[phone] [facility] Podiatry F/U on Diabetic Ulcer on right foot (chief complaint) Type 2 diabetes mellitus with diabetic neuropathy, without long-term current use of insulinSkin ulcer of right foot with fat layer exposedSkin ulcer of left foot, limited to breakdown of skin Jarrett Bang. [address] [place] [address], [id number], . tel:[phone] OFFICE/OUTPA TIENT VISIT, [facility], [address] [place] [address], [id number], tel:[phone] [facility] Podiatry F/U on Diabetic Ulcer on Right Foot (chief complaint) Type 2 diabetes mellitus with diabetic neuropathy, without long-term current use of insulinSkin ulcer of right foot with fat layer exposed Jarrett Bang. [address] [place] [address], [id number], . tel:[phone] Referring Provider: Merritt Blanco, [address] [place] [address], [id number] . tel:[phone] OFFICE/OUTPA TIENT VISIT, [facility], [address] [place] [address], [id number], [place] tel:[phone] [facility] - [facility] No Information Jarrett Bang. [address] [place] [address], [id number], . tel:[phone] Family History Family Member Type Diagnosis Age At Onset No Information Payers Payer name Insurance type Covered green party ID Authorsala delilah(s) Medicare MB [id number] [employer] [place] [id number] Social History Type Description Quantity Date Captured [...] Goal DEXA Scan. Due on due Goal Tdap. Due on [...] left ankle Wound has improved b y 52%. Cleaned [...]
--- OUTSIDE RECORDS SUMMARY | 2025-01-23 15:18 | XMS_ITS | Patient Health Record ---
Author Organization [facility] Address [address] [place], [place] [id number] Care Team Providers Care Network Operations Lead Name Role Phone JAMAL GALLEGO Primary Care Provider BG Gibbs Unavailable [phone] Reason For Referral No Information Plan Of Treatment No Information Insurance Providers Payer Name Payer Address Payer Phone Subscriber Number Group Number Insured Name Patient Relationship to Insured Coverage Start Date Coverage End Date MEDICARE [employer] [address] [place] [phone] [id number] CADE LACEY Self - patient is the insured [address] [employer] [address] [place] [address] [id number] CADE LACEY Self - patient is the insured
--- OUTSIDE RECORDS SUMMARY | 2025-01-23 15:18 | XMS_ITS | Clinical Summary ---
Author Organization [facility] Address [address] [place] [address] Phone Care Team Providers Care Dispatch Coordinator Name Role Phone Allie Alan MD Primary Care Provider Allergies Active Allergy Reactions Criticality Noted Date Comments Lisinopril Angioedema 09/07/2021 Vancomycin Angioedema 09/07/2021 Medications amLODIPine (NORVASC) 5 MG tablet Take 5 mg by mouth 1 (one) time each day 1 Active aspirin EC 325 MG EC tablet Take by mouth 1 Active Blood Glucose Monitoring Suppl (ONE TOUCH ULTRA 2) w/Device kit See administration instructions 1 Active polycarbophil (GNP Fiber-Caps) 625 MG tablet Take by mouth 1 Active citalopram (CeleXA) 20 MG tablet Take 20 mg by mouth 1 (one) time each day 2 Active famotidine (PEPCID) 20 MG tablet Take 20 mg by mouth 2 (two) times a day 1 Active OneTouch Ultra test strip TEST EVERY DAY 1 Active Lancets (OneTouch Delica Plus [id number]) misc DIRECTED EVERY DAY 1 Active metFORMIN (GLUCOPHAGE) 1000 MG tablet Take 1,000 mg by mouth 2 (two) times a day 1 Active metoprolol succinate XL (TOPROL-XL) 100 MG 24 hr tablet Take 100 mg by mouth 1 (one) time each day 2 Active Multiple Vitamin (multivitamin) capsule Take by mouth 1 Active omeprazole (PriLOSEC) [address] capsule Take by mouth 1 Active zolpidem (AMBIEN) 10 MG tablet 2 Active atorvastatin (LIPITOR) 10 MG tablet Take 10 mg by mouth 1 (one) time each day 2 Active Active Problems Problem Noted Date Diagnosed [...] of toenails 01/29/2021 Skin problem 01/29/2021 Immunizations Immunization Administration Dates Next Due Sars-cov-2, Unspecified 09/28/2020 Family History Medical History Relation Comments Heart disease Father Lung cancer Father Diabetes mellitus Mother Heart disease Mother Leukemia Mother Diabetes mellitus Sister Relation Status Comments Father Mother Sister Social History Tobacco Use Types Packs/Day Years Used Date Smoking Tobacco: Former Cigarettes 1 27 1 978 - 2005 Smokeless Tobacco: Never Alcohol Use Standard Drinks/Week Comments Never 0 (1 standard drink = 0.6 oz pur e alcohol) Sex and Gender Information Value Date Recorded Sex Assigned at Not on file Legal Sex Male 11:[address] [facility] Gender Identity Not on file Sexual Orientation [...] 1:21 PM CDT Height 177.8 cm (5' 10) 05/05/2022 1:21 PM CDT Body Mass Index 30.28 05/05/2022 1:21 PM CDT Plan of Treatment Health Maintenance Due Date Last Done Comments Pneumococcal PPSV23/PCV13 65 + Years / Low and Medium Risk (1 of 2 - PCV) 2002 Influenza Vaccine (Season Ended) 2025 Insurance MEDICARE [place] [id number] [employer] MEDICARE SUPPLEMENT Care Teams Dispatch Coordinator Relationship Specialty Start Date End Date Allie Alan MD [address] [place] [address] PCP - General Internal Medicine 07/06/21
[2025-01-23 15:38] LABS: Hematocrit 37.4 % (42.0-52.0); Hemoglobin 12.2 g/dL (14.0-18.0); Immature Granulocyte Percent A 0.7 % (0-0.5); Lymphocytes Absolute Auto 2.22 K/mm3 (0.9-3.2); Mean Corpuscular HGB Conc 32.6 g/dl (32-36); Mean Corpuscular Hemoglobin 27.9 pg (26-34); Mean Corpuscular Volume 85.6 fl (80-100); Nucleated Red Blood Cells Absolute Auto 0.000 K/mm3 (0.0-0.012); Nucleated Red Blood Cells Perc 0.0 % (0.0-0.2); Platelet Count Result 176 k/mm3 (150-375); Red Blood Count 4.37 M/mm3 (4.6-6.20); White Blood Count 10.5 K/mm3 (4.5-10.0)
[2025-01-23 15:49] LABS: Alanine Aminotransferase 18 U/L (6-50); Albumin Level 4.3 g/dL (3.5-5.1); Alkaline Phosphatase 79 U/L (38-126); Anion Gap 10 mmol/L (4-12); Aspartate Amino Transferase 30 U/L (17-59); Bilirubin,Total 1.0 mg/dL (0.2-1.3); Blood Urea Nitrogen 21 mg/dL (9-20); Calcium 9.7 mg/dL (8.4-10.2); Carbon Dioxide 26 mmol/L (22-30); Chloride 104 mmol/L (98-107); Estimated Glomerular Filt Rate 48; Glucose 106 mg/dL (65-110); Potassium 4.7 mmol/L (3.4-5.0); Sodium 140 mmol/L (137-145); Total Protein 7.4 g/dL (6.3-8.2)
[2025-01-23 17:24] LABS: CRP. 1.6 mg/dL (<1.0)
== END 2025-01-23 15:13 | disposition home or self-care (01) ==
LOC: ANHLAB 15:14
PROVIDERS: PCP Family Medicine; Visit Provider Podiatrist Foot & Ankle Surgery
DX: L89.899 Pressure ulcer of other site, unspecified stage (principal)
CPT/HCPCS: 36415; 80053; 85025; 85652; 86140

== ENCOUNTER 2025-01-24 01:51 | Day surgery (SDC) | payer MEDICARE, SELFPAY ==
[2024-10-23 13:45] VITALS: BMI 28.8
[2025-01-04 09:58] VITALS: BMI 28.7
--- OUTSIDE RECORDS SUMMARY | 2025-01-24 01:55 | XMS_ITS | Clinical Summary ---
Author Organization [facility] Address [address] [place] [id number] Phone Care Team Providers Care Beck Tender Name Role Phone Allie Alan MD Primary Care Provider [phone] Allergies Active Allergy Reactions Criticality Noted Date [...] DAY 1 Active Lancets (OneTouch Delica Plus [id number]) misc DIRECTED EVERY DAY 1 Active metFORMIN [...] on file Legal Sex Male 11:30 AM [facility] Gender Identity Not on file Sexual Orientation [...] (Season Ended) 2025 Insurance MEDICARE [place] [id number] [employer] MEDICARE SUPPLEMENT Care Teams Beck Tender Relationship Specialty Start Date End Date Allie Alan MD [address] [place] [address] PCP - General Internal Medicine 07/06/21
--- OUTSIDE RECORDS SUMMARY | 2025-01-24 01:55 | XMS_ITS | Patient Health Record ---
Author Organization [facility] Address [address] [place], [place] [id number] Care Team Providers Care Power Plant Superintendent Name Role Phone JAMAL GALLEGO Primary Care Provider BG Gibbs Unavailable [phone] Reason For Referral No Information Plan Of Treatment No Information Insurance Providers Payer Name Payer Address Payer Phone Subscriber Number Group Number Insured Name Patient Relationship to Insured Coverage Start Date Coverage End Date MEDICARE [employer] [address] [place] [phone] [id number] CADE LACEY Self - patient is the insured 8 [employer] [id number] [employer] [place] [id number] [phone] [id number] CADE LACEY Self - patient is the insured
[2025-01-24 12:07] VITALS: BP 171/62; PULSE 48; RESP 18; TEMP 36.5; O2SAT 99
[2025-01-24] MEDS: LACTATED RINGERS 1,000 ML 150 ML IV CONT (12:18)
[2025-01-24] MEDS: SIMETHICONE ORAL SUSPENSION 20 MG/0.3 ML 30 ML BOTTLE 1.8 ML PO (12:20)
--- NOTE | 2025-01-24 12:53 | WPDANESEPPF ---
Anes - Initial Pre Proc Eval Procedure: Operation Date: 01/24/25 13:00 Proposed Procedures p Esophagogastroduodenoscopy EGD - Philipp Perez MD Date/Time: 01/24/25 12:53 Surgeon: Philipp Perez MD Pre Op Diagnosis: Dysphagia, other disease of esophagus Patient Data Age: 74 Gender: M Height: 1.78 m Weight: 92.8 kg Last Vital Signs Temp 36.5 C 01/24/25 12:07 Pulse 48 L 01/24/25 12:07 Resp 18 01/24/25 12:07 BP 171/62 H 01/24/25 12:07 Pulse Ox 99 01/24/25 12:07 O2 Del Method Room Air 01/24/25 12:07 Allergies Allergy/AdvReac Type Severity Reaction Status Date / Time lisinopril Allergy Severe Swelling Verified 01/24/25 12:02 of Lip/Tongue/Throat vancomycin Allergy Severe angioedema Verified 01/24/25 12:02 Home Medications ?Medication ?Instructions ?Recorded ?Confirmed ?Type aspirin 325 mg tablet 325 mg PO HS 08/02/19 01/24/25 History owudxvjcyogd-xjk-vwijz acid-vit 1 tablet PO DAILY 04/13/21 01/24/25 History K-lycop 400 mcg-20 mcg-370 mcg tablet (Men's 50 Plus Multivitamin) fiber 4 cap PO DAILY 05/16/21 01/24/25 History blood-glucose meter (Blood Glucose #1 ea 06/24/21 01/04/25 Rx Monitoring kit) lancets #200 ea 06/24/21 01/04/25 Rx lancets (Accu-Chek Fastclix Lancet #100 ea 10/12/22 01/04/25 Rx Drum) vitamin B complex (B 1 tablet PO DAILY 02/14/23 01/24/25 History Complex-Vitamin B12 tablet) metformin 1,000 mg tablet 1,000 mg PO BID #180 tabs 03/17/24 01/24/25 Rx metoprolol succinate 100 mg 100 mg PO DAILY #90 tabs 03/17/24 01/24/25 Rx tablet,extended release 24 hr blood sugar diagnostic (Blood #100 ea 03/21/24 01/04/25 Rx Glucose Test strips) amlodipine 5 mg tablet See Rx Instructions .Route 03/23/24 01/24/25 Rx .COMPLEX #90 tabs lancets 33 gauge #100 ea 06/27/24 01/04/25 Rx albuterol sulfate 90 mcg/actuation 1 puff inhalation Q4H PRN 09/24/24 12/11/24 Rx aerosol inhaler (Ventolin HFA) shortness of breath or wheezing #8.5 grams zolpidem 10 mg tablet 10 mg PO HS PRN insomnia #90 tabs 10/16/24 12/11/24 Rx Lactobacillus acidophilus 10 100 mmu cells PO DAILY 10/23/24 01/24/25 History billion cell capsule (Probacap) atorvastatin 10 mg tablet 10 mg PO DAILY #90 tabs 11/07/24 01/24/25 Rx pantoprazole 40 mg tablet,delayed 40 mg PO QAM #30 tabs 12/18/24 01/24/25 Rx release citalopram 20 mg tablet 20 mg PO DAILY #90 tabs 01/04/25 01/24/25 Rx Laboratory Tests 01/24/25 12:20 POC Capillary Glucose 113 H mg/dl (65-105) Patient hx anesthesia problems: none Family hx anesthesia problems: none Results Review: All pre-operative results and documents have been reviewed as part of the pre-operative evaluation. [facility] Past Medical History Medical History Diabetic ulcer of left foot Chronic kidney disease, stage 3 Stage 3a chronic kidney disease Type 2 diabetes mellitus Essential (primary) hypertension Depression Colon cancer screening Hyperlipidemia associated with type 2 diabetes mellitus Insomnia 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 Wing Status post open reduction with internal fixation of fracture Left ankle ORIF [address] Tyler Family History Family History Father Myocardial infarct Family history of coronary artery disease, Onset Age: 66 Lung cancer Mother Leukemia Family history of coronary artery disease, Onset Age: 70 Diabetes mellitus Sibling Multiple sclerosis Sister Diabetes mellitus Social History Social History Social History: Surrogate medical decision maker: Krishna Bergeron, daughter. Code status: Full code. Smoking packs per day: 1 Smoking cigarettes per day: 20.0 Years smoked: 20 Smoking pack-years: 20.00 Smoking status: Former smoker Tobacco type: cigarettes Second hand tobacco smoke exposure: No Alcohol intake: never Substance use: former Substance use type: marijuana Other substance usage details: daily Last use: 05/29/21 Do You Feel Safe in your Home?: Yes Lack of Transportation: No Lack of Food: Never True Current Housing: I Have Housing Concerned About Future Housing: No Difficulty Paying Gas/Electric Bills: No Difficulty Paying for Meds: No Currently Unemployed: No Education: High School Diploma/GED Difficulty w/ Childcare or Family Care: No Living arrangements: alone Additional living arrangements comments: . Lives in [place]. Has 1 daughter. 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 Spiritual care concerns: No Anes - Eval Final PreProcedure Day of Procedure 01/24/25 12:53 Patient weight: overweight Heart: regular rate and rhythm Lungs: clear to auscultation Airway: Mallampati scale class II Neurological: alert and oriented Last oral intake: >/= 8 hours ASA classification: III Emergent: no Anesthetic plan: proceed Anesthesia type and monitoring: general GIVS and standard monitoring Results Review: All pre-operative results and documents have been reviewed as part of the pre-operative evaluation. Informed Consent: The patient's anesthetic plan and its attendant risks and benefits were discussed with the patient/family/POA. Questions were solicited and answers provided to the satisfaction of the patient/family/POA.
--- NOTE | 2025-01-24 13:09 | PM.IMHP ---
H&P: HPI History of Present Illness Date/Time: 01/24/25 13:09 Chief Complaint: GERD Narrative: the patient has longstanding GERD, however is well controlled with pantoprazole 40 mg which he takes once a day. He is referred for EGD Review of Systems Review of Systems: All systems reviewed & are unremarkable except as noted in HPI and below PMFSH Past Medical History Medical History Diabetic ulcer of left foot Chronic kidney disease, stage 3 Stage 3a chronic kidney disease Type 2 diabetes mellitus Essential (primary) hypertension Depression Colon cancer screening Hyperlipidemia associated with type 2 diabetes mellitus Insomnia 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 Wing Status post open reduction with internal fixation of fracture Left ankle ORIF [address] Tyler Family History Family History Father Myocardial infarct Family history of coronary artery disease, Onset Age: 66 Lung cancer Mother Leukemia Family history of coronary artery disease, Onset Age: 70 Diabetes mellitus Sibling Multiple sclerosis Sister Diabetes mellitus Social History Social History Social History: Surrogate medical decision maker: Krishna Bergeron, daughter. Code status: Full code. Smoking packs per day: 1 Smoking cigarettes per day: 20.0 Years smoked: 20 Smoking pack-years: 20.00 Smoking status: Former smoker Tobacco type: cigarettes Second hand tobacco smoke exposure: No Alcohol intake: never Substance use: former Substance use type: marijuana Other substance usage details: daily Last use: 05/29/21 Do You Feel Safe in your Home?: Yes Lack of Transportation: No Lack of Food: Never True Current Housing: I Have Housing Concerned About Future Housing: No Difficulty Paying Gas/Electric Bills: No Difficulty Paying for Meds: No Currently Unemployed: No Education: High School Diploma/GED Difficulty w/ Childcare or Family Care: No Living arrangements: alone Additional living arrangements comments: . Lives in [place]. Has 1 daughter. 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 Spiritual care concerns: No Meds Home Medications and Allergies Home Medications ?Medication ?Instructions ?Recorded ?Confirmed ?Type aspirin 325 mg tablet 325 mg PO HS 08/02/19 01/24/25 History agrvfpraddxq-hzr-zgvby acid-vit 1 tablet PO DAILY 04/13/21 01/24/25 History K-lycop 400 mcg-20 mcg-370 mcg tablet (Men's 50 Plus Multivitamin) fiber 4 cap PO DAILY 05/16/21 01/24/25 History blood-glucose meter (Blood Glucose #1 ea 06/24/21 01/04/25 Rx Monitoring kit) lancets #200 ea 06/24/21 01/04/25 Rx lancets (Accu-Chek Fastclix Lancet #100 ea 10/12/22 01/04/25 Rx Drum) vitamin B complex (B 1 tablet PO DAILY 02/14/23 01/24/25 History Complex-Vitamin B12 tablet) metformin 1,000 mg tablet 1,000 mg PO BID #180 tabs 03/17/24 01/24/25 Rx metoprolol succinate 100 mg 100 mg PO DAILY #90 tabs 03/17/24 01/24/25 Rx tablet,extended release 24 hr blood sugar diagnostic (Blood #100 ea 03/21/24 01/04/25 Rx Glucose Test strips) amlodipine 5 mg tablet See Rx Instructions .Route 03/23/24 01/24/25 Rx .COMPLEX #90 tabs lancets 33 gauge #100 ea 06/27/24 01/04/25 Rx albuterol sulfate 90 mcg/actuation 1 puff inhalation Q4H PRN 09/24/24 12/11/24 Rx aerosol inhaler (Ventolin HFA) shortness of breath or wheezing #8.5 grams zolpidem 10 mg tablet 10 mg PO HS PRN insomnia #90 tabs 10/16/24 12/11/24 Rx Lactobacillus acidophilus 10 100 mmu cells PO DAILY 10/23/24 01/24/25 History billion cell capsule (Probacap) atorvastatin 10 mg tablet 10 mg PO DAILY #90 tabs 11/07/24 01/24/25 Rx pantoprazole 40 mg tablet,delayed 40 mg PO QAM #30 tabs 12/18/24 01/24/25 Rx release citalopram 20 mg tablet 20 mg PO DAILY #90 tabs 01/04/25 01/24/25 Rx Allergies Allergy/AdvReac Type Severity Reaction Status Date / Time lisinopril Allergy Severe Swelling Verified 01/24/25 12:02 of Lip/Tongue/Throat vancomycin Allergy Severe angioedema Verified 01/24/25 12:02 Vital Signs Vital Signs - 24 hr 01/24/25 12:07 Temperature 97.7 F Pulse Rate 48 L Respiratory Rate 18 Blood Pressure 171/62 H Pulse Oximetry 99 Oxygen Delivery Room Air Exam Const: General: cooperative and healthy appearing Resp: Effort & Inspection: normal respiratory effort and able to speak in complete sentences Auscultation: clear to auscultation bilaterally Cardio: Rate: regular rate Rhythm: regular rhythm GI: Inspection: normal to inspection GI Palp: No No hepatosplenomegaly present Auscultation: normal bowel sounds Rectal Exam: deferred Skin: General skin exam: normal color Psych: Appearance: grossly normal Mental Status: mental status grossly normal Assessment and Plan Assessment and plan (1) GERD (gastroesophageal reflux disease): Code(s): K21.9 - Gastro-esophageal reflux disease without esophagitis Status: Acute Assessment and Plan: The patient is deemed a good candidate for the procedure. Consent signed. Will proceed.
--- NOTE | 2025-01-24 13:18 | S_PTH ---
PATIENT: Brandon Bergeron LOC: [facility] U#:[id number] AGE/SX: 74/M ROOM: RE01/24/[address]: Philipp Perez MD : 1950 BED: DIS: 01/24/2025 SPEC #: [id number] RECD: 01/24/25 14:17 STATUS: MAXWELL REQ #: [id number] SANG: 01/24/25 13:[address]: Philipp Perez DEPT: [facility] Surgical RECD BY: Judith Moreira ENTERED: 01/24/25 14:18 SP TYPE: Surgical OTHR DR: Allie AlanMD Tissues: A - Gastric Biopsy B - Gastric Biopsy Procedures: Hematoxylin and Eosin Stain Gross and Microscopic Level 4
[2025-01-24 13:20] VITALS: BP 115/56; PULSE 47; RESP 19; O2SAT 96
[2025-01-24 13:30] VITALS: BP 129/62; PULSE 44; RESP 16; O2SAT 96
[2025-01-24 13:40] VITALS: BP 145/65; PULSE 42; RESP 16; O2SAT 97
== END 2025-01-24 13:59 | disposition home or self-care (01) ==
PROVIDERS: PCP Family Medicine; Referring Provider Family Medicine; Visit Provider Internal Medicine Gastroenterology
PROC: 0DJ08ZZ Inspection of Upper Intestinal Tract, Via Natural or Artificial Opening Endoscopic (ICD-10-PCS; CPT 43239; principal; 2025-01-24 13:00)
DX: K21.9 Gastro-esophageal reflux disease without esophagitis (principal); K29.51 Unspecified chronic gastritis with bleeding; I12.9 Hypertensive chronic kidney disease with stage 1 through stage 4 chronic kidney disease, or unspecified chronic kidney disease; E11.22 Type 2 diabetes mellitus with diabetic chronic kidney disease; N18.31 Chronic kidney disease, stage 3a; I48.0 Paroxysmal atrial fibrillation; Z87.891 Personal history of nicotine dependence
CPT/HCPCS: 43239; 82948; 88305; J2003; J2704; J7120

== ENCOUNTER 2025-04-26 18:07 | Emergency (ER) | payer MEDICARE, SELFPAY ==
--- OUTSIDE RECORDS SUMMARY | 2020-12-31 19:00 | XMS_ITS | Continuity of Care Document ---
Author Organization [facility] Address [address] [place] [address] Phone Care Team Providers Care Occupational Therapy Professor Name Role Phone Merritt Farias DPM Unavailable Unavailab le Allergies, Adverse Reactions, Alerts Substance Reaction Status Criticality No Known Allergies Active No Inform ation Medications Medication Instructions Dosage Effective Dates (start - stop) Status Comments omeprazole 20 mg capsule,delayed release take 1 capsule by oral route every day 30 minutes to 1 hour before a meal 20 MG - Active aspirin 325 mg tablet take 1 tablet by o ral route every day 325 MG - Active zolpidem 10 mg tablet take 1 tablet by o ral route every day at bedtime 10 MG - Active metformin 500 mg tablet take 1 tablet by oral route 2 times every day with morning and evening meals 500 MG - Active metformin 500 mg tablet take 1 tablet by oral route 2 times every day with morning and evening meals 500 MG - Active citalopram 10 mg tablet take 1 tablet by oral route every day 10 MG - Active Kapspargo Sprinkle 100 mg capsule,extended release take 1 capsule by oral route every day 100 MG - Active lisinopril 40 mg tablet take 1 tablet by oral route 2 times every day 40 MG - Active amlodipine 2.5 mg tablet take 1 tablet by oral route every day 2.5 MG - Active Procedures Procedure Date 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 Debridement, SUBQ, Skin/Tissue, 1st 20sq cm/< DEBRIDE NAIL, 6 OR MORE Debridement, SUBQ, Skin/Tissue, 1st 20sq cm/< Debridement, SUBQ, Skin/Tissue, 1st 20sq cm/< Debridement, SUBQ, Skin/Tissue, 1st 20sq cm/< Debridement, SUBQ, Skin/Tissue, 1st 20sq cm/< Debridement, SUBQ, Skin/Tissue, 1st 20sq cm/< Debridement, SUBQ, Skin/Tissue, 1st 20sq cm/< Debridement, SUBQ, Skin/Tissue, 1st 20sq cm/< Debridement, SUBQ, Skin/Tissue, 1st 20sq cm/< Debridement, SUBQ, Skin/Tissue, 1st 20sq cm/< DEBRIDE NAIL, 6 OR MORE Debridement, SUBQ, Skin/Tissue, 1st 20sq cm/< TRIM SKIN LESIONS, 2 TO 4 DEBRIDE NAIL, 6 OR MORE TRIM SKIN LESIONS, 2 TO 4 DEBRIDE NAIL, 6 OR MORE TRIM SKIN LESIONS, 2 TO 4 DEBRIDE NAIL, 6 OR MORE OFFICE/OUTPATIENT VISIT, EST DEBRIDE NAIL, 6 OR MORE TRIM SKIN LESIONS, 2 TO 4 DEBRIDE NAIL, 6 OR MORE OFFICE/OUTPATIENT VISIT, EST TRIM SKIN LESIONS, 2 TO 4 DEBRIDE NAIL, 6 OR MORE TRIM SKIN LESIONS, 2 TO 4 ACTIVE WOUND CARE/20 CM OR < ACTIVE WOUND CARE/20 CM OR < OFFICE/OUTPATIENT VISIT, EST ACTIVE WOUND CARE/20 CM OR < ACTIVE WOUND CARE/20 CM OR < OFFICE/OUTPATIENT VISIT, EST OFFICE/OUTPATIENT VISIT, EST ACTIVE WOUND CARE/20 CM OR < LESLEE SKIN SUB GRFT NOT TRUNK,ARM,LEG UPTO 100 SQ CM Dermagraft skin sub 37.5 LESLEE SKIN SUB GRFT NOT TRUNK,ARM,LEG UPTO 100 SQ CM Dermagraft skin sub 37.5 OFFICE/OUTPATIENT VISIT, EST TRIM SKIN LESIONS, 2 TO 4 REMOVAL/REVISION OF CAST LESLEE SKIN SUB GRFT NOT TRUNK,ARM,LEG UPTO 100 SQ CM Dermagraft skin sub 37.5 OFFICE/OUTPATIENT VISIT, EST REMOVAL/REVISION OF CAST DEBRIDE SKIN/TISSUE WOUND PREP, F/N/HF/G DEBRIDE SKIN/TISSUE OFFICE/OUTPATIENT VISIT, EST ACTIVE WOUND CARE/20 CM OR < Void Encounter Number OFFICE/OUTPATIENT VISIT, EST DEBRIDE SKIN/TISSUE OFFICE/OUTPATIENT VISIT, EST DEBRIDE SKIN/TISSUE OFFICE/OUTPATIENT VISIT, EST DEBRIDE SKIN/TISSUE OFFICE/OUTPATIENT VISIT, EST DEBRIDE SKIN/TISSUE Advance Directives Directive Yes / No Effective Date File Name No Information Encounters Encounter Description Practice Location Reason(s) For Visit Diagnoses Date Provider Providers Copied on Encounter [facility] Physician [facility], [address] [place] [address], [id number], tel:[phone] [facility] Podiatry No Information 1 Jarrett Bang. [address] [place] [address], [id number], [place]. tel:[phone] Referring Provider: Merritt Blanco, [address] [place] [address], [id number] . tel:[phone] [facility], [address] [place] [address], [id number], tel:[phone] [facility] Podiatry f/u L foot ulcer (chief complaint) Ulcer of left foot, limited to breakdown of skinUlcer of left foot due to type 2 diabetes mellitusOnychomycos is of multiple toenails with type 2 diabetes mellitusTinea unguium 1 Jarrett Bang. [address] [place] [address], [id number], [place]. tel:[phone] Referring Provider: Merritt Blanco, [address] [place] [address], [id number] . tel:[phone] [facility], [address] [place] [address], [id number], [place] tel:[phone] [facility] Podiatry f/u L foot ulcer (chief complaint) Ulcer of left foot, limited to breakdown of skinUlcer of left foot due to type 2 diabetes mellitus 1 Jarrett Bang. [address] [place] [address], [id number], [place]. tel:[phone] [facility], [address] [place] [address], [id number], [place] tel:[phone] [facility] Podiatry L foot ulcer (chief complaint) Ulcer of left foot, limited to breakdown of skinUlcer of left foot due to type 2 diabetes mellitus 1 Jarrett Bang. [address] [place] [address], [id number], [place]. tel:[phone] [facility], [address] [place] [address], [id number], [place] tel:[phone] [facility] Podiatry f/u L foot ulcer (chief complaint) Ulcer of left foot due to type 2 diabetes mellitusUlcer of left foot, limited to breakdown of skin 1 Jarrett Bang. [address] [place] [address], [id number], [place]. tel:[phone] Referring Provider: Merritt Blanco, [address] [place] [address], [id number] . tel:[phone] [facility], [address] [place] [address], [id number], [place] tel:[phone] [facility] L foot ulcer (chief complaint) Ulcer of left foot with fat layer exposedUlcer of left foot due to type 2 diabetes mellitus 1 Jarrett Bang. [address] [place] [address], [id number], . tel:[phone] Referring Provider: Merritt Blanco, [address] [place] [address], [id number] . tel:[phone] [facility], [address] [place] [address], [id number], [place] tel:[phone] [facility] Podiatry L foot ulcer (chief complaint) Ulcer of left foot with fat layer exposedUlcer of left foot due to type 2 diabetes mellitus 1 Jarrett Bang. [address] [place] [address], [id number], . tel:[phone] Referring Provider: Merritt Blanco, [address] [place] [address], [id number] . tel:[phone] [facility], [address] [place] [address], [id number], [place] tel:[phone] [facility] Podiatry L foot ulcer (chief complaint) Ulcer of left foot with fat layer exposedUlcer of left foot due to type 2 diabetes mellitus Sep- 0- 1 Jarrett Bang. [address] [place] [address], [id number], [place]. tel:[phone] [facility], [address] [place] [address], [id number], [place] tel:[phone] [facility] Podiatry L foot ulcer (chief complaint) Ulcer of left foot, limited to breakdown of skinUlcer of left foot due to type 2 diabetes mellitus 1 Jarrett Bang. [address] [place] [address], [id number], [place]. tel:[phone] [facility], [address] [place] [address], [id number], [place] tel:[phone] [facility] Podiatry f/u L foot ulcer (chief complaint) Ulcer of left foot, limited to breakdown of skinUlcer of left foot due to type 2 diabetes mellitus 1 Jarrett Bang. [address] [place] [address], [id number], [place]. tel:[phone] [facility], [address] [place] [address], [id number], tel:[phone] [facility] Podiatry f/u L foot ulcer (chief complaint) Ulcer of left foot, limited to breakdown of skinUlcer of left foot due to type 2 diabetes mellitusOnychomycos is of multiple toenails with type 2 diabetes mellitusTinea unguium 1 Jarrett Bang. [address] [place] [address], [id number], . tel:[phone] [facility], [address] [place] [address], [id number], tel:[phone] [facility] Podiat[facility] L foot wound (chief complaint) Ulcer of left foot with fat layer exposedUlcer of left foot due to type 2 diabetes mellitus 1 Jarrett Bang. [address] [place] [address], [id number], [place]. tel:[phone] Referring Provider: Merritt Blanco, [address] [place] [address], [id number] . tel:[phone] [facility], [address] [place] [address], [id number], tel:[phone] [facility] Podiatry routine foot care (chief complaint) Onychomycosis of multiple toenails with type 2 diabetes mellitusTinea unguiumCallus of foot 0 Jarrett Bang. [address] [place] [address], [id number], [place]. tel:[phone] Referring Provider: Merritt Blanco, [address] [place] [address], [id number] . tel:[phone] [facility], [address] [place] [address], [id number], [place] tel:[phone] [facility] Podiatry routine foot care (chief complaint) Callus of footType 2 diabetes mellitus with diabetic neuropathy, without long-term current use of insulinOnychomycosi s due to dermatophyte 0 Jarrett Bang. [address] [place] [address], [id number], [place]. tel:[phone] Referring Provider: Merritt Blanco, [address] [place] [address], [id number] . tel:[phone] [facility], [address] [place] [address], [id number], [place] tel:[phone] [facility] routine foot care (chief complaint) Callus of footOnychomycosis due to dermatophyteType 2 diabetes mellitus with diabetic neuropathy, without long-term current use of insulin 0 Jarrett Bang. [address] [place] [address], [id number], [place]. tel:[phone] Referring Provider: Merritt Blanco, [address] [place] [address], [address] . tel:[phone] OFFICE/OUTPA TIENT VISIT, [facility], [address] [place] [address], [id number], [place] tel:[phone] [facility] Podiatry routine foot care (chief complaint) Type 2 diabetes mellitus with diabetic neuropathy, without long-term current use of insulinOnychomycosi s due to dermatophyteCallus of foot 0 Jarrett Bang. [address] [place] [address], [id number], [place]. tel:[phone] [facility], [address] [place] [address], [id number], [place] tel:[phone] [facility] Podiatry routine foot care (chief complaint) Callus of footOnychomycosis due to dermatophyteType 2 diabetes mellitus with diabetic neuropathy, without long-term current use of insulinPlantar flexed metatarsal bone of left footPlantar flexed metatarsal bone of right foot 9 Jarrett Bang. [address] [place] [address], [id number], [place]. tel:[phone] Referring Provider: Merritt Blanco, [address] [place] [address], [id number] . tel:[phone] OFFICE/OUTPA TIENT VISIT, EST [facility], [address] [place] [address], [id number], [place] tel:[phone] [facility] Podiat[facility] Routine Foot Care (chief complaint) Callus of footOnychomycosis due to dermatophyteType 2 diabetes mellitus with diabetic neuropathy, without long-term current use of insulinPlantar flexed metatarsal bone of left footPlantar flexed metatarsal bone of right foot 9 Jarrett Bang. [address] [place] [address], [id number], [place]. tel:[phone] [facility], [address] [place] [address], [id number], [place] tel:[phone] [facility] Podiatry f/u on left foot wound (chief complaint) routine foot care (chief complaint) Callus of footType 2 diabetes mellitus with diabetic neuropathy, without long-term current use of insulinOnychomycosi s due to dermatophyte Jarrett Bang. [address] [place] [address], [id number], [place]. tel:[phone] [facility], [address] [place] [address], [id number], [place] tel:[phone] [facility] Left Foot Wound (chief complaint) Callus of footType 2 diabetes mellitus with diabetic neuropathy, without long-term current use of insulinStage III pressure ulcer of left ankle 9 Ayaan Diaz. [facility] Physician Office [facility], [place], [place], [id number], [place]. tel:[phone] [facility], [address] [place] [address], [id number], [place] tel:[phone] [facility] left foot wounds (chief complaint) Stage III pressure ulcer of left ankleCallus of footType 2 diabetes mellitus with diabetic neuropathy, without long-term current use of insulin Ayaan Diaz. [address] [facility] Physician Office [place], [place], [id number], [place]. tel:[phone] OFFICE/OUTPA TIENT VISIT, [facility] Physician [facility], [address] [place] [address], [id number], [place] tel:[phone] [facility] left foot wounds (chief complaint) Stage III pressure ulcer of left ankleCallus of footType 2 diabetes mellitus with diabetic neuropathy, without long-term current use of insulin Tomas Deluna. [address] [facility] Physician Office [facility], [place], [place], [id number], [place]. tel:[phone] [facility] Physician [facility], [address] [place] [address], [id number], [place] tel:[phone] [facility] Right Foot Wound (chief complaint) Stage III pressure ulcer of left ankleCallus of footType 2 diabetes mellitus with diabetic neuropathy, without long-term current use of insulin Ayaan Diaz. [facility] Physician Office [place], [place], [id number], [place]. tel:[phone] Referring Provider: Emily Portillo, [address] [facility] Physician Office Building, [place], [address] . tel:[phone] OFFICE/OUTPA TIENT VISIT, [facility] Physician [facility], [address] [place] [address], [id number], [place] tel:[phone] [facility] Right Foot Wound (chief complaint) Stage III pressure ulcer of left ankleCallus of footType 2 diabetes mellitus with diabetic neuropathy, without long-term current use of insulin Ayaan Diaz. [facility] Physician Office Building, [place], [place], [id number], [place]. tel:[phone] OFFICE/OUTPA TIENT VISIT, [facility], [address] [place] [address], [id number], [place] tel:[phone] [facility] Right Foot Wound (chief complaint) Diabetic ulcer of other part of right foot associated with type 2 diabetes mellitus, with fat layer exposedNon-pressure chronic ulcer of other part of right foot with fat layer exposed Mar-2 9 Tomas Deluna. [address] [facility] Physician Office Building, [place], [place], [id number], [place]. tel:[phone] [facility], [address] [place] [address], [id number], [place] tel:[phone] [facility] Wound Care Right Foot Wound (chief complaint) Diabetic ulcer of other part of right foot associated with type 2 diabetes mellitus, with fat layer exposedNon-pressure chronic ulcer of other part of right foot with fat layer exposed Mar-1 9 Ayaan Diaz. [facility] Physician Office Building, [place], [place], [id number], [place]. tel:[phone] [facility], [address] [place] [address], [id number], [place] tel:[phone] [facility] Wound Care right foot wound (chief complaint) Diabetic ulcer of other part of right foot associated with type 2 diabetes mellitus, with fat layer exposedNon-pressure chronic ulcer of other part of right foot with fat layer exposed Mar-0 9 Tomas Deluna. [facility] Physician Office Building, [place], [place], [id number], [place]. tel:[phone] OFFICE/OUTPA TIENT VISIT, [facility], [address] [place] [address], [id number], [place] tel:[phone] [facility] Podiatry F/U on bilateral foot ulcers (chief complaint) Non-pressure chronic ulcer of other part of right foot with fat layer exposedType 2 diabetes mellitus with foot ulcer, unspecified whether terminal gauger supervisor insulin usePre-ulcerative calluses Mar-0 9 Jarrett Bang. [address] [place] [address], [id number], [place]. tel:[phone] Referring Provider: Merritt Blanco, [address] [place] [address], [id number] . tel:[phone] [facility], [address] [place] [address], [id number], [place] tel:[phone] [facility] Right Foot Wound (chief complaint) Diabetic ulcer of other part of right foot associated with type 2 diabetes mellitus, with fat layer exposedNon-pressure chronic ulcer of other part of right foot with fat layer exposed 9 Ayaan Emily. [address] [facility] Physician Office Building, [place], [place], [id number], [place]. tel:[phone] OFFICE[facility]PA TIENT VISIT, [facility], [address] [place] [address], [id number], [place] tel:[phone] [facility] Podiatry diabetic foot exam (chief complaint) f/u b/l foot ulcers (chief complaint) Type 2 diabetes mellitus with diabetic neuropathy, without long-term current use of insulinSkin ulcer of left foot, limited to breakdown of skinSkin ulcer of right foot with fat layer exposed 9 Jarrett Bang. [address] [place] [address], [id number], [place]. tel:[phone] Referring Provider: Merritt Blanco, [address] [place] [address], [id number] . tel:[phone] [facility], [address] [place] [address], [id number], [place] tel:[phone] [facility] Wound Care right foot wound (chief complaint) Diabetic ulcer of other part of right foot associated with type 2 diabetes mellitus, with fat layer exposedNon-pressure chronic ulcer of other part of right foot with fat layer exposedSkin ulcer of left foot, limited to breakdown of skinAvulsion of toenail of left foot 9 Tomas Deluna. [facility] Physician Office Building, [place], [place], [id number], [place]. tel:[phone] [facility], [address] [place] [address], [id number], [place] tel:[phone] [facility] Podiatry f/u bilateral DFU (chief complaint) Skin ulcer of left foot, limited to breakdown of skinType 2 diabetes mellitus with diabetic neuropathy, without long-term current use of insulinSkin ulcer of right foot with fat layer exposed 9 Jarrett Bang. [address] [place] [address], [id number], [place]. tel:[phone] OFFICE/OUTPA TIENT VISIT, [facility], [address] [place] [address], [id number], [place] tel:[phone] [facility] Diabetic ulcer of other part of right foot associated with type 2 diabetes mellitus, with fat layer exposedNon-pressure chronic ulcer of other part of right foot with fat layer exposedNon-pressure chronic ulcer of other part of left foot limited to breakdown of skin 9 Tomas Deluna. [facility] Physician Office Building, [place], [place], [id number], [place]. tel:[phone] [facility], [address] [place] [address], [id number], [place] tel:[phone] [facility] No Information 9 Ayaan Diaz. [address] [place] [address] Physician Office Building, [place], [place], [id number], [place]. tel:[phone] Referring Provider: Merritt Blanco, [address] [place] [address], [id number] . tel:[phone] OFFICE/OUTPA TIENT VISIT, [facility], [address] [place] [address], [id number], [place] tel:[phone] [facility] Right Foot Wound (chief complaint) Diabetic ulcer of other part of right foot associated with type 2 diabetes mellitus, with fat layer exposedNon-pressure chronic ulcer of other part of right foot with fat layer exposedCallus of foot 9 Ayaan Diaz. [facility] Physician Office Building, [place], [place], [id number], . tel:[phone] Referring Provider: Merritt Blanco, [address] [place] [address], [id number] . tel:[phone] OFFICE/OUTPA TIENT VISIT, [facility], [address] [place] [address], [id number], tel:[phone] [facility] Podiatry F/U on Diabetic Ulcer on right foot (chief complaint) Type 2 diabetes mellitus with diabetic neuropathy, without long-term current use of insulinSkin ulcer of right foot with fat layer exposedSkin ulcer of left foot, limited to breakdown of skin Jarrett Bang. [address] [place] [address], [id number], . tel:[phone] OFFICE/OUTPA TIENT VISIT, [facility], [address] [place] [address], [id number], tel:[phone] [facility] Podiatry F/U on Diabetic Ulcer on Right Foot (chief complaint) Type 2 diabetes mellitus with diabetic neuropathy, without long-term current use of insulinSkin ulcer of right foot with fat layer exposed Jarrett Bang. [address] [place] [address], [id number], . tel:[phone] Referring Provider: Merritt Blanco, [address] [place] [address], [id number] . tel:[phone] OFFICE/OUTPA TIENT VISIT, [facility], [address] [place] [address], [id number], [place] tel:[phone] [facility] - OP No Information Jarrett Bang. [address] [place] [address], [id number], . tel:[phone] Family History Family Member Type Diagnosis Age At Onset No Information Payers Payer name Insurance type Covered green party ID Authorsala delilah(s) Medicare MB [id number] [id number] Social History Type Description Quantity Date Captured Comments Sex Male Smoking Status No Information Chief Complaint And Reason For Visit No Information Reason For Referral Reason For Referral No Information Plan Of Treatment Date Type Action Status Goal Colonoscopy. Due on due Goal Tdap. Due on due Goal FOBT. Due on due Goal Medicare wellness visit. Due on due Goal Pneumococcal 13 (Prevnar). D ue on due Goal FIT-DNA (Colorectal CA Scree gladys). Due on due Goal Td vaccine. Due on due Goal Annual Physical Exam. Due on due Goal Pneumococcal vaccine (Pneumo vax). Due on due Goal FIT-DNA (Colorectal CA Scree gladys). Due on due Goal Annual Physical Exam. Due on due Goal Tdap. Due on due Goal Td vaccine. Due on due Goal Medicare wellness visit. Due on due Goal Pneumococcal vaccine (Pneumo vax). Due on due Goal FOBT. Due on due Goal Pneumococcal 13 (Prevnar). D ue on due Goal Colonoscopy. Due on due Goal Annual Physical Exam. Due on due Goal Tdap. Due on due Goal Pneumococcal vaccine (Pneumo vax). Due on due Goal FIT-DNA (Colorectal CA Scree gladys). Due on due Goal Colonoscopy. Due on due Goal Medicare wellness visit. Due on due Goal Pneumococcal 13 (Prevnar). D ue on due Goal FOBT. Due on due Goal Td vaccine. Due on due Goal FOBT. Due on due Goal FIT-DNA (Colorectal CA Scree gladys). Due on due Goal Colonoscopy. Due on due Goal Annual Physical Exam. Due on due Goal Td vaccine. Due on due Goal Pneumococcal 13 (Prevnar). D ue on due Goal Medicare wellness visit. Due on due Goal Tdap. Due on due Goal Pneumococcal vaccine (Pneumo vax). Due on due Goal Pneumococcal vaccine (Pneumo vax). Due on due Goal Pneumococcal 13 (Prevnar). D ue on due Goal Medicare wellness visit. Due on due Goal Annual Physical Exam. Due on due Goal Td vaccine. Due on due Goal FIT-DNA (Colorectal CA Scree gladys). Due on due Goal Tdap. Due on due Goal Colonoscopy. Due on due Goal FOBT. Due on due Goal Medicare wellness visit. Due on due Goal FOBT. Due on due Goal Tdap. Due on due Goal FIT-DNA (Colorectal CA Scree gladys). Due on due Goal Pneumococcal 13 (Prevnar). D ue on due Goal Annual Physical Exam. Due on due Goal Td vaccine. Due on due Goal Colonoscopy. Due on due Goal Pneumococcal vaccine (Pneumo vax). Due on due Goal FOBT. Due on due Goal FIT-DNA (Colorectal CA Scree gladys). Due on due Goal Medicare wellness visit. Due on due Goal Td vaccine. Due on due Goal Tdap. Due on due Goal Annual Physical Exam. Due on due Goal Pneumococcal 13 (Prevnar). D ue on due Goal Pneumococcal vaccine (Pneumo vax). Due on due Goal Colonoscopy. Due on due Goal Colonoscopy. Due on due Goal FOBT. Due on due Goal FIT-DNA (Colorectal CA Scree gladys). Due on due Goal Medicare wellness visit. Due on due Goal Tdap. Due on due Goal Pneumococcal 13 (Prevnar). D ue on due Goal Annual Physical Exam. Due on due Goal Pneumococcal vaccine (Pneumo vax). Due on due Goal Td vaccine. Due on due Goal Pneumococcal 13 (Prevnar). D ue on due Goal Tdap. Due on due Goal Colonoscopy. Due on due Goal Medicare wellness visit. Due on due Goal Annual Physical Exam. Due on due Goal FIT-DNA (Colorectal CA Scree gladys). Due on due Goal Pneumococcal vaccine (Pneumo vax). Due on due Goal Td vaccine. Due on due Goal FOBT. Due on due Goal Pneumococcal vaccine (Pneumo vax). Due on due Goal Colonoscopy. Due on due Goal Annual Physical Exam. Due on due Goal Medicare wellness visit. Due on due Goal FOBT. Due on due Goal Pneumococcal 13 (Prevnar). D ue on due Goal FIT-DNA (Colorectal CA Scree gladys). Due on due Goal Tdap. Due on due Goal Td vaccine. Due on due Goal Colonoscopy. Due on due Goal FIT-DNA (Colorectal CA Scree gladys). Due on due Goal Pneumococcal 13 (Prevnar). D ue on due Goal FOBT. Due on due Goal Annual Physical Exam. Due on due Goal Td vaccine. Due on due Goal Medicare wellness visit. Due on due Goal Tdap. Due on due Goal Pneumococcal vaccine (Pneumo vax). Due on due Goal Pneumococcal 13 (Prevnar). D ue on due Goal FIT-DNA (Colorectal CA Scree gladys). Due on due Goal FOBT. Due on due Goal Tdap. Due on due Goal Colonoscopy. Due on due Goal Annual Physical Exam. Due on due Goal Td vaccine. Due on due Goal Pneumococcal vaccine (Pneumo vax). Due on due Goal Medicare wellness visit. Due on due Goal FIT-DNA (Colorectal CA Scree gladys). Due on due Goal Pneumococcal vaccine (Pneumo vax). Due on due Goal Td vaccine. Due on due Goal Medicare wellness visit. Due on due Goal Colonoscopy. Due on due Goal Pneumococcal 13 (Prevnar). D ue on due Goal Tdap. Due on due Goal Annual Physical Exam. Due on due Goal FOBT. Due on due Goal FIT-DNA (Colorectal CA Scree gladys). Due on due Goal FOBT. Due on due Goal Medicare wellness visit. Due on due Goal Colonoscopy. Due on due Goal Pneumococcal 13 (Prevnar). D ue on due Goal Td vaccine. Due on due Goal Pneumococcal vaccine (Pneumo vax). Due on due Goal Tdap. Due on due Goal Annual Physical Exam. Due on due Goal FIT-DNA (Colorectal CA Scree gladys). Due on due Goal Colonoscopy. Due on due Goal Medicare wellness visit. Due on due Goal Td vaccine. Due on due Goal FOBT. Due on due Goal Pneumococcal vaccine (Pneumo vax). Due on due Goal Annual Physical Exam. Due on due Goal Pneumococcal 13 (Prevnar). D ue on due Goal Tdap. Due on due Goal Pneumococcal vaccine (Pneumo vax). Due on due Goal FIT-DNA (Colorectal CA Scree gladys). Due on due Goal Pneumococcal 13 (Prevnar). D ue on due Goal Tdap. Due on due Goal FOBT. Due on due Goal Medicare wellness visit. Due on due Goal Annual Physical Exam. Due on due Goal Colonoscopy. Due on due Goal Td vaccine. Due on due Goal Pneumococcal 13 (Prevnar). D ue on due Goal Annual Physical Exam. Due on due Goal Medicare wellness visit. Due on due Goal Td vaccine. Due on due Goal FOBT. Due on due Goal Tdap. Due on due Goal FIT-DNA (Colorectal CA Scree gladys). Due on due Goal Colonoscopy. Due on due Goal Pneumococcal vaccine (Pneumo vax). Due on due Goal Influenza Vaccine. Due on due Goal Pneumococcal 13 (Prevnar). D ue on due Goal Td vaccine. Due on due Goal Pneumococcal vaccine (Pneumo vax). Due on due Goal Lipid panel. Due on due Goal DEXA Scan. Due on 9 due Goal Annual Physical Exam. Due on due Goal FOBT. Due on due Goal Tdap. Due on due Goal Zoster vaccine. Due on due Goal Medicare wellness visit. Due on due Goal Colonoscopy. Due on due Goal Influenza Vaccine. Due on due Goal DEXA Scan. Due on 9 due Goal FOBT. Due on due Goal Td vaccine. Due on 19 due Goal Pneumococcal 13 (Prevnar). D ue on due Goal Medicare wellness visit. Due on due Goal Colonoscopy. Due on due Goal Annual Physical Exam. Due on due Goal Zoster vaccine. Due on due Goal Tdap. Due on due Goal Lipid panel. Due on due Goal Pneumococcal vaccine (Pneumo vax). Due on due Goal Colonoscopy. Due on due Goal DEXA Scan. Due on 9 due Goal Pneumococcal 13 (Prevnar). D ue on due Goal Zoster vaccine. Due on due Goal Lipid panel. Due on due Goal Influenza Vaccine. Due on due Goal Pneumococcal vaccine (Pneumo vax). Due on due Goal Td vaccine. Due on 19 due Goal Medicare wellness visit. Due on due Goal FOBT. Due on due Goal Annual Physical Exam. Due on due Goal Tdap. Due on due Goal Influenza Vaccine. Due on due Goal Annual Physical Exam. Due on due Goal Colonoscopy. Due on due Goal Td vaccine. Due on 19 due Goal Zoster vaccine. Due on due Goal FOBT. Due on due Goal Pneumococcal 13 (Prevnar). D ue on due Goal Pneumococcal vaccine (Pneumo vax). Due on due Goal Tdap. Due on due Goal DEXA Scan. Due on 9 due Goal Lipid panel. Due on due Goal Medicare wellness visit. Due on due Goal Influenza Vaccine. Due on due Goal Medicare wellness visit. Due on due Goal Colonoscopy. Due on due Goal Lipid panel. Due on due Goal Pneumococcal vaccine (Pneumo vax). Due on due Goal Tdap. Due on due Goal Td vaccine. Due on 19 due Goal Pneumococcal 13 (Prevnar). D ue on due Goal DEXA Scan. Due on 9 due Goal FOBT. Due on due Goal Zoster vaccine. Due on due Goal Annual Physical Exam. Due on due Goal Influenza Vaccine. Due on due Goal Tdap. Due on due Goal Colonoscopy. Due on due Goal DEXA Scan. Due on 9 due Goal Pneumococcal vaccine (Pneumo vax). Due on due Goal FOBT. Due on due Goal Medicare wellness visit. Due on due Goal Annual Physical Exam. Due on due Goal Lipid panel. Due on due Goal Td vaccine. Due on due Goal Pneumococcal vaccine. Due on due Goal Pneumococcal 13 (Prevnar). D ue on due Goal Zoster vaccine. Due on due Goal Influenza Vaccine. Due on due Goal Lipid panel. Due on due Goal Pneumococcal 13 (Prevnar). D ue on due Goal Td vaccine. Due on due Goal Zoster vaccine. Due on due Goal Medicare wellness visit. Due on due Goal Colonoscopy. Due on due Goal FOBT. Due on due Goal Pneumococcal vaccine. Due on due Goal Tdap. Due on due Goal DEXA Scan. Due on 9 due Goal Annual Physical Exam. Due on due Goal Pneumococcal vaccine (Pneumo vax). Due on due Goal FOBT. Due on due Goal Td vaccine. Due on due Goal Zoster vaccine. Due on due Goal Pneumococcal 13 (Prevnar). D ue on due Goal Medicare wellness visit. Due on due Goal Annual Physical Exam. Due on due Goal Colonoscopy. Due on due Goal Tdap. Due on due Goal Pneumococcal vaccine (Pneumo vax). Due on due Goal DEXA Scan. Due on 9 due Goal Pneumococcal vaccine. Due on due Goal Lipid panel. Due on due Goal Td vaccine. Due on 19 due Goal DEXA Scan. Due on 9 due Goal Zoster vaccine. Due on due Goal Annual Physical Exam. Due on due Goal Lipid panel. Due on due Goal Tdap. Due on due Goal Medicare wellness visit. Due on due Goal FOBT. Due on due Goal Pneumococcal vaccine (Pneumo vax). Due on due Goal Colonoscopy. Due on due Goal Pneumococcal vaccine. Due on due Goal Pneumococcal 13 (Prevnar). D ue on due Goal Colonoscopy. Due on due Goal Zoster vaccine. Due on due Goal Pneumococcal vaccine (Pneumo vax). Due on due Goal DEXA Scan. Due on 9 due Goal Annual Physical Exam. Due on due Goal Lipid panel. Due on due Goal FOBT. Due on due Goal Tdap. Due on due Goal Pneumococcal vaccine. Due on due Goal Medicare wellness visit. Due on due Goal Td vaccine. Due on 19 due Goal Pneumococcal 13 (Prevnar). D ue on due Goal Medicare wellness visit. Due on due Goal DEXA Scan. Due on 9 due Goal Zoster vaccine. Due on due Goal FOBT. Due on due Goal Td vaccine. Due on 19 due Goal Lipid panel. Due on 019 due Goal Pneumococcal vaccine. Due on due Goal Pneumococcal vaccine (Pneumo vax). Due on due Goal Pneumococcal 13 (Prevnar). D ue on due Goal Colonoscopy. Due on due Goal Tdap. Due on due Goal Annual Physical Exam. Due on due Goal FOBT. Due on due Goal DEXA Scan. Due on 9 due Goal Lipid panel. Due on 019 due Goal Td vaccine. Due on 19 due Goal Pneumococcal vaccine. Due on due Goal Medicare wellness visit. Due on due Goal Pneumococcal vaccine (Pneumo vax). Due on due Goal Zoster vaccine. Due on due Goal Pneumococcal 13 (Prevnar). D ue on due Goal Tdap. Due on due Goal Annual Physical Exam. Due on due Goal Colonoscopy. Due on due Goal DEXA Scan. Due on due Goal Pneumococcal vaccine (Pneumo vax). Due on due Goal Tdap. Due on due Goal Pneumococcal vaccine. Due on due Goal Td vaccine. Due on due Goal Lipid panel. Due on due Goal Colonoscopy. Due on due Goal Annual Physical Exam. Due on due Goal Zoster vaccine. Due on due Goal Medicare wellness visit. Due on due Goal FOBT. Due on due Goal Pneumococcal 13 (Prevnar). D ue on due Goal Pneumococcal vaccine (Pneumo vax). Due on due Goal Colonoscopy. Due on due Goal Zoster vaccine. Due on due Goal Lipid panel. Due on due Goal Medicare wellness visit. Due on due Goal Annual Physical Exam. Due on due Goal Tdap. Due on due Goal Pneumococcal vaccine. Due on due Goal Td vaccine. Due on 19 due Goal FOBT. Due on due Goal Pneumococcal 13 (Prevnar). D ue on due Goal DEXA Scan. Due on 9 due Goal Pneumococcal vaccine (Pneumo vax). Due on due Goal FOBT. Due on due Goal DEXA Scan. Due on 9 due Goal Lipid panel. Due on due Goal Tdap. Due on due Goal Pneumococcal 13 (Prevnar). D ue on due Goal Pneumococcal vaccine. Due on due Goal Zoster vaccine. Due on due Goal Td vaccine. Due on due Goal Medicare wellness visit. Due on due Goal Colonoscopy. Due on due Goal Annual Physical Exam. Due on due Goal Medicare wellness visit. Due on due Goal Tdap. Due on due Goal Pneumococcal vaccine. Due on due Goal Zoster vaccine. Due on due Goal DEXA Scan. Due on due Goal Pneumococcal vaccine (Pneumo vax). Due on due Goal Pneumococcal 13 (Prevnar). D ue on due Goal Lipid panel. Due on due Goal Td vaccine. Due on due Goal Annual Physical Exam. Due on due Goal FOBT. Due on due Goal Colonoscopy. Due on due Goal Annual Physical Exam. Due on due Goal Colonoscopy. Due on due Goal FOBT. Due on due Goal Td vaccine. Due on due Goal Pneumococcal 13 (Prevnar). D ue on due Goal Medicare wellness visit. Due on due Goal Tdap. Due on due Goal Lipid panel. Due on due Goal Pneumococcal vaccine. Due on due Goal Pneumococcal vaccine (Pneumo vax). Due on due Goal Zoster vaccine. Due on due Goal DEXA Scan. Due on 9 due Goal Zoster vaccine. Due on due Goal Pneumococcal 13 (Prevnar). D ue on due Goal Colonoscopy. Due on due Goal Pneumococcal vaccine (Pneumo vax). Due on due Goal Lipid panel. Due on due Goal Tdap. Due on due Goal Medicare wellness visit. Due on due Goal FOBT. Due on due Goal Annual Physical Exam. Due on due Goal Pneumococcal vaccine. Due on due Goal Influenza Vaccine. Due on due Goal Td vaccine. Due on 19 due Goal DEXA Scan. 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 associated with type 2 diabetes mellitus, with fat layer exposed) ordered Referral Referred To: Physical Therapy Ordered: Referrals: Physical Therapy ordered History Of Present Illness Encounter Date Complaint History Of Prese nt Illness f/u L foot ulcer f/u L foot ulcer L foot ulcer f/u L foot ulcer L foot ulcer L foot ulcer L foot ulcer L foot ulcer f/u L foot ulcer f/u L foot ulcer L foot wound routine foot care routine foot care routine foot care routine foot care routine foot care Routine Foot Care routine foot care f/u on left foot wound Left Foot Wound left foot wounds left foot wounds Right Foot Wound Right Foot Wound Right Foot Wound Right Foot Wound right foot wound F/U on bilateral foot ulcers Right Foot Wound f/u b/l foot ulcers diabetic foot exam right foot wound f/u bilateral DFU right and left foot wound Right Foot Wound F/U on Diabetic Ulcer on right f oot F/U on Diabetic Ulcer on Right F oot Functional Status Date Functional Assessmen t No Information Instructions Date Instruction Additional Infor mation Pared callus down to skin edge. Related to Callus of foot Wound was closed. Ad vised patient to keep a dressing on wound to protect new tissue for at least 2 weeks. Follow up if needed. Related to Stage III pressure ulcer of left ankle Wound has improved b y 21 sq.cm. Cleaned wound with saline, sharp debridement of all slough down to granular wound bed, applied epiona collagen, adaptic and foam adhesive. Instructed to leave dressing dry and intact. Change dressing every 2-3 days. Follow up at next scheduled appointment. Related to Stage III pressure ulcer of left ankle Pared callus down to skin edge. Applied xeroform to left 5th toe scab and covered with bandaid. Related to Callus of foot Wound has improved b y 52%. Cleaned wound with saline, sharp debridement of 20% slough down to granular wound bed, applied epiona collagen, adaptic and foam adhesive. Instructed to leave dressing dry and intact. Change dressing every 2-3 days. Follow up at next scheduled appointment. Related to Stage III pressure ulcer of left ankle Pared callus down to skin edge. Applied xeroform to left 5th toe scab and covered with bandaid. Related to Callus of foot Pared callus down to dermal layer with scalpel. Small area of subdural hemorrhage remained at medial border. cleaned wound with saline, applied Xeroform and covered with adhesive foam.Advised patient to change dressing every 2 days. The patient's sister will call on Tuesday regarding the plantar foot wound. If the wound is the same we will not apply the substitute skin graft, if it has worsened we will order the graft to be applied on . Related to Callus of foot Minimal sharp debrid ement of adherent slough, 10% with forceps. Cleaned wound with saline, applied epiona collagen, adaptic and foam adhesive. Related to Stage III pressure ulcer of left ankle PT obtained a cultur e. I will order Doxycycline. Related to Stage III pressure ulcer of left ankle Wound has healed. Ne w epithelial tissue noted. Sharp debridement of hyperkeratotic tissue with scissors and forceps down to skin edge. Cleaned area w/saline, applied xeroform and covered with ABD pad and kerlix for additional protection. A TCC was applied by PT following the procedure. Related to Non-pressure chronic ulcer of other part of right foot with fat layer exposed Wound has improved. Sharp debridement of hyperkeratotic rim with scalpel and forceps down to skin edge. The right plantar ulcer was exposed. Cleaned with saline. A Dermagraft substitute graft was prepped and placed in the wound. The graft covered 100 percent of the open wound. 20 percent of the graft was used. The graft was covered with Xeroform, secured with steri strips, hydrofera blue, Applied mepilex transfer., ABD, 1 Kerlix was applied. The patient tolerated procedure well with no complications. A TCC was applied by PT following the procedure. Related to Non-pressure chronic ulcer of other part of right foot with fat layer exposed Wound has improved b y 72%. Sharp debridement of hyperkeratotic rim with scissors and forceps down to skin edge. The right plantar ulcer was exposed. Cleaned with saline. A Dermagraft substitute graft was prepped and placed in the wound. The graft covered 100 percent of the open wound. 40 percent of the graft was used. The graft was covered with Xeroform, secured with steri strips, hydrofera blue, Applied mepilex transfer., ABD, 1 Kerlix was applied. additional ABD pad applied right medial foot due to TCC rubbing area. The patient tolerated procedure well with no complications. A TCC was applied by PT following the procedure. Related to Non-pressure chronic ulcer of other part of right foot with fat layer exposed Excisional debrideme nt of hyperkeratotic rim with scalpel down to bleeding tissue. The right plantar ulcer was exposed. A Dermagraft dermal substitute graft was prepped and placed in the wound. The graft covered 100 percent of the open wound. 10 percent of the graft was used. The graft was covered with Xeroform, hydrofera blue, gauze, and secured with steri strips. Applied mepilex transfer., ABD, 1 Kerlix was applied. The patient tolerated procedure well with no complications. A TCC was applied by PT following the procedure. Related to Non-pressure chronic ulcer of other part of right foot with fat layer exposed Wound about the same size . Cleansed wound with normal saline, sharp debridement of hyperkeratotic tissue with forceps and scissors down to nongranular wound bed. Packed wound with epiona, covered with xeroform and convatec foam. Instructed to leave dressing dry and intact. Change dressing every 2-3 days. Follow up at next scheduled appointment. Related to Skin ulcer of left foot, limited to breakdown of skin Right 5th toe Wound has improved by 38%, plantar wound has improved by 35%. site prep for skin substitute: cleaned wounds with saline, debridement of 5th toe wound with curette down to 100% viable tissue, debridement of hyperkeratotic tissue of plantar surface wound down to skin edge, applied epiona and xeroform to 5th toe and epiona, plain aquacel to plantar surface, covered with ABD pad and kerlix. Emily with PT will be applying a total contact cast after this visit. F/u as scheduled. I will apply 1st Dermagraft skin substitute graft next week. Related to Non-pressure chronic ulcer of other part of right foot with fat layer exposed Left foot second toe nail partially detached from nail bed-cleaned with saline, applied Xeroform, and covered with mollelast. Instructed to change every 2-3 days or sooner if soiled. F/u on as scheduled. Related to Avulsion of toenail of left foot Wound size has impro katie but erythema noted dorsal aspect of foot- outlined with marker, cleaned with saline and hibiclens-cultured obtained. Applied slightly moistened aquacel Ag to wound bed and covered with an ABD pad, viki and spandage. Instructed to keep dressing dry and intact. Change every 3 days unless soiled. Follow up as scheduled. Augmentin prescribed but instructed I may need to change antibiotic pending culture results. Discussed TCC and skin substitute graft once no infection. Waiting on insurance approval for graft. Related to Non-pressure chronic ulcer of other part of right foot with fat layer exposed Cleansed wound with normal saline, sharp debridement of hyperkeratotic tissue with scalpel, forceps and scissors down to nongranular wound bed. Packed wound with epiona, covered with xeroform and convatec foam. Instructed to leave dressing dry and intact. Change dressing every 2-3 days. Follow up at next scheduled appointment. Related to Non-pressure chronic ulcer of other part of left foot limited to breakdown of skin Pared callus of left foot with scalpel down to skin edge. No wound was noted under callus. Related to Callus of foot Pared thick callus a round right foot wound with scalpel down to skin edge. Excisional debridement of hyper-keratotic rim with scalpel down to bleeding viable tissue. Cleaned wound with saline, applied epiona collagen, Adaptic,1/4 ABD, cleaned and Spandage. Advised patient to change dressing every 2 days. Discussed with patient that if wound does not improve with advanced local wound care we will consider a substitute skin graft. Related to Non-pressure chronic ulcer of other part of right foot with fat layer exposed Assessments Type Assessment Date No Information Patient Care Teams Name Effective Dates (start - stop) Status Members No Information
--- NOTE | ~2025-04-26 | XR_ITS ---
Examination: XR ribs LT 2V w CXR 2V Clinical History: fall Comparison: X-ray 05/30/2021 Technique: 2 views chest were 3 views left RIBS Findings: Heart size normal. Lungs clear. No acute bony abnormality. Left renal stone possible. IMPRESSION: 1. No acute cardiopulmonary findings given portable technique. 2. No left rib fracture identified. 3. Left renal stone possible. Reviewed, dictated and finalized at location R.
[2025-04-26 18:08] VITALS: BP 157/60; PULSE 54; RESP 18; TEMP 36.9; O2SAT 97
--- OUTSIDE RECORDS SUMMARY | 2025-04-26 18:10 | XMS_ITS | Clinical Summary ---
Author Organization [facility] Address [address] [place] [address] Phone Care Team Providers Care Push Button Switch Assembler Name Role Phone Allie Alan MD Primary Care Provider [phone] Allergies Active Allergy Reactions Criticality Noted Date [...] DAY 1 Active Lancets (OneTouch Delica Plus [id number]) misc DIRECTED EVERY DAY 1 Active metFORMIN [...] on file Legal Sex Male 11:30 AM [facility] Gender Identity Not on file Sexual [...] of 2 - PCV) 2002 Influenza Vaccine (#1) 2025 Insurance MEDICARE [employer] [id number] [employer] MEDICARE SUPPLEMENT Care Teams Push Button Switch Assembler Relationship Specialty Start Date End Date Allie Alan MD [address] [place] [address] PCP - General Internal Medicine 07/06/21
--- NOTE | 2025-04-26 19:44 | PC.NURSE ---
Pt refused hydrocodone. Returned to accudose.
--- NOTE | 2025-04-26 20:02 | ED_ITS ---
HPI - Fall General Chief Complaint: Fall Stated Complaint: FALL-LEFT SIDE PAIN Time Seen by Provider: 04/26/25 18:28 History of Present Illness HPI Narrative: Patient is a 74-year-old male who presents ER after a fall this morning at 5:00 a.m.. He was leaving his room and in the hallway when he tripped and fell falling on his left side. He did not strike his head or lose consciousness. No fevers or chills or sweats. Pain is progressed throughout the day and has discomfort with taking deep breath. No cough. No fevers or chills. Has had a broken rib in the past and wanted to be evaluated. Related Data Home Medications ?Medication ?Instructions ?Recorded ?Confirmed ?Last Taken ?Type aspirin 325 mg tablet 325 mg PO HS 08/02/1901/23/25 History dukdmgnuayht-ift-rpnyj acid-vit 1 tablet PO DAILY 03/2601/24/25 01/23/25 History K-lycop 400 mcg-20 mcg-370 mcg tablet (Men's 50 Plus Multivitamin) fiber 4 cap PO DAILY 05/16/21 07/10/1601/23/25 History vitamin B complex (B 1 tablet PO DAILY 02/14/23 0 01/24/25 01/23/25 History Complex-Vitamin B12 tablet) Lactobacillus acidophilus 10 100 mmu cells PO DAILY 01/24/25 01/23/25 History billion cell capsule (Probacap) Allergies Allergy/AdvReac Type Severity Reaction Status Date / Time lisinopril Allergy Severe Swelling Verified 04/26/25 18:10 of Lip/Tongue/Throat vancomycin Allergy Severe angioedema Verified 04/26/25 18:10 Review of Systems Review of Systems: All systems reviewed & are unremarkable except as noted in HPI and below Constitutional: Constitutional: Reports no additional constitutional complaints ENT: Reports system reviewed and no additional complaints, except as documented Cardiovascular: Cardiovascular: Reports no additional cardiovascular complaints Respiratory: Respiratory: Reports no additional respiratory complaints Musculoskeletal: Musculoskeletal: Reports no additional musculoskeletal complaints [facility], [facility] Past Medical History Medical History Diabetic ulcer of left foot Chronic kidney disease, stage 3 Stage 3a chronic kidney disease Type 2 diabetes mellitus Essential (primary) hypertension Depression Colon cancer screening Hyperlipidemia associated with type 2 diabetes mellitus Insomnia 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 Wing Status post open reduction with internal fixation of fracture Left ankle ORIF [address] Tyler Family History Family History Father Myocardial infarct Family history of coronary artery disease, Onset Age: 66 Lung cancer Mother Leukemia Family history of coronary artery disease, Onset Age: 70 Diabetes mellitus Sibling Multiple sclerosis Sister Diabetes mellitus Social History Social History Social History: Surrogate medical decision maker: Krishna Bergeron, daughter. Code status: Full code. Smoking packs per day: 1 Smoking cigarettes per day: 20.0 Years smoked: 20 Smoking pack-years: 20.00 Smoking status: Former smoker Tobacco type: cigarettes Second hand tobacco smoke exposure: No Alcohol intake: never Substance use: former Substance use type: marijuana Other substance usage details: daily Last use: 05/29/21 Do You Feel Safe in your Home?: Yes Lack of Transportation: No Lack of Food: Never True Current Housing: I Have Housing Concerned About Future Housing: No Difficulty Paying Gas/Electric Bills: No Difficulty Paying for Meds: No Currently Unemployed: No Education: High School Diploma/GED Difficulty w/ Childcare or Family Care: No Living arrangements: alone Additional living arrangements comments: . Lives in [place]. Has 1 daughter. 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 Spiritual care concerns: No Exam Narrative: GENERAL: Well-appearing, well-nourished, and in no acute distress. HEAD: Normocephalic, atraumatic. ENT: Mucous membranes moist. CHEST: Clear to auscultation. No respiratory distress. Mildly tender inferior to left pectoralis on the anterior lateral chest wall without bruising or crepitus. HEART: Regular rate and rhythm. Normal peripheral pulses. ABDOMEN: Soft, nontender, nondistended. EXTREMITIES: Normal range of motion. No edema. SKIN: Warm, dry, no rash. NEURO: Alert and oriented x3. PSYCH: Normal mood and affect. Course Course Emergency Course: Patient resting comfortably. Informed of results. Recommend scheduled anti- inflammatories as well as Tylenol for pain. Discussed return precautions. Vital Signs Vital signs: Vital Signs Temperature 98.4 F 04/26/25 18:08 Pulse Rate 54 L 04/26/25 18:08 Respiratory Rate 18 04/26/25 18:08 Blood Pressure 157/60 H 04/26/25 18:08 Pulse Oximetry 97 04/26/25 18:08 Oxygen Delivery Room Air 04/26/25 18:08 Temperature 98.4 F 04/26/25 18:08 Pulse Rate 54 L 04/26/25 18:08 Respiratory Rate 18 04/26/25 18:08 Blood Pressure 157/60 H 04/26/25 18:08 Pulse Oximetry 97 04/26/25 18:08 Oxygen Delivery Room Air 04/26/25 18:08 MDM - Fall Imaging Data Radiologist's impression: ITS Impressions Ribs w/Chest X-Ray 04/26/25 19:33 IMPRESSION: 1. No acute cardiopulmonary findings given portable technique. 2. No left rib fracture identified. 3. Left renal stone possible. Discharge Plan Discharge Clinical Impression: Chest wall pain Patient Disposition: Home Condition: Stable Instructions: Chest Wall Pain (ED) Additional Instructions: Please return to the emergency department if you develop severe and persistent chest pain, difficulty breathing, dizziness, leg swelling or if you are coughing up blood as these can be signs of a medical emergency. Please call your doctor for a follow up appointment to determine the need for further testing. Patient Language: Citizen Of [place] Prescriptions: No Action aspirin 325 mg tablet 325 mg PO HS Men's 50 Plus Multivitamin 400-20-370 mcg tablet 1 tablet PO DAILY (DME) blood-glucose meter [Blood Glucose Monitoring] Kit See Rx Instructions .Route Qty: 1 1RF Rx Instructions: As directed daily (DME) lancets Misc See Rx Instructions .Route Qty: 200 8RF Rx Instructions: As directed daily (DME) lancets [Accu-Chek Fastclix Lancet Drum] Misc See Rx Instructions .Route Qty: 100 5RF Rx Instructions: As directed daily to check glucose fiber Capsule 4 cap PO DAILY vitamin B complex [B Complex-Vitamin B12] Tablet 1 tablet PO DAILY Probacap 10 billion cell capsule 100 mmu cells PO DAILY (DME) Blood Glucose Test Strip See Rx Instructions .Route Qty: 100 12RF Rx Instructions: As directed daily albuterol sulfate [Ventolin HFA] 90 mcg/actuation HFA aerosol inhaler 1 puff inhalation Q4H PRN (Reason: shortness of breath or wheezing) Qty: 8.5 1RF atorvastatin 10 mg tablet 10 mg PO DAILY Qty: 90 1RF citalopram 20 mg tablet 20 mg PO DAILY Qty: 90 2RF (DME) blood-glucose meter [Accu-Chek Guide Glucose Meter] [facility] [place] [facility] See Rx Instructions .Route Qty: 1 0RF Rx Instructions: As directed daily (DME) Accu-Chek Guide test strips Strip See Rx Instructions .Route Qty: 300 12RF Rx Instructions: As directed QID metoprolol succinate 100 mg tablet extended release 24 hr 100 mg PO DAILY Qty: 90 3RF metformin 1,000 mg tablet 1,000 mg PO BID Qty: 180 3RF (DME) lancets 33 gauge misc See Rx Instructions .Route Qty: 100 6RF Rx Instructions: Check blood sugar daily amlodipine 5 mg tablet See Rx Instructions .ROUTE .COMPLEX Qty: 90 3RF Dose Instruction: TAKE 1 TABLET BY MOUTH EVERY DAY Rx Instructions: TAKE 1 TABLET BY MOUTH EVERY DAY pantoprazole 40 mg tablet,delayed release (DR/EC) 40 mg PO QAM Qty: 30 3RF zolpidem 10 mg tablet 10 mg PO HS PRN (Reason: insomnia) Qty: 90 1RF Follow-up/Referrals: Allie Alan MD [Primary Care Provider, Family Practice] - 1 Week
== END 2025-04-26 20:15 | disposition home or self-care (01) ==
PROVIDERS: Emergency Provider Emergency Medicine; PCP Family Medicine
DX: R07.89 Other chest pain (principal); E11.22 Type 2 diabetes mellitus with diabetic chronic kidney disease; I12.9 Hypertensive chronic kidney disease with stage 1 through stage 4 chronic kidney disease, or unspecified chronic kidney disease; N18.31 Chronic kidney disease, stage 3a; E11.69 Type 2 diabetes mellitus with other specified complication; E78.5 Hyperlipidemia, unspecified; E11.42 Type 2 diabetes mellitus with diabetic polyneuropathy; I48.0 Paroxysmal atrial fibrillation; L40.9 Psoriasis, unspecified; Z87.442 Personal history of urinary calculi; Z87.891 Personal history of nicotine dependence; Z79.82 Long term (current) use of aspirin; Z79.899 Other long term (current) drug therapy; Z79.84 Long term (current) use of oral hypoglycemic drugs; W01.0XXA Fall on same level from slipping, tripping and stumbling without subsequent striking against object, initial encounter
CPT/HCPCS: 71046; 71100; 99283